=== PATIENT | female | born 1960 | race Caucasian/White ===

== ENCOUNTER → 2020-01-09 13:40 | Outpatient (BNVA) | payer MEDICARE, MEDICAID, SELFPAY | PROVIDERS: PCP Internal Medicine; Referring Provider Internal Medicine; Visit Provider Physician Assistant Medical | DX: Z76.89 Persons encountering health services in other specified circumstances (principal) ==

== ENCOUNTER 2020-01-21 07:57 | Outpatient (REF) | payer MEDICARE, SELFPAY ==
[2020-01-21 09:02] LABS: Cholesterol 289 mg/dL; HDL Cholesterol 48 mg/dL; LDL Cholesterol Calculated 207 mg/dl; Triglycerides 171 mg/dL
[2020-01-21 09:26] LABS: Thyroid Stimulating Hormone 7.47 mIU/mL (0.32-4.0)
[2020-01-21 09:37] LABS: T4 Thyroxine 4.3 ug/dL (4.5-12.0)
== END 2020-01-21 07:58 | disposition home or self-care (01) ==
LOC: HO.LAB 07:57
PROVIDERS: PCP Internal Medicine; Visit Provider Internal Medicine
DX: E03.9 Hypothyroidism, unspecified (principal)
CPT/HCPCS: 80061; 84436; 84443

== ENCOUNTER 2020-02-02 10:44 | Outpatient (REF) | payer OTHER, SELFPAY ==
--- NOTE | 2020-02-02 10:47 | CT_ITS ---
EXAMINATION: CT CHEST SCREENING CLINICAL INFORMATION: Lung cancer screening COMPARISON: Previous chest x-ray April 2017 and chest CTA 2009 TECHNIQUE: Multidetector volumetric CT imaging of the chest is performed without contrast using low dose technique. Additional 2D coronal and sagittal reformatted images and axial 3D maximum intensity projection (MIP) images are generated on the CT workstation. This CT examination was performed using dose optimization techniques as appropriate, variously including the following: *Automated exposure control *Adjustment of mA and/or kV according to patient size (this includes techniques or standardized protocols for targeted exams where dose is matched to indication/reason for exam; i.e. extremities or head) *Use of iterative reconstruction technique DLP: 51 mGy-cm FINDINGS: LUNGS: There is evidence of mild paraseptal emphysema. MEDIASTINUM: The mediastinum is normal. PLEURA: There is no pleural effusion. There is slight pleural thickening along the major fissure axial image 239 series 5. This is similar to previous exam AXILLA: No lymphadenopathy. UPPER ABDOMEN: There may be cortical thinning or scarring in the upper pole of the right kidney. OSSEOUS STRUCTURES: There are degenerative changes of the spine. CT/CT lung screening IMPRESSION: Mild paraseptal emphysema. No pulmonary nodules. Mild pleural thickening of the major fissure similar to previous exam. ASSESSMENT: Lung-RADS category 2: Benign RECOMMENDATION: Annual low-dose chest CT follow-up recommended.
== END 2020-02-02 10:45 | disposition home or self-care (01) ==
LOC: HO.CT 10:44
PROVIDERS: Visit Provider Physician Assistant Medical
DX: Z12.2 Encounter for screening for malignant neoplasm of respiratory organs (principal); F17.210 Nicotine dependence, cigarettes, uncomplicated
CPT/HCPCS: 71250

== ENCOUNTER 2020-02-17 08:46 | Outpatient (REF) | payer MEDICARE, SELFPAY ==
--- NOTE | 2020-02-17 07:35 | FL_ITS ---
EXAMINATION: XR FLUOROSCOPY WITH IMAGES CLINICAL INFORMATION: Pain, osteoarthritis. COMPARISON: Radiograph pelvis 12/22/2019 TECHNIQUE: Fluoroscopy performed by Ally Espinosa NP. Fluoroscopy time: 0.2 minutes Total dose: 6.6 mGy Images: 1 FINDINGS: There is a spinal needle with tip overlying the superolateral aspect left hip. Intracapsular contrast is demonstrated. FL/FL guidance in treatment room IMPRESSION: Fluoroscopy for hip injection.
[2020-02-17 12:00] LABS: Free T4 (Free Thyroxine) 0.75 ng/dL (0.71-1.85); Thyroid Stimulating Hormone 3.94 uIU/mL (0.32-4.0); Vitamin D 25-OH Total 13.4 ng/mL (>30)
[2020-02-17 12:07] LABS: Cholesterol 313 mg/dL; HDL Cholesterol 48 mg/dL; LDL Cholesterol Calculated 234 mg/dl; Triglycerides 156 mg/dL
[2020-02-18 17:52] LABS: LDL Cholesterol Direct 247 mg/dL (<100)
[2020-02-18 19:27] LABS: Triiodothyronine T3 Total 64 ng/dL (76-181)
[2020-02-18 21:48] LABS: Thyroglobulin Antibodies <1 IU/mL (< or = 1); Thyroid Peroxidase Antibodies <1 IU/mL (<9)
[2020-02-23 15:11] LABS: Thyroid Stimulating Immunoglob <89 % baseline (<140)
[2020-02-24 15:37] LABS: Thyrotropin Receptor Antibody <1.00 IU/L (<=2.00)
== END 2020-02-17 08:47 | disposition home or self-care (01) ==
LOC: HO.RADIR 08:46
PROVIDERS: PCP Internal Medicine; Referring Provider Internal Medicine; Visit Provider Anesthesiology
DX: M16.12 Unilateral primary osteoarthritis, left hip (principal); E78.00 Pure hypercholesterolemia, unspecified; E03.9 Hypothyroidism, unspecified; E55.9 Vitamin D deficiency, unspecified
CPT/HCPCS: 20610; 36415; 80061; 82172; 82306; 83520; 83721; 84439; 84443; 84445; 84480; 86376; 86800; J3300; Q9967

== ENCOUNTER 2020-03-17 09:59 | Outpatient (REF) | payer MEDICARE, SELFPAY ==
--- NOTE | 2020-03-17 13:01 | MHC.AU.P13 ---
Adult Audiological Evaluation Date of Visit: 03/17/20 Reason for Appointment: Patient has been experiencing hearing difficulty, especially in background noise or when people are talking softly. She finds that she reads people's lips to help follow along in conversation. She reports a history of cerumen occlusion. Her PCP recently removed cerumen; however, she suspects her right ear may be blocked again. Does patient feel they have a hearing loss?: Yes If Yes, Which Ear?: Both Ears When Was Hearing Difficulty First Noticed?: Over 1 year ago Has hearing been tested previously?: No Ear History: Ear Deformity: None Reported Recent Ear Drainage: None Reported Recent Ear Pain: None Reported Family History of Hearing Loss?: Yes: Grandmother at age 16 Recent Ear Infections: None Reported Ear Infections in Childhood: None Reported History of Ear Wax Buildup: Both Ears Previous Ear Surgery: None Reported Bothersome Tinnitus/Ringing/Noises in Ears: None Reported Ear used on the phone: None Reported Blocked/Full Sensation in Ear(s): Right Ear Medical History: Medical History: Thyroid Disease, Tobacco Use Otoscopy: Right Ear: Partially occluded with cerumen Left Ear: Unremarkable Tympanometry: Right Ear: Reduced Middle Ear Compliance (Type As) Left Ear: Reduced Middle Ear Compliance (Type As) Hearing Evaluation: Transducer(s) Used: Circumaural Headphones Method: Conventional Audiometry Stimuli Used: Pure Tones Right Ear: Description of Hearing: Normal sloping to mild sensorineural hearing loss Left Ear: Description of Hearing: Normal sloping to mild sensorineural hearing loss Speech Recognition Threshold (SRT): Method Used: Recorded Lists Stimuli Used: Spondee Words Right Ear: 20 dBHL Left Ear: 20 dBHL Word Discrimination: Method: Recorded Lists Word Lists Used: NU-6 Right Ear: 100% at 60 dBHL Left Ear: 100% at 60 dBHL Most Comfortable Level (MCL): Right Ear: 60 dBHL Left Ear: 60 dBHL QuickSIN: 3 dB SNR loss, which suggests average difficulty hearing in noise Recommendations: Audiological re-evaluation in 1-2 years, or sooner if changes are noted. Amplification is not warranted at this time. Patient reports using Debrox to help with cerumen. Suggested EarWaxMD, if Debrox does not seem to be meeting her needs. Diagnosis: Primary Diagnosis: H90.3 Bilateral Sensorineural Hearing Loss Services Performed: Services Performed: Comprehensive Audiological Evaluation (CPT 52771) Limited Otoacoustic Emissions (CPT 90017) Tympanometry (CPT 75309) Signature: Provider: Edgardo Mendez, CCC-A
== END 2020-03-17 10:00 | disposition home or self-care (01) ==
LOC: HO.SH 09:59
PROVIDERS: Visit Provider Internal Medicine
DX: H90.3 Sensorineural hearing loss, bilateral (principal)
CPT/HCPCS: 92557; 92567

== ENCOUNTER → 2020-03-29 07:56 | Outpatient (BNVA) | payer MEDICARE, MEDICAID, SELFPAY | PROVIDERS: PCP Internal Medicine; Visit Provider Internal Medicine | DX: Z13.89 Encounter for screening for other disorder (principal) | CPT/HCPCS: Q3014 ==

== ENCOUNTER → 2020-03-31 09:25 | Outpatient (BNVA) | payer OTHER, SELFPAY | PROVIDERS: PCP Internal Medicine; Visit Provider Anesthesiology | DX: M76.30 Iliotibial band syndrome, unspecified leg (principal); M16.11 Unilateral primary osteoarthritis, right hip | CPT/HCPCS: 99202 ==

== ENCOUNTER 2020-04-13 07:52 | Outpatient (REF) | payer OTHER, SELFPAY ==
[2020-04-13 09:33] LABS: Thyroid Stimulating Hormone 3.58 uIU/mL (0.32-4.0)
== END 2020-04-13 07:53 | disposition home or self-care (01) ==
LOC: HO.LAB 07:52
PROVIDERS: PCP Internal Medicine; Visit Provider Internal Medicine
DX: E03.9 Hypothyroidism, unspecified (principal)
CPT/HCPCS: 36415; 84439; 84443

== ENCOUNTER → 2020-05-20 09:12 | Outpatient (REF) | payer OTHER, SELFPAY ==
--- NOTE | 2020-05-20 09:15 | CA_ITS ---
Acquisition Time: 2020-05-20 09:27:04 Total Exercise Time: 00:04:26 Test Indications: CP Medications: SEE CHART Protocol: BIRDIE Max HR: 136 BPM 84% of Pred: 161 BPM Max BP: 184/070 mmHG Max Work Load: 6.3 METS Exercise stress test using Birdie protocol, total of 4 min 26 sec. C/o chest pressure before the exercise 2/10 that has not changed during exercise. EKG with isolated PVC's. Pt c/o dizziness, SOB and test was terminated at 4 min 26 sec. METS 6.30 and TAPHR up to 84%. EKG with isolated PVC's. No ischemic chages seen during exercise or in recovery. However suboptimal test as pt was unable to finish her test d/t dyspnia and dizziness. Hypertensive response to exercise. Test reviewed with Dr Pleitez. Recommendation to do pharmacological stress test, family hx of CAD, hx of smoking, CP Referred By: Marylin Kaba Overread By:
== END ==
LOC: HO.CARD 09:12
PROVIDERS: PCP Internal Medicine; Visit Provider Internal Medicine
DX: R07.9 Chest pain, unspecified (principal)
CPT/HCPCS: 93016; 93017; 93018

== ENCOUNTER 2020-05-25 08:41 | Outpatient (REF) | payer OTHER, SELFPAY ==
[2020-05-26 06:37] LABS: Lyme Abs Screen <0.90 index
== END 2020-05-25 08:42 | disposition home or self-care (01) ==
LOC: HO.LAB 08:41
PROVIDERS: PCP Internal Medicine; Visit Provider Internal Medicine
DX: M79.10 Myalgia, unspecified site (principal)
CPT/HCPCS: 36415; 86618

== ENCOUNTER → 2020-05-31 08:00 | Outpatient (BNVA) | payer OTHER, SELFPAY | PROVIDERS: PCP Internal Medicine; Visit Provider Internal Medicine | DX: E03.9 Hypothyroidism, unspecified (principal); E78.5 Hyperlipidemia, unspecified; E55.9 Vitamin D deficiency, unspecified | CPT/HCPCS: 99212 ==

== ENCOUNTER 2020-06-02 07:04 | Outpatient (REF) | payer OTHER, SELFPAY ==
[2020-06-02 08:26] LABS: Thyroid Stimulating Hormone 4.93 uIU/mL (0.32-4.0); Vitamin D 25-OH Total 54.2 ng/mL (>30)
[2020-06-03 08:02] LABS: Triiodothyronine T3 Total 69 ng/dL (76-181)
== END 2020-06-02 07:05 | disposition home or self-care (01) ==
LOC: HO.LAB 07:04
PROVIDERS: PCP Internal Medicine; Visit Provider Internal Medicine
DX: E03.9 Hypothyroidism, unspecified (principal); E55.9 Vitamin D deficiency, unspecified
CPT/HCPCS: 36415; 82306; 84439; 84443; 84480

== ENCOUNTER → 2020-07-09 08:01 | Outpatient (REF) | payer OTHER, SELFPAY ==
--- NOTE | ~2020-07-09 | NM_ITS ---
Lexiscan Myocardial perfusion study Indication: Chest pain, assess for coronary disease and ischemia Technique: The patient was brought in for a Lexiscan perfusion study on 07/09/2020 and was injected 0.4 mg of Lexiscan intravenously. Within a minute of this injection 25 mCi of sestamibi was given intravenously. Images were obtained using the SPECT gamma camera interlaced with the gating device. Images were obtained in supine position. Resting perfusion study was performed on 07/13/2020. Patient was administered 25 mCi of sestamibi intravenously at rest. Images were then obtained in supine position. Total DLP 63mGy-cm. Images were processed with the software and compared side to side in short axis, horizontal long axis and vertical long axis views. Findings: Raw acquisition was reviewed. The stress perfusion study showed no significant perfusion abnormality. Both uncorrected as well as CT attenuation corrected images were reviewed. The gated study shows normal LV systolic function with calculated LVEF of 72%. LV cavity is normal in size. The gated study shows normal wall thickening and contraction of segments. Resting study shows no significant perfusion abnormality. Gating at rest reveals normal wall motion with ejection fraction at 67%. The findings are consistent with no reversible or fixed perfusion abnormality. NM/NM hillary perf SPECT rest & str Impression: 1. Myocardial perfusion imaging study shows normal myocardial perfusion. No evidence of any ischemia or infarction. 2. Gated LVEF is 72% during stress and 67% during rest. 3. Transient ischemic dilatation not present. EKG component of the test reported separately.
--- NOTE | 2020-07-09 08:03 | CA_ITS ---
Acquisition Time: 2020-07-09 08:17:38 Total Exercise Time: 00:02:00 Test Indications: Chest Pain Medications: ALBUTEROL SOMA REPATHA BREO ELLIPTA LEVOTHYROXINE PERCOCET Protocol: LEXISCAN Max HR: 108 BPM 67% of Pred: 161 BPM Max BP: 120/078 mmHG Max Work Load: 1.0 METS Pharmacological stress test using Lexiscan while sitting and kicking her feet. Pt reports feeling dizzy, sx reversed with Aminophyline 75 mg IV. Denies any anginal sx. EKG without arrhythmias, non-diagnostic for ischemia. Nuclear images to follow. Normotensive response to test. Test reviewed with Dr. Storm. Referred By: Marylin Kaba Overread By: Katie Albright NP
== END ==
LOC: HO.CARD 08:01
PROVIDERS: Visit Provider Internal Medicine
DX: R07.9 Chest pain, unspecified (principal)
CPT/HCPCS: 78452; 93017; A9500; J0280; J2785

== ENCOUNTER 2020-07-30 06:34 | Outpatient (REF) | payer OTHER, SELFPAY ==
[2020-07-30 07:30] LABS: Alanine Aminotransferase 14 U/L (0-31); Albumin Level 4.2 g/dL (3.5-5.0); Alkaline Phosphatase 64 U/L (39-117); Anion Gap 12 (12-20); Aspartate Amino Transferase 28 U/L (5-31); Bilirubin Total 0.5 mg/dL (0.0-1.0); Blood Urea Nitrogen 17 mg/dL (9-16); Carbon Dioxide 20 mmol/L (22-29); Chloride 114 mmol/L (96-108); Cholesterol 148 mg/dL; Estimated Glomerular Filt Rate 55; Glucose Random 107 mg/dL (60-115); HDL Cholesterol 60 mg/dL; LDL Cholesterol Calculated 68 mg/dl; Potassium 4.2 mmol/L (3.3-5.1); Sodium 142 mmol/L (135-145); Total Protein 6.6 g/dL (6.5-8.0); Triglycerides 100 mg/dL
[2020-07-30 07:53] LABS: Free T4 (Free Thyroxine) 0.89 ng/dL (0.71-1.85); Thyroid Stimulating Hormone 2.82 uIU/mL (0.32-4.0)
[2020-07-31 06:48] LABS: LDL Cholesterol Direct 62 mg/dL (<100)
[2020-07-31 07:56] LABS: Triiodothyronine T3 Total 64 ng/dL (76-181)
== END 2020-07-30 06:35 | disposition home or self-care (01) ==
LOC: HO.LAB 06:34
PROVIDERS: PCP Internal Medicine; Visit Provider Internal Medicine
DX: E03.9 Hypothyroidism, unspecified (principal); E78.5 Hyperlipidemia, unspecified
CPT/HCPCS: 36415; 80053; 80061; 83721; 84439; 84443; 84480

== ENCOUNTER → 2020-08-02 07:51 | Outpatient (BNVA) | payer OTHER, SELFPAY | PROVIDERS: PCP Internal Medicine; Visit Provider Internal Medicine | CPT/HCPCS: Q3014 ==

== ENCOUNTER 2020-08-02 09:25 | Emergency (ER) | payer OTHER, SELFPAY ==
[2020-08-02 09:59] VITALS: BP 133/98; PULSE 68; RESP 16; TEMP 36.6; O2SAT 97; BMI 28.3
[2020-08-02 10:20] LABS: MANUAL DIFF FLAG NO
[2020-08-02 10:26] LABS: Prothrombin Time 11.3 SEC (10.8-13.0)
[2020-08-02 10:28] LABS: Basophils Percent Auto 0.5 % (0-2); Eosinophils Absolute Auto 0.1 X10*3/uL (0.0-0.4); Eosinophils Percent Auto 1.3 % (0-4); Hematocrit 41.6 % (37-47); Imm Gran Abs Auto 0.04 X10*3/uL (0.00-0.03); Imm Gran Pct Auto 0.5 % (0.0-0.4); Lymphocytes Absolute Auto 2.2 X10*3/uL (1.2-4.9); Lymphocytes Percent Auto 25.8 % (20-40); Mean Corpuscular HGB Conc 33.7 g/dl (31.0-35.0); Mean Corpuscular Hemoglobin 31.1 pg (27.0-33.0); Mean Corpuscular Volume 92.4 fL (80-98); Mean Platelet Volume 9.3 fL (9.4-12.3); Monocytes Absolute Auto 0.5 X10*3/uL (0.1-1.2); Neutrophils Absolute Auto 5.6 X10*3/uL (2.0-8.3); Neutrophils Percent Auto 65.9 % (45-73); Platelet Count 300 X10*3/uL (160-400); Red Cell Distribution Width 13.7 % (11.0-16.0); White Blood Count 8.5 X10*3/uL (4.8-10.8)
[2020-08-02 10:48] LABS: Anion Gap 15 (12-20); Blood Urea Nitrogen 16 mg/dL (9-16); Calcium 9.6 mg/dL (8.4-10.2); Carbon Dioxide 22 mmol/L (22-29); Chloride 108 mmol/L (96-108); Estimated Glomerular Filt Rate 49; Glucose Random 96 mg/dL (60-115); Potassium 4.5 mmol/L (3.3-5.1); Sodium 140 mmol/L (135-145)
--- NOTE | 2020-08-02 11:00 | ED.ABDPAIN ---
HPI - Abdominal Pain General Chief Complaint: Abdominal Pain Stated Complaint: rectal bleed Time Seen by Provider: 08/02/20 11:00 Source: patient Mode of arrival: ambulatory Limitations: no limitations History of Present Illness HPI narrative: 59 yo female with hx of Crohn's and UC comes in with brb on toilet paper only - some cramping doesn't feel it is her colitis, no AC therapy no NSAIDs blames new medication (evolocumab) MD elicited complaint: abdominal pain and other (brb on toilet paper) Pertinent past history: other (colitis but last colonoscopy normal 1.5 year ago after doing naturopathic medications) Onset (ago): day(s) (1) Pain Consistency: intermittent Location: none Severity: mild Quality: fullness Radiation: none Migration to: no migration Exacerbating factors: bowel movement Relieving factors: nothing Context: history of similar episodes Associated symptoms: hematochezia Related Data Home Medications Medication Instructions Recorded Confirmed albuterol sulfate 2.5 mg INHALATION Q4-6H PRN 02/06/20 08/02/20 fluticasone propionate 50 2 spray INTRANASAL DAILY 02/06/20 08/02/20 mcg/actuation nasal spray,suspension Previous Rx's Medication Instructions Recorded cholecalciferol (vitamin D3) 50 50 mcg PO DAILY 30 Days #30 cap 03/29/20 mcg (2,000 unit) capsule evolocumab 140 mg/mL subcutaneous 140 mg SUBCUT Q2W 30 Days #2 ml 05/24/20 pen injector Tirosint 50 mcg capsule 50 mcg PO DAILY 30 Days #30 cap NS 06/02/20 fluticasone furoate 200 1 ea PO DAILY #60 ea 07/07/20 mcg-vilanterol 25 mcg/dose inhalation powder albuterol sulfate 90 mcg/actuation 2 puff PO Q4H PRN #18 g 07/08/20 aerosol inhaler carisoprodol 350 mg tablet 350 mg PO BID PRN 30 Days #50 tab 07/08/20 Allergies Allergy/AdvReac Type Severity Reaction Status Date / Time atorvastatin Allergy Unknown Cramps Verified 08/02/20 08:41 barium sulfate Allergy Unknown sore throat Verified 08/02/20 08:41 omeprazole Allergy Unknown diarrhea Verified 08/02/20 08:41 rosuvastatin Allergy Unknown Unknown Verified 08/02/20 08:41 simvastatin Allergy Unknown unknown Verified 08/02/20 08:41 varenicline [From Chantix] Allergy Unknown sore throat Verified 08/02/20 08:41 Review of Systems Review of Systems Constitutional : No Weight loss, No Fever, No Chills ENT/Mouth : No sore throat, No Rhinorrhea Eyes: No Swelling, No Redness Cardiovascular : No Chest Pain, No SOB, NoEdema Respiratory : No Cough, No Sputum, No Wheezing Gastrointestinal : no Nausea, no Vomiting, no Diarrhea, positive abdominal Pain, pos Hematochezia, No Melena Genitourinary : No Dysuria, No Urinary Frequency, No Hematuria, No Urgency Musculoskeletal : No joint pain, No Myalgias, No Joint Swelling Skin : No Skin Lesions, No rash Neuro : No Weakness, No Numbness, No Dizziness, No Headache Psych : No Anxiety/Panic, No Depression Heme/Lymph: No Bruising, No Lymphadenopathy Endocrine : No Polyuria, No Polydipsia All other systems reviewed and are negative. Physical Exam Vital Signs: Vital Signs: Last Vital Signs Temp 98 F 08/02/20 09:59 Pulse 68 08/02/20 09:59 Resp 16 08/02/20 09:59 BP 133/98 H 08/02/20 09:59 Pulse Ox 97 08/02/20 09:59 Body Mass Index 28.3 Appearance: Alert. Oriented X3. No acute distress. Eyes: Pupils equal, round and reactive to light. ENT: Pharynx normal. Neck: Normal inspection. Neck supple. CVS: Normal heart rate and rhythm. Pulses normal. Respiratory: No respiratory distress. Breath sounds normal. Abdomen: Soft and nontender. Rectal: nonthrombosed non bleeding ext hemorrhoids, dried brb on rectum Skin: Skin warm and dry. Normal skin color. Normal skin turgor. Extremities: No lower extremity edema. No calf ttp Neuro: Oriented X 3. No motor deficit. No sensory deficit. MDM - Abdominal Pain MDM Narrative Medical decision making narrative: 59 yo female here with brbpr since yesterday some cramping pain but denies that if feels like her prior colitis, she has dried blood on rectum, stable VS, discussed need for CT scan for GIB as well as colitis - at this time patient wants to leave and follow up with her GI doctor and PCP, told her to come back at any time she is aware Lab Data Result diagrams: 08/02/20 10:15 08/02/20 10:15 Labs: Lab Results 08/02/20 08/02/20 08/02/20 Range/Units 10:15 10:15 10:15 WBC 8.5 (4.8-10.8) X10*3/uL RBC 4.50 (4.20-5.50) X10*6/uL Hgb 14.0 (12.0-16.0) g/dl Hct 41.6 (37-47) % MCV 92.4 (80-98) fL MCH 31.1 (27.0-33.0) pg MCHC 33.7 (31.0-35.0) g/dl RDW 13.7 (11.0-16.0) % Plt Count 300 (160-400) X10*3/uL MPV 9.3 L (9.4-12.3) fL Immature Gran % (Auto) 0.5 H (0.0-0.4) % Neut % (Auto) 65.9 (45-73) % Lymph % (Auto) 25.8 (20-40) % Liberty % (Auto) 6.0 (2-11) % Eos % (Auto) 1.3 (0-4) % Baso % (Auto) 0.5 (0-2) % Lymph # (Auto) 2.2 (1.2-4.9) X10*3/uL Liberty # (Auto) 0.5 (0.1-1.2) X10*3/uL Eos # (Auto) 0.1 (0.0-0.4) X10*3/uL Baso # (Auto) 0.0 (0.0-0.2) X10*3/uL Abs Immat Gran (auto) 0.04 H (0.00-0.03) X10*3/uL Absolute Neuts (auto) 5.6 (2.0-8.3) X10*3/uL Absolute Nucleated RBC 0.000 (0.0-0.012) X10*3/uL Nucleated RBC % (auto) 0.0 (0.0-0.2) /100WBC PT 11.3 (10.8-13.0) SEC INR 1.0 (0.9-1.1) Sodium 140 (135-145) mmol/L Potassium 4.5 (3.3-5.1) mmol/L Chloride 108 (96-108) mmol/L Carbon Dioxide 22 (22-29) mmol/L Anion Gap 15 (12-20) BUN 16 (9-16) mg/dL Creatinine 1.13 (0.5-1.4) mg/dL Estim Creat Clear Calc 55.0 Estimated GFR 49 Random Glucose 96 (60-115) mg/dL Calcium 9.6 D (8.4-10.2) mg/dL Discharge Plan Discharge Clinical Impression: Bright red rectal bleeding Patient Disposition: Home, Self-Care Instructions: Rectal Bleeding (ED) Additional Instructions: return to ED for any worsening symptoms or concerns come back at any time for further workup and CT scan please call your doctor today Prescriptions: No Action Repatha SureClick 140 mg/mL pen injector 140 mg subcut Q2W 30 Days Qty: 2 RF: 11 levothyroxine [Tirosint] 50 mcg capsule 50 mcg PO DAILY 30 Days Qty: 30 RF: 3 fluticasone furoate-vilanterol [Breo Ellipta] 200-25 mcg/dose blister with device 1 ea PO DAILY Qty: 60 RF: 11 carisoprodol 350 mg tablet 350 mg PO BID PRN (Reason: muscle pain) 30 Days Qty: 50 RF: 2 albuterol sulfate [Ventolin HFA] 90 mcg/actuation HFA aerosol inhaler 2 puff PO Q4H PRN (Reason: bronchospasm) Qty: 18 RF: 0 albuterol sulfate 2.5 mg /3 mL (0.083 %) solution for nebulization 2.5 mg inhalation Q4-6H PRNRF: 0 fluticasone propionate 50 mcg/actuation spray,suspension 2 spray intranasal DAILY RF: 0 cholecalciferol (vitamin D3) 50 mcg (2,000 unit) capsule 50 mcg PO DAILY 30 Days Qty: 30 RF: 11 Interventions: ED Discharge Assessment Last Done: 08/02/20 11:16 Discharge Date/Time: 08/02/20 11:16 [facility] Past Medical History Attestation statement: The following information was validated with the patient. Medical History Anxiety and depression COPD (chronic obstructive pulmonary disease) Crohn's disease Degenerative disc disease, lumbar GERD (gastroesophageal reflux disease) Hip osteoarthritis HLD (hyperlipidemia) Hypercholesterolemia Hypothyroidism Iliotibial band syndrome Nicotine dependence, cigarettes, uncomplicated Osteoarthritis of left hip Osteoarthritis of right hip Rectal bleeding S/P right hip fracture Vitamin D deficiency Surgical History History of foot surgery History of hand surgery History of hip replacement History of shoulder surgery History of total right hip arthroplasty History of tubal ligation Family History Family History Father Bladder cancer Mother Acute CVA (cerebrovascular accident) Stroke CVD (cardiovascular disease) Thyroid disease Brother Renal cell cancer Acute CVA (cerebrovascular accident) Family/Other Alcoholism Social History Social History Alcohol intake: current Smoking Status: Current every day smoker Packs Per Day: 1 Advance Directives: No Advance Directives Information Provided: No Patient : No
[2020-08-02 12:55] LABS: Alanine Aminotransferase 18 U/L (0-31); Albumin Level 4.5 g/dL (3.5-5.0); Alkaline Phosphatase 71 U/L (39-117); Aspartate Amino Transferase 26 U/L (5-31); Bilirubin Direct 0.2 mg/dL (0.0-0.5); Bilirubin Total 0.5 mg/dL (0.0-1.0); Lipase 69 U/L (8-78)
== END 2020-08-02 11:16 | disposition home or self-care (01) ==
PROVIDERS: Emergency Provider Emergency Medicine; PCP Internal Medicine
DX: K62.5 Hemorrhage of anus and rectum (principal); E78.5 Hyperlipidemia, unspecified; F17.210 Nicotine dependence, cigarettes, uncomplicated
CPT/HCPCS: 36415; 80048; 80076; 83690; 85025; 85610; 96360; 96361; 99282; 99284

== ENCOUNTER → 2020-09-07 09:57 | Outpatient (BNVA) | payer OTHER, SELFPAY | PROVIDERS: PCP Internal Medicine; Visit Provider Advanced Practice Midwife | DX: Z01.419 Encounter for gynecological examination (general) (routine) without abnormal findings (principal); F17.200 Nicotine dependence, unspecified, uncomplicated | CPT/HCPCS: 81003 ==

== ENCOUNTER 2020-10-18 09:11 | Outpatient (REF) | payer OTHER, SELFPAY ==
--- NOTE | ~2020-10-18 | MM_ITS ---
EXAMINATION: MM SCREENING DIGITAL BREAST TOMOSYNTHESIS, BILATERAL CLINICAL INFORMATION: Screening. Asymptomatic. The lifetime risk of breast cancer based on the Tyrer-Cuzick Model is 5%. COMPARISON: Mammography: 10/13/2019, 07/09/2018, 06/08/2017 TECHNIQUE: Digital breast tomosynthesis is performed in both the craniocaudal and mediolateral oblique views along with computer-aided detection (CAD). Synthesized 2D images are generated from the tomosynthesis. FINDINGS: There are scattered areas of fibroglandular density (ACR BI-RADS breast composition Category b). There are no significant masses, abnormal calcifications, or other abnormalities. The axilla and skin contours are unremarkable. Parenchymal pattern is similar to prior studies. MM/MM tomosynthesis screening BI IMPRESSION: No mammographic evidence of malignancy. ASSESSMENT: BI-RADS 1: Negative RECOMMENDATION: Routine annual mammography screening. This patient's information was entered into a reminder system with a target due date for their next mammogram.
== END 2020-10-18 09:12 | disposition home or self-care (01) ==
LOC: HO.MAMMO 09:11
PROVIDERS: PCP Internal Medicine; Visit Provider Internal Medicine
DX: Z12.31 Encounter for screening mammogram for malignant neoplasm of breast (principal)
CPT/HCPCS: 77063; 77067

== ENCOUNTER 2020-12-20 08:50 | Emergency (ER) | payer OTHER, SELFPAY ==
--- NOTE | ~2020-12-20 | CT_ITS ---
EXAMINATION: CT ABDOMEN AND PELVIS WITH CONTRAST CLINICAL INFORMATION: Left upper quadrant pain COMPARISON: CT lung screening 02/02/2020 TECHNIQUE: Multidetector volumetric images were obtained from the superior aspect of the liver through the pubic symphysis following administration 85 mL of Omnipaque 350 intravenous contrast. Sagittal and coronal reformatted images were obtained on the technologist's workstation. Oral contrast: No This CT examination was performed using dose optimization techniques as appropriate, variously including the following: *Automated exposure control *Adjustment of mA and/or kV according to patient size (this includes techniques or standardized protocols for targeted exams where dose is matched to indication/reason for exam; i.e. extremities or head) *Use of iterative reconstruction technique DLP: 631 mGy-cm FINDINGS: Limited visualization of pelvis secondary to beam hardening artifact from right hip prosthesis. LUNG BASES: There is dependent bilateral lung bases. The heart size is normal. LIVER, GALLBLADDER, AND BILIARY TREE: The liver is enlarged in size, normal in shape, and normal attenuation. It measures 20 cm in craniocaudad length. There is a focal hypodensity seen in the left hepatic lobe and adjacent to the ligament teres measuring 1 cm likely focal fatty infiltration. Best visualized on axial image 27/3. No biliary ductal dilatation is present. The gallbladder is unremarkable with no evidence of radiopaque gallstones, gallbladder wall thickening, or obvious pericholecystic inflammatory changes. PANCREAS: Unremarkable. SPLEEN: Unremarkable. ADRENAL GLANDS: Unremarkable. KIDNEYS AND URETERS: The kidneys are normal in size, shape, and attenuation. No hydronephrosis, hydroureter, or calculi seen. No perinephric stranding. There is mild cortical thinning upper poles of bilateral kidneys. BLADDER: Unremarkable. GASTROINTESTINAL TRACT: There is scattered stool and gas seen throughout the colon without distention. There are scattered diverticuli in the colon. There are air-fluid levels seen in the proximal small bowel loops but without distention. The mid and the distal stem small bowel segments are normal. The stomach is nondistended. ABDOMINAL WALL: No significant hernia is appreciated. LYMPH NODES: Normal. VASCULAR: There is mild atherosclerotic changes of abdominal aorta without aneurysmal dilatation. PELVIC VISCERA: There is no free air or free fluid. The uterus is anteverted and appears unremarkable. OSSEOUS STRUCTURES: Moderate degenerative disc changes with vacuum disc phenomena and mild ventral spondylosis L5-S1 disc level. No lytic or sclerotic process seen.. CT/CT abdomen pelvis w con IMPRESSION: No left upper quadrant abnormality seen to explain any patient's symptoms. Hepatomegaly with mild focal fatty infiltration left hepatic lobe adjacent to the ligament teres. Bilateral upper pole small cortical defects inflammatory changes or infarcts. Mild constipation with scattered colonic diverticulosis without diverticulitis.
--- NOTE | ~2020-12-20 | XR_ITS ---
EXAMINATION: XR CHEST CLINICAL INFORMATION: Left upper quadrant pain. Question pneumonia. COMPARISON: Previous CT January 2011 and chest x-ray April 2017 TECHNIQUE: Frontal view of the chest was obtained. FINDINGS: No significant abnormality is noted involving the heart, lungs, mediastinum, bony thorax or soft tissues. XR/XR chest 1V IMPRESSION: Unremarkable examination.
[2020-12-20 09:13] VITALS: BP 128/67; PULSE 74; RESP 18; O2SAT 96; BMI 27.4
[2020-12-20 09:16] VITALS: TEMP 36.9
--- NOTE | 2020-12-20 09:26 | ECG_ITS ---
Test Reason : ABD PAIN Blood Pressure : / mmHG Vent. Rate : 075 BPM Atrial Rate : 075 BPM P-R Int : 198 ms QRS Dur : 080 ms QT Int : 384 ms P-R-T Axes : 065 047 056 degrees QTc Int : 428 ms Normal sinus rhythm Normal ECG When compared with ECG of 29-DEC-2016 10:47, No significant change was found Referred By: Ramon Pritchard Electronically Signed By:CARMELA BROOKE
--- NOTE | 2020-12-20 09:49 | ED_ITS ---
HPI - Abdominal Pain General Chief Complaint: Abdominal Pain Stated Complaint: ABD PAIN Time Seen by Provider: 12/20/20 09:05 Source: patient Mode of arrival: ambulatory Limitations: no limitations History of Present Illness HPI narrative: Patient presents to ED for left upper quadrant pain for the past 3-4 days with nausea and diarrhea. Patient states history of hiatal hernia, GERD, and Crohn's in the past. Patient states she has not any medication for Crohn's. Patient does take medical marijuana that alleviates symptoms. Patient also states she changed her diet. Patient denies any lower abdominal pain, dysuria, hematuria, flank pain, fever, chills. Patient denies any chest pain inspiration. MD elicited complaint: abdominal pain Related Data Home Medications Medication Instructions Recorded Confirmed albuterol sulfate 2.5 mg INHALATION Q4-6H PRN 02/06/20 08/02/20 fluticasone propionate 50 2 spray INTRANASAL DAILY 02/06/20 08/02/20 mcg/actuation nasal spray,suspension Previous Rx's Medication Instructions Recorded cholecalciferol (vitamin D3) 50 50 mcg PO DAILY 30 Days #30 cap 03/29/20 mcg (2,000 unit) capsule evolocumab 140 mg/mL subcutaneous 140 mg SUBCUT Q2W 30 Days #2 ml 05/24/20 pen injector (Repemilie Carboneick) fluticasone furoate 200 1 ea PO DAILY #60 ea 07/07/20 mcg-vilanterol 25 mcg/dose inhalation powder (Breo Ellipta) albuterol sulfate 90 mcg/actuation 2 puff PO Q4H PRN #18 g 07/08/20 aerosol inhaler (Ventolin HFA) carisoprodol 350 mg tablet 350 mg PO BID PRN 30 Days #50 tab 09/29/20 Tirosint 50 mcg capsule 50 mcg PO DAILY #30 cap NS 10/27/20 (levothyroxine) Allergies Allergy/AdvReac Type Severity Reaction Status Date / Time atorvastatin Allergy Unknown Cramps Verified 09/07/20 10:10 barium sulfate Allergy Unknown sore throat Verified 09/07/20 10:10 omeprazole Allergy Unknown diarrhea Verified 09/07/20 10:10 rosuvastatin Allergy Unknown Unknown Verified 09/07/20 10:10 simvastatin Allergy Unknown unknown Verified 09/07/20 10:10 varenicline [From Chantix] Allergy Unknown sore throat Verified 09/07/20 10:10 Review of Systems Review of Systems Yes all other systems are reviewed and are negative Constitutional: Reports as per HPI and Reports no additional constitutional complaints Eyes: Reports as per HPI and Reports no additional eye complaints Reports system reviewed and no additional complaints, except as documented and Reports as per HPI Cardiovascular: Reports as per HPI and Reports no additional cardiovascular complaints Respiratory: Reports as per HPI and Reports no additional respiratory complaints Gastrointestinal: Reports as per HPI, Reports no additional gastrointestinal complaints, Reports abdominal pain (Left upper quadrant pain), Reports diarrhea and Reports nausea Genitourinary: Reports no additional female genitourinary complaints and Reports as per HPI Musculoskeletal: Reports no additional musculoskeletal complaints and Reports as per HPI Reports system reviewed and no additional complaints, except as documented and Reports as per HPI Psychiatric: Reports no additional psychiatric complaints and Reports as per HPI Physical Exam Vital Signs: Vital Signs: Last Vital Signs Temp 98.5 F 12/20/20 09:16 Pulse 65 12/20/20 13:31 Resp 15 12/20/20 13:31 BP 118/70 12/20/20 13:31 Pulse Ox 97 12/20/20 13:31 Body Mass Index 27.4 Const: General: cooperative, healthy appearing, comfortable, no acute distress, well developed, alert, awake and Physically active Telly entation/consciousness: patient oriented x3 HENMT: Head: Yes normal to inspection, Yes No palpable skull fracture present, Yes normocephalic, Yes atraumatic and No abrasion Eyes: General: appearance normal, both eyes and all related structures Neck: Neck: Yes normal visual inspection, Yes full ROM, Yes no lymphadenopathy, Yes no meningeal signs, Yes trachea midline, Yes supple and No tender Chest: Chest palpation & inspection: normal inspection of the chest and normal palpation of entire chest wall Resp: Effort & Inspection: normal respiratory effort and able to speak in complete sentences Auscultation: clear to auscultation bilaterally Cardio: Jugular venous distension: no JVD Heart sounds: S1 normal heart sound present and S2 normal heart sound present GI: Inspection: Yes normal to inspection and No abdominal wall ecchymosis Palpation (GI): Soft to palpation, not firm, Tenderness to palpation present (GI) in the LUQ, no guarding and not rigid : General: No CVA tenderness and Yes no CVA tenderness Back/Spine/Pelvis: Back: no CVA tenderness, No CVA tenderness and No back tenderness Skin: General skin exam: no rashes or lesions noted and elasticity normal Neuro: General: patient oriented x3, gait normal, no meningeal signs and CN's II-XI intact bilaterally Cranial nerves: Yes CN's II-XII intact bilaterally Extrem: General: Yes normal to inspection and Yes full ROM Psych: Appearance: grossly normal, well kempt and not disheveled Course Course Course Narrative: Patient have medical evaluation including labs and upright chest x-ray. GI cocktail ordered. Reevaluation(s) Reevaluation #1: Patient's EKG negative for STEMI. Troponin negative after having symptoms for 4 days. Rest of labs are normal. COVID swab negative. Chest x-ray normal. Waiting for abdominal CT scan results. Time: 10:54 Reevaluation #2: Abdominal CT scan negative for any left upper quadrant abnormality. UA is normal. Patient will be discharged. Patient is not on any new antibiotics or recent hospital admission to suspect C diff. denies any blood in stool. Time: 13:41 MDM - Abdominal Pain MDM Narrative Medical decision making narrative: Abdominal pain. Gastroenteritis Lab Data Result diagrams: 12/20/20 09:59 12/20/20 09:59 Labs: Lab Results 12/20/20 12/20/20 12/20/20 Range/Units 09:59 09:59 09:59 WBC 10.0 (4.8-10.8) X10*3/uL RBC 4.44 (4.20-5.50) X10*6/uL Hgb 13.8 (12.0-16.0) g/dl Hct 40.7 (37-47) % MCV 91.7 (80-98) fL MCH 31.1 (27.0-33.0) pg MCHC 33.9 (31.0-35.0) g/dl RDW 13.1 (11.0-16.0) % Plt Count 244 (160-400) X10*3/uL MPV 9.6 (9.4-12.3) fL Immature Gran % (Auto) 0.3 (0.0-0.4) % Neut % (Auto) 68.5 (45-73) % Lymph % (Auto) 23.7 (20-40) % [place] % (Auto) 6.1 (2-11) % Eos % (Auto) 1.1 (0-4) % Baso % (Auto) 0.3 (0-2) % Lymph # (Auto) 2.4 (1.2-4.9) X10*3/uL [place] # (Auto) 0.6 (0.1-1.2) X10*3/uL Eos # (Auto) 0.1 (0.0-0.4) X10*3/uL Baso # (Auto) 0.0 (0.0-0.2) X10*3/uL Abs Immat Gran (auto) 0.03 (0.00-0.03) X10*3/uL Absolute Neuts (auto) 6.8 (2.0-8.3) X10*3/uL Absolute Nucleated RBC 0.000 (0.0-0.012) X10*3/uL Nucleated RBC % (auto) 0.0 (0.0-0.2) /100WBC Sodium 139 (135-145) mmol/L Potassium 4.3 (3.3-5.1) mmol/L Chloride 109 H (96-108) mmol/L Carbon Dioxide 20 L (22-29) mmol/L Anion Gap 14 (12-20) BUN 19 H (9-16) mg/dL Creatinine 1.08 (0.5-1.4) mg/dL Estim Creat Clear Calc 58.1 Estimated GFR 52 Random Glucose 97 (60-115) mg/dL Calcium 9.3 (8.4-10.2) mg/dL Total Bilirubin 0.3 (0.0-1.0) mg/dL Direct Bilirubin < 0.2 (0.0-0.5) mg/dL AST 17 (5-31) U/L ALT 12 (0-31) U/L Alkaline Phosphatase 59 (39-117) U/L Troponin I High Sens < 3.5 (<3.5-17.0) ng/L Total Protein 6.7 (6.5-8.0) g/dL Albumin 4.2 (3.5-5.0) g/dL Lipase 82 H (8-78) U/L Urine Color Urine Appearance Urine pH (5.0-8.0) Ur Specific [place] (1.005-1.025) Urine Protein (NEG-TRACE) MG/DL Urine Glucose (UA) (NEG) MG/DL Urine Ketones (NEG) MG/DL Urine Blood (NEG) Urine Nitrite (NEG) Ur Leukocyte Esterase (NEG) COVID-19 ([facility]) (Negative) COVID-19 Clin Com 12/20/20 12/20/20 Range/Units 09:59 13:28 WBC (4.8-10.8) X10*3/uL RBC (4.20-5.50) X10*6/uL Hgb (12.0-16.0) g/dl Hct (37-47) % MCV (80-98) fL MCH (27.0-33.0) pg MCHC (31.0-35.0) g/dl RDW (11.0-16.0) % Plt Count (160-400) X10*3/uL MPV (9.4-12.3) fL Immature Gran % (Auto) (0.0-0.4) % Neut % (Auto) (45-73) % Lymph % (Auto) (20-40) % [place] % (Auto) (2-11) % Eos % (Auto) (0-4) % Baso % (Auto) (0-2) % Lymph # (Auto) (1.2-4.9) X10*3/uL [place] # (Auto) (0.1-1.2) X10*3/uL Eos # (Auto) (0.0-0.4) X10*3/uL Baso # (Auto) (0.0-0.2) X10*3/uL Abs Immat Gran (auto) (0.00-0.03) X10*3/uL Absolute Neuts (auto) (2.0-8.3) X10*3/uL Absolute Nucleated RBC (0.0-0.012) X10*3/uL Nucleated RBC % (auto) (0.0-0.2) /100WBC Sodium (135-145) mmol/L Potassium (3.3-5.1) mmol/L Chloride (96-108) mmol/L Carbon Dioxide (22-29) mmol/L Anion Gap (12-20) BUN (9-16) mg/dL Creatinine (0.5-1.4) mg/dL Estim Creat Clear Calc Estimated GFR Random Glucose (60-115) mg/dL Calcium (8.4-10.2) mg/dL Total Bilirubin (0.0-1.0) mg/dL Direct Bilirubin (0.0-0.5) mg/dL AST (5-31) U/L ALT (0-31) U/L Alkaline Phosphatase (39-117) U/L Troponin I High Sens (<3.5-17.0) ng/L Total Protein (6.5-8.0) g/dL Albumin (3.5-5.0) g/dL Lipase (8-78) U/L Urine Color STRAW Urine Appearance CLEAR Urine pH 6.0 (5.0-8.0) Ur Specific [place] <= 1.005 (1.005-1.025) Urine Protein NEG (NEG-TRACE) MG/DL Urine Glucose (UA) NEG (NEG) MG/DL Urine Ketones NEG (NEG) MG/DL Urine Blood NEG (NEG) Urine Nitrite NEG (NEG) Ur Leukocyte Esterase NEG (NEG) COVID-19 ([facility]) Negative (Negative) COVID-19 Clin Com See Note ECG Data Interpretation: Normal sinus rhythm. Normal EKG. Ventricular rate 75. Pr interval 198. QRS 80. QTC 428. Negative family Discharge Plan Discharge Clinical Impression: Gastroenteritis, Abdominal pain Patient Disposition: Home, Self-Care Instructions: Gastroenteritis (ED), Abdominal Pain (ED) Additional Instructions: No blood work and EKG came back normal. Abdominal CT scan does not show any acute medical/surgical emergency. Please follow-up with your primary care provider. Return to the ED immediately worsening abdominal pain, blood in stool, chest pain, shortness of breath, weakness, dizziness, or any other concerning symptoms. Prescriptions: No Action Repatha SureClick 140 mg/mL pen injector 140 mg subcut Q2W 30 Days Qty: 2 RF: 11 fluticasone furoate-vilanterol [Breo Ellipta] 200-25 mcg/dose blister with device 1 ea PO DAILY Qty: 60 RF: 11 albuterol sulfate [Ventolin HFA] 90 mcg/actuation HFA aerosol inhaler 2 puff PO Q4H PRN (Reason: bronchospasm) Qty: 18 RF: 0 carisoprodol 350 mg tablet 350 mg PO BID PRN (Reason: muscle pain) 30 Days Qty: 50 RF: 2 levothyroxine [Tirosint] 50 mcg capsule 50 mcg PO DAILY Qty: 30 RF: 3 albuterol sulfate 2.5 mg /3 mL (0.083 %) solution for nebulization 2.5 mg inhalation Q4-6H PRNRF: 0 fluticasone propionate 50 mcg/actuation spray,suspension 2 spray intranasal DAILY RF: 0 cholecalciferol (vitamin D3) 50 mcg (2,000 unit) capsule 50 mcg PO DAILY 30 Days Qty: 30 RF: 11 Referrals: Po,Marylin Amado MD [Primary Care Provider] - 2 days (Dress enteritis. Abdominal pain) Stand Alone Forms: Work/School Release Interventions: ED Discharge Assessment Last Done: 12/20/20 14:16 Discharge Date/Time: 12/20/20 14:16 Print Language: Icelandic PENDING SALE TO [facility] Past Medical History Medical History Anxiety and depression COPD (chronic obstructive pulmonary disease) Crohn's disease Degenerative disc disease, lumbar GERD (gastroesophageal reflux disease) Hip osteoarthritis HLD (hyperlipidemia) Hypercholesterolemia Hypothyroidism Iliotibial band syndrome Nicotine dependence, cigarettes, uncomplicated Osteoarthritis of left hip Osteoarthritis of right hip Rectal bleeding S/P right hip fracture Vitamin D deficiency Surgical History History of foot surgery History of hand surgery History of hip replacement History of shoulder surgery History of total right hip arthroplasty History of tubal ligation Family History Family History Father Bladder cancer Mother Acute CVA (cerebrovascular accident) Stroke CVD (cardiovascular disease) Thyroid disease Brother Renal cell cancer Acute CVA (cerebrovascular accident) Family/Other Alcoholism Social History Social History Alcohol intake: unknown Patient Tobacco Use Status: Tobacco use Unknown Cigarette Packs Per Day: 1 Use of substances other than those prescribed or required for medical reasons: Unknown Advance Directives: No Advance Directives Information Provided: No
[2020-12-20] MEDS: Lidocaine HCl Viscous 2 % 15 ML SOLUTION MUCOUS MEM (09:54)
[2020-12-20] MEDS: Magnesium Hydrox/Alum Hydrox 30 ML ORAL.SUSP PO (09:54)
[2020-12-20] MEDS: Famotidine/PF 20 MG/2 ML VIAL IVPUSH (09:55)
[2020-12-20] MEDS: PHENobarb/Hyoscy/Atropine/Scop 10 ML ELIXIR PO (09:55)
[2020-12-20 10:09] LABS: MANUAL DIFF FLAG NO
[2020-12-20 10:10] LABS: Basophils Percent Auto 0.3 % (0-2); Eosinophils Absolute Auto 0.1 X10*3/uL (0.0-0.4); Eosinophils Percent Auto 1.1 % (0-4); Hematocrit 40.7 % (37-47); Hemoglobin 13.8 g/dl (12.0-16.0); Imm Gran Abs Auto 0.03 X10*3/uL (0.00-0.03); Imm Gran Pct Auto 0.3 % (0.0-0.4); Lymphocytes Absolute Auto 2.4 X10*3/uL (1.2-4.9); Lymphocytes Percent Auto 23.7 % (20-40); Mean Corpuscular HGB Conc 33.9 g/dl (31.0-35.0); Mean Corpuscular Hemoglobin 31.1 pg (27.0-33.0); Mean Corpuscular Volume 91.7 fL (80-98); Mean Platelet Volume 9.6 fL (9.4-12.3); Monocytes Absolute Auto 0.6 X10*3/uL (0.1-1.2); Monocytes Percent Auto 6.1 % (2-11); Neutrophils Absolute Auto 6.8 X10*3/uL (2.0-8.3); Neutrophils Percent Auto 68.5 % (45-73); Platelet Count 244 X10*3/uL (160-400); Red Blood Count 4.44 X10*6/uL (4.20-5.50); Red Cell Distribution Width 13.1 % (11.0-16.0)
[2020-12-20 10:27] LABS: COVID-19 Test Negative (Negative)
[2020-12-20 10:38] LABS: Alanine Aminotransferase 12 U/L (0-31); Albumin Level 4.2 g/dL (3.5-5.0); Alkaline Phosphatase 59 U/L (39-117); Anion Gap 14 (12-20); Aspartate Amino Transferase 17 U/L (5-31); Bilirubin Direct < 0.2 mg/dL (0.0-0.5); Bilirubin Total 0.3 mg/dL (0.0-1.0); Blood Urea Nitrogen 19 mg/dL (9-16); Calcium 9.3 mg/dL (8.4-10.2); Carbon Dioxide 20 mmol/L (22-29); Chloride 109 mmol/L (96-108); Creatinine Clr Calc Pharmacy 58.1; Estimated Glomerular Filt Rate 52; Glucose Random 97 mg/dL (60-115); Lipase 82 U/L (8-78); Potassium 4.3 mmol/L (3.3-5.1); Sodium 139 mmol/L (135-145); Total Protein 6.7 g/dL (6.5-8.0)
[2020-12-20 10:40] LABS: Troponin-I High Sensitivity < 3.5 ng/L (<3.5-17.0)
[2020-12-20] MEDS: iohexoL 350 MG/ML 100 ML INFUS..BTL 85 ML IV (11:05)
[2020-12-20 13:31] VITALS: BP 118/70; PULSE 65; RESP 15; O2SAT 97
[2020-12-20 13:32] LABS: Appearance Urine CLEAR; Color Urine STRAW; Glucose Urine UA NEG (NEG); Leukocyte Esterase Urine NEG (NEG); Nitrite Urine NEG (NEG); Specific Gravity - Urine <= 1.005 (1.005-1.025); Urine Blood NEG (NEG); Urine Ketones NEG (NEG); Urine Protein NEG (NEG-TRACE)
== END 2020-12-20 14:16 | disposition home or self-care (01) ==
PROVIDERS: Physician Assistant; Emergency Provider Emergency Medicine; PCP Internal Medicine
DX: K52.9 Noninfective gastroenteritis and colitis, unspecified (principal); R10.12 Left upper quadrant pain; R11.0 Nausea; Z20.822 Contact with and (suspected) exposure to COVID-19; Z79.899 Other long term (current) drug therapy
CPT/HCPCS: 36415; 71045; 74177; 80053; 81003; 82248; 83690; 84484; 85025; 87635; 93005; 96374; 99284; Q9967

== ENCOUNTER → 2021-02-07 08:03 | Outpatient (BNVA) | payer OTHER, SELFPAY | PROVIDERS: PCP Internal Medicine; Visit Provider Internal Medicine | DX: E78.00 Pure hypercholesterolemia, unspecified (principal); E03.9 Hypothyroidism, unspecified; R10.9 Unspecified abdominal pain | CPT/HCPCS: 99212 ==

== ENCOUNTER 2021-02-07 08:41 | Outpatient (REF) | payer OTHER, SELFPAY ==
[2021-02-07 11:21] LABS: Alanine Aminotransferase 17 U/L (0-31); Albumin Level 4.6 g/dL (3.5-5.0); Alkaline Phosphatase 67 U/L (39-117); Anion Gap 13 (12-20); Aspartate Amino Transferase 22 U/L (5-31); Bilirubin Total 0.3 mg/dL (0.0-1.0); Blood Urea Nitrogen 19 mg/dL (9-16); Calcium 9.5 mg/dL (8.4-10.2); Carbon Dioxide 26 mmol/L (22-29); Chloride 105 mmol/L (96-108); Cholesterol 206 mg/dL; Estimated Glomerular Filt Rate 50; Glucose Random 92 mg/dL (60-115); HDL Cholesterol 55 mg/dL; LDL Cholesterol Calculated 119 mg/dl; Potassium 4.8 mmol/L (3.3-5.1); Sodium 139 mmol/L (135-145); Total Protein 7.4 g/dL (6.5-8.0); Triglycerides 161 mg/dL
[2021-02-07 11:23] LABS: Free T4 (Free Thyroxine) 0.65 ng/dL (0.71-1.85); Thyroid Stimulating Hormone 3.17 uIU/mL (0.32-4.0)
[2021-02-09 06:16] LABS: LDL Cholesterol Direct 122 mg/dL (<100)
== END 2021-02-07 08:42 | disposition home or self-care (01) ==
LOC: HO.10HDL 08:41
PROVIDERS: Visit Provider Internal Medicine
DX: E78.00 Pure hypercholesterolemia, unspecified (principal); E03.9 Hypothyroidism, unspecified
CPT/HCPCS: 36415; 80053; 80061; 83721; 84439; 84443

== ENCOUNTER 2021-05-03 08:23 | Outpatient (REF) | payer OTHER, SELFPAY ==
--- NOTE | ~2021-05-03 | US_ITS ---
EXAMINATION: US ABDOMEN COMPLETE CLINICAL INFORMATION: Other specified abnormal findings of blood chemistry. COMPARISON: CT abdomen and pelvis 12/20/2020. TECHNIQUE: Real-time imaging of the abdominal viscera. FINDINGS: PANCREAS: Normal. ABDOMINAL AORTA: The proximal, mid, and distal segments are normal in caliber. INFERIOR VENA CAVA: Visualized portions are normal. LIVER: Normal. The liver is normal in size. The liver contour is normal. Parenchymal echogenicity is normal. No focal hepatic lesion. There is no intrahepatic biliary duct dilatation seen. GALLBLADDER: The gallbladder is contracted. COMMON BILE DUCT: Normal in caliber measuring 0.4 cm in diameter. RIGHT KIDNEY: There is mild cortical thinning. No hydronephrosis. No renal calculi or focal parenchymal lesions. The kidney measures 9.3 cm in maximum dimension. LEFT KIDNEY: Normal. No hydronephrosis. No renal calculi or focal parenchymal lesions. The kidney measures 11.0 cm in maximum dimension. SPLEEN: Normal. The spleen measures 9.1 cm in maximum dimension. FREE FLUID: None. US/US abdomen complete IMPRESSION: Unremarkable complete abdominal ultrasound except for mild right renal cortical thinning.
== END 2021-05-03 08:24 | disposition home or self-care (01) ==
LOC: HO.US 08:23
PROVIDERS: PCP Internal Medicine; Visit Provider Internal Medicine
DX: R10.12 Left upper quadrant pain (principal); R79.89 Other specified abnormal findings of blood chemistry
CPT/HCPCS: 76700

== ENCOUNTER 2021-07-19 07:34 | Outpatient (REF) | payer OTHER, SELFPAY ==
--- NOTE | ~2021-07-19 | XR_ITS ---
EXAMINATION: XR DORSAL SPINE CLINICAL INFORMATION: Reason for Exam M54.6 - Pain in thoracic spine COMPARISON: None available at the time of this dictation. TECHNIQUE: Frontal and lateral FINDINGS: There is no evidence of fracture or dislocation. The vertebral bodies maintain normal height and alignment. Narrowing of intervertebral disc spaces suggest underlying degenerative disc disease. The paravertebral soft tissues are unremarkable. Included adjacent lungs are clear. XR/XR thoracic spine 3V IMPRESSION: No radiographic evidence of acute fracture. Narrowing of intervertebral disc spaces suggest underlying degenerative disc disease.
[2021-07-19 09:01] LABS: MANUAL DIFF FLAG NO
[2021-07-19 09:54] LABS: Appearance Urine CLEAR; Color Urine YELLOW; Glucose Urine UA NEG (NEG); Leukocyte Esterase Urine NEG (NEG); Nitrite Urine NEG (NEG); PH 5.5 (5.0-8.0); Specific Gravity - Urine 1.015 (1.005-1.025); Urine Blood NEG (NEG); Urine Ketones NEG (NEG); Urine Protein NEG (NEG-TRACE)
[2021-07-19 10:08] LABS: Basophils Percent Auto 0.4 % (0-2); Eosinophils Absolute Auto 0.2 X10*3/uL (0.0-0.4); Eosinophils Percent Auto 1.7 % (0-4); Hematocrit 42.3 % (37.0-47.0); Hemoglobin 14.1 g/dl (12.0-16.0); Imm Gran Abs Auto 0.06 X10*3/uL (0.00-0.03); Imm Gran Pct Auto 0.6 % (0.0-0.4); Lymphocytes Absolute Auto 2.8 X10*3/uL (1.2-4.9); Lymphocytes Percent Auto 25.7 % (20-40); Mean Corpuscular HGB Conc 33.3 g/dl (31.0-35.0); Mean Corpuscular Hemoglobin 30.3 pg (27.0-33.0); Mean Platelet Volume 10.1 fL (9.4-12.3); Monocytes Percent Auto 9.2 % (2-11); Neutrophils Absolute Auto 6.7 x10*3/uL (2.0-8.3); Neutrophils Percent Auto 62.4 % (45-73); Platelet Count 285 X10*3/uL (160-400); Red Blood Count 4.65 X10*6/uL (4.20-5.50); Red Cell Distribution Width 13.1 % (11.0-16.0); White Blood Count 10.8 X10*3/uL (4.8-10.8)
[2021-07-19 10:40] LABS: Alanine Aminotransferase 12 U/L (0-31); Albumin Level 4.6 g/dL (3.5-5.0); Alkaline Phosphatase 64 U/L (39-117); Anion Gap 13 (12-20); Aspartate Amino Transferase 23 U/L (5-31); Bilirubin Total 0.3 mg/dL (0.0-1.0); Blood Urea Nitrogen 24 mg/dL (9-16); C Reactive Protein 1.02 mg/dL (< or = 0.50); Calcium 10.1 mg/dL (8.4-10.2); Carbon Dioxide 24 mmol/L (22-29); Chloride 108 mmol/L (96-108); Estimated Glomerular Filt Rate 50; Glucose Random 84 mg/dL (60-115); Potassium 4.7 mmol/L (3.3-5.1); Sodium 140 mmol/L (135-145); Total Protein 7.4 g/dL (6.5-8.0)
== END 2021-07-19 07:35 | disposition home or self-care (01) ==
LOC: HO.XRAY 07:34
PROVIDERS: PCP Internal Medicine; Visit Provider Nurse Practitioner
DX: D12.6 Benign neoplasm of colon, unspecified (principal); M54.6 Pain in thoracic spine; R10.32 Left lower quadrant pain; J44.9 Chronic obstructive pulmonary disease, unspecified; R10.12 Left upper quadrant pain; J43.9 Emphysema, unspecified; N18.31 Chronic kidney disease, stage 3a; Z12.11 Encounter for screening for malignant neoplasm of colon
CPT/HCPCS: 36415; 72072; 80053; 81003; 85025; 86140; 99212

== ENCOUNTER 2021-09-04 06:16 | Emergency (ER) | payer OTHER, SELFPAY ==
[2021-09-04 06:34] VITALS: BP 130/78; PULSE 75; RESP 18; TEMP 36.9; O2SAT 97; BMI 27.7
--- NOTE | 2021-09-04 07:30 | PC.NURSE ---
Pt was called by the RN and charge 3 times with no respone. Pt left after being triaged.
== END 2021-09-04 07:31 | disposition left against medical advice (07) ==
PROVIDERS: Emergency Provider Emergency Medicine; PCP Internal Medicine
DX: S61.452D Open bite of left hand, subsequent encounter (principal); W55.01XD Bitten by cat, subsequent encounter
CPT/HCPCS: 99281

== ENCOUNTER 2021-09-09 08:35 | Outpatient (REF) | payer OTHER, SELFPAY ==
[2021-09-13 20:37] LABS: HPV mRNA E6/E7 rflx Not Detected (Not Detected)
== END 2021-09-09 08:36 | disposition home or self-care (01) ==
LOC: HO.LAB 08:35
PROVIDERS: Visit Provider Advanced Practice Midwife
DX: Z01.419 Encounter for gynecological examination (general) (routine) without abnormal findings (principal); Z11.51 Encounter for screening for human papillomavirus (HPV)
CPT/HCPCS: 87624; 88142

== ENCOUNTER 2021-09-20 08:23 | Day surgery (SDC) | payer OTHER, SELFPAY ==
--- NOTE | 2021-09-19 10:55 | HO.ANESPROP2 ---
Documented by User: Yue Urrutia NP 09/19/21 10:58 HPI - Anesthesia Eval Consult details Narrative: 60yo F for Upper Endoscopy and Colonoscopy *Mult med allergies* PMFSH Active Problems Active Problems: All Active Problems (Updated 09/09/21 @ 08:23 by Janny Orantes) Encounter for annual routine gynecological examination (Acute) Thoracic back pain (Acute) Tubular adenoma of colon (Acute) GERD (gastroesophageal reflux disease) (Acute) Generalized anxiety disorder (Acute) Rectal bleeding (Acute) HLD (hyperlipidemia) (Acute) Osteoarthritis of right hip (Acute) Iliotibial band syndrome (Acute) Tobacco abuse (Acute) Osteoarthritis of left hip (Acute) Vitamin D deficiency (Acute) Hypercholesterolemia (Acute) COPD (chronic obstructive pulmonary disease) (Acute) Chronic kidney disease (CKD) stage G3a/A1, moderately decreased glomerular filtration rate (GFR) between 45-59 mL/min/1.73 square meter and albuminuria creatinine ratio less than 30 mg/g (Acute) Nicotine dependence, cigarettes, uncomplicated (Acute) Hypothyroidism (Acute) Hip osteoarthritis (Acute) Past Medical History Medical History Abdominal pain Chest pain Crohn's disease Degenerative disc disease, lumbar Fall Foot pain, left Hearing loss Hematoma and contusion LUQ abdominal pain Myalgia Neck pain S/P right hip fracture Smoking Family History Family History Father Bladder cancer Mother Acute CVA (cerebrovascular accident) Stroke CVD (cardiovascular disease) Thyroid disease Brother Renal cell cancer Acute CVA (cerebrovascular accident) Family/Other Alcoholism Surgical History Surgical History History of foot surgery History of hand surgery History of hip replacement History of shoulder surgery History of total right hip arthroplasty History of tubal ligation Social History Social History Housing: Apartment Alcohol intake: unknown Patient Tobacco Use Status: Current everyday Tobacco user Tobacco use type: Cigarette Cigarette Packs Per Day: 1 Cigarettes Per Day: 10 e-Cigarette/Vaping Use: Never Used Second Hand Smoke Exposure: No Use of substances other than those prescribed or required for medical reasons: Yes Substance Use Frequency: Daily Are you DNR?: No Advance Directives: No Advance Directives Information Provided: Yes Current occupational status: disabled Cognitive needs: No Hearing needs: No Vision needs: No Meds Allergies Allergy/AdvReac Type Severity Reaction Status Date / Time atorvastatin Allergy Unknown Cramps Verified 09/09/21 08:13 barium sulfate Allergy Unknown sore throat Verified 09/09/21 08:13 omeprazole Allergy Unknown diarrhea Verified 09/09/21 08:13 rosuvastatin Allergy Unknown Unknown Verified 09/09/21 08:13 simvastatin Allergy Unknown unknown Verified 09/09/21 08:13 [email or web address] [From Chantix] Allergy Unknown sore throat Verified 09/09/21 08:13 evolocumab AdvReac Intermediate cough Verified 09/09/21 08:13 [From Repatha SureClick] Home Medications Medication Instructions Recorded Confirmed Last Taken Type albuterol sulfate 2.5 mg inhalation Q4-6H PRN 02/06/20 08/09/21 Unknown History fluticasone propionate 50 2 spray intranasal DAILY 02/06/20 08/09/21 Unknown History mcg/actuation nasal spray,suspension Exam Exam Date and Time: September 19, 2021 1055 Pertinent Lab Results Pertinent Lab Results: Laboratory Tests 07/19/21 07/19/21 08:59 08:59 WBC 10.8 Hgb 14.1 Hct 42.3 Plt Count 285 Sodium 140 Potassium 4.7 Chloride 108 Carbon Dioxide 24 BUN 24 H Creatinine 1.12 Assessment and Plan Assessment Anesthesia Assessment: Chart Reviewed Documented by User: Marcus Lopez MD 09/20/21 09:36 PMFSH Past Medical History Medical History Abdominal pain Chest pain Crohn's disease Degenerative disc disease, lumbar Fall Foot pain, left Hearing loss Hematoma and contusion LUQ abdominal pain Myalgia Neck pain S/P right hip fracture Smoking Family History Family History Father Bladder cancer Mother Acute CVA (cerebrovascular accident) Stroke CVD (cardiovascular disease) Thyroid disease Brother Renal cell cancer Acute CVA (cerebrovascular accident) Family/Other Alcoholism Family history of problems with anesthesia: No Surgical History Surgical History History of foot surgery History of hand surgery History of hip replacement History of shoulder surgery History of total right hip arthroplasty History of tubal ligation History of Problems with Anesthesia: No Social History Social History Housing: Apartment Alcohol intake: unknown Patient Tobacco Use Status: Current everyday Tobacco user Tobacco use type: Cigarette Cigarette Packs Per Day: 1 Cigarettes Per Day: 10 e-Cigarette/Vaping Use: Never Used Second Hand Smoke Exposure: No Use of substances other than those prescribed or required for medical reasons: Yes Substance Use Frequency: Daily Are you DNR?: No Advance Directives: No Advance Directives Information Provided: Yes Current occupational status: disabled Cognitive needs: No Hearing needs: No Vision needs: No Meds Allergies Allergy/AdvReac Type Severity Reaction Status Date / Time atorvastatin Allergy Unknown Cramps Verified 09/09/21 08:13 barium sulfate Allergy Unknown sore throat Verified 09/09/21 08:13 omeprazole Allergy Unknown diarrhea Verified 09/09/21 08:13 rosuvastatin Allergy Unknown Unknown Verified 09/09/21 08:13 simvastatin Allergy Unknown unknown Verified 09/09/21 08:13 [email or web address] [From Chantix] Allergy Unknown sore throat Verified 09/09/21 08:13 evolocumab AdvReac Intermediate cough Verified 09/09/21 08:13 [From Repatha SureClick] Home Medications Medication Instructions Recorded Confirmed Last Taken Type albuterol sulfate 2.5 mg inhalation Q4-6H PRN 02/06/20 08/09/21 Unknown History fluticasone propionate 50 2 spray intranasal DAILY 02/06/20 08/09/21 Unknown History mcg/actuation nasal spray,suspension Exam Airway Mallampati Class: II TM Dist: >3cm Neck ROM: Full Denture: Lower Partial: Upper Loose/Missing/Broken Teeth: Yes Assessment and Plan Assessment Anesthesia Assessment: Anesthesia Plan Discussed Final Anesthetic Review Family History of Problems with Anesthesia: No History of Problems with Anesthesia: No NPO: Yes ASA Class: III Final Preanesthetic Review: No Changes in Pt Med Stat, Meds/Allgs Chart Reviewed, Consent Obtained/Reviewed and Anes Risks/Benef Reviewed Patient Risk: Intermediate Procedure Risk: Low Anesthetic Plan Anesthetic Plan: MAC: Disposition: Standard PACU
[2021-09-20 08:49] VITALS: BMI 27.4
[2021-09-20 08:58] VITALS: BP 126/66; PULSE 70; RESP 16; TEMP 36.3; O2SAT 95
[2021-09-20] MEDS: Lactated Ringers 1,000 ML 100 ML IVCONT (09:13)
--- NOTE | 2021-09-20 09:34 | MHC.SHP ---
Pre-Procedural Eval Section A Date of Service: 09/20/21 The patient is an INPATIENT: No The History & Physical has been completed within 30 days and I have reviewed it.: No Section B Chief Complaint: Left upper quadrant pain,benign neoplasm of colon Details of Present Illness: colon cancer screen, history of colon polyps, left upper quadrant pain Relevant Family History (Specify if Yes): No Relevant Social History: Tobacco Use Present Medications: see Short Stay Collaborative assessment Medical History: Significant History (COPD Smoker High cholesterol Hypothyroid Hard of hearing Chronic kidney disease stage 3 Osteoarthritis of the hip Generalized anxiety disorder GERD Crohn's disease Lumbar degenerative disc disease Bipolar manic.) History of Previous Operations: Relevant previous surgery/procedure and date(s) (Foot surgery Tendon repair right hand Total hip replacement right Shoulder arthroscopy Tubal ligation) Allergies: Allergies Allergy/AdvReac Type Severity Reaction Status Date / Time atorvastatin Allergy Unknown Cramps Verified 09/09/21 08:13 barium sulfate Allergy Unknown sore throat Verified 09/09/21 08:13 omeprazole Allergy Unknown diarrhea Verified 09/09/21 08:13 rosuvastatin Allergy Unknown Unknown Verified 09/09/21 08:13 simvastatin Allergy Unknown unknown Verified 09/09/21 08:13 varenicline [From Chantix] Allergy Unknown sore throat Verified 09/09/21 08:13 evolocumab AdvReac Intermediate cough Verified 09/09/21 08:13 [From Repatha SureClick] Review of Systems Sugical H&P ROS: Negative: Constitution, Cardiovascular and Respiratory and Yes, Specify: Gastrointestinal (abdominal pain) Exam Surgical H&P Exam: Normal: Heart, Normal: Lungs, Normal: Extremities and Normal: Abdomen Plan Diagnosis/Plan: Unchanged I have reviewed the history and physical and performed a pertinent physical examination on my patient. No changes have occurred unless specified.
--- NOTE | 2021-09-20 09:43 | PM.OP ---
Brief Operative Note Date of Service: 09/20/21 Pre-op diagnosis: colon cancer screening, history of colon polyps, left upper quadrant Post-op diagnosis: other (GERD, hiatal hernia, gastritis, duodenitis, colon polyps, diverticulosis, hemorrhoids) Procedure: FLEXIBLE TRANSORAL UPPER GASTROINTESTINAL ENDOSCOPY WITH BIOPSIES AND COLONOSCOPY TILL CECUM WITH SNARE POLYPECTOMY UPPER ENDOSCOPY Consent: Indications for the procedure and potential complications of bleeding, perforation, reaction to medications and missed diagnosis were discussed with the patient and informed consent was obtained. Instrument: Olympus GIF H 190 mid size upper endoscope Monitoring: Vital signs and clinical assessment, continuous EKG monitoring, Pulse oximetry, Carbon Dioxide monitoring and blood pressure monitoring were done throughout the procedure. Procedure: The patient was placed in the left lateral decubitis position and pre-procedure medications were administered and a bite block was placed. The endoscope was inserted into the mouth and advanced under direct vision to the third part of duodenum. A careful inspection was made as the upper endoscope was withdrawn including a retroflexed examination of the proximal stomach; Findings and interventions are described below. Findings: Larynx: Normal Esophagus: GE junction at 38 cms, small hiatal hernia 38 to 40 cms. Focal esophagitis at GE junction and two 1 cms tongues of suspected Hood's - biopsied. (No Barretts was detected on previous biopsies) Stomach: Mild gastric erythema with a few scattered erosions. Biopsies were obtained. Grade 2 flap valve on retroflexed examination of the cardia. Duodenum: Mild duodenitis in the bulb and normal descending duodenum. Biopsies were obtained from 3rd part of the duodenum to check for celiac sprue Intervention: Biopsies as noted above COLONOSCOPY PROCEDURE NOTE Consent: Indications for the procedure and potential complications of bleeding, perforation, reaction to medications and missed diagnosis were discussed with the patient and informed consent was obtained. Instrument: Olympus PCF H 190 L variable stiffness pediatric colonoscope Monitoring: Vital signs and clinical assessment, intermittent blood pressure monitoring, continuous EKG monitoring, Pulse oximetry and Carbon Dioxide monitoring were done throughout the procedure. Colon withdrawl time was 15 minutes. Procedure: The patient was placed in the left lateral decubitis position and pre-procedure medications were administered. After a digital rectal examination of the ano-rectum, the video colonoscope was inserted into the rectum and advanced through the colon to the cecum. The colonoscope was slowly withdrawn in a retrograde panoramic fashion and the colon mucosa was carefully examined including a retroflexed view of the rectum. Findings and interventions are described below. Procedure Difficulty: : LLQ pressure applied to intubate the cecum Findings: Terminal Ileum: Not evaluated Cecum: A 7-8 mm sessile polyp removed with the cold snare. Ascending Colon: Normal Transverse Colon: A 7-8 mm sessile polyp removed with a cold snare Descending Colon: Moderate diverticulosis Sigmoid Colon: Moderate diverticulosis Rectum: Normal Ano-rectum: Moderate internal hemorrhoids Colon preparation: Excellent and good in some areas after irrigation Impression and Post Procedure Diagnosis: Endoscopy Findings: ESOPHAGUS: GE junction at 38 cms, small hiatal hernia 38 to 40 cms. Focal esophagitis at GE junction and two 1 cms tongues of suspected Hood's - biopsied. STOMACH: Mild gastric erythema with a few scattered erosions. Biopsies were obtained. DUODENUM: Mild duodenitis in the bulb Colonoscopy Findings: Two small polyps removed Moderate diverticulosis seen in the left colon Moderate hemorrhoids on retroflexed exam. Plan: Await pathology results Patient has an appointment on 11/01/21 in the GI Clinic with Chacha Mays NP . Repeat Colonoscopy interval based on path results - in 5 years if polyps are adenomatous and due to hx of colon polyps. Above findings were reviewed with the patient and GERD, colon polyps and diverticulosis handouts were given in the discharge area Surgeon: Haily Aleman MD Anesthesia: MAC Was an Billet Straightener used for this Procedure?: Yes Billet Straightener: Jessica Yost Estimated blood loss (mL): 0 Pathology: other ( A. small bowel bxs, R/O celiac B. gastric antrum bxs, R/O H. pylori C. E-G junction bxs, R/O Hood's D. cecal polyp E. transverse colon polyp) Condition: stable Disposition: PACU
[2021-09-20 10:34] VITALS: BP 95/50; PULSE 75; RESP 16; TEMP 36.3; O2SAT 98
[2021-09-20 10:48] VITALS: BP 107/71; PULSE 82; RESP 16; O2SAT 96
--- NOTE | 2021-09-20 18:28 | P.OP_ITS ---
Operative Note Operative Note Date of Service: 09/20/21 Narrative: Pre-op diagnosis: Colon cancer screening, history of colon polyps, left upper quadrant Post-op diagnosis:?other (GERD, hiatal hernia, gastritis, duodenitis,? colon polyps, diverticulosis, hemorrhoids) Procedure: FLEXIBLE TRANSORAL UPPER GASTROINTESTINAL ENDOSCOPY WITH BIOPSIES AND COLONOSCOPY TILL CECUM WITH SNARE POLYPECTOMY UPPER ENDOSCOPY Consent:?Indications for the procedure and potential complications of bleeding, perforation, reaction to medications and missed diagnosis were discussed with the patient and informed consent was obtained. Instrument:?Olympus GIF H 190 mid size upper endoscope Monitoring: Vital signs and clinical assessment, continuous EKG monitoring, Pulse oximetry, Carbon Dioxide monitoring and blood pressure monitoring were done throughout the procedure. Procedure:?The patient was placed in the left lateral decubitis position and pre-procedure medications were administered and a bite block was placed. The endoscope was inserted into the mouth and advanced under direct vision to the third part of duodenum. A careful inspection was made as the upper endoscope was withdrawn including a retroflexed examination of the proximal stomach; Findings and interventions are described below. Findings: Larynx:? Normal Esophagus:?GE junction at 38 cms, small hiatal hernia 38 to 40 cms.? Focal esophagitis at GE junction and two 1 cms tongues of suspected Hood's - biopsied. (No Barretts was detected on previous biopsies) Stomach:?Mild gastric erythema with a few scattered erosions. Biopsies were obtained. Grade 2 flap valve on retroflexed examination of the cardia. Duodenum:?Mild duodenitis in the bulb and normal descending duodenum. ?Biopsies were obtained from 3rd part of the duodenum to check for celiac sprue Intervention:?Biopsies as noted above COLONOSCOPY PROCEDURE NOTE Consent:?Indications for the procedure and potential complications of bleeding, perforation, reaction to medications and missed diagnosis were discussed with the patient and informed consent was obtained. Instrument:?Olympus PCF H 190 L variable stiffness pediatric colonoscope Monitoring:?Vital signs and clinical assessment, intermittent blood pressure monitoring, continuous EKG monitoring, Pulse oximetry and Carbon Dioxide monitoring were done throughout the procedure. Colon withdrawl time was 15 minutes. Procedure:?The patient was placed in the left lateral decubitis position and pre-procedure medications were administered. After a digital rectal examination of the ano-rectum, the video colonoscope was inserted into the rectum and advanced through the colon to the cecum. The colonoscope was slowly withdrawn in a retrograde panoramic fashion and the colon mucosa was carefully examined including a retroflexed view of the rectum. Findings and interventions are described below. Procedure Difficulty:?: LLQ pressure applied to intubate the cecum Findings: Terminal Ileum: Not evaluated Cecum:? A 7-8 mm sessile? polyp removed with the cold snare. Ascending Colon:??Normal Transverse Colon:??A 7-8 mm sessile polyp? removed with a cold snare Descending Colon: Moderate diverticulosis Sigmoid Colon:??Moderate diverticulosis Rectum:??Normal Ano-rectum:??Moderate internal hemorrhoids Colon preparation: Excellent and good? in some areas after irrigation Impression and Post Procedure Diagnosis: Endoscopy Findings: ESOPHAGUS:? GE junction at 38 cms, small hiatal hernia 38 to 40 cms.? Focal esophagitis at GE junction and two 1 cms tongues of suspected Hood's - biopsied. STOMACH: Mild gastric erythema with a few scattered erosions. Biopsies were obtained. DUODENUM:? Mild duodenitis in the bulb Colonoscopy Findings: Two small polyps removed Moderate diverticulosis seen in the left colon Moderate hemorrhoids on retroflexed exam. Plan: Await pathology results Patient has an appointment on 11/01/21 in the GI Clinic with? Chacha Mays NP? . Repeat Colonoscopy interval based on path results - in 5 years if polyps are adenomatous and due to hx of colon polyps. Above findings were reviewed with the patient and GERD, colon polyps? and diverticulosis handouts were given in the discharge area Surgeon: Haily Aleman MD Anesthesia:?MAC Was an Kapok Machine Operator used for this Procedure?:?Yes Kapok Machine Operator:?Jessica Yost Estimated blood loss (mL):?0 Pathology:?other ( A. small bowel bxs, R/O celiac? B. gastric antrum bxs, R/O H. pylori? C. E-G junction bxs, R/O Hood's? D. cecal polyp? E. transverse colon polyp) Condition:?stable Disposition:?PACU
== END 2021-09-20 11:31 | disposition home or self-care (01) ==
PROVIDERS: PCP Internal Medicine; Visit Provider Internal Medicine Gastroenterology
PROC: (CPT 45385; principal; 2021-09-20 09:50)
DX: Z12.11 Encounter for screening for malignant neoplasm of colon (principal); Z86.010 Personal history of colon polyps; K63.5 Polyp of colon; K57.30 Diverticulosis of large intestine without perforation or abscess without bleeding; K64.8 Other hemorrhoids; R10.12 Left upper quadrant pain; K29.50 Unspecified chronic gastritis without bleeding; K21.9 Gastro-esophageal reflux disease without esophagitis; K44.9 Diaphragmatic hernia without obstruction or gangrene; K29.80 Duodenitis without bleeding; N18.31 Chronic kidney disease, stage 3a; J44.9 Chronic obstructive pulmonary disease, unspecified; E78.00 Pure hypercholesterolemia, unspecified; M54.6 Pain in thoracic spine; Z79.899 Other long term (current) drug therapy; Z88.8 Allergy status to other drugs, medicaments and biological substances; Z96.641 Presence of right artificial hip joint; F17.210 Nicotine dependence, cigarettes, uncomplicated
CPT/HCPCS: 45385; 43239; 88305; 88342; J3010

== ENCOUNTER → 2021-11-01 12:22 | Outpatient (BNVA) | payer OTHER, SELFPAY | PROVIDERS: PCP Internal Medicine; Visit Provider Nurse Practitioner | DX: D12.6 Benign neoplasm of colon, unspecified (principal); R14.0 Abdominal distension (gaseous); R11.2 Nausea with vomiting, unspecified | CPT/HCPCS: 99212 ==

== ENCOUNTER 2021-11-07 08:36 | Outpatient (REF) | payer OTHER, SELFPAY ==
[2021-11-14 19:35] LABS: Pancreatic Elastase-1 235 mcg/g
== END 2021-11-07 08:37 | disposition home or self-care (01) ==
LOC: HO.LNP 08:36
PROVIDERS: Visit Provider Nurse Practitioner
DX: R14.0 Abdominal distension (gaseous) (principal); R11.2 Nausea with vomiting, unspecified
CPT/HCPCS: 82656

== ENCOUNTER 2022-03-10 06:51 | Outpatient (REF) | payer OTHER, SELFPAY ==
[2022-03-10 07:04] LABS: MANUAL DIFF FLAG NO
[2022-03-10 07:24] LABS: Basophils Percent Auto 0.5 % (0-2); Eosinophils Absolute Auto 0.2 X10*3/uL (0.0-0.4); Hematocrit 41.9 % (37.0-47.0); Imm Gran Abs Auto 0.02 X10*3/uL (0.00-0.03); Imm Gran Pct Auto 0.2 % (0.0-0.4); Lymphocytes Absolute Auto 2.5 X10*3/uL (1.2-4.9); Mean Corpuscular HGB Conc 33.4 g/dl (31.0-35.0); Mean Corpuscular Hemoglobin 30.9 pg (27.0-33.0); Mean Corpuscular Volume 92.5 fL (80.0-98.0); Mean Platelet Volume 9.7 fL (9.4-12.3); Monocytes Absolute Auto 0.7 X10*3/uL (0.1-1.2); Monocytes Percent Auto 7.4 % (2-11); Neutrophils Absolute Auto 5.5 x10*3/uL (2.0-8.3); Neutrophils Percent Auto 61.9 % (45-73); Platelet Count 316 X10*3/uL (160-400); Red Blood Count 4.53 X10*6/uL (4.20-5.50); Red Cell Distribution Width 13.1 % (11.0-16.0); White Blood Count 8.8 X10*3/uL (4.8-10.8)
[2022-03-10 08:16] LABS: Alanine Aminotransferase 13 U/L (0-31); Albumin Level 4.3 g/dL (3.5-5.0); Alkaline Phosphatase 62 U/L (39-117); Anion Gap 13 (12-20); Aspartate Amino Transferase 18 U/L (5-31); Bilirubin Total 0.4 mg/dL (0.0-1.0); Blood Urea Nitrogen 14 mg/dL (9-16); Calcium 9.4 mg/dL (8.4-10.2); Carbon Dioxide 19 mmol/L (22-29); Chloride 113 mmol/L (96-108); Cholesterol 287 mg/dL; Estimated Glomerular Filt Rate 56; Free T4 (Free Thyroxine) 0.76 ng/dL (0.71-1.85); Glucose Random 100 mg/dL (60-115); HDL Cholesterol 53 mg/dL; LDL Cholesterol Calculated 201 mg/dl; Potassium 4.3 mmol/L (3.3-5.1); Sodium 141 mmol/L (135-145); Thyroid Stimulating Hormone 9.04 uIU/mL (0.32-4.0); Total Protein 6.7 g/dL (6.5-8.0); Triglycerides 167 mg/dL
[2022-03-10 08:18] LABS: Vitamin D 25-OH Total 18.4 ng/mL (>30)
[2022-03-10 08:19] LABS: Appearance Urine Clear; Color Urine Yellow; Glucose Urine UA Negative (Negative); Leukocyte Esterase Urine Negative (Negative); Nitrite Urine Negative (Negative); PH 5.5 (5.0-9.0); Specific Gravity - Urine 1.015 (1.005-1.025); Urine Blood Negative (Negative); Urine Ketones Negative (Negative); Urine Protein Negative (Neg-Trace)
[2022-03-10 08:32] LABS: Folate 8.5 ng/mL (> or = 4.0); Vitamin B12 573 pg/mL (200-900)
[2022-03-11 18:43] LABS: LDL Cholesterol Direct 199 mg/dL (<100)
== END 2022-03-10 06:52 | disposition home or self-care (01) ==
LOC: HO.LAB 06:51
PROVIDERS: Internal Medicine; PCP Internal Medicine; Visit Provider Internal Medicine
DX: E03.9 Hypothyroidism, unspecified (principal); E78.00 Pure hypercholesterolemia, unspecified; K21.9 Gastro-esophageal reflux disease without esophagitis; R30.0 Dysuria
CPT/HCPCS: 36415; 80053; 80061; 81003; 82306; 82607; 82746; 83721; 84439; 84443; 85025

== ENCOUNTER → 2022-06-14 07:19 | Outpatient (REF) | payer OTHER, SELFPAY ==
--- NOTE | ~2022-06-14 | NM_ITS ---
EXAMINATION: NM RADIONUCLIDE SOLID FOOD GASTRIC EMPTYING 4-HOUR STUDY CLINICAL INFORMATION: Abdominal discomfort. COMPARISON: Abdominal ultrasound done on 05/03/2021. TECHNIQUE: A standard meal consisting of 4 oz of Egg Beaters brand tagged with 1000 microcuries Tc-99m Sulfur Colloid, 8 oz water and 1 slices of toast with jelly was administered orally to the patient. Images were obtained using a dual head gamma camera in the anterior and posterior projections over of the stomach immediately post ingestion and at hourly intervals up to 4 hours post ingestion. The anterior and posterior counts at each time interval were averaged using the geometric mean and expressed as percentage of the immediate post ingestion counts. FINDINGS: There is good visualization of activity in the stomach immediately post ingestion. As the study progresses, there is good clearance of activity from the stomach and visualization of progressively increasing small bowel activity. By the end of the study, there is almost no retention noted in the stomach. Retention in the stomach at each time interval was: 1 hour 43% (normal 37%-90%) 2 hours 8% (normal 30%-60%) 3 hours 3% 4 hours % (normal 0%-10%) 4 hours retention was not estimated since only 3% was retained at 3 hours interval. NM/NM gastric emptying study IMPRESSION: Normal 4-hour solid food gastric emptying study. (For solid meal, rapid gastric emptying is less than 30% at 60 minutes. Delayed gastric emptying criteria is more than 60% remaining at 120 minutes or more than 10% at 240 minutes. The 4-hour value is the best discriminator of a normal or abnormal result). Gastric emptying study grading per JNMT Consensus Recommendations in 2008 (https://tech.snmjournals.org/content/36/1/44) Grade 1 (mild retention): 11-20% at 4h Grade 2 (moderate retention): 21-35% at 4h Grade 3 (severe retention): 36-50% at 4h Grade 4 (very severe retention): >50% retention at 4h
[2022-06-14 08:16] LABS: Alanine Aminotransferase 11 U/L (0-31); Albumin Level 4.4 g/dL (3.5-5.0); Alkaline Phosphatase 74 U/L (39-117); Anion Gap 16 (12-20); Aspartate Amino Transferase 16 U/L (5-31); Bilirubin Total 0.4 mg/dL (0.0-1.0); Blood Urea Nitrogen 21 mg/dL (9-16); Calcium 9.2 mg/dL (8.4-10.2); Carbon Dioxide 21 mmol/L (22-29); Chloride 110 mmol/L (96-108); Cholesterol 302 mg/dL; Estimated Glomerular Filt Rate 40; Glucose Random 87 mg/dL (60-115); HDL Cholesterol 54 mg/dL; LDL Cholesterol Calculated 217 mg/dl; Potassium 4.7 mmol/L (3.3-5.1); Sodium 142 mmol/L (135-145); Total Protein 7.1 g/dL (6.5-8.0); Triglycerides 156 mg/dL
[2022-06-14 08:38] LABS: Free T4 (Free Thyroxine) 0.65 ng/dL (0.71-1.85); Thyroid Stimulating Hormone 8.01 uIU/mL (0.32-4.0)
== END ==
LOC: HO.NUCMED 07:19
PROVIDERS: PCP Internal Medicine; Visit Provider Nurse Practitioner
DX: R14.0 Abdominal distension (gaseous) (principal); R11.2 Nausea with vomiting, unspecified; E78.00 Pure hypercholesterolemia, unspecified; E03.9 Hypothyroidism, unspecified
CPT/HCPCS: 36415; 78264; 80053; 80061; 84439; 84443; A9541

== ENCOUNTER 2022-06-19 12:08 | Outpatient (REF) | payer OTHER, SELFPAY ==
--- NOTE | ~2022-06-19 | MM_ITS ---
EXAMINATION: MM SCREENING DIGITAL BREAST TOMOSYNTHESIS, BILATERAL CLINICAL INFORMATION: Screening. Asymptomatic. The lifetime risk of breast cancer based on the Tyrer-Cuzick Model is 5%. COMPARISON: Mammography: 10/18/2020, 10/13/2019, 07/09/2018, 06/08/2017, 04/20/2016; outside mammography 07/13/2008 and 03/05/2007 TECHNIQUE: Digital breast tomosynthesis is performed in both the craniocaudal and mediolateral oblique views along with computer-aided detection (CAD). Synthesized 2D images are generated from the tomosynthesis. FINDINGS: There are scattered areas of fibroglandular density (ACR BI-RADS breast composition Category b). There are no significant masses, abnormal calcifications, or other abnormalities. No architectural abnormality or developing density or significant change from prior studies. The axilla and skin contours are unremarkable. MM/MM tomosynthesis screening BI IMPRESSION: No mammographic evidence of malignancy. ASSESSMENT: BI-RADS 1: Negative RECOMMENDATION: Routine annual mammography screening. This patient's information was entered into a reminder system with a target due date for their next mammogram.
== END 2022-06-19 12:09 | disposition home or self-care (01) ==
LOC: HO.MAMMO 12:08
PROVIDERS: Visit Provider Internal Medicine
DX: Z12.31 Encounter for screening mammogram for malignant neoplasm of breast (principal)
CPT/HCPCS: 77063; 77067

== ENCOUNTER 2022-10-13 10:01 | Outpatient (AMB) | payer OTHER, SELFPAY ==
--- NOTE | 2022-10-13 10:04 | MHC.OFFVIS ---
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 Scribed for MIGUELITO Zuleta by Lydia Carrington medical office assistant instructor, on 10/13/2022 at 10:22 am EST. Information Interpreted: non-clinical & clinical Machine Sorter: Machine Sorter Present (Ivett ORDRIGUEZ) Accompanied by: Self / Same As Patient Allergies atorvastatin Allergy (Unknown, Verified 10/13/22 10:12) Cramps barium sulfate Allergy (Unknown, Verified 10/13/22 10:12) sore throat omeprazole Allergy (Unknown, Verified 10/13/22 10:12) diarrhea rosuvastatin Allergy (Unknown, Verified 10/13/22 10:12) Unknown simvastatin Allergy (Unknown, Verified 10/13/22 10:12) unknown varenicline [From Chantix] Allergy (Unknown, Verified 10/13/22 10:12) sore throat evolocumab [From Repatha SureClick] Adverse Reaction (Intermediate, Verified 10/13/22 10:12) cough Post menopausal: Yes HPI HPI Comments History of Present Illness Details She is a postmenopausal woman presenting for annual exam. Doing well with no pearl glue drier concerns. Patient admits she tries to eat a healthy diet including Calcium and Vitamin D. She stays active with exercise. Currently not sexually active (). Admits vaginal burning and irritation. Denies vaginal itching. Reports not washing area with soaps. Denies family hx of breast, colon and ovarian cancer. Last pap smear 09/12/21 Last mammogram 06/19/22 UTD on colonoscopy. [facility] Medical History Abdominal pain Chest pain COPD (chronic obstructive pulmonary disease) Crohn's disease Degenerative disc disease, lumbar Fall Foot pain, left GERD (gastroesophageal reflux disease) Hearing loss Hematoma and contusion Hip osteoarthritis HLD (hyperlipidemia) Hypercholesterolemia Hypothyroidism Iliotibial band syndrome LUQ abdominal pain Myalgia Neck pain Nicotine dependence, cigarettes, uncomplicated Osteoarthritis of left hip Osteoarthritis of right hip Rectal bleeding S/P right hip fracture Smoking Vaginal irritation Vitamin D deficiency Surgical History History of foot surgery History of hand surgery History of hip replacement History of shoulder surgery History of total right hip arthroplasty History of tubal ligation Family History Father Bladder cancer Mother Acute CVA (cerebrovascular accident) Stroke CVD (cardiovascular disease) Thyroid disease Brother Renal cell cancer Acute CVA (cerebrovascular accident) Family/Other Alcoholism Social History Household Members Other:: 12/2021 Housing: Apartment Alcohol intake: unknown Patient Tobacco Use Status: Current everyday Tobacco user Tobacco use type: Cigarette Cigarette Packs Per Day: 1 Cigarettes Per Day: 10 e-Cigarette/Vaping Use: Never Used Second Hand Smoke Exposure: No Current occupational status: disabled Cognitive needs: No Hearing needs: No Vision needs: Yes Female Reproductive History Menstrual Total pregnancies: 3 Full term: 2 Number of Living Children: 2 Date of last pap smear: 09/12/21 Date of Mammogram: 06/19/22 Physical Exam Vital Signs: Last Vital Signs BP 118/74 10/13/22 10:05 BMI result Body Mass Index 25.5 Const General: cooperative, healthy appearing, no acute distress, well developed and alert Orientation/consciousness: patient oriented x3 HEENT Head: Yes normal to inspection Eyes General: appearance normal, both eyes and all related structures Neck Neck: Yes normal visual inspection Thyroid: Thyroid normal Chest Chest palpation & inspection: normal inspection of the chest Breast/axilla inspection: normal inspection of the breasts (no puckering, dimpling, peau de orange, retraction, discharge, masses) Breast/axilla palpation: normal palpation of the breasts Resp Effort & Inspection: normal respiratory effort GI Inspection: Yes normal to inspection Palpation (GI): Soft to palpation (to palpation) Rectal Exam - Female: deferred Other: hypopigmentation of the labia minora, atrophic changes, General: Yes bladder normal to inspection External Female Exam: normal external appearance and normal appearance of the urethra Speculum Exam - Vagina: normal appearance of the vagina, normal palpation and vagina atrophic (internal and external) Speculum Exam - Cervix: normal appearance of the cervix and normal palpation Bimanual exam- vagina & uterus: normal palpation and normal palpation Bimanual Exam- Adnexa, other: normal adnexae and no masses Skin General skin exam: no rashes or lesions noted Neuro General: patient oriented x3 Cognition (Neuro): normal cognition Extrem General: Yes normal to inspection Psych Attitude: cooperative Thought process: Normal thought process present Assessment & Plan Assessment & Plan (1) Encounter for well woman exam: Code(s): Z01.419 - Encounter for gynecological examination (general) (routine) without abnormal findings Plan: Discussed: Current recommendations for pap smears per ASCCP guidelines. Breast awareness and periodic self breast exams. Encouraged yearly mammograms. Maintaining a healthy lifestyle including a well balanced diet including Calcium and Vitamin D and routine exercise. Advised to clean with water only, no soaps to the area, dry well and wear cotton underwear. Contact office with any PMB. Encourage to lower tobacco intake then quit. All of her questions and concerns were addressed to the best of my ability RTO in 1 year for AG. (2) Vaginal burning: Code(s): N94.9 - Unspecified condition associated with female genital organs and menstrual cycle (3) Vaginal irritation: Code(s): N89.8 - Other specified noninflammatory disorders of vagina Coding Level of Care Code Est Pt Prev Care 40-64y(61385) Diagnoses Encounter for well woman exam Z01.419 Vaginal burning N94.9 Vaginal irritation N89.8
[2022-10-13 10:05] VITALS: BP 118/74; BMI 25.5
== END 2022-10-13 10:50 | disposition home or self-care (01) ==
LOC: HO.HWS 10:01
PROVIDERS: PCP Internal Medicine; Visit Provider Advanced Practice Midwife
DX: Z01.419 Encounter for gynecological examination (general) (routine) without abnormal findings (principal); N94.9 Unspecified condition associated with female genital organs and menstrual cycle; N89.8 Other specified noninflammatory disorders of vagina
CPT/HCPCS: 99396

== ENCOUNTER → 2022-10-13 10:01 | Outpatient (BNVA) | payer OTHER, SELFPAY | PROVIDERS: PCP Internal Medicine; Visit Provider Advanced Practice Midwife ==

== ENCOUNTER 2023-04-02 14:54 | Outpatient (AMB) | payer OTHER, SELFPAY ==
[2023-04-02 14:59] VITALS: BP 138/74; PULSE 76; O2SAT 96; BMI 26.6
--- NOTE | 2023-04-02 14:59 | MHC.PC.OV ---
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 Required: No Allergies atorvastatin Allergy (Unknown, Verified 04/02/23 15:00) Cramps barium sulfate Allergy (Unknown, Verified 04/02/23 15:00) sore throat omeprazole Allergy (Unknown, Verified 04/02/23 15:00) diarrhea rosuvastatin Allergy (Unknown, Verified 04/02/23 15:00) Unknown simvastatin Allergy (Unknown, Verified 04/02/23 15:00) unknown varenicline [From Chantix] Allergy (Unknown, Verified 04/02/23 15:00) sore throat evolocumab [From Repatha SureClick] Adverse Reaction (Intermediate, Verified 04/02/23 15:00) cough Tobacco use date assessed: 04/02/23 HPI Med Follow Up HPI Details 62-year-old female with a history of COPD hypercholesterolemia GERD generalized anxiety disorder chronic kidney disease hypothyroidism last seen in May 2022. Mammograms up-to-date colonoscopy is up-to-date noted January 2023 ER visit for concerned about right upper quadrant mass question of a paraesophageal hernia. Advised to follow-up with thoracic surgeon. Patient also had another ER visit September for dog bite treated with antibiotics. Patient also was seen by my colleague to have an ear flush. Blood work last done in May 2022 showing abnormal thyroid numbers elevated triglyceride and cholesterol mild elevation in the renal function which has to be followed up. Had a long discussion with the patient, medical attendant and tax compliance officer regarding her case on wanting to change physicians. Patient does want the prescription written and was upset as the hiatal hernia was not disclosed to her. Patient has been seeing gastroenterology also and has had endoscopy as well as colonoscopy. Patient seeing that she has not aware. Advised patient to follow-up with Gastroenterology. Patient continues to smoke and not ready to so stopped it. Discussed about blood work regarding the hypercholesterolemia to LDL of 200+ patient is statin intolerant and declined medications, Zetia as well as Repatha/Praluent would like to approach this through herbal means. Discussed also about the thyroid being abnormal but she says it is normal for her. Patient was also upset about the impacted cerumen in which my colleague flushed it. [facility] Medical History Abdominal pain Chest pain COPD (chronic obstructive pulmonary disease) Crohn's disease Degenerative disc disease, lumbar Fall Foot pain, left GERD (gastroesophageal reflux disease) Hearing loss Hematoma and contusion Hip osteoarthritis HLD (hyperlipidemia) Hypercholesterolemia Hypothyroidism Iliotibial band syndrome LUQ abdominal pain Myalgia Neck pain Nicotine dependence, cigarettes, uncomplicated Osteoarthritis of left hip Osteoarthritis of right hip Rectal bleeding S/P right hip fracture Smoking Vaginal irritation Vitamin D deficiency Surgical History History of foot surgery History of hand surgery History of hip replacement History of shoulder surgery History of total right hip arthroplasty History of tubal ligation Family History Father Bladder cancer Mother Acute CVA (cerebrovascular accident) Stroke CVD (cardiovascular disease) Thyroid disease Brother Renal cell cancer Acute CVA (cerebrovascular accident) Family/Other Alcoholism Social History Household Members Other:: 12/2021 Housing: Apartment Alcohol intake: unknown Patient Tobacco Use Status: Current everyday Tobacco user Tobacco use type: Cigarette Cigarette Packs Per Day: 1 Cigarettes Per Day: 10 e-Cigarette/Vaping Use: Never Used Second Hand Smoke Exposure: No Current occupational status: disabled Cognitive needs: No Hearing needs: No Vision needs: Yes Questionnaire PHQ-9 Over the last 2 weeks, how often have you been bothered by any of the following problems? 1. Little interest or pleasure in doing things: not at all 2. Feeling down, depressed, or hopeless: not at all 3. Trouble falling or staying asleep, or sleeping too much: not at all 4. Feeling tired or having little energy: not at all 5. Poor appetite or overeating: not at all 6. Feeling bad about yourself - or that you are a failure or have let yourself or your family down: not at all 7. Trouble concentrating on things, such as reading the newspaper or watching television: not at all 8. Moving or speaking so slowly that other people could have noticed. Or the opposite - being so fidgety or restless that you have been moving around a lot more than usual: not at all 9. Thoughts that you would be better off or of hurting yourself in some way: not at all Total score: 0 Depression Screening Interpretation: Negative Depression Screening Done: Yes 52372 - PHQ-9 Billing: Yes Source: Developed by Drs. Moshe Mendoza, Layne Feng, Chad Pool and colleagues, with an educational tari from [employer]. Thrive Questionnaire Date Thrive assessed: 04/02/23 I am a: Patient What is your living situation today?: I have a steady place to live Within the past 12 months, did the food you bought not last and you didn't have the money to get more?: Never true Within the past 12 months, did you worry whether your food would run out before you got money to buy more?: Never true Do you have trouble paying for medicines?: No Do you have trouble getting transportation to medical appointments?: No Do you have trouble paying your heating and electricity bill?: No Do you have trouble taking care of your child, family member or friend?: No Do you have trouble with day-to-day activities such as bathing, preparing meals, shopping, managing finances, etc.?: No Are you currently unemployed and looking for a job?: No Are you interested in more education?: No AUDIT C Alcohol Use Questionnaire (AUDIT-C) 1. How often do you have a drink containing alcohol?: Never 3. How often do you have six or more drinks on one occasion?: Never Total Score: 0 Score Reviewed/Action Taken: Yes SARIKA-7 AMB Questionnaire SARIKA-7 Date SARIKA - 7 assessed: 04/02/23 Feeling nervous, anxious, or on edge: 0 = Not at all Not being able to stop or control worryin = Not at all Worrying too much about different things: 0 = Not at all Trouble relaxin = Not at all Being so restless that it is hard to sit still: 0 = Not at all Becoming easily annoyed or irritable: 0 = Not at all Feeling afraid as if something awful might happen: 0 = Not at all Total SARIKA-7 score (0-4 normal; 5-9 mild; 10-14 moderate; 15-21 severe): 0 Source: Developed by Drs. Moshe Mendoza, Layne Feng, Chad Pool and colleagues, with an educational tari from [employer]. Physical exam (Primary Care) Vital Signs: Last Vital Signs Pulse 76 04/02/23 14:59 BP 138/74 04/02/23 14:59 Pulse Ox 96 04/02/23 14:59 Oxygen Delivery Method Room Air 04/02/23 14:59 BMI result Body Mass Index 26.6 Tobacco/Smoking Status: Tobacco use Status Tobacco use date assessed 04/02/23 04/02/23 15:05 Patient Tobacco Use Status Current everyday Tobacco 04/02/23 15:05 Tobacco use type Cigarette 04/02/23 15:05 e-Cigarette/Vaping Use Never Used 04/02/23 15:05 PHQ-9: PHQ-9 Score PHQ-9: Total score 0 04/02/23 15:05 Depression Screening Interpretation: Negative Thrive Assessment: Date of Thrive Assessment Date Thrive assessed 04/02/23 04/02/23 15:05 Const General: alert; No acute distress Eyes Conjunctivae: conjunctivae normal Resp Auscultation: clear to auscultation bilaterally Cardio Rate: regular rate Rhythm: regular rhythm GI Inspection: Yes normal to inspection Extrem General: Yes normal to inspection and No edema Assessment and Plan Assessment & Plan (1) Mild renal insufficiency: Code(s): N28.9 - Disorder of kidney and ureter, unspecified Plan: Will follow-up on blood work keep well hydrated avoid NSAID advised repeat blood work (2) Hypercholesterolemia: Code(s): E78.00 - Pure hypercholesterolemia, unspecified Plan: Avoid fried foods, chicken skin, eggs, butter margarine, pastries and meat. Be it pork or beef they have a lot of cholesterol LDL goal of less than 130 and triglyceride of less than 150. Statin intolerance Declined any medication and would like to approach this through herbal (3) Tobacco abuse: Comment: 11/2021 6 a day Code(s): Z72.0 - Tobacco use Plan: Patient is strongly advised to stop smoking!. not ready to stop smoking yet (4) TSH elevation: Code(s): R79.89 - Other specified abnormal findings of blood chemistry Plan: Will need to repeat and follow-up advised repeat testing (5) GERD (gastroesophageal reflux disease): Comment: EGD July 2021 Code(s): K21.9 - Gastro-esophageal reflux disease without esophagitis Plan: Avoid the foods that causes that usually spicy foods, tomato products, juices, coffee, soda and foods that your sensitive to. After eating do not lie down, allow 3-4 hours before in lie down. And keep the head of bed above 30 degrees to avoid the acid from going up.. Will refer to Gastroenterology (6) Generalized anxiety disorder: Comment: [facility] Counseling Code(s): F41.1 - Generalized anxiety disorder Plan: Advised to follow-up with counseling and therapy (7) Sciatic nerve injury: Code(s): S74.00XA - Injury of sciatic nerve at hip and thigh level, unspecified leg, initial encounter Plan: decline PT for now (8) Thoracic back pain: Code(s): M54.6 - Pain in thoracic spine Plan: Refill on the [facility] Orders: Referrals Gastroenterology Referral K21.9 - Gastro-esophageal reflux disease without esophagitis Medications: Refilled carisoprodol 350 mg PO BID 30 days PRN 50 tabs 0RF muscle pain M16.9 - Osteoarthritis of hip, unspecified Coding Level of Care Code Est Pt Level 4 (97272) Diagnoses Mild renal insufficiency N28.9 Hypercholesterolemia E78.00 Tobacco abuse Z72.0 TSH elevation R79.89 GERD (gastroesophageal reflux disease) K21.9 Generalized anxiety disorder F41.1 Sciatic nerve injury S74.00XA Thoracic back pain M54.6
== END 2023-04-02 15:53 | disposition home or self-care (01) ==
PROVIDERS: PCP Internal Medicine; Visit Provider Internal Medicine
DX: N28.9 Disorder of kidney and ureter, unspecified (principal); E78.00 Pure hypercholesterolemia, unspecified; Z72.0 Tobacco use; R79.89 Other specified abnormal findings of blood chemistry; K21.9 Gastro-esophageal reflux disease without esophagitis; F41.1 Generalized anxiety disorder; S74.00XA Injury of sciatic nerve at hip and thigh level, unspecified leg, initial encounter; M54.6 Pain in thoracic spine
CPT/HCPCS: 99214

== ENCOUNTER 2023-04-19 14:32 | Outpatient (AMB) | payer OTHER, SELFPAY ==
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
[2023-04-19 14:44] VITALS: BP 150/72; BMI 26.6
== END 2023-04-19 15:57 | disposition home or self-care (01) ==
PROVIDERS: PCP Internal Medicine; Visit Provider Nurse Practitioner
DX: K21.9 Gastro-esophageal reflux disease without esophagitis (principal); R14.0 Abdominal distension (gaseous); D12.6 Benign neoplasm of colon, unspecified; M47.24 Other spondylosis with radiculopathy, thoracic region; F17.200 Nicotine dependence, unspecified, uncomplicated; R07.9 Chest pain, unspecified; M25.50 Pain in unspecified joint
CPT/HCPCS: 99214

== ENCOUNTER → 2023-04-19 14:32 | Outpatient (BNVA) | payer OTHER, SELFPAY | PROVIDERS: PCP Internal Medicine; Visit Provider Nurse Practitioner | DX: K21.9 Gastro-esophageal reflux disease without esophagitis (principal); R14.0 Abdominal distension (gaseous); R07.9 Chest pain, unspecified; D12.6 Benign neoplasm of colon, unspecified; M47.24 Other spondylosis with radiculopathy, thoracic region; M25.50 Pain in unspecified joint; F17.210 Nicotine dependence, cigarettes, uncomplicated | CPT/HCPCS: 99212 ==

== ENCOUNTER 2023-05-11 12:34 | Outpatient (AMB) | payer OTHER, SELFPAY ==
--- NOTE | 2023-05-11 12:38 | A.OFFVIS_ITS ---
Intake Vital Signs 05/11/23 12:39 Height 5 ft 6 in Weight 164 lb BMI 26.5 BP 106/52 L Blood Pressure Location Lt brachial Position Sitting Pulse 70 Intake Visit Reasons: Provider request Intake Note: Patient visit because provider request. Patient cc: between diarrhea and constipation, abdominal discomfort is a wear feeling everything is going up her throat. 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 Accompanied by: Self / Same As Patient Allergies atorvastatin Allergy (Unknown, Verified 05/11/23 12:38) Cramps barium sulfate Allergy (Unknown, Verified 05/11/23 12:38) sore throat omeprazole Allergy (Unknown, Verified 05/11/23 12:38) diarrhea rosuvastatin Allergy (Unknown, Verified 05/11/23 12:38) Unknown simvastatin Allergy (Unknown, Verified 05/11/23 12:38) unknown varenicline [From Chantix] Allergy (Unknown, Verified 05/11/23 12:38) sore throat evolocumab [From Repatha SureClick] Adverse Reaction (Intermediate, Verified 05/11/23 12:38) cough HPI Provider request HPI Details Assessment & Plan (1) GERD (gastroesophageal reflux diseas e): Comment: EGD July 2021 Code(s): K21.9 - Gastro-esophageal reflux disease without esophagitis (2) Abdominal bloating: Code(s): R14.0 - Abdominal distension (gaseous) (3) Tubular adenoma of colon: Comment: 08/2021 scope= hyperplastic polyps only repeat in 5 years; 2 Large on 2019 scope calling for 3 year recall aeb Code(s): D12.6 - Benign neoplasm of colon, unspecified (4) Thoracic radiculopathy due to degene rative joint disease of spine: Code(s): M47.24 - Other spondylosis with radiculopathy, thoracic region (5) Smoking: Code(s): F17.200 - Nicotine dependence, unspecified, uncomplicated (6) Chest pain: Code(s): R07.9 - Chest pain, unspecified Qualifiers: Chest pain type: unspecified Qualified Code(s): R07.9 - Chest pain, unspecified (7) Arthralgia: Code(s): M25.50 - Pain in unspecified joint Plan 05/25/2105/17/2022 TSH quite elevated in labs d rawn BY PCP and free T4 low ? /needs med adjustment Patient was in her primary care office and apparently was upset saying she had a ?hernia? she was not told about that she thinks is causing her GI distress. However, this was an incidental finding after [facility] ER visit and even the provider there did not feel this was the cause of her distress. He favored some sort of costochondritis. I reviewed this with her including sharing the MRI results and the thoughts of the ER clinician (who is a physician that I have worked with personally in the past and has pretty good insight) so that she understands the probability of the findings verses resolution of her symptoms. She had objected to barium swallow in the past r/t dislike of contrast. Now she is willing to do it to narrow down problems. She was educated that a lump that is palpable on the outside of her body, will not be her esophagus. As above, will try to get MRI of thoracic spine (there WAS DJD on her xr) if she can with her hip replacement - if not will get CT of spine, Chest CT as she is a longtime smoker, and no new medication interventions for now. In the past she has failed to have any symptom improvement with dicyclomine, peppermint oil and other antispasmodics, or acid reducing therapy. The symptoms are not related to eating or moving her bowels. The symptoms are somewhat worse when she stands for long periods of times but also worse when she crutches forward. This points more toward a musculoskeletal cause along with the fact that she feels lumps that develop or something on the outside of her body. Given that her symptoms set does not match the very tiny hiatal hernia discovered I do not recommend surgery as this would probably just cause as many problems if not more than she already has. Even in people who truly need a Luis fundoplication it is only about 50% effective. She has not 1 of those candidates. Also getting inflammatory markers to see if there is any reason to suspect severe rib costochondritis. Of note, she is discontinued all of her statin therapies and even had a trial of 1 of the newer more novel agents and they caused her myalgias. I am uncertain how this relates but it certainly is interesting. She is quite grateful for the help, information service at our office has pr ovided to her both today and over all of her past visits. 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 This is especially since her symptoms are not convincingly related to the GI system. ROV 6 weeks. Orders: Orders C Reactive Protein 04/19/23 M25.50 - Pain in u nspecified joint, R07.9 - Chest pain , unspecified Erythrocyte Sedime ntation Rate 04/19/23 M25.50 - Pain in u nspecified joint, R07.9 - Chest pain , unspecified JARRETT Reflex Titer a nd Pattern 04/19/23 M25.50 - Pain in u nspecified joint, R07.9 - Chest pain , unspecified CT chest wo con - High Res 04/19/23 F17.200 - Nicotine dependence, unspe cified, uncomplica allen, M47.24 - Othe r spondylosis with radiculopathy, th oracic region, R07 .9 - Chest pain, u nspecified MR thoracic spine wo con 04/19/23 M47.24 - Other spo ndylosis with radi culopathy, thoraci c region FL barium swallow 04/19/23 M47.24 - Other spo ndylosis with radi culopathy, thoraci c region Rheumatoid Factor 04/19/23 M25.50 - Pain in u nspecified joint, R07.9 - Chest pain , unspecified Cyclic Citrullinat ed Peptide 04/19/23 M25.50 - Pain in u nspecified joint, R07.9 - Chest pain , unspecified CORRESPONDENCE On 05/11/23 @ 12:09 Chacha Mays Wrote To Chacha Mays I called the patient at 08:00 o'clock this morning to see what her concerns wer e. She said she had a severe episode of left upper quadrant pain feeling like an organ ?twisted and got out of place underneath my ribcage. ? She is very frightened about this. It has also been accompanied by severe watery diarrhea for a few days. She had a recent CT scan through [facility] that was unrevealing for somewhat similar symptoms. Because of the diarrhea we will get some stool studies along with an x-ray of the ribs and an abdominal x-ray. 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 Because of this I will get an ova and parasite. I have asked them to get her into my schedule in the near future. TabathaJune completed item. On 05/11/23 @ 11:48 Kristine Milner Wrote To Mays Pt added to today's schedule. On 05/11/23 @ 09:48 Kristine Milner Wrote To Kristine Milner Called Pt and LVM requesting call back to schedule appt. On 05/11/23 @ 07:50 TabathaJune Wrote To Kristine Milner Try to cram her in somewhere, okay to double book On 05/10/23 @ 15:32 Kristine Milner Wrote To Mays We have don't have any openings before 05/28, please advise. On 05/10/23 @ 13:56 Dasia Hall Wrote To Mays (2) Patient called and stated that she needs to see you sooner than may 28, she said that she feels there is something seriously wrong with her and she is scared. she stated she felt something (one of organs) flip and go under her ribs and she said she already went to the ED they told her they don't see anything but she really feels like something is wrong. She either wants you to call her or give her an appointment KALEY. 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 When she bends over she feels like her stomach contents are coming up, she tries to bend with her head up and not flexed at the neck. This was different from per past presentations because it never felt like it twisted before. She found this extremely frightening. She also has been having diarrhea. She started a natural OTC product for worms. She says she has had a label of UC/Crohns. However, this has not borne out in terms of colonoscopy findings over the years of course with the exacerbating remitting nature of this it could just be that she has been stable for a long time. Keep 05/28 appt. [facility] Medical History (Updated 05/11/23 @ 13:21 by ELZBIETA Jolly) Myalgia due to statin Neurocardiogenic syncope Chest pain Vaginal irritation Foot pain, left LUQ abdominal pain Abdominal pain Smoking Rectal bleeding Myalgia Neck pain HLD (hyperlipidemia) Osteoarthritis of right hip Iliotibial band syndrome Hematoma and contusion Fall Osteoarthritis of left hip Vitamin D deficiency Hearing loss Degenerative disc disease, lumbar Hypercholesterolemia GERD (gastroesophageal reflux disease) COPD (chronic obstructive pulmonary disease) Crohn's disease Nicotine dependence, cigarettes, uncomplicated Hypothyroidism S/P right hip fracture Hip osteoarthritis Surgical History History of shoulder surgery History of hand surgery History of foot surgery History of hip replacement History of tubal ligation History of total right hip arthroplasty Family History Father Bladder cancer Mother Acute CVA (cerebrovascular accident) Stroke CVD (cardiovascular disease) Thyroid disease Brother Renal cell cancer Acute CVA (cerebrovascular accident) Family/Other Alcoholism Social History Household Members Other:: 12/2021 Housing: Apartment Alcohol intake: unknown Patient Tobacco Use Status: Current everyday Tobacco user Tobacco use type: Cigarette Cigarette Packs Per Day: 1 Cigarettes Per Day: 10 e-Cigarette/Vaping Use: Never Used Second Hand Smoke Exposure: No Current occupational status: disabled Cognitive needs: No Hearing needs: No Vision needs: Yes Review of Systems Const Denies fatigue, Denies fever(s), Denies night sweats, Denies poor appetite and Denies weight loss ENT Reports Normal hearing present, Denies dental pain, Denies dysphagia, Denies hearing loss, Denies mouth pain, Denies odynophagia, Denies throat swelling, Denies tongue swelling and Reports other (Dentition adequate) Card Reports no additional complaints Resp Reports no additional complaints GI Details: Reports abdominal pain, Denies melena, Denies bloating, Denies hematochezia, Denies constipation, Denies GI cramping, Denies dysphagia, Denies excessive flatus, Denies early satiety, Reports heartburn, Reports diarrhea, Denies nausea, Denies odynophagia, Denies vomiting and Denies hematemesis Musc Details: Left lower rib pain Reports back pain, Reports myalgias and Reports arthralgias Skin/Breast Denies pruritus, Denies lesions, Denies rash and Denies jaundice Neuro Reports Normal hearing present and Denies Abnormal speech present Psych Reports anxiety Endo Denies fatigue Aller/Immun Denies throat swelling and Denies tongue swelling Physical Exam Vital Signs: Last Vital Signs Pulse 70 05/11/23 12:39 BP 106/52 L 05/11/23 12:39 BMI result Body Mass Index 26.5 Const General: cooperative, no acute distress, well developed and well groomed Nutritional Appearance: average body habitus and well nourished Orientation/consciousness: oriented to person, oriented to place and oriented to time Limitations: No language barrier HEENT Head: Yes normocephalic and Yes atraumatic Eyes General: appearance normal, both eyes and all related structures Pupils: Equal, round and reactive pupils present Neck Neck: Yes normal visual inspection and Yes no lymphadenopathy Thyroid: Thyroid normal Chest Chest palpation & inspection: normal inspection of the chest and localized rib tenderness with anteroposterior compression (left lower ribcage) Resp Effort & Inspection: normal respiratory effort and able to speak in complete sentences Auscultation: clear to auscultation bilaterally Cardio Rate: regular rate Rhythm: regular rhythm Heart sounds: Normal, physiologic split S2 sound present Peripheral pulses: radial pulses present and posterior tibial pulses present GI Inspection: No distended and No Abdominal panniculus present Palpation (GI): Soft to palpation, Firmness to palpation present (GI), Tenderness to palpation present (GI) in the LUQ, no guarding, not rigid and No hepatosplenomegaly present Percussion: Yes normal to percussion Auscultation: normal bowel sounds Rectal Exam - Female: deferred Skin General skin exam: no rashes or lesions noted, turgor normal, skin not dry, no jaundice, No spider nevi and no striae Rashes: no rashes Nails: normal Neuro General: oriented to person, oriented to place and oriented to time Cranial nerves: Yes Equal, round and reactive pupils present and Yes Normal hearing present Speech: No Abnormal speech present Extrem General: Yes normal to inspection, No clubbing, No cyanosis and No edema Psych Appearance: grossly normal and well kempt Mental Status: mental status grossly normal Speech and movement: Normal speech and movement present Affect: normal affect Attitude: cooperative Thought process: Normal thought process present and not confabulating Thought content: Normal thought content present Insight: Limited insight present (Psych) Judgement: Limited judgement present (Psych) Assessment & Plan Assessment & Plan (1) Diarrhea: Code(s): R19.7 - Diarrhea, unspecified Plan A few days ago 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 When she bends over she feels like her stomach contents are coming up, she tries to bend with her head up and not flexed at the neck. This was different from per past presentations because it never felt like it twisted before. She found this extremely frightening. She also has been having diarrhea. She started a natural OTC product for worms. She says she has had a label of UC/Crohns. However, this has not borne out in terms of colonoscopy findings over the years of course with the exacerbating remitting nature of this it could just be that she has been stable for a long time. I will get a fecal calprotectin to see if there is any reason to work her up further for these conditions. Keep 3 appt. Orders: Orders Calprotectin, Fecal 05/15/23 R19.7 - Diarrhea, unspecified Coding Level of Care Code Est Pt Level 3 (81855) Diagnoses Diarrhea R19.7
[2023-05-11 12:39] VITALS: BP 106/52; PULSE 70; BMI 26.5
== END 2023-05-11 13:33 | disposition home or self-care (01) ==
PROVIDERS: PCP Internal Medicine; Visit Provider Nurse Practitioner
DX: R19.7 Diarrhea, unspecified (principal)
CPT/HCPCS: 99213

== ENCOUNTER → 2023-05-11 12:34 | Outpatient (BNVA) | payer OTHER, SELFPAY | PROVIDERS: PCP Internal Medicine; Visit Provider Nurse Practitioner | DX: R19.7 Diarrhea, unspecified (principal) | CPT/HCPCS: 99212 ==

== ENCOUNTER 2023-05-15 06:30 | Outpatient (REF) | payer OTHER, SELFPAY ==
--- NOTE | ~2023-05-15 | XR_ITS ---
EXAMINATION: XR ABDOMEN WITH DECUBITUS VIEWS CLINICAL INDICATION: Pleurodynia Left/midline upper abdominal/lower anterior chest pain for years COMPARISON: CT scan abdomen and pelvis 12/20/2020 TECHNIQUE: AP supine and upright views of the abdomen. FINDINGS: There is no free air under the diaphragm. The lung bases are clear. The liver is enlarged with elongation of the right lobe of the liver extending into the pelvis. The bowel gas pattern is normal with no evidence of ileus or obstruction. A few small phleboliths are seen within the pelvis. Vascular calcifications are noted. Degenerative is seen in the lower lumbar spine. There is partial visualization of a right total hip prosthesis. Sclerotic focus seen superior to the superior-lateral aspect of the right acetabulum is similar to that seen on CT scan of the abdomen and pelvis 12/20/2020. XR/XR abdomen w decubitus IMPRESSION: 1. Hepatomegaly. 2. No evidence of ileus or obstruction.
--- NOTE | ~2023-05-15 | XR_ITS ---
EXAMINATION: XR RIBS, LEFT CLINICAL INFORMATION: Pleurodynia Left/midline upper abdomen/lower anterior chest pain for years COMPARISON: AP upright portable chest 12/20/2020 TECHNIQUE: PA chest and 2 views of the left ribs were obtained. FINDINGS: Lungs are clear. No consolidation, pneumothorax, or pleural effusion. The cardiomediastinal silhouette and pulmonary vasculature are normal. Osseous structures are unremarkable. No displaced rib fracture. No fractures are identified. XR/XR ribs RT min 3V w CXR1V IMPRESSION: No displaced left rib fracture.
[2023-05-15 07:40] LABS: C Reactive Protein 0.26 mg/dL (< or = 0.50); Rheumatoid Factor < 13.0 IU/mL (<15.0)
[2023-05-15 08:04] LABS: Erythrocyte Sedimentation Rate 8 MM/HR (0-20)
[2023-05-15 10:23] LABS: CDiff Gene PCR NEGATIVE (Negative)
[2023-05-15 12:22] LABS: Adenovirus F 40/41 Not Detected (Not Detect.); Astrovirus Not Detected (Not Detect.); Campylobacter Not Detected (Not Detect.); Cryptosporidium Not Detected (Not Detect.); Cyclospora cayetanensis Not Detected (Not Detect.); E. coli EAEC Not Detected (Not Detect.); E. coli EPEC Not Detected (Not Detect.); E. coli ETEC Not Detected (Not Detect.); E. coli STEC Not Detected (Not Detect.); Entamoeba histolytica Not Detected (Not Detect.); Giardia lamblia Not Detected (Not Detect.); Norovirus GI/GII Not Detected (Not Detect.); Plesiomonas shigelloides Not Detected (Not Detect.); Rotavirus A Not Detected (Not Detect.); Salmonella Not Detected (Not Detect.); Sapovirus Not Detected (Not Detect.); Shigella sp./EIEC Not Detected (Not Detect.); Vibrio Not Detected (Not Detect.); Vibrio Cholerae Not Detected (Not Detect.); Yersinia enterocolitica Not Detected (Not Detect.)
[2023-05-16 10:48] LABS: Cyclic Citrullinated Peptide <16 UNITS
[2023-05-19 16:28] LABS: Anti Nuclear Antibody Screen POSITIVE (NEGATIVE); Anti Nuclear Antibody Titer 1:40 titer
[2023-05-21 20:39] LABS: Calprotectin, Fecal 12 mcg/g
== END 2023-05-15 06:31 | disposition home or self-care (01) ==
LOC: HO.LAB 06:30
PROVIDERS: PCP Internal Medicine; Visit Provider Nurse Practitioner
DX: R07.9 Chest pain, unspecified (principal); R07.81 Pleurodynia; R19.7 Diarrhea, unspecified; M25.50 Pain in unspecified joint
CPT/HCPCS: 71101; 74021; 83993; 85652; 86038; 86039; 86140; 86200; 86431; 87177; 87209; 87493; 87507

== ENCOUNTER 2023-05-29 11:14 | Outpatient (AMB) | payer OTHER, SELFPAY ==
--- NOTE | 2023-05-29 11:30 | A.OFFVIS_ITS ---
Intake Vital Signs 05/29/23 11:45 Height 5 ft 6 in Weight 167 lb 1.766 oz BMI 27.0 BP 121/57 L Blood Pressure Location Lt brachial Position Sitting Pulse 67 Intake Visit Reasons: 6 week follow up Intake Note: Patient in office today for lab results. CC: Patient c/o abdominal pain and states is getting worst and it feels like it is pushing on my heart . She continues to have diarrhea and constipation but states she feels a little bit better on that. Import Manager Required: No Accompanied by: Self / Same As Patient Allergies atorvastatin Allergy (Unknown, Verified 05/29/23 11:50) Cramps barium sulfate Allergy (Unknown, Verified 05/29/23 11:50) sore throat omeprazole Allergy (Unknown, Verified 05/29/23 11:50) diarrhea rosuvastatin Allergy (Unknown, Verified 05/29/23 11:50) Unknown simvastatin Allergy (Unknown, Verified 05/29/23 11:50) unknown varenicline [From Chantix] Allergy (Unknown, Verified 05/29/23 11:50) sore throat evolocumab [From Repatha SureClick] Adverse Reaction (Intermediate, Verified 05/29/23 11:50) cough HPI 6 week follow up HPI Details Assessment & Plan (1) Diarrhea: Code(s): R19.7 - Diarrhea, unspecified Plan A few days ago she bent over to slate picker her small dog, and she felt like something popped up and twisted under her rib and it was extremely painful (this was 5 days ago). It is control room tender. When she bends over she feels like her stomach contents are coming up, she tries to bend with her head up and not flexed at the neck. This was different from per past presentations because it never felt like it twisted before. She found this extremely frightening. She also has been having diarrhea. She started a natural OTC product for worms. She says she has had a label of UC/Crohns. However, this has not borne out in terms of colonoscopy findings over the years of course with the exacerbating remitting nature of this it could just be that she has been stable for a long time. I will get a fecal calprotectin to see if there is any reason to work her up further for these conditions. Keep 3/5 appt. Orders: Orders Calprotectin, Feca l 05/15/23 R19.7 - Diarrhea, unspecified CORRESPONDENCE On 05/11/23 @ 11:48 Kristine Milner Wrote To Mays Pt added to today's schedule. On 05/11/23 @ 09:48 Kristine Milner Wrote To Kristine Milner Called Pt and LVM requesting call back to schedule appt. On 05/11/23 @ 07:50 Mays Wrote To Kristine Milner Try to cram her in somewhere, okay to double book On 05/10/23 @ 15:32 Kristine Milner Wrote To Mays We have don't have any openings before 05/28, please advise. On 05/10/23 @ 13:56 Dasia Hall Wrote To Mays (2) Patient called and stated that she needs to see you sooner than may 28, she said that she feels there is something seriously wrong with her and she is scared. she stated she felt something (one of organs) flip and go under her ribs and she said she already went to the ED they told her they don't see anything but she really feels like something is wrong. She either wants you to call her or give her an appointment KALEY. PLEASE ADVISE Orders C Reactive Protein 04/19/23 M25.50 - Pain in u nspecified joint, R07.9 - Chest pain , unspecified Erythrocyte Sedime ntation Rate 04/19/23 M25.50 - Pain in u nspecified joint, R07.9 - Chest pain , unspecified JARRETT Reflex Titer a nd Pattern 04/19/23 M25.50 - Pain in u nspecified joint, R07.9 - Chest pain , unspecified CT chest wo con - High Res 04/19/23 F17.200 - Nicotine dependence, unspe cified, uncomplica allen, M47.24 - Othe r spondylosis with radiculopathy, th oracic region, R07 .9 - Chest pain, u nspecified MR thoracic spine wo con 04/19/23 M47.24 - Other spo ndylosis with radi culopathy, thoraci c region FL barium swallow 04/19/23 M47.24 - Other spo ndylosis with radi culopathy, thoraci c region Rheumatoid Factor 04/19/23 M25.50 - Pain in u nspecified joint, R07.9 - Chest pain , unspecified Cyclic Citrullinat ed Peptide 04/19/23 M25.50 - Laboratory Tests 07/19/21 06/14/22 05/14/23 08:59 07:27 06:00 C-Reactive Protein 1.02 H TSH 8.01 H Free T4 0.65 L Stool Calprotectin Rheumatoid Factor Cycl Citrul Peptid e IgG JARRETT Screen JARRETT Titer JARRETT Pattern C. difficile Tox B Gene NEGATIVE O & P Trichrome St ain 05/14/23 05/14/23 05/15/23 06:00 06:00 06:47 C-Reactive Protein 0.26 TSH Free T4 Stool Calprotectin 12 Rheumatoid Factor Cycl Citrul Peptid e IgG JARRETT Screen POSITIVE A JARRETT Titer 1:40 H JARRETT Pattern C. difficile Tox B Gene O & P Trichrome St ain negative 05/15/23 05/15/23 06:47 06:47 C-Reactive Protein TSH Free T4 Stool Calprotectin Rheumatoid Factor < 13.0 Cycl Citrul Peptid e IgG <16 JARRETT Screen JARRETT Titer JARRETT Pattern A C. difficile Tox B Gene O & P Trichrome St ain 05/15/23-[address]: Sesar, Marylin Amado MD ORDERED: GI Panel Test Result Flag Refere nce Campylobacter No t Detected Not Det ect. P. shigell oides Not Detected No t Detect. Salmo sid Not Detect ed Not Detect. Vibrio Not D etected Not Detect . Vibrio Choler ae Not Detected Not D etect. Y. enter ocolit. Not Detected Not Detect. E. coli EAEC Not Dete cted Not Detect. E. coli EPEC Not Detected Not Dete ct. E. coli ETE C Not Detected Not Detect. E. col i STEC Not Detecte d Not Detect. E . coli O157 Not teddy licable Not Detect. E. coli c ontaining the O157 antigen are a sub set of Shig a-like toxin-produ cing E. coli (STEC ). Shigella/EIEC Not Detected Not D etect. Cryptosp oridium Not Detected Not Detect. Cyc lospora Not Dete cted Not Detect. E. histolytica Not Detected Not Dete ct. Giardia barr blia Not Detected Not Detect. Adenov irus Not Detecte d Not Detect. A strovirus Not De tected Not Detect. Norovirus N ot Detected Not De tect. Rotavirus A Not Detected N ot Detect. Bill virus Not Detec allen Not Detect. CXR/rib xray 05/17/23 FINDINGS: Lungs are clear. No consolidation, pneumothorax, or pleural effusion. The cardiomediastinal silhouette and pulmonary vasculature are normal. Osseous structures are unremarkable. No displaced rib fracture. No fractures are identified. XR/XR ribs RT min 3V w CXR1V IMPRESSION: No displaced left rib fracture. TODAY'S VISIT He has continued to do a OTC colon cleans and she feels she was passing liver flukes and she feels that the O&P did not show any parasites because she kept the sample in the refrigerator for too long. We review the labs and there is no evidence that there is stool inflammation given the normal fecal calprotectin (despite an elevated CRP in 2021). She continues to have pain in the LUQ with bulging but now she is feeling ot on the right as well. She does not have any stool infection and in the past her pancreatic elastase was normal. She also has a lot of chest pain. She had a cardiology work up in the past but it has been a few years. She will be asking her PCP for a cardiology referral. I could not get an MRI of the thoracic spine. I also have a pending CT of the chest (she is a smoker and this may help with the ? painful rib syndrome). I will refer her to ortho for consideration. She feels the cleanse has helped with her general energy and brain fog but the pain is worsening. This is leading her to be very anxious about the root cause. I will get another EGD/colonoscopy since she have a hx of gastric erosions. She also sees an herbalist and had tried encapsulated peppermint in the past, can't remember if this helped but she will try it again. This is to address her pain as possible bowel spasm. I also ordered a barium swallow to ban CAMACHO. I review all the labs and there does not seem to be any reason to suspect a systemic source of inflammation. She has not elevated TSH but apparently that has been ongoing and she declines to take her thyroid medication because she feels more poorly when she is on it. She really would like a colonoscopy and an upper endoscopy and I guess since she is having diarrhea and upper abdominal pain we will get this ordered. There are no prior problems with anesthesia or sedation. Her COPD is well controlled and she denies any known cardiac problems. There are no infectious disease problems. ROV 6 weeks. Amyal IB zina and yuliana. FOR[facility] Medical History (Updated 05/29/23 @ 12:19 by ELZBIETA Jolly) Myalgia due to statin Neurocardiogenic syncope Chest pain Vaginal irritation Foot pain, left LUQ abdominal pain Abdominal pain Smoking Rectal bleeding Myalgia Neck pain HLD (hyperlipidemia) Osteoarthritis of right hip Iliotibial band syndrome Hematoma and contusion Fall Osteoarthritis of left hip Vitamin D deficiency Hearing loss Degenerative disc disease, lumbar Hypercholesterolemia GERD (gastroesophageal reflux disease) COPD (chronic obstructive pulmonary disease) Crohn's disease Nicotine dependence, cigarettes, uncomplicated Hypothyroidism S/P right hip fracture Hip osteoarthritis Surgical History History of shoulder surgery History of hand surgery History of foot surgery History of hip replacement History of tubal ligation History of total right hip arthroplasty Family History Father Bladder cancer Mother Acute CVA (cerebrovascular accident) Stroke CVD (cardiovascular disease) Thyroid disease Brother Renal cell cancer Acute CVA (cerebrovascular accident) Family/Other Alcoholism Social History Household Members Other:: 12/2021 Housing: Apartment Alcohol intake: unknown Patient Tobacco Use Status: Current everyday Tobacco user Tobacco use type: Cigarette Cigarette Packs Per Day: 1 Cigarettes Per Day: 10 e-Cigarette/Vaping Use: Never Used Second Hand Smoke Exposure: No Current occupational status: disabled Cognitive needs: No Hearing needs: No Vision needs: Yes Review of Systems Const Denies fatigue, Denies fever(s), Denies night sweats, Denies poor appetite and Denies weight loss ENT Reports Normal hearing present, Denies dental pain, Denies dysphagia, Denies hearing loss, Denies mouth pain, Denies odynophagia, Denies throat swelling, Denies tongue swelling and Reports other (Dentition adequate) Card Reports chest pain and Reports dyspnea on exertion Resp Reports dyspnea on exertion GI Details: Reports abdominal pain, Denies melena, Reports bloating, Denies hematochezia, Denies constipation, Denies GI cramping, Denies dysphagia, Denies excessive flatus, Denies early satiety, Reports heartburn, Reports diarrhea, Denies nausea, Denies odynophagia, Denies vomiting and Denies hematemesis Skin/Breast Denies pruritus, Denies lesions, Denies rash and Denies jaundice Neuro Reports Normal hearing present and Denies Abnormal speech present Endo Denies fatigue Aller/Immun Denies throat swelling and Denies tongue swelling Physical Exam Vital Signs: Last Vital Signs Pulse 67 05/29/23 11:45 BP 121/57 L 05/29/23 11:45 BMI result Body Mass Index 27.0 Const General: cooperative, no acute distress, well developed and well groomed Nutritional Appearance: average body habitus and well nourished Orientation/consciousness: oriented to person, oriented to place and oriented to time Limitations: No language barrier HEENT Head: Yes normocephalic and Yes atraumatic Eyes General: appearance normal, both eyes and all related structures Pupils: Equal, round and reactive pupils present Neck Neck: Yes normal visual inspection and Yes no lymphadenopathy Thyroid: Thyroid normal Resp Effort & Inspection: normal respiratory effort and able to speak in complete sentences Auscultation: clear to auscultation bilaterally Cardio Rate: regular rate Rhythm: regular rhythm Heart sounds: Normal, physiologic split S2 sound present Peripheral pulses: radial pulses present and posterior tibial pulses present GI Inspection: No distended and No Abdominal panniculus present Palpation (GI): Soft to palpation, Tenderness to palpation present (GI) in the LUQ, no guarding, not rigid and No hepatosplenomegaly present Percussion: Yes normal to percussion Auscultation: normal bowel sounds Rectal Exam - Female: deferred Skin General skin exam: no rashes or lesions noted, turgor normal, skin not dry, no jaundice, No spider nevi and no striae Rashes: no rashes Nails: normal Neuro General: oriented to person, oriented to place and oriented to time Cranial nerves: Yes Equal, round and reactive pupils present and Yes Normal hearing present Speech: No Abnormal speech present Extrem General: Yes normal to inspection, No clubbing, No cyanosis and No edema Psych Appearance: grossly normal and well kempt Mental Status: mental status grossly normal Speech and movement: Normal speech and movement present Affect: normal affect Attitude: cooperative Thought process: Normal thought process present and not confabulating Thought content: Normal thought content present Insight: Limited insight present (Psych) Judgement: Limited judgement present (Psych) Results Reviewed Results Reviewed: Laboratory Tests 07/19/21 06/14/22 05/14/23 08:59 07:27 06:00 C-Reactive Protein 1.02 H TSH 8.01 H Free T4 0.65 L Stool Calprotectin Rheumatoid Factor Cycl Citrul Peptide IgG JARRETT Screen JARRETT Titer JARRETT Pattern C. difficile Tox B Gene NEGATIVE O & P Trichrome Stain 05/14/23 05/14/23 05/15/23 06:00 06:00 06:47 C-Reactive Protein 0.26 TSH Free T4 Stool Calprotectin 12 Rheumatoid Factor Cycl Citrul Peptide IgG JARRETT Screen POSITIVE A JARRETT Titer 1:40 H JARRETT Pattern C. difficile Tox B Gene O & P Trichrome Stain negative 05/15/23 05/15/23 06:47 06:47 C-Reactive Protein TSH Free T4 Stool Calprotectin Rheumatoid Factor < 13.0 Cycl Citrul Peptide IgG <16 JARRETT Screen JARRETT Titer JARRETT Pattern A C. difficile Tox B Gene O & P Trichrome Stain 05/15/23-0640 [facility] DR: Marylin Kaba MD ORDERED: GI Panel Test Result Flag Reference Campylobacter Not Detected Not Detect. P. shigelloides Not Detected Not Detect. Salmonella Not Detected Not Detect. Vibrio Not Detected Not Detect. Vibrio Cholerae Not Detected Not Detect. Y. enterocolit. Not Detected Not Detect. E. coli EAEC Not Detected Not Detect. E. coli EPEC Not Detected Not Detect. E. coli ETEC Not Detected Not Detect. E. coli STEC Not Detected Not Detect. E. coli O157 Not applicable Not Detect. E. coli containing the O157 antigen are a subset of Shiga-like toxin-producing E. coli (STEC). Shigella/EIEC Not Detected Not Detect. Cryptosporidium Not Detected Not Detect. Cyclospora Not Detected Not Detect. E. histolytica Not Detected Not Detect. Giardia lamblia Not Detected Not Detect. Adenovirus Not Detected Not Detect. Astrovirus Not Detected Not Detect. Norovirus Not Detected Not Detect. Rotavirus A Not Detected Not Detect. Sapovirus Not Detected Not Detect. CXR/rib xray 05/17/23 FINDINGS: Lungs are clear. No consolidation, pneumothorax, or pleural effusion. The cardiomediastinal silhouette and pulmonary vasculature are normal. Osseous structures are unremarkable. No displaced rib fracture. No fractures are identified. XR/XR ribs RT min 3V w CXR1V IMPRESSION: No displaced left rib fracture. Assessment & Plan Assessment & Plan (1) Diarrhea: Code(s): R19.7 - Diarrhea, unspecified (2) Rib pain: Code(s): R07.81 - Pleurodynia (3) Upper abdominal pain: Code(s): R10.10 - Upper abdominal pain, unspecified (4) Thoracic radiculopathy due to degenerative joint disease of spine: Code(s): M47.24 - Other spondylosis with radiculopathy, thoracic region Plan He has continued to do a OTC colon cleans and she feels she was passing liver flukes and she feels that the O&P did not show any parasites because she kept the sample in the refrigerator for too long. We review the labs and there is no evidence that there is stool inflammation given the normal fecal calprotectin (despite an elevated CRP in 2021). She continues to have pain in the LUQ with bulging but now she is feeling ot on the right as well. She does not have any stool infection and in the past her pancreatic elastase was normal. She also has a lot of chest pain. She had a cardiology work up in the past but it has been a few years. She will be asking her PCP for a cardiology referral. I could not get an MRI of the thoracic spine. I also have a pending CT of the chest (she is a smoker and this may help with the ? painful rib syndrome). I will refer her to ortho for consideration. She feels the cleanse has helped with her general energy and brain fog but the pain is worsening. This is leading her to be very anxious about the root cause. I will get another EGD/colonoscopy since she have a hx of gastric erosions. She also sees an herbalist and had tried encapsulated peppermint in the past, can't remember if this helped but she will try it again. This is to address her pain as possible bowel spasm. I also ordered a barium swallow to ban ? JANICE. I review all the labs and there does not seem to be any reason to suspect a systemic source of inflammation. She has not elevated TSH but apparently that has been ongoing and she declines to take her thyroid medication because she feels more poorly when she is on it. She really would like a colonoscopy and an upper endoscopy and I guess since she is having diarrhea and upper abdominal pain we will get this ordered. There are no prior problems with anesthesia or sedation. Her COPD is well controlled and she denies any known cardiac problems. There are no infectious disease problems. ROV 6 weeks. Eval IB guard and bentyl. Orders: Orders EGD/[place] Combo - GI Use Only Today R10.10 - Upper abdominal pain, unspecified Referrals Pain Management Referral M47.24 - Other spondylosis with radiculopathy, thoracic region, R07.81 - Pleurodynia Medications: New peg 3350-electrolytes 236-22.74-6.74 -5.86 gram (Golytely) until fecal effluent is clear; do not exceed a total volume of 2,000 mL 240 mL PO Q10M 1 day 4,000 mL 0RF Z12.11 - Encounter for screening for malignant neoplasm of colon dicyclomine 10 mg PO QID 120 caps 6RF Coding Level of Care Code Est Pt Level 4 (98242) Diagnoses Diarrhea R19.7 Rib pain R07.81 Upper abdominal pain R10.10 Thoracic radiculopathy due to degenerative joint disease of spine M47.24
[2023-05-29 11:45] VITALS: BP 121/57; PULSE 67; BMI 27.0
== END 2023-05-29 12:40 | disposition home or self-care (01) ==
PROVIDERS: PCP Internal Medicine; Visit Provider Nurse Practitioner
DX: R19.7 Diarrhea, unspecified (principal); R07.81 Pleurodynia; R10.10 Upper abdominal pain, unspecified; M47.24 Other spondylosis with radiculopathy, thoracic region
CPT/HCPCS: 99214

== ENCOUNTER → 2023-05-29 11:14 | Outpatient (BNVA) | payer OTHER, SELFPAY | PROVIDERS: PCP Internal Medicine; Visit Provider Nurse Practitioner | DX: R19.7 Diarrhea, unspecified (principal); R07.81 Pleurodynia; R10.10 Upper abdominal pain, unspecified; M47.24 Other spondylosis with radiculopathy, thoracic region | CPT/HCPCS: 99212 ==

== ENCOUNTER 2023-07-10 07:48 | Outpatient (AMB) | payer OTHER, SELFPAY ==
--- NOTE | 2023-07-10 07:55 | A.OFFVIS_ITS ---
Intake Vital Signs 07/10/23 07:59 Height 5 ft 6 in Weight 165 lb 2 oz BMI 26.6 BP 140/84 H Blood Pressure Location Lt brachial Position Sitting Pulse 76 Intake Visit Reasons: 6 weeks f/u Intake Note: Patient follow up Patient cc: abdominal pain with left side swelling, and constipation. Buyer Grain Required: No Accompanied by: Self / Same As Patient Allergies atorvastatin Allergy (Unknown, Verified 07/10/23 14:57) Cramps barium sulfate Allergy (Unknown, Verified 07/10/23 14:57) sore throat omeprazole Allergy (Unknown, Verified 07/10/23 14:57) diarrhea rosuvastatin Allergy (Unknown, Verified 07/10/23 14:57) Unknown simvastatin Allergy (Unknown, Verified 07/10/23 14:57) unknown varenicline [From Chantix] Allergy (Unknown, Verified 07/10/23 14:57) sore throat evolocumab [From Repatha SureClick] Adverse Reaction (Intermediate, Verified 07/10/23 14:57) cough HPI 6 weeks f/u HPI Details Assessment & Plan (1) Diarrhea: Code(s): R19.7 - Diarrhea, unspecified (2) Rib pain: Code(s): R07.81 - Pleurodynia (3) Upper abdominal pain: Code(s): R10.10 - Upper abdominal pain, unspecified (4) Thoracic radiculopathy due to degene rative joint disease of spine: Code(s): M47.24 - Other spondylosis with radiculopathy, thoracic region Plan He has continued to do a OTC colon cleans and she feels she was passing liver flukes and she feels that the O&P did not show any parasites because she kept the sample in the refrigerator for too long. We review the labs and there is no evidence that there is stool inflammation given the normal fecal calprotectin (despite an elevated CRP in 2021). She continues to have pain in the LUQ with bulging but now she is feeling ot on the right as well. She does not have any stool infection and in the past her pancreatic elastase was normal. She also has a lot of chest pain. She had a cardiology work up in the past but it has been a few years. She will be asking her PCP for a cardiology referral. I could not get an MRI of the thoracic spine. I also have a pending CT of the chest (she is a smoker and this may help with the ? painful rib syndrome). I will refer her to ortho for consideration. She feels the cleanse has helped with her general energy and brain fog but the pain is worsening. This is leading her to be very anxious about the root cause. I will get another EGD/colonoscopy since she have a hx of gastric erosions. She also sees an herbalist and had tried encapsulated peppermint in the past, can't remember if this helped but she will try it again. This is to address her pain as possible bowel spasm. I also ordered a barium swallow to ban CAMACHO. I review all the labs and there does not seem to be any reason to suspect a systemic source of inflammation. She has not elevated TSH but apparently that has been ongoing and she declines to take her thyroid medication because she feels more poorly when she is on it. She really would like a colonoscopy and an upper endoscopy and I guess since she is having diarrhea and upper abdominal pain we will get this ordered. There are no prior problems with anesthesia or sedation. Her COPD is well controlled and she denies any known cardiac problems. There are no infectious disease problems. ROV 6 weeks. Eval IB guard and bentyl. Orders: Orders EGD/[place] Combo - G I Use Only Today R10.10 - Upper abd ominal pain, unspe cified Referrals Pain Management Re qi M47.24 - Other spo ndylosis with radi culopathy, thoraci c region, R07.81 - Pleurodynia Medications: New peg 3350-electroly lisbeth 236-22.74-6.74 -5.86 gram (Golyt brenden) until feca l effluent is ck r; do not exceed a total volume of 2 ,000 mL 240 mL PO Q10M 1 day 4,000 mL 0RF Z12.11 - Encounter for screening for malignant neoplas m of colon dicyclomine 10 mg PO QID 120 caps 6RF EGD/COLONOSCOPY Scheduled for 10/26/2023 BIOPSY TODAY'S VISIT She never tried the bentyl, she took the OTC colon cleanse and the lump in her abdomen went away and many of her multiple complaints. She still feels she has a parasitic infection, as when she stopped the OTC colon cleanse her sx returned. However, it cost her $50 a bottle and I would like something stronger if possible. Past stool samples were negative, she thought is was because I left it in the refrigerator too long. I will try a 3 day course of Albendazole 400 mg orally on empty stomach twice daily for three days; could also consider. ?praziquantel?(single 25 to 40 mg/kg dose; 10 to 20 mg/kg may be sufficient)? ROV 2 weeks. [facility] Medical History (Updated 07/10/23 @ 15:52 by Marylin Kaba MD) Thoracic back pain Fall Forehead laceration Smoking Rectal bleeding Nausea and vomiting Abdominal bloating Oral candidiasis Otitis externa Ear pain, right Impacted cerumen of right ear Impacted cerumen of right ear Myalgia due to statin Neurocardiogenic syncope Chest pain Vaginal irritation Foot pain, left LUQ abdominal pain Abdominal pain Myalgia Neck pain HLD (hyperlipidemia) Osteoarthritis of right hip Iliotibial band syndrome Hematoma and contusion Fall Osteoarthritis of left hip Vitamin D deficiency Hearing loss Degenerative disc disease, lumbar Hypercholesterolemia GERD (gastroesophageal reflux disease) COPD (chronic obstructive pulmonary disease) Crohn's disease Nicotine dependence, cigarettes, uncomplicated Hypothyroidism S/P right hip fracture Hip osteoarthritis Surgical History (Updated 07/10/23 @ 07:57 by Sarah Ferris) Hx of eye surgery History of shoulder surgery History of hand surgery History of foot surgery History of hip replacement History of tubal ligation History of total right hip arthroplasty Family History (Updated 07/10/23 @ 14:58 by Mirta Whitaker CMA) Father Bladder cancer Mother Acute CVA (cerebrovascular accident) Stroke CVD (cardiovascular disease) Thyroid disease Brother Renal cell cancer Acute CVA (cerebrovascular accident) Family/Other Alcoholism Social History Household Members Other:: 12/2021 Housing: Apartment Alcohol intake: unknown Patient Tobacco Use Status: Current everyday Tobacco user Tobacco use type: Cigarette Cigarette Packs Per Day: 1 Cigarettes Per Day: 10 e-Cigarette/Vaping Use: Never Used Second Hand Smoke Exposure: No Current occupational status: disabled Cognitive needs: No Hearing needs: No Vision needs: Yes Review of Systems Const Denies fatigue, Denies fever(s), Denies night sweats, Denies poor appetite and Denies weight loss ENT Reports Normal hearing present, Denies dental pain, Denies dysphagia, Denies hearing loss, Denies mouth pain, Denies odynophagia, Denies throat swelling, Denies tongue swelling and Reports other (Dentition adequate) Card Reports no additional complaints Resp Reports no additional complaints GI Details: Denies abdominal pain, Denies melena, Reports bloating, Denies hematochezia, Reports constipation, Denies GI cramping, Denies dysphagia, Denies excessive flatus, Denies early satiety, Reports dyspepsia, Reports heartburn, Reports diarrhea, Denies nausea, Denies odynophagia, Denies vomiting and Denies hematemesis Skin/Breast Denies pruritus, Denies lesions, Denies rash and Denies jaundice Neuro Reports Normal hearing present and Denies Abnormal speech present Endo Denies fatigue Aller/Immun Denies throat swelling and Denies tongue swelling Physical Exam Vital Signs: Last Vital Signs Pulse 76 07/10/23 07:59 BP 140/84 H 07/10/23 07:59 BMI result Body Mass Index 26.6 Const General: cooperative, no acute distress, well developed and well groomed Nutritional Appearance: average body habitus and well nourished Orientation/consciousness: oriented to person, oriented to place and oriented to time Limitations: No language barrier HEENT Head: Yes normocephalic and Yes atraumatic Eyes General: appearance normal, both eyes and all related structures Pupils: Equal, round and reactive pupils present Neck Neck: Yes normal visual inspection and Yes no lymphadenopathy Thyroid: Thyroid normal Resp Effort & Inspection: normal respiratory effort and able to speak in complete sentences Auscultation: clear to auscultation bilaterally Cardio Rate: regular rate Rhythm: regular rhythm Heart sounds: Normal, physiologic split S2 sound present Peripheral pulses: radial pulses present and posterior tibial pulses present GI Inspection: No distended, No Abdominal panniculus present and Yes obesity Palpation (GI): Soft to palpation, Tenderness to palpation present (GI) in the LUQ, no guarding, not rigid and No hepatosplenomegaly present Percussion: Yes normal to percussion Auscultation: normal bowel sounds Rectal Exam - Female: deferred Skin General skin exam: no rashes or lesions noted, turgor normal, skin not dry, no jaundice, No spider nevi and no striae Rashes: no rashes Nails: normal Neuro General: oriented to person, oriented to place and oriented to time Cranial nerves: Yes Equal, round and reactive pupils present and Yes Normal hearing present Speech: No Abnormal speech present Extrem General: Yes normal to inspection, No clubbing, No cyanosis and No edema Psych Appearance: grossly normal and well kempt Mental Status: mental status grossly normal Speech and movement: Pressured speech present Affect: Anxious affect present Attitude: cooperative Thought process: not confabulating and Perseverating thought process present Thought content: Normal thought content present Insight: Fair insight present (Psych) Judgement: Fair judgement present (Psych) Assessment & Plan Assessment & Plan (1) GERD (gastroesophageal reflux disease): Comment: EGD July 2021 Code(s): K21.9 - Gastro-esophageal reflux disease without esophagitis (2) Thoracic radiculopathy due to degenerative joint disease of spine: Code(s): M47.24 - Other spondylosis with radiculopathy, thoracic region (3) Upper abdominal pain: Comment: DUE TO THORACIC RADICULOPATHY NO GI CAUSES FOUND Code(s): R10.10 - Upper abdominal pain, unspecified (4) Diarrhea: Code(s): R19.7 - Diarrhea, unspecified (5) 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 She still feels she has a parasitic infection, as when she stopped the OTC colon cleanse her sx returned. However, it cost her $50 a bottle and I would like something stronger if possible. Past stool samples were negative, she thought is was because I left it in the refrigerator too long. I will try a 3 day course of Albendazole 400 mg orally on empty stomach twice daily for three days; could also consider. ?praziquantel?(single 25 to 40 mg/kg dose; 10 to 20 mg/kg may be sufficient)? ROV 2 weeks. EGD/COLONOSCOPY Scheduled for 10/26/2023 BIOPSY Medications: New albendazole must administer with food, preferably a high-fat meal 400 mg (2 x 200 mg) PO BID 12 tabs 0RF 3 days 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, unspecified Coding Level of Care Code Est Pt Level 3 (36973) Diagnoses GERD (gastroesophageal reflux disease) K21.9 Thoracic radiculopathy due to degenerative joint disease of spine M47.24 Upper abdominal pain R10.10 Diarrhea R19.7 Parasitic intestinal disease B82.9
[2023-07-10 07:59] VITALS: BP 140/84; PULSE 76; BMI 26.6
== END 2023-07-10 08:41 | disposition home or self-care (01) ==
PROVIDERS: PCP Internal Medicine; Visit Provider Nurse Practitioner
DX: K21.9 Gastro-esophageal reflux disease without esophagitis (principal); M47.24 Other spondylosis with radiculopathy, thoracic region; R10.10 Upper abdominal pain, unspecified; R19.7 Diarrhea, unspecified; B82.9 Intestinal parasitism, unspecified
CPT/HCPCS: 99213

== ENCOUNTER → 2023-07-10 07:48 | Outpatient (BNVA) | payer OTHER, SELFPAY | PROVIDERS: PCP Internal Medicine; Visit Provider Nurse Practitioner | DX: K21.9 Gastro-esophageal reflux disease without esophagitis (principal); R10.10 Upper abdominal pain, unspecified; R19.7 Diarrhea, unspecified; B82.9 Intestinal parasitism, unspecified; M47.24 Other spondylosis with radiculopathy, thoracic region | CPT/HCPCS: 99212 ==

== ENCOUNTER 2023-07-10 14:54 | Outpatient (AMB) | payer OTHER, SELFPAY ==
[2023-07-10 14:56] VITALS: BP 142/88; PULSE 80; O2SAT 98; BMI 26.5
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
== END 2023-07-10 15:55 | disposition home or self-care (01) ==
PROVIDERS: PCP Internal Medicine; Visit Provider Internal Medicine
DX: J43.9 Emphysema, unspecified (principal); F31.9 Bipolar disorder, unspecified; N18.31 Chronic kidney disease, stage 3a; M47.24 Other spondylosis with radiculopathy, thoracic region; Z72.0 Tobacco use; E78.00 Pure hypercholesterolemia, unspecified; E03.9 Hypothyroidism, unspecified; R07.9 Chest pain, unspecified; K44.9 Diaphragmatic hernia without obstruction or gangrene
CPT/HCPCS: 99214

== ENCOUNTER → 2023-07-18 08:52 | Outpatient (REF) | payer OTHER, SELFPAY ==
--- NOTE | 2023-07-18 08:56 | CA_ITS ---
Acquisition Time: 2023-07-18 09:13:20 Total Exercise Time: 00:03:11 Test Indications: CP, UNSPECIFIED Medications: Protocol: BIRDIE Max HR: 108 BPM 68% of Pred: 158 BPM Max BP: 130/078 mmHG Max Work Load: 4.8 METS Exercise stress test exercise 3 min 11 sec of Birdie protocol achieving 67% MPHR, with moderate SOB, no chest discomfort, without arrhythmias, with normotensive response to exercise, without EKG changes at achieved workload. Breathing returned to baseline with rest. Test reviewed with Dr. Pleitez. Referred By: Marylin Kaba Overread By: Jamee Laguna
== END ==
LOC: HO.CARD 08:52
PROVIDERS: PCP Internal Medicine; Visit Provider Internal Medicine
DX: R07.9 Chest pain, unspecified (principal)
CPT/HCPCS: 93017

== ENCOUNTER → 2023-07-18 08:56 | Outpatient (BNV) | payer OTHER, SELFPAY | PROVIDERS: PCP Internal Medicine; Visit Provider Nurse Practitioner | DX: R07.9 Chest pain, unspecified (principal) | CPT/HCPCS: 93016; 93018 ==

== ENCOUNTER 2023-08-08 11:11 | Outpatient (AMB) | payer OTHER, SELFPAY ==
[2023-08-08 11:14] VITALS: BP 118/68; PULSE 73; BMI 26.4
--- NOTE | 2023-08-08 11:14 | MHC.OFFVIS ---
Vital Signs 08/08/23 11:14 Height 5 ft 6 in Weight 163 lb 9.328 oz BMI 26.4 BP 118/68 Blood Pressure Location Lt brachial Position Sitting Pulse 73 Intake Visit Reasons: 2 week follow up Intake Note: Patient returns to in office visit today in 2 weeks follow up. CC: Patient states there is something here pointing to epigastric area. She also states she has noticed she's been losing weight. She also states that she is getting chest pain and has a stress test scheduled with the service advisor. Technical Sales Representatives Required: No Accompanied by: Self / Same As Patient Allergies atorvastatin Allergy (Unknown, Verified 08/08/23 11:17) Cramps barium sulfate Allergy (Unknown, Verified 08/08/23 11:17) sore throat omeprazole Allergy (Unknown, Verified 08/08/23 11:17) diarrhea rosuvastatin Allergy (Unknown, Verified 08/08/23 11:17) Unknown simvastatin Allergy (Unknown, Verified 08/08/23 11:17) unknown varenicline [From Chantix] Allergy (Unknown, Verified 08/08/23 11:17) sore throat evolocumab [From Repatha SureClick] Adverse Reaction (Intermediate, Verified 08/08/23 11:17) cough HPI HPI 2 week follow up: Details: Assessment & Plan (1) GERD (gastroesophageal reflux disease): Comment: EGD July 2021 Code(s): K21.9 - Gastro-esophageal reflux disease without esophagitis (2) Thoracic radiculopathy due to degenerative joint disease of spine: Code(s): M47.24 - Other spondylosis with radiculopathy, thoracic region (3) Upper abdominal pain: Comment: DUE TO THORACIC RADICULOPATHY NO GI CAUSES FOUND Code(s): R10.10 - Upper abdominal pain, unspecified (4) Diarrhea: Code(s): R19.7 - Diarrhea, unspecified (5) 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 She still feels she has a parasitic infection, as when she stopped the OTC colon cleanse her sx returned. However, it cost her $50 a bottle and I would like something stronger if possible. Past stool samples were negative, she thought is was because I left it in the refrigerator too long. I will try a 3 day course of Albendazole 400 mg orally on empty stomach twice daily for three days; could also consider. ?praziquantel?(single 25 to 40 mg/kg dose; 10 to 20 mg/kg may be sufficient)? ROV 2 weeks. 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 But she had tremendous pain in the LUQ radiating to her chest that she feels is pushing up under the rib. She has an upcoming nuclear stress test. She took bentyl and her peppermint relief tablets adn this gave her some relief. But she also had a back ache - which is unusual for her. Likely this is r/t her infection. Her pain is worse when she stands for long periods of time. ? intestinal cramping etc? Has chest CT upcoming and this may be revealing. She would like to add an EGD to her colonoscopy, I will see if this is possible as she is scheduled in October. ROV after 08/22 CT [facility] Medical History (Updated 08/28/23 @ 18:15 by Marylin Kaba MD) Thoracic back pain Fall Forehead laceration Rectal bleeding Nausea and vomiting Abdominal bloating Oral candidiasis Myalgia due to statin Neurocardiogenic syncope Chest pain Foot pain, left LUQ abdominal pain Abdominal pain Myalgia Neck pain HLD (hyperlipidemia) Osteoarthritis of right hip Iliotibial band syndrome Hematoma and contusion Fall Osteoarthritis of left hip Vitamin D deficiency Hearing loss Degenerative disc disease, lumbar GERD (gastroesophageal reflux disease) COPD (chronic obstructive pulmonary disease) Crohn's disease Nicotine dependence, cigarettes, uncomplicated Hypothyroidism S/P right hip fracture Hip osteoarthritis Surgical History History of colonoscopy History of esophagogastroduodenoscopy (EGD) History of hip surgery History of total right hip arthroplasty Hx of eye surgery History of shoulder surgery History of hand surgery History of foot surgery History of tubal ligation Family History Father Bladder cancer Mother Acute CVA (cerebrovascular accident) Stroke CVD (cardiovascular disease) Thyroid disease Brother Renal cell cancer Acute CVA (cerebrovascular accident) Family/Other Alcoholism Social History (Updated 08/24/23 @ 09:46 by Emma Morales PA-C) Household Members Other:: 12/2021 Housing: Apartment Alcohol intake: unknown Patient Tobacco Use Status: Current everyday Tobacco user Tobacco use type: Cigarette Cigarette Packs Per Day: 1 Years Smoked: (onset 10yo, 3/4-1ppd x 52yrs, 40+PYH) e-Cigarette/Vaping Use: Never Used Second Hand Smoke Exposure: No Current occupational status: disabled Cognitive needs: No Hearing needs: No Vision needs: Yes Review of Systems Const Denies fatigue, Denies fever(s), Denies night sweats, Denies poor appetite and Denies weight loss ENT Reports Normal hearing present, Denies dysphagia, Denies odynophagia, Denies throat swelling and Denies tongue swelling Card Reports no additional complaints Resp Reports no additional complaints GI Details: Reports abdominal pain, Denies melena, Reports bloating, Denies hematochezia, Denies constipation, Reports GI cramping, Denies dysphagia, Denies excessive flatus, Denies early satiety, Reports heartburn, Denies diarrhea, Denies nausea, Denies odynophagia, Denies vomiting and Denies hematemesis Skin/Breast Denies pruritus, Denies lesions, Denies rash and Denies jaundice Neuro Reports Normal hearing present and Denies Abnormal speech present Endo Denies fatigue Aller/Immun Denies throat swelling and Denies tongue swelling Physical Exam Vital Signs: Last Vital Signs Pulse 73 08/08/23 11:14 BP 118/68 08/08/23 11:14 BMI result Body Mass Index 26.4 Const General: cooperative, no acute distress, well developed and well groomed Nutritional Appearance: average body habitus and well nourished Orientation/consciousness: oriented to person, oriented to place and oriented to time Limitations: No language barrier HEENT Head: Yes normocephalic and Yes atraumatic Eyes General: appearance normal, both eyes and all related structures Pupils: Equal, round and reactive pupils present Neck Neck: Yes normal visual inspection and Yes no lymphadenopathy Thyroid: Thyroid normal Resp Effort & Inspection: normal respiratory effort and able to speak in complete sentences Auscultation: clear to auscultation bilaterally Cardio Rate: regular rate Rhythm: regular rhythm Heart sounds: Normal, physiologic split S2 sound present Peripheral pulses: radial pulses present and posterior tibial pulses present GI Inspection: No distended and No Abdominal panniculus present Palpation (GI): Soft to palpation, nontender, no guarding, not rigid and No hepatosplenomegaly present Percussion: Yes normal to percussion Auscultation: normal bowel sounds Rectal Exam - Female: deferred Skin General skin exam: no rashes or lesions noted, turgor normal, skin not dry, no jaundice, No spider nevi and no striae Rashes: no rashes Nails: normal Neuro General: oriented to person, oriented to place and oriented to time Cranial nerves: Yes Equal, round and reactive pupils present and Yes Normal hearing present Speech: No Abnormal speech present Extrem General: Yes normal to inspection, No clubbing, No cyanosis and No edema Psych Appearance: grossly normal and well kempt Mental Status: mental status grossly normal Speech and movement: Normal speech and movement present Affect: normal affect Attitude: cooperative Thought process: Normal thought process present and not confabulating Thought content: Normal thought content present Insight: Limited insight present (Psych) Judgement: Limited judgement present (Psych) Assessment & Plan Assessment & Plan (1) Paraesophageal hernia: Code(s): K44.9 - Diaphragmatic hernia without obstruction or gangrene Category: Medical (2) Parasitic intestinal disease: Code(s): 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, unspecified Category: Medical (3) Upper abdominal pain: Comment: DUE TO THORACIC RADICULOPATHY NO GI CAUSES FOUND Code(s): R10.10 - Upper abdominal pain, unspecified Category: Medical (4) Tubular adenoma of colon: Comment: 08/2021 scope= hyperplastic polyps only repeat in 5 years; 2 Large on 2019 scope calling for 3 year recall aeb Code(s): D12.6 - Benign neoplasm of colon, unspecified Category: Medical (5) GERD (gastroesophageal reflux disease): Comment: EGD July 2021 Code(s): K21.9 - Gastro-esophageal reflux disease without esophagitis Category: Medical Plan Medications: New albendazole must administer with food, preferably a high-fat meal 400 mg (2 x 200 mg) PO BID 12 tabs 0RF 3 days 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 But she had tremendous pain in the LUQ radiating to her chest that she feels is pushing up under the rib. She has an upcoming nuclear stress test. She took bentyl and her peppermint relief tablets adn this gave her some relief. But she also had a back ache - which is unusual for her. Likely this is r/t her infection. Her pain is worse when she stands for long periods of time. ? intestinal cramping etc? Has chest CT upcoming and this may be revealing. She would like to add an EGD to her colonoscopy, I will see if this is possible as she is scheduled in October. ROV after 08/22 CT EGD/COLONOSCOPY Scheduled for 10/26/2023 BIOPSY Coding Level of Care Code Est Pt Level 3 (25484) Diagnoses Paraesophageal hernia K44.9 Parasitic intestinal disease B82.9 Upper abdominal pain R10.10 Tubular adenoma of colon D12.6 GERD (gastroesophageal reflux disease) K21.9
== END 2023-08-08 11:43 | disposition home or self-care (01) ==
PROVIDERS: PCP Internal Medicine; Visit Provider Nurse Practitioner
DX: K44.9 Diaphragmatic hernia without obstruction or gangrene (principal); B82.9 Intestinal parasitism, unspecified; R10.10 Upper abdominal pain, unspecified; D12.6 Benign neoplasm of colon, unspecified; K21.9 Gastro-esophageal reflux disease without esophagitis
CPT/HCPCS: 99213

== ENCOUNTER → 2023-08-08 11:11 | Outpatient (BNVA) | payer OTHER, SELFPAY | PROVIDERS: PCP Internal Medicine; Visit Provider Nurse Practitioner | DX: K44.9 Diaphragmatic hernia without obstruction or gangrene (principal); K21.9 Gastro-esophageal reflux disease without esophagitis; B82.9 Intestinal parasitism, unspecified; R10.10 Upper abdominal pain, unspecified; D12.6 Benign neoplasm of colon, unspecified | CPT/HCPCS: 99212 ==

== ENCOUNTER 2023-08-24 09:26 | Outpatient (AMB) | payer OTHER, SELFPAY ==
--- NOTE | 2023-08-24 07:48 | MHC.OFFVIS ---
Intake Visit Reasons: Current Smoker Allergies atorvastatin Allergy (Unknown, Verified 08/08/23 11:17) Cramps barium sulfate Allergy (Unknown, Verified 08/08/23 11:17) sore throat omeprazole Allergy (Unknown, Verified 08/08/23 11:17) diarrhea rosuvastatin Allergy (Unknown, Verified 08/08/23 11:17) Unknown simvastatin Allergy (Unknown, Verified 08/08/23 11:17) unknown varenicline [From Chantix] Allergy (Unknown, Verified 08/08/23 11:17) sore throat evolocumab [From Repatha SureClick] Adverse Reaction (Intermediate, Verified 08/08/23 11:17) cough HPI HPI Current Smoker: Details: Initial visit for this 62yo smoker with a 40+PYH. Patient has been smoking since age 10 for 52 years at 3/4-1ppd. . Reports daily marijuana use. Denies second hand smoke exposure. Reports exposure to asbestos and chrom. Work in [employer]. . Denies known family history of lung cancer. Denies personal history of cancers. Denies chest CT in last year. . Denies recent travel outside the [place]. Denies recent respiratory illness or recent hospitalization for respiratory issues. Reports testing positive for COVID. Admits receiving COVID Vaccine. . Denies fever, chills, new/worsening cough, hemoptysis, hoarseness or dysphagia. Denies significant chest pain, significant dyspnea or unintentional weight loss. Patient Lung Cancer Screening Questionnaire reviewed with patient by provider. . Shared Decision Making Completed. Patient meets criteria. Discussed in detail with patient, the risk vs benefit of LDCT screening. Patient consents to proceed with scan. Discussed smoking cessation. [facility] Medical History (Updated 08/24/23 @ 09:45 by Emma Morales PA-C) Thoracic back pain Fall Forehead laceration Rectal bleeding Nausea and vomiting Abdominal bloating Oral candidiasis Myalgia due to statin Neurocardiogenic syncope Chest pain Foot pain, left LUQ abdominal pain Abdominal pain Myalgia Neck pain HLD (hyperlipidemia) Osteoarthritis of right hip Iliotibial band syndrome Hematoma and contusion Fall Osteoarthritis of left hip Vitamin D deficiency Hearing loss Degenerative disc disease, lumbar GERD (gastroesophageal reflux disease) COPD (chronic obstructive pulmonary disease) Crohn's disease Nicotine dependence, cigarettes, uncomplicated Hypothyroidism S/P right hip fracture Hip osteoarthritis Surgical History History of colonoscopy History of esophagogastroduodenoscopy (EGD) History of hip surgery History of total right hip arthroplasty Hx of eye surgery History of shoulder surgery History of hand surgery History of foot surgery History of tubal ligation Family History Father Bladder cancer Mother Acute CVA (cerebrovascular accident) Stroke CVD (cardiovascular disease) Thyroid disease Brother Renal cell cancer Acute CVA (cerebrovascular accident) Family/Other Alcoholism Social History (Updated 08/24/23 @ 09:46 by Emma Morales PA-C) Household Members Other:: 12/2021 Housing: Apartment Alcohol intake: unknown Patient Tobacco Use Status: Current everyday Tobacco user Tobacco use type: Cigarette Cigarette Packs Per Day: 1 Years Smoked: (onset 10yo, 3/4-1ppd x 52yrs, 40+PYH) e-Cigarette/Vaping Use: Never Used Second Hand Smoke Exposure: No Current occupational status: disabled Cognitive needs: No Hearing needs: No Vision needs: Yes Assessment & Plan Assessment & Plan (1) Nicotine dependence, cigarettes, uncomplicated: Comment: (current smoker - onset 10yo, 3/4-1ppd x 52yrs, 40+PYH) Code(s): F17.210 - Nicotine dependence, cigarettes, uncomplicated Category: Medical Plan: - SDM visit completed today in office. - Patient meets criteria for LDCT for lung cancer screening purposes and is asymptomatic. - Smoking cessation counseling offered. Patients can always call [phone]. - Will arrange for a LDCT scan of the chest for screening purposes at [facility]. - Risks, benefits, and alternatives were discussed in detail and the patient agrees to proceed. - Risks discussed include but are not limited to: radiation exposure, anxiety during testing and while awaiting results, false negatives, false positives and possibility of additional intervention such as further imaging or surgical procedures for benign disease. - Benefits are obviously detection of lung cancer at an early stage which can lead to improved outcomes. - Discussed the importance of screening program compliance with adherence to yearly LDCT scan as scheduled - or sooner interval scans for personalized screening regimen. - Discussed follow up plan. Our office will send a letter discussing results and if needed set up phone call and office visit based on CT findings. - Patient educated on results categorization and the management decisions for suspicious findings potentially found on the screening LDCT scan. Any patient with a Lung RADS score of 3 or 4 will be reviewed by a multidisciplinary team at [facility] to form a plan of action in regards to scan findings. - If further work up is warranted for a suspicious lung finding this will be followed by the Lung Cancer Screening program in conjunction with the Thoracic Surgery Department at [facility]. - A copy of the office note and LDCT will be sent to the patient's PCP - as well as documentation on any associated further plans of care. - Incidental findings on LDCT are the PCP's responsibility. These findings are indicated with an S finding on the LDCT Assessment. A note discussing the findings will be sent to the PCP who is then responsible for further management. - All questions answered.? Coding Level of Care Code Lung Cancer Screening [id number] Diagnoses Nicotine dependence, cigarettes, uncomplicated F17.210
== END 2023-08-24 09:53 | disposition home or self-care (01) ==
PROVIDERS: PCP Internal Medicine; Referring Provider Internal Medicine; Visit Provider Physician Assistant Medical
DX: F17.210 Nicotine dependence, cigarettes, uncomplicated (principal)
CPT/HCPCS: G0296

== ENCOUNTER 2023-08-24 09:50 | Outpatient (REF) | payer OTHER, SELFPAY ==
--- NOTE | ~2023-08-24 | CT_ITS ---
EXAMINATION: CT LOW-DOSE SCREENING CHEST WITHOUT CONTRAST CLINICAL INFORMATION: Nicotine dependence, cigarettes, uncomplicated. The patient is a current smoker with a 54 pack-year history of smoking. COMPARISON: X-ray chest 12/20/2020. CT chest 02/02/2020. TECHNIQUE: Multidetector volumetric CT imaging of the chest is performed on a Siemens SOMATOM Definition scanner without contrast using low dose technique. Additional 2D coronal and sagittal reformatted images and axial 3D maximum intensity projection (MIP) images are generated on the CT workstation. This CT examination was performed using dose optimization techniques as appropriate, variously including the following: *Automated exposure control *Adjustment of mA and/or kV according to patient size (this includes techniques or standardized protocols for targeted exams where dose is matched to indication/reason for exam; i.e. extremities or head) *Use of iterative reconstruction technique TOTAL EXAM DLP: 45 mGy-cm CTDIvol: 1.40 mGy FINDINGS: PULMONARY NODULES: No suspicious pulmonary nodules. LUNGS: Lungs bilaterally symmetrically expanded. No focal lung nodule or mass. There is mild emphysema along with bronchial thickening. No effusion or pneumothorax. Central airways patent. MEDIASTINUM: No mediastinal, hilar or axillary adenopathy or free fluid collection. CORONARY ARTERY CALCIFICATION: Mild. THYROID GLAND: Unremarkable to the extent seen. CARDIOVASCULAR STRUCTURES: Aortic and heart size normal. No pericardial effusion. CHEST WALL/AXILLA: Unremarkable. UPPER ABDOMEN: Included portions of the solid organs in the upper abdomen unremarkable on noncontrast imaging. OSSEOUS STRUCTURES: No suspicious focal findings. CT/CT lung screening IMPRESSION: 1. No evidence of pulmonary malignancy. 2. Mild emphysema and bronchial thickening. 3. Lung-RADS Category lung Rads Category: 1. No nodules or definitely benign nodules. Probability of malignancy less than 1%. 4. Incidental findings (Category S): No incidental findings. RECOMMENDATION: Continued routine annual low-dose CT lung screening in 1 year is recommended. An order for CT CHEST LOW DOSE CANCER SCREENING ([id number]) can be placed.
== END 2023-08-24 09:51 | disposition home or self-care (01) ==
LOC: HO.CT 09:50
PROVIDERS: PCP Internal Medicine; Visit Provider Physician Assistant Medical
DX: Z12.2 Encounter for screening for malignant neoplasm of respiratory organs (principal); F17.210 Nicotine dependence, cigarettes, uncomplicated
CPT/HCPCS: 71271; G0296

== ENCOUNTER → 2023-08-27 08:01 | Outpatient (REF) | payer OTHER, SELFPAY ==
--- NOTE | ~2023-08-27 | NM_ITS ---
Myocardial perfusion study Indication: Chest pain for myocardial ischemia Technique: The patient was brought in for a Lexiscan perfusion study on 08/27/2023. Patient performed low-level exercise and was injected 0.4 mg of Lexiscan intravenously. Within a minute of injection, 25 mCi of sestamibi was given intravenously. Images were obtained using the SPECT gamma camera interlaced with the gating device. Images were obtained in supine position. Resting perfusion study was performed on 08/28/2023. Patient was administered 25 mCi of sestamibi intravenously at rest. Images were then obtained in supine position. Images obtained with and without CT attenuation. Total DLP 87 mGy-cm. Images were processed with the software and compared side to side in short axis, horizontal long axis and vertical long axis views. Findings: The stress perfusion study showed show mild thinning of the distal anterior and apical wall of the LV myocardium. Remainder of the LV myocardium is normally perfused. Attenuation corrected images show mildly to moderately reduced uptake in the distal anterior and apical wall of the LV myocardium.. The gated study shows normal LV systolic function with calculated LVEF of 59%. LV cavity is normal in size. The gated study shows normal systolic wall thickening and contraction of segments. Resting study shows both attenuated as well as non attenuated corrected images improved uptake in the distal anterior and apical wall of the LV myocardium. Gating at rest reveals , systolic wall motion with ejection fraction at greater than 55%. The findings are consistent with equivocal for mild intensity distal anterior and apical ischemia. NM/NM cardiolite stress test Impression: 1. Myocardial perfusion imaging study shows equivocal for mild intensity distal anterior and apical ischemia in mid to distal LAD territory 2. Gated LVEF is 59% 3. Transient ischemic dilatation not present EKG is nondiagnostic for ischemia
--- NOTE | 2023-08-27 08:03 | CA_ITS ---
Acquisition Time: 2023-08-27 08:01:07 Total Exercise Time: 00:02:00 Test Indications: Chest Pain Medications: SEE EMAR Protocol: LEXISCAN Max HR: 097 BPM 61% of Pred: 158 BPM Max BP: 134/072 mmHG Max Work Load: 1.0 METS Pharmacological stress test with Lexiscan injection while sitting and kicking her legs, with 2/10 middle sharp chest pain, without arrhythmias, with normotensive response to injection, with nondiagnoisitic EKGs. Chest discomfort resolved. Aminophylline 75mg IVP given to reverse Lexiscan. Nuclear images pending. Test reviewed with Dr. Pleitez Referred By: Marylin Kaba Overread By: Jamee Laguna
== END ==
LOC: HO.CARD 08:01
PROVIDERS: PCP Internal Medicine; Visit Provider Internal Medicine
DX: R07.9 Chest pain, unspecified (principal)
CPT/HCPCS: 78452; 93017; A9500; J0280; J2785

== ENCOUNTER → 2023-08-27 08:03 | Outpatient (BNV) | payer OTHER, SELFPAY | PROVIDERS: PCP Internal Medicine; Visit Provider Nurse Practitioner | DX: R07.9 Chest pain, unspecified (principal) | CPT/HCPCS: 78452; 93016; 93018 ==

== ENCOUNTER 2023-10-26 07:55 | Day surgery (SDC) | payer OTHER, SELFPAY ==
--- NOTE | 2023-10-24 13:25 | HO.ANESPROP2 ---
Documented by User: Yue Urrutia NP 10/24/23 13:26 HPI - Anesthesia Eval Consult details Narrative: 63yo F for Upper Endoscopy and Colonoscopy PMF Active Problems Active Problems: All Active Problems Bipolar disorder (Acute) Mild renal insufficiency (Acute) Chronic kidney disease (CKD) stage G3a/A1, moderately decreased glomerular filtration rate (GFR) between 45-59 mL/min/1.73 square meter and albuminuria creatinine ratio less than 30 mg/g (Acute) HLD (hyperlipidemia) (Acute) Hypothyroidism (Acute) COPD (chronic obstructive pulmonary disease) (Acute) Nicotine dependence, cigarettes, uncomplicated (Acute) Paraesophageal hernia (Acute) Left-sided chest pain (Acute) Parasitic intestinal disease (Acute) Upper abdominal pain (Acute) Diarrhea (Acute) Rib pain (Acute) Arthralgia (Acute) Chest pain (Acute) Thoracic radiculopathy due to degenerative joint disease of spine (Acute) Sciatic nerve injury (Acute) TSH elevation (Acute) Vaginal irritation (Acute) Multiple pigmented nevi (Acute) Tubular adenoma of colon (Acute) GERD (gastroesophageal reflux disease) (Acute) Generalized anxiety disorder (Acute) Osteoarthritis of right hip (Acute) Iliotibial band syndrome (Acute) Osteoarthritis of left hip (Acute) Vitamin D deficiency (Acute) Hip osteoarthritis (Acute) Past Medical History Medical History Thoracic back pain Fall Forehead laceration Rectal bleeding Nausea and vomiting Abdominal bloating Oral candidiasis Myalgia due to statin Neurocardiogenic syncope Chest pain Foot pain, left LUQ abdominal pain Abdominal pain Myalgia Neck pain HLD (hyperlipidemia) Osteoarthritis of right hip Iliotibial band syndrome Hematoma and contusion Fall Osteoarthritis of left hip Vitamin D deficiency Hearing loss Degenerative disc disease, lumbar GERD (gastroesophageal reflux disease) COPD (chronic obstructive pulmonary disease) Crohn's disease Nicotine dependence, cigarettes, uncomplicated Hypothyroidism S/P right hip fracture Hip osteoarthritis Family History Family History Father Bladder cancer Mother Acute CVA (cerebrovascular accident) Stroke CVD (cardiovascular disease) Thyroid disease Brother Renal cell cancer Acute CVA (cerebrovascular accident) Family/Other Alcoholism Family history of problems with anesthesia: No Surgical History Surgical History History of colonoscopy History of esophagogastroduodenoscopy (EGD) History of hip surgery History of total right hip arthroplasty Hx of eye surgery History of shoulder surgery History of hand surgery History of foot surgery History of tubal ligation History of Problems with Anesthesia: No Social History Social History Household Members Other:: 12/2021 Housing: Apartment Alcohol intake: unknown Patient Tobacco Use Status: Current everyday Tobacco user Tobacco use type: Cigarette Cigarette Packs Per Day: 0.5 Cigarettes Per Day: 10.0 Years Smoked: (onset 10yo, 3/4-1ppd x 52yrs, 40+PYH) e-Cigarette/Vaping Use: Never Used Second Hand Smoke Exposure: No Use of substances other than those prescribed or required for medical reasons: Yes Are you DNR?: No Advance Directives: No Advance Directives Information Provided: Yes Current occupational status: disabled Cognitive needs: No Hearing needs: No Vision needs: Yes Meds Allergies Allergy/AdvReac Type Severity Reaction Status Date / Time atorvastatin Allergy Unknown Cramps Verified 10/26/23 08:47 barium sulfate Allergy Unknown sore throat Verified 10/26/23 08:47 omeprazole Allergy Unknown diarrhea Verified 10/26/23 08:47 rosuvastatin Allergy Unknown Unknown Verified 10/26/23 08:47 simvastatin Allergy Unknown unknown Verified 10/26/23 08:47 [email or web address] [From Chantix] Allergy Unknown sore throat Verified 10/26/23 08:47 evolocumab AdvReac Intermediate cough Verified 10/26/23 08:47 [From Repatha SureClick] Home Medications ?Medication ?Instructions ?Recorded ?Confirmed ?Last Taken ?Type albuterol sulfate 2.5 mg/3 mL 2.5 mg inhalation Q4-6H PRN 02/06/20 10/26/23 Unknown History (0.083 %) solution for nebulization Shortness Of Breath Or Wheezing peppermint oil 0.2 mL 0.2 ml PO DAILY PRN Heartburn 08/08/23 10/26/23 Unknown History capsule,delayed release (Pepogest) Assessment and Plan Assessment Anesthesia Assessment: Chart Reviewed Final Anesthetic Review Family History of Problems with Anesthesia: No History of Problems with Anesthesia: No Documented by User: Bella Pearson MD 10/26/23 09:03 [facility] Past Medical History Medical History Thoracic back pain Fall Forehead laceration Rectal bleeding Nausea and vomiting Abdominal bloating Oral candidiasis Myalgia due to statin Neurocardiogenic syncope Chest pain Foot pain, left LUQ abdominal pain Abdominal pain Myalgia Neck pain HLD (hyperlipidemia) Osteoarthritis of right hip Iliotibial band syndrome Hematoma and contusion Fall Osteoarthritis of left hip Vitamin D deficiency Hearing loss Degenerative disc disease, lumbar GERD (gastroesophageal reflux disease) COPD (chronic obstructive pulmonary disease) Crohn's disease Nicotine dependence, cigarettes, uncomplicated Hypothyroidism S/P right hip fracture Hip osteoarthritis Family History Family History Father Bladder cancer Mother Acute CVA (cerebrovascular accident) Stroke CVD (cardiovascular disease) Thyroid disease Brother Renal cell cancer Acute CVA (cerebrovascular accident) Family/Other Alcoholism Surgical History Surgical History History of colonoscopy History of esophagogastroduodenoscopy (EGD) History of hip surgery History of total right hip arthroplasty Hx of eye surgery History of shoulder surgery History of hand surgery History of foot surgery History of tubal ligation Social History Social History Household Members Other:: 12/2021 Housing: Apartment Alcohol intake: unknown Patient Tobacco Use Status: Current everyday Tobacco user Tobacco use type: Cigarette Cigarette Packs Per Day: 0.5 Cigarettes Per Day: 10.0 Years Smoked: (onset 10yo, 3/4-1ppd x 52yrs, 40+PYH) e-Cigarette/Vaping Use: Never Used Second Hand Smoke Exposure: No Use of substances other than those prescribed or required for medical reasons: Yes Are you DNR?: No Advance Directives: No Advance Directives Information Provided: Yes Current occupational status: disabled Cognitive needs: No Hearing needs: No Vision needs: Yes Meds Allergies Allergy/AdvReac Type Severity Reaction Status Date / Time atorvastatin Allergy Unknown Cramps Verified 10/26/23 08:47 barium sulfate Allergy Unknown sore throat Verified 10/26/23 08:47 omeprazole Allergy Unknown diarrhea Verified 10/26/23 08:47 rosuvastatin Allergy Unknown Unknown Verified 10/26/23 08:47 simvastatin Allergy Unknown unknown Verified 10/26/23 08:47 [email or web address] [From Chantix] Allergy Unknown sore throat Verified 10/26/23 08:47 evolocumab AdvReac Intermediate cough Verified 10/26/23 08:47 [From Repatha SureClick] Home Medications ?Medication ?Instructions ?Recorded ?Confirmed ?Last Taken ?Type albuterol sulfate 2.5 mg/3 mL 2.5 mg inhalation Q4-6H PRN 02/06/20 10/26/23 Unknown History (0.083 %) solution for nebulization Shortness Of Breath Or Wheezing peppermint oil 0.2 mL 0.2 ml PO DAILY PRN Heartburn 08/08/23 10/26/23 Unknown History capsule,delayed release (Pepogest) Exam Airway Mallampati Class: II TM Dist: >3cm Neck ROM: Limited (neck pain and stiffness, will position awake.) Heart: rrr Lungs: cta Assessment and Plan Assessment Anesthesia Assessment: Anesthesia Plan Discussed Final Anesthetic Review NPO: Yes ASA Class: III Final Preanesthetic Review: No Changes in Pt Med Stat, Meds/Allgs Chart Reviewed, Consent Obtained/Reviewed and Anes Risks/Benef Reviewed Patient Risk: Intermediate Procedure Risk: Low Anesthetic Plan Anesthetic Plan: MAC: Disposition: Standard PACU
--- NOTE | 2023-10-26 08:09 | MHC.SHP ---
Pre-Procedural Eval Section A - 24 Hr Update-Section A only Date of Service: 10/26/23 The patient is an INPATIENT: No The patient has been examined within 24 hours of the surgical procedure. The History & Physical has been completed within 30 days and I have reviewed it.: No Section B - Complete if H&P > 30 days Chief Complaint: diarrhea, upper abd pain Relevant Family History (Specify if Yes): No Relevant Social History: Tobacco Use Present Medications: see Short Stay Collaborative assessment Medical History: Significant History (Thoracic back pain Fall Forehead laceration Rectal bleeding Nausea and vomiting Abdominal bloating Oral candidiasis Myalgia due to statin Neurocardiogenic syncope Chest pain Foot pain, left LUQ abdominal pain Abdominal pain Myalgia Neck pain HLD (hyperlipidemia) Osteoarthritis of right hip Iliotibia) History of Previous Operations: Relevant previous surgery/procedure and date(s) (History of colonoscopy History of esophagogastroduodenoscopy (EGD) History of hip surgery History of total right hip arthroplasty Hx of eye surgery History of shoulder surgery History of hand surgery History of foot surgery History of tubal ligation) Allergies: Allergies Allergy/AdvReac Type Severity Reaction Status Date / Time atorvastatin Allergy Unknown Cramps Verified 08/08/23 11:17 barium sulfate Allergy Unknown sore throat Verified 08/08/23 11:17 omeprazole Allergy Unknown diarrhea Verified 08/08/23 11:17 rosuvastatin Allergy Unknown Unknown Verified 08/08/23 11:17 simvastatin Allergy Unknown unknown Verified 08/08/23 11:17 [email or web address] [From Chantix] Allergy Unknown sore throat Verified 08/08/23 11:17 evolocumab AdvReac Intermediate cough Verified 08/08/23 11:17 [From Repatha SureClick] Review of Systems Sugical H&P ROS: Negative: Constitution, Cardiovascular and Respiratory and Yes, Specify: Gastrointestinal (Upper abdominal pain) Exam Surgical H&P Exam: Normal: Heart, Normal: Lungs, Normal: Extremities and Normal: Abdomen Plan Diagnosis/Plan: Unchanged I have reviewed the history and physical and performed a pertinent physical examination on my patient. No changes have occurred unless specified. Time Spent With Patient Time: Total time managing care of this patient today ____ minutes.
[2023-10-26 08:27] VITALS: BP 111/84; PULSE 72; RESP 16; TEMP 36.7; O2SAT 95; BMI 25.8
[2023-10-26] MEDS: Lactated Ringers 1,000 ML 100 ML IVCONT (08:46)
--- NOTE | 2023-10-26 09:53 | HO.OPN-COLON ---
Colonoscopy Operative Note Operative Note Date of Service: 10/26/23 Narrative: FLEXIBLE TRANSORAL UPPER GASTROINTESTINAL ENDOSCOPY WITH BIOPSIES AND COLONOSCOPY TILL CECUM WITH BIOPSIES AND SNARE POLYPECTOMY Pre-op diagnosis: Diarrhea, GERD, upper abdominal pain Post-op diagnosis: Hiatal hernia, Gastritis, Colon Polyps, Diverticulosis, hemorrhoids Endoscopist:Sigifredo Aleman MD Anesthesia:?MAC UPPER ENDOSCOPY Consent: Indications for the procedure and potential complications of bleeding, perforation, reaction to medications and missed diagnosis were discussed with the patient and informed consent was obtained. Instrument: Olympus GIF H 190 mid size upper endoscope Monitoring: Vital signs and clinical assessment, continuous EKG monitoring, Pulse oximetry, Carbon Dioxide monitoring and blood pressure monitoring were done throughout the procedure. Procedure: The patient was placed in the left lateral decubitis position and pre-procedure medications were administered and a bite block was placed. The endoscope was inserted into the mouth and advanced under direct vision to the third part of duodenum. A careful inspection was made as the upper endoscope was withdrawn including a retroflexed examination of the proximal stomach; Findings and interventions are described below. Findings: Larynx: Normal Esophagus: GE junction at 36 cms, medium sized hiatal hernia 36 to 40 cms. No esophagitis or Hood's. Stomach: Nodular appearing mucosa in the gastric body - biopsies obtained. Moderate diffuse gastric erythema - biopsies were obtained from the antrum. Grade 2 flap valve on retroflexed examination of the cardia. Duodenum: Normal bulb and descending duodenum Biopsies were obtained from descending duodenum during past EGD were negative for celiac sprue Intervention: Biopsies as noted above COLONOSCOPY PROCEDURE NOTE Instrument: Olympus PCF H 190 L variable stiffness pediatric colonoscope Monitoring: Vital signs and clinical assessment, intermittent blood pressure monitoring, continuous EKG monitoring, Pulse oximetry and Carbon Dioxide monitoring were done throughout the procedure. Please see anesthesia flowsheet. Colon withdrawl time was 14 minutes. Procedure: The patient was placed in the left lateral decubitis position and pre-procedure medications were administered. After a digital rectal examination of the ano-rectum, the video colonoscope was inserted into the rectum and advanced through the colon to the cecum. The colonoscope was slowly withdrawn in a retrograde panoramic fashion and the colon mucosa was carefully examined including a retroflexed view of the rectum. Findings and interventions are described below. Procedure Difficulty: LLQ pressure was applied to intubate the cecum Findings: Terminal Ileum: Not evaluated Cecum: A 7-8 mm sessile polyp - removed with a cold snare Ascending Colon: Normal Transverse Colon: Normal Descending Colon: Normal Sigmoid Colon: Moderate diverticulosis Rectum: Normal Ano-rectum: Moderate internal hemorrhoids Colon preparation: Excellent after some irrigation. [place] Bowel Preparation Scale Right colon; 3 Transverse colon: 3 Left colon; 3 (0 = Unprepared colon segment with mucosa not seen due to solid stool that cannot be cleared. 1 = Portion of mucosa of the colon segment seen, but other areas of the colon segment not well seen due to staining, residual stool and/or opaque liquid. 2 = Minor amount of residual staining, small fragments of stool and/or opaque liquid, but mucosa of colon segment seen well. 3 = Entire mucosa of colon segment seen well with no residual staining, small fragments of stool or opaque liquid) Impression and Post Procedure Diagnosis: Endoscopy Findings: ESOPHAGUS: Medium sized hiatal hernia STOMACH: Nodular appearing mucosa in the gastric body - biopsies obtained. Moderate diffuse gastric erythema - biopsies were obtained from the antrum. Colonoscopy Findings: One small polyp was removed Random biopsies were obtained from right and left colon Moderate diverticulosis seen in the sigmoid colon Moderate hemorrhoids on retroflexed exam. Plan: Pt has a FU appointment on 11/06/23 with Chacha Mays NP Repeat Colonoscopy in 5 years if polyps are adenomatous and due to history of adenomatous colon polyps (removed during colonoscopy in 2019). Above findings were reviewed with the patient and relevant handouts were given and the discharge area. BIOPSIES SHOWED: A. Gastric antrum, biopsy: Gastric antral mucosa with minimal chronic inactive gastritis; negative for intestinal metaplasia and dysplasia. B. Gastric body, biopsy: Gastric body mucosa with focal minimal chronic inactive inflammation; negative for intestinal metaplasia and dysplasia. C. Colon, cecal polyp: Tubular adenoma; negative for high-grade dysplasia and carcinoma. D. Colon, random right, biopsy: Colonic mucosa with lymphoid aggregate and no specific change; no evidence of microscopic colitis. E. Colon, random left, biopsy: Colonic mucosa with lymphoid aggregates and no specific change; no evidence of microscopic colitis
[2023-10-26 10:23] VITALS: BP 128/60; PULSE 71; RESP 18; TEMP 36.1; O2SAT 100
[2023-10-26 10:38] VITALS: BP 122/68; PULSE 70; RESP 18; TEMP 36.4; O2SAT 99
== END 2023-10-26 11:45 | disposition home or self-care (01) ==
PROVIDERS: PCP Internal Medicine; Visit Provider Internal Medicine Gastroenterology
PROC: (CPT 45385; principal; 2023-10-26 09:10)
DX: R19.7 Diarrhea, unspecified (principal); D12.0 Benign neoplasm of cecum; K57.30 Diverticulosis of large intestine without perforation or abscess without bleeding; K64.8 Other hemorrhoids; R10.10 Upper abdominal pain, unspecified; K29.50 Unspecified chronic gastritis without bleeding; K21.9 Gastro-esophageal reflux disease without esophagitis; K44.9 Diaphragmatic hernia without obstruction or gangrene; E78.5 Hyperlipidemia, unspecified; F12.10 Cannabis abuse, uncomplicated; Z88.8 Allergy status to other drugs, medicaments and biological substances; Z98.890 Other specified postprocedural states
CPT/HCPCS: 45385; 45380; 43239; 88305; 88342; J2250; J2704

== ENCOUNTER → 2023-10-26 07:55 | Outpatient (BNV) | payer OTHER, SELFPAY | PROVIDERS: PCP Internal Medicine; Visit Provider Internal Medicine Gastroenterology | DX: R19.7 Diarrhea, unspecified (principal); D12.0 Benign neoplasm of cecum; K57.30 Diverticulosis of large intestine without perforation or abscess without bleeding; K64.8 Other hemorrhoids; K21.9 Gastro-esophageal reflux disease without esophagitis; K29.70 Gastritis, unspecified, without bleeding | CPT/HCPCS: 43239; 45385 ==

== ENCOUNTER 2023-11-06 12:23 | Outpatient (AMB) | payer OTHER, SELFPAY ==
--- NOTE | 2023-11-06 12:27 | MHC.OFFVIS ---
Vital Signs 11/06/23 12:29 Height 5 ft 5 in Weight 158 lb BMI 26.3 BP 105/56 L Blood Pressure Location Lt brachial Position Sitting Pulse 75 Intake Visit Reasons: s/p EGD/colonoscopy Intake Note: Patient follow up for ED/Colonoscopy results. Patient cc: lossing weight and some abdominal discomfort. 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: No Accompanied by: Self / Same As Patient Allergies atorvastatin Allergy (Unknown, Verified 11/06/23 12:27) Cramps barium sulfate Allergy (Unknown, Verified 11/06/23 12:27) sore throat omeprazole Allergy (Unknown, Verified 11/06/23 12:27) diarrhea rosuvastatin Allergy (Unknown, Verified 11/06/23 12:27) Unknown simvastatin Allergy (Unknown, Verified 11/06/23 12:27) unknown varenicline [From Chantix] Allergy (Unknown, Verified 11/06/23 12:27) sore throat evolocumab [From Repatha SureClick] Adverse Reaction (Intermediate, Verified 11/06/23 12:27) cough HPI HPI s/p EGD/colonoscopy: Details: Assessment & Plan (1) Paraesophageal hernia: Code(s): K44.9 - Diaphragmatic hernia without obstruction or gangrene Category: Medical (2) Parasitic intestinal disease: Code(s): 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, unspecified Category: Medical (3) Upper abdominal pain: Comment: DUE TO THORACIC RADICULOPATHY NO GI CAUSES FOUND Code(s): R10.10 - Upper abdominal pain, unspecified Category: Medical (4) Tubular adenoma of colon: Comment: 08/2021 scope= hyperplastic polyps only repeat in 5 years; 2 Large on 2019 scope calling for 3 year recall aeb Code(s): D12.6 - Benign neoplasm of colon, unspecified Category: Medical (5) GERD (gastroesophageal reflux disease): Comment: EGD July 2021 Code(s): K21.9 - Gastro-esophageal reflux disease without esophagitis Category: Medical Plan Medications: New albendazole must administer with food, preferably a high-fat meal 400 mg (2 x 200 mg) PO BID 12 tabs 0RF 3 days 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 But she had tremendous pain in the LUQ radiating to her chest that she feels is pushing up under the rib. She has an upcoming nuclear stress test. She took bentyl and her peppermint relief tablets adn this gave her some relief. But she also had a back ache - which is unusual for her. Likely this is r/t her infection. Her pain is worse when she stands for long periods of time. ? intestinal cramping etc? Has chest CT upcoming and this may be revealing. She would like to add an EGD to her colonoscopy, I will see if this is possible as she is scheduled in October. ROV after 08/22 CT EGD/COLONOSCOPY Findings: Larynx: Normal Esophagus: GE junction at 36 cms, medium sized hiatal hernia 36 to 40 cms. No esophagitis or Hood's. Stomach: Nodular appearing mucosa in the gastric body - biopsies obtained. Moderate diffuse gastric erythema - biopsies were obtained from the antrum. Grade 2 flap valve on retroflexed examination of the cardia. Duodenum: Normal bulb and descending duodenum Biopsies were obtained from descending duodenum during past EGD were negative for celiac sprue Intervention: Biopsies as noted above Findings: Terminal Ileum: Not evaluated Cecum: A 7-8 mm sessile polyp - removed with a cold snare Ascending Colon: Normal Transverse Colon: Normal Descending Colon: Normal Sigmoid Colon: Moderate diverticulosis Rectum: Normal Ano-rectum: Moderate internal hemorrhoids Impression and Post Procedure Diagnosis: Endoscopy Findings: ESOPHAGUS: Medium sized hiatal hernia STOMACH: Nodular appearing mucosa in the gastric body - biopsies obtained. Moderate diffuse gastric erythema - biopsies were obtained from the antrum. Colonoscopy Findings: One small polyp was removed Random biopsies were obtained from right and left colon Moderate diverticulosis seen in the sigmoid colon Moderate hemorrhoids on retroflexed exam. Plan: Pt has a FU appointment on 11/06/23 with Chacha Mays NP Repeat Colonoscopy in 5 years if polyps are adenomatous and due to history of adenomatous colon polyps (removed during colonoscopy in 2019). Above findings were reviewed with the patient and relevant handouts were given and the discharge area. BIOPSIES SHOWED: A. Gastric antrum, biopsy: Gastric antral mucosa with minimal chronic inactive gastritis; negative for intestinal metaplasia and dysplasia. B. Gastric body, biopsy: Gastric body mucosa with focal minimal chronic inactive inflammation; negative for intestinal metaplasia and dysplasia. C. Colon, cecal polyp: Tubular adenoma; negative for high-grade dysplasia and carcinoma. D. Colon, random right, biopsy: Colonic mucosa with lymphoid aggregate and no specific change; no evidence of microscopic colitis. E. Colon, random left, biopsy: Colonic mucosa with lymphoid aggregates and no specific change; no evidence of microscopic colitis TODAY'S VISIT The procedure should be repeated in 5 years as there was only 1 tubular adenoma. The procedure was well tolerated. The results were explained and the patient is agreeable to the follow-up interval as stated. The bowel pattern has returned to normal. Education was provided to tell any 1st degree relatives about their findings to be sure that they are screened by age 45. Educated that they will be put on a recall list when it is time for their repeat scope but should they move out of state or away from the hospital they will need to remember along with their primary to repeat the procedure in a timely fashion to avoid any adverse complications. she is feeling better since the colon prep, she feels she needs to ?cleanse? every so often. Apparently this has resolved her left upper quadrant pain and this is encouraging to her. Dr. Aleman expressed the possibility that this is constipation and or gas pocketing. She asks if she can have a jug of GoLYTELY on hand and what I recommend instead is that she use a more concentrated mix of MiraLax since this is more easily available and easier to measure if she feels that the pain is returning. For now she is satisfied with her GI situation and she will call me if she needs any additional considerations. She has a 1 year physical coming up and will be going for fasting lab work before she sees Dr. Garcaí-however I look in the computer and I do not see any general labs so I will put in a CBC metabolic panel cholesterol panel thyroid just to help her as I think the orders may have . I have forwarded the labs to Dr. Gomez. She has also lost 10 lb since July without trying which is a tad alarming. This is another good reason to get some general labs. Return office visit p.r.n.. [facility] Medical History Thoracic back pain Fall Forehead laceration Rectal bleeding Nausea and vomiting Abdominal bloating Oral candidiasis Myalgia due to statin Neurocardiogenic syncope Chest pain Foot pain, left LUQ abdominal pain Abdominal pain Myalgia Neck pain HLD (hyperlipidemia) Osteoarthritis of right hip Iliotibial band syndrome Hematoma and contusion Fall Osteoarthritis of left hip Vitamin D deficiency Hearing loss Degenerative disc disease, lumbar GERD (gastroesophageal reflux disease) COPD (chronic obstructive pulmonary disease) Crohn's disease Nicotine dependence, cigarettes, uncomplicated Hypothyroidism S/P right hip fracture Hip osteoarthritis Surgical History History of colonoscopy History of esophagogastroduodenoscopy (EGD) History of hip surgery History of total right hip arthroplasty Hx of eye surgery History of shoulder surgery History of hand surgery History of foot surgery History of tubal ligation Family History Father Bladder cancer Mother Acute CVA (cerebrovascular accident) Stroke CVD (cardiovascular disease) Thyroid disease Brother Renal cell cancer Acute CVA (cerebrovascular accident) Family/Other Alcoholism Social History Household Members Other:: 12/2021 Housing: Apartment Alcohol intake: unknown Patient Tobacco Use Status: Current everyday Tobacco user Tobacco use type: Cigarette Cigarette Packs Per Day: 0.5 Cigarettes Per Day: 10.0 Years Smoked: (onset 10yo, 3/4-1ppd x 52yrs, 40+PYH) e-Cigarette/Vaping Use: Never Used Second Hand Smoke Exposure: No Current occupational status: disabled Cognitive needs: No Hearing needs: No Vision needs: Yes Review of Systems Const Denies fatigue, Denies fever(s), Denies night sweats, Denies poor appetite and Denies weight loss ENT Reports Normal hearing present, Denies dental pain, Denies dysphagia, Denies hearing loss, Denies mouth pain, Denies odynophagia, Denies throat swelling, Denies tongue swelling and Reports other (Dentition adequate) Card Reports no additional complaints Resp Reports no additional complaints GI Details: Denies abdominal pain, Denies melena, Reports bloating, Denies hematochezia, Denies constipation, Denies GI cramping, Denies dysphagia, Denies excessive flatus, Denies early satiety, Reports heartburn, Denies diarrhea, Denies nausea, Denies odynophagia, Denies vomiting and Denies hematemesis Musc Reports back pain, Reports arthralgias and Reports radiating pain into limb Skin/Breast Denies pruritus, Denies lesions, Denies rash and Denies jaundice Neuro Reports Normal hearing present and Denies Abnormal speech present Endo Denies fatigue Aller/Immun Denies throat swelling and Denies tongue swelling Physical Exam Vital Signs: Last Vital Signs Pulse 75 11/06/23 12:29 BP 105/56 L 11/06/23 12:29 BMI result Body Mass Index 26.3 Const General: cooperative, no acute distress, well developed and well groomed Nutritional Appearance: average body habitus and well nourished Orientation/consciousness: oriented to person, oriented to place and oriented to time Limitations: No language barrier HEENT Head: Yes normocephalic and Yes atraumatic Eyes General: appearance normal, both eyes and all related structures Pupils: Equal, round and reactive pupils present Neck Neck: Yes normal visual inspection and Yes no lymphadenopathy Thyroid: Thyroid normal Resp Effort & Inspection: normal respiratory effort and able to speak in complete sentences Auscultation: clear to auscultation bilaterally Cardio Rate: regular rate Rhythm: regular rhythm Heart sounds: Normal, physiologic split S2 sound present Peripheral pulses: radial pulses present and posterior tibial pulses present GI Inspection: No distended and No Abdominal panniculus present Palpation (GI): Soft to palpation, nontender, no guarding, not rigid and No hepatosplenomegaly present Percussion: Yes normal to percussion Auscultation: normal bowel sounds Rectal Exam - Female: deferred Skin General skin exam: no rashes or lesions noted, turgor normal, skin not dry, no jaundice, No spider nevi and no striae Rashes: no rashes Nails: normal Neuro General: oriented to person, oriented to place and oriented to time Cranial nerves: Yes Equal, round and reactive pupils present and Yes Normal hearing present Speech: No Abnormal speech present Extrem General: Yes normal to inspection, No clubbing, No cyanosis and No edema Psych Appearance: grossly normal and well kempt Mental Status: mental status grossly normal Speech and movement: Normal speech and movement present Affect: normal affect Attitude: cooperative Thought process: Normal thought process present and not confabulating Thought content: Normal thought content present Insight: Fair insight present (Psych) Judgement: Fair judgement present (Psych) Assessment & Plan Assessment & Plan (1) Tubular adenoma of colon: Comment: 09/2023 scope= 1 TA repeat in 5 years; 08/2021 scope= hyperplastic polyps only repeat in 5 years; 2 Large on 2019 scope calling for 3 year recall aeb Code(s): D12.6 - Benign neoplasm of colon, unspecified Category: Medical (2) Hypothyroidism: Code(s): E03.9 - Hypothyroidism, unspecified Category: Medical Qualifiers: Hypothyroidism type: acquired Qualified Code(s): E03.9 - Hypothyroidism, unspecified (3) HLD (hyperlipidemia): Code(s): E78.5 - Hyperlipidemia, unspecified Category: Medical Qualifiers: Hyperlipidemia type: pure hypercholesterolemia Qualified Code(s): E78.00 - Pure hypercholesterolemia, unspecified (4) Mild renal insufficiency: Code(s): N28.9 - Disorder of kidney and ureter, unspecified Category: Medical (5) Chronic kidney disease (CKD) stage G3a/A1, moderately decreased glomerular filtration rate (GFR) between 45-59 mL/min/1.73 square meter and albuminuria creatinine ratio less than 30 mg/g: Code(s): N18.31 - Chronic kidney disease, stage 3a Category: Medical Plan The procedure should be repeated in 5 years as there was only 1 tubular adenoma. The procedure was well tolerated. The results were explained and the patient is agreeable to the follow-up interval as stated. The bowel pattern has returned to normal. Education was provided to tell any 1st degree relatives about their findings to be sure that they are screened by age 45. Educated that they will be put on a recall list when it is time for their repeat scope but should they move out of state or away from the hospital they will need to remember along with their primary to repeat the procedure in a timely fashion to avoid any adverse complications. she is feeling better since the colon prep, she feels she needs to ?cleanse? every so often. Apparently this has resolved her left upper quadrant pain and this is encouraging to her. Dr. Aleman expressed the possibility that this is constipation and or gas pocketing. She asks if she can have a jug of GoLYTELY on hand and what I recommend instead is that she use a more concentrated mix of MiraLax since this is more easily available and easier to measure if she feels that the pain is returning. For now she is satisfied with her GI situation and she will call me if she needs any additional considerations. She has a 1 year physical coming up and will be going for fasting lab work before she sees Dr. García-however I look in the computer and I do not see any general labs so I will put in a CBC metabolic panel cholesterol panel thyroid just to help her as I think the orders may have . I have forwarded the labs to Dr. Gomez. She has also lost 10 lb since July without trying which is a tad alarming. This is another good reason to get some general labs. Return office visit p.r.n.. Orders: Orders Comprehensive Met. Panel Today E03.9 - Hypothyroidism, unspecified, E78.00 - Pure hypercholesterolemia, unspecified, N18.31 - Chronic kidney disease, stage 3a, R63.4 - Abnormal weight loss Complete Blood Count Auto Diff Today E03.9 - Hypothyroidism, unspecified, E78.00 - Pure hypercholesterolemia, unspecified, N18.31 - Chronic kidney disease, stage 3a, N28.9 - Disorder of kidney and ureter, unspecified, R63.4 - Abnormal weight loss TSH reflex Free T4 Today E03.9 - Hypothyroidism, unspecified, E78.00 - Pure hypercholesterolemia, unspecified, N18.31 - Chronic kidney disease, stage 3a, R63.4 - Abnormal weight loss Lipid Panel Today E03.9 - Hypothyroidism, unspecified, E78.00 - Pure hypercholesterolemia, unspecified, N18.31 - Chronic kidney disease, stage 3a, R63.4 - Abnormal weight loss Coding Level of Care Code Est Pt Level 3 (46053) Diagnoses Tubular adenoma of colon D12.6 Acquired hypothyroidism E03.9 Hypothyroidism type: acquired Pure hypercholesterolemia E78.00 Hyperlipidemia type: pure hypercholesterolemia Mild renal insufficiency N28.9 Chronic kidney disease (CKD) stage G3a/A1, moderately decreased glomerular filtration rate (GFR) between 45-59 mL/min/1.73 square meter and albuminuria creatinine ratio less than 30 mg/g N18.31
[2023-11-06 12:29] VITALS: BP 105/56; PULSE 75; BMI 26.3
== END 2023-11-06 12:51 | disposition home or self-care (01) ==
PROVIDERS: PCP Internal Medicine; Visit Provider Nurse Practitioner
DX: D12.6 Benign neoplasm of colon, unspecified (principal); E03.9 Hypothyroidism, unspecified; E78.00 Pure hypercholesterolemia, unspecified; N28.9 Disorder of kidney and ureter, unspecified; N18.31 Chronic kidney disease, stage 3a
CPT/HCPCS: 99213

== ENCOUNTER → 2023-11-06 12:23 | Outpatient (BNVA) | payer OTHER, SELFPAY | PROVIDERS: PCP Internal Medicine; Visit Provider Nurse Practitioner | DX: D12.6 Benign neoplasm of colon, unspecified (principal); E03.9 Hypothyroidism, unspecified; E78.00 Pure hypercholesterolemia, unspecified; N28.9 Disorder of kidney and ureter, unspecified; N18.31 Chronic kidney disease, stage 3a | CPT/HCPCS: 99212 ==

== ENCOUNTER 2023-11-12 06:00 | Outpatient (REF) | payer OTHER, SELFPAY ==
[2023-11-12 06:10] LABS: MANUAL DIFF FLAG NO
[2023-11-12 07:14] LABS: Basophils Absolute Auto 0.1 X10*3/uL (0.0-0.2); Basophils Percent Auto 0.5 % (0-2); Eosinophils Absolute Auto 0.2 X10*3/uL (0.0-0.4); Eosinophils Percent Auto 2.3 % (0-4); Hematocrit 44.2 % (37.0-47.0); Hemoglobin 14.6 g/dl (12.0-16.0); Imm Gran Abs Auto 0.04 X10*3/uL (0.00-0.03); Imm Gran Pct Auto 0.4 % (0.0-0.4); Lymphocytes Absolute Auto 3.3 X10*3/uL (1.2-4.9); Lymphocytes Percent Auto 33.9 % (20-40); Mean Corpuscular Hemoglobin 30.3 pg (27.0-33.0); Mean Corpuscular Volume 91.7 fL (80.0-98.0); Mean Platelet Volume 10.2 fL (9.4-12.3); Monocytes Absolute Auto 0.8 X10*3/uL (0.1-1.2); Monocytes Percent Auto 8.2 % (2-11); Neutrophils Absolute Auto 5.4 x10*3/uL (2.0-8.3); Neutrophils Percent Auto 54.7 % (45-73); Platelet Count 308 X10*3/uL (160-400); Red Blood Count 4.82 X10*6/uL (4.20-5.50); Red Cell Distribution Width 13.3 % (11.0-16.0); White Blood Count 9.8 X10*3/uL (4.8-10.8)
[2023-11-12 07:46] LABS: Alanine Aminotransferase 12 U/L (0-31); Albumin Level 4.2 g/dL (3.5-5.0); Alkaline Phosphatase 78 U/L (39-117); Anion Gap 14 (12-20); Aspartate Amino Transferase 22 U/L (5-31); Bilirubin Total 0.2 mg/dL (0.0-1.0); Blood Urea Nitrogen 18 mg/dL (9-16); Calcium 9.6 mg/dL (8.4-10.2); Carbon Dioxide 22 mmol/L (22-29); Chloride 109 mmol/L (96-108); Cholesterol 332 mg/dL (<200); Estimated Glomerular Filt Rate 51; Glucose Random 97 mg/dL (60-115); HDL Cholesterol 50 mg/dL (>40); LDL Cholesterol Calculated 214 mg/dL (<100); Potassium 4.1 mmol/L (3.3-5.1); Sodium 141 mmol/L (135-145); Total Protein 7.2 g/dL (6.5-8.0); Triglycerides 343 mg/dL (<150)
[2023-11-12 08:04] LABS: TSH reflex Free T4 10.48 uIU/mL (0.32-4.0)
[2023-11-12 09:01] LABS: Free T4 (Free Thyroxine) 0.62 ng/dL (0.71-1.85)
== END 2023-11-12 06:01 | disposition home or self-care (01) ==
LOC: HO.LAB 06:00
PROVIDERS: PCP Internal Medicine; Visit Provider Nurse Practitioner
DX: R63.4 Abnormal weight loss (principal); N18.31 Chronic kidney disease, stage 3a; E78.00 Pure hypercholesterolemia, unspecified; E03.9 Hypothyroidism, unspecified; N28.9 Disorder of kidney and ureter, unspecified
CPT/HCPCS: 36415; 80053; 80061; 84439; 84443; 85025

== ENCOUNTER 2023-11-20 15:21 | Outpatient (AMB) | payer OTHER, SELFPAY ==
[2023-11-20 15:26] VITALS: BP 102/62; PULSE 70; O2SAT 96; BMI 27.0
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
== END 2023-11-20 16:12 | disposition home or self-care (01) ==
PROVIDERS: PCP Internal Medicine; Visit Provider Internal Medicine
DX: D12.6 Benign neoplasm of colon, unspecified (principal); F41.1 Generalized anxiety disorder; J43.9 Emphysema, unspecified; F17.210 Nicotine dependence, cigarettes, uncomplicated; E03.9 Hypothyroidism, unspecified; E78.00 Pure hypercholesterolemia, unspecified; F31.9 Bipolar disorder, unspecified; M25.562 Pain in left knee; M25.552 Pain in left hip; R51.9 Headache, unspecified
CPT/HCPCS: 99214

== ENCOUNTER 2023-12-10 09:57 | Outpatient (AMB) | payer OTHER, SELFPAY ==
[2023-12-10 09:59] VITALS: BMI 27.0
--- NOTE | 2023-12-10 09:59 | A.OFFVIS_ITS ---
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 Hx of Right UMM 01/30/17 NE. Patient states she has been experience pain walking up the stairs, she feels the bone stretching on her hip,and would like to get surgery before it gets worse. 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 Hx of Right UMM 01/30/17 NE. Patient states she has been experience pain walking up the stairs, she feels the bone stretching on her hip,and would like to get surgery before it gets worse. She describes groin pain that radiates down her medial thigh and anterior thigh. It is worse with standing from a seated position and getting into and out of a car. [facility] Medical History Thoracic back pain Fall Forehead laceration Rectal bleeding Nausea and vomiting Abdominal bloating Oral candidiasis Myalgia due to statin Neurocardiogenic syncope Chest pain Foot pain, left LUQ abdominal pain Abdominal pain Myalgia Neck pain HLD (hyperlipidemia) Osteoarthritis of right hip Iliotibial band syndrome Hematoma and contusion Fall Osteoarthritis of left hip Vitamin D deficiency Hearing loss Degenerative disc disease, lumbar GERD (gastroesophageal reflux disease) COPD (chronic obstructive pulmonary disease) Crohn's disease Nicotine dependence, cigarettes, uncomplicated Hypothyroidism S/P right hip fracture Hip osteoarthritis Surgical History History of colonoscopy History of esophagogastroduodenoscopy (EGD) History of hip surgery History of total right hip arthroplasty Hx of eye surgery History of shoulder surgery History of hand surgery History of foot surgery History of tubal ligation Family History Father Bladder cancer Mother Acute CVA (cerebrovascular accident) Stroke CVD (cardiovascular disease) Thyroid disease Brother Renal cell cancer Acute CVA (cerebrovascular accident) Family/Other Alcoholism Social History Household Members Other:: 12/2021 Housing: Apartment Alcohol intake: unknown Patient Tobacco Use Status: Current everyday Tobacco user Tobacco use type: Cigarette Cigarette Packs Per Day: 0.5 Cigarettes Per Day: 10.0 Years Smoked: (onset 10yo, 3/4-1ppd x 52yrs, 40+PYH) e-Cigarette/Vaping Use: Never Used Second Hand Smoke Exposure: No Current occupational status: disabled Cognitive needs: No Hearing needs: No Vision needs: Yes Physical Exam Vital Signs: BMI result Body Mass Index 27.0 Extrem Other: Patient walks with antalgia. She has reasonable range of motion of the left hip with positive impingement test and positive Stinchfield on the left. Results Reviewed Results Reviewed: Radiographs show [id number] osteoarthritis of the left hip Assessment & Plan Assessment & Plan (1) Arthritis of left hip: Code(s): M16.12 - Unilateral primary osteoarthritis, left hip Category: Medical Plan: This is a 63-year-old woman who had a history of right hip replacement about 7 years ago did well on the right who has left hip pain. This has been ongoing for years and she is worried that it is going to get worse. She describes groin pain. She describes difficulty getting into and out of an automobile and difficulty standing from a seated position. She has done well with arthroplasty in the past. I do not have more recent x-rays but over the past several years it does appear that she has some [id number] left hip arthritis. I think it is reasonable to get repeat x-rays and discuss the possibility of surgery in the future. She will come back and see me in January and we will proceed forward accordingly. I did discuss the importance of muscle strengthening and the role of physical therapy as well as the role of NSAIDs. She takes NSAIDs and feels that physical therapy has not helped her in the past. Coding Level of Care Code New Pt Level 4 (97946) Diagnoses Arthritis of left hip M16.12
== END 2023-12-10 10:35 | disposition home or self-care (01) ==
PROVIDERS: PCP Internal Medicine; Visit Provider Orthopaedic Surgery
DX: M16.12 Unilateral primary osteoarthritis, left hip (principal); Z96.641 Presence of right artificial hip joint
CPT/HCPCS: 99204

== ENCOUNTER → 2023-12-10 09:57 | Outpatient (BNVA) | payer OTHER, SELFPAY | PROVIDERS: PCP Internal Medicine; Visit Provider Orthopaedic Surgery | DX: M16.12 Unilateral primary osteoarthritis, left hip (principal); Z96.641 Presence of right artificial hip joint | CPT/HCPCS: 99202 ==

== ENCOUNTER 2023-12-31 07:23 | Outpatient (REF) | payer OTHER, SELFPAY ==
--- NOTE | ~2023-12-31 | XR_ITS ---
EXAMINATION: XR HIP LEFT 2 VIEWS CLINICAL INFORMATION: Pain in left hip M25.552. COMPARISON: XR Left hip 09/08/2019 TECHNIQUE: Two views of the left hip. FINDINGS: No acute visible fracture or dislocation. Degenerative arthropathy of the left femoral acetabular joint greatest along the superior lateral margin of the femoral head. Joint space alignment otherwise maintained. Soft tissues are unremarkable. Atherosclerotic calcifications are noted. XR/XR hip LT min 2V IMPRESSION: 1. No acute visible fracture or dislocation. 2. Degenerative arthropathy of the left femoral acetabular joint greatest along the superior lateral margin of the femoral head. Electronically signed by: Harjit Garcia MD 03/11/2024 01:54 PM [facility]
--- NOTE | ~2023-12-31 | XR_ITS ---
EXAMINATION: XR KNEE LEFT 2 VIEWS CLINICAL INFORMATION: Pain in left knee M25.562. COMPARISON: XR Left knee 09/28/2018 TECHNIQUE: Two views of the left knee. FINDINGS: No acute visible fracture or dislocation. Ossific densities along the tibial tuberosity suggesting sequela of Roberto-Schlatter's disease versus trauma. Multicompartment arthritic changes chondrocalcinosis along the medial and lateral femorotibial compartment. Joint space alignment otherwise maintained. Small knee joint effusion. Soft tissues are unremarkable. XR/XR knee LT 2V IMPRESSION: 1. No acute visible fracture or dislocation. 2. Ossific densities along the tibial tuberosity suggesting sequela of Roberto-Schlatter's disease versus trauma. 3. Multicompartment arthritic changes chondrocalcinosis along the medial and lateral femorotibial compartment. 4. Small knee joint effusion. Electronically signed by: Harjit Garcia MD 03/11/2024 01:56 PM EST
== END 2023-12-31 07:24 | disposition home or self-care (01) ==
LOC: HO.XRAY 07:23
PROVIDERS: PCP Internal Medicine; Visit Provider Internal Medicine
DX: M25.552 Pain in left hip (principal); M25.562 Pain in left knee
CPT/HCPCS: 73502; 73560

== ENCOUNTER 2024-01-10 12:28 | Outpatient (REF) | payer OTHER, SELFPAY ==
--- NOTE | ~2024-01-10 | XR_ITS ---
EXAMINATION: XR PELVIS 1 VIEW CLINICAL INFORMATION: Pain in unspecified hip M25.559. COMPARISON: XR Pelvis 12/22/2019 TECHNIQUE: AP view of the pelvis. FINDINGS: There is a total right hip arthroplasty. The femoral component articulates appropriately with the acetabular component. No periprosthetic lucency or fracture. Sclerosis along the superior acetabular rim on the right is unchanged. The left hip is well aligned. Moderate narrowing of the joint space with small osteophytes. The pelvic rim is intact. Normal bowel gas pattern. XR/XR pelvis 1-2V IMPRESSION: Total right hip arthroplasty without evidence of failure. Moderate degenerative changes of the left hip. Electronically signed by: Ronny Landers MD 03/05/2024 08:15 AM [facility]
== END 2024-01-10 12:29 | disposition home or self-care (01) ==
LOC: HO.HOSX 12:28
PROVIDERS: Visit Provider Orthopaedic Surgery
DX: M25.559 Pain in unspecified hip (principal); M16.12 Unilateral primary osteoarthritis, left hip
CPT/HCPCS: 72170; 99212

== ENCOUNTER 2024-01-10 13:55 | Outpatient (AMB) | payer OTHER, SELFPAY ==
--- NOTE | 2024-01-10 14:03 | A.OFFVIS_ITS ---
Intake Visit Reasons: L UMM w/NE 04/08/24: updated x-rays today Intake Note: is a 63 year old female who presents today for a follow up of left hip pain. Hx of Right UMM 01/30/17 NE. Patient reports that over the last week she has had an increase of pain. She reports that she has history of osgoods-schlatters which has been asymptomatic until recently which she believes is due to the pain she is having in the Left Hip. She is booked for a Left UMM on 04/08/2024. Allergies atorvastatin Allergy (Unknown, Verified 01/10/24 14:07) Cramps barium sulfate Allergy (Unknown, Verified 01/10/24 14:07) sore throat omeprazole Allergy (Unknown, Verified 01/10/24 14:07) diarrhea rosuvastatin Allergy (Unknown, Verified 01/10/24 14:07) Unknown simvastatin Allergy (Unknown, Verified 01/10/24 14:07) unknown varenicline [From Chantix] Allergy (Unknown, Verified 01/10/24 14:07) sore throat evolocumab [From Repatha SureClick] Adverse Reaction (Intermediate, Verified 01/10/24 14:07) cough HPI HPI L UMM w/NE 04/08/24: updated x-rays today: Details: is a 63 year old female who presents today as a new patient with complaints of left hip pain. Hx of Right UMM 01/30/17 NE. Patient reports that over the last week she has had an increase of pain. She reports that she has history of osgoods-schlatters which has been asymptomatic until recently which she believes is due to the pain she is having in the Left Hip. She is booked for a Left UMM on 04/08/2024. She has left hip pain that radiates from the groin to the lateral aspect of her left hip. She describes patent it comes and goes and it has been worse over the last year and she is worried that she will not be able to function at her job. She is scheduled to undergo a left hip replacement in March. ON LICENSE OF [facility] Medical History Thoracic back pain Fall Forehead laceration Rectal bleeding Nausea and vomiting Abdominal bloating Oral candidiasis Myalgia due to statin Neurocardiogenic syncope Chest pain Foot pain, left LUQ abdominal pain Abdominal pain Myalgia Neck pain HLD (hyperlipidemia) Osteoarthritis of right hip Iliotibial band syndrome Hematoma and contusion Fall Osteoarthritis of left hip Vitamin D deficiency Hearing loss Degenerative disc disease, lumbar GERD (gastroesophageal reflux disease) COPD (chronic obstructive pulmonary disease) Crohn's disease Nicotine dependence, cigarettes, uncomplicated Hypothyroidism S/P right hip fracture Hip osteoarthritis Surgical History History of colonoscopy History of esophagogastroduodenoscopy (EGD) History of hip surgery History of total right hip arthroplasty Hx of eye surgery History of shoulder surgery History of hand surgery History of foot surgery History of tubal ligation Family History Father Bladder cancer Mother Acute CVA (cerebrovascular accident) Stroke CVD (cardiovascular disease) Thyroid disease Brother Renal cell cancer Acute CVA (cerebrovascular accident) Family/Other Alcoholism Social History Household Members Other:: 12/2021 Housing: Apartment Alcohol intake: unknown Patient Tobacco Use Status: Current everyday Tobacco user Tobacco use type: Cigarette Cigarette Packs Per Day: 0.5 Cigarettes Per Day: 10.0 Years Smoked: (onset 10yo, 3/4-1ppd x 52yrs, 40+PYH) e-Cigarette/Vaping Use: Never Used Second Hand Smoke Exposure: No Current occupational status: disabled Cognitive needs: No Hearing needs: No Vision needs: Yes Physical Exam Extrem Other: Patient walks with antalgia. She has reasonable range of motion of the left hip with positive impingement test and positive Stinchfield on the left. Results Reviewed Results Reviewed: I personally reviewed relevant radiographs. There is moderate left hip osteoarthritis. Assessment & Plan Assessment & Plan (1) Arthritis of left hip: Code(s): M16.12 - Unilateral primary osteoarthritis, left hip Category: Medical Plan: This is a 63-year-old woman with moderate left hip osteoarthritis. She underwent a successful right hip replacement 7 years ago and has been having continuous pain for the past year in her left hip. She uses nonsteroidal anti- inflammatories and acetaminophen without benefit. 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 She is worried that she will not be able to continue her work. She also has some low back pain and I was clear with her that this may not be completely alleviated with hip replacement surgery. I suspect, however, that is secondary to her poor gait mechanics and that it will improve after hip replacement but she understands that the risk existence of incomplete symptom resolution. I also described other risks of surgery including, but not limited to the risk of infection, dislocation, fracture, aseptic loosening as well as medical complications associated with surgery. She expressed understanding and we will proceed forward accordingly. Orders: Orders XR pelvis 1-2V 01/10/24 M25.559 - Pain in unspecified hip Coding Level of Care Code Est Pt Level 4 (64470) Diagnoses Arthritis of left hip M16.12
== END 2024-01-10 14:48 | disposition home or self-care (01) ==
PROVIDERS: PCP Internal Medicine; Visit Provider Orthopaedic Surgery
DX: M16.12 Unilateral primary osteoarthritis, left hip (principal)
CPT/HCPCS: 99214

== ENCOUNTER 2024-02-11 13:28 | Outpatient (AMB) | payer OTHER, SELFPAY ==
[2024-02-11 13:29] VITALS: BP 108/60; PULSE 77; TEMP 37.4; O2SAT 98; BMI 27.6
--- NOTE | 2024-02-11 13:29 | MHC.PC.OV ---
Vital Signs 02/11/24 13:29 Height 5 ft 5 in Weight 166 lb BMI 27.6 BP 108/60 Blood Pressure Location Lt brachial Position Sitting Pulse 77 Pulse Source Pulse Oximeter Temp 99.3 F Temp Source Oral Pulse Oximetry (%) 98 Oxygen Delivery Method Room Air Intake Visit Reasons: L [facility]MM w/Dr. Britton on 04/08/24 Intake Note: Patient is here for a Pre-op for L [facility]MM scheduled with Dr. 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 Allergies atorvastatin Allergy (Unknown, Verified 02/11/24 13:29) Cramps barium sulfate Allergy (Unknown, Verified 02/11/24 13:29) sore throat omeprazole Allergy (Unknown, Verified 02/11/24 13:29) diarrhea rosuvastatin Allergy (Unknown, Verified 02/11/24 13:29) Unknown simvastatin Allergy (Unknown, Verified 02/11/24 13:29) unknown varenicline [From Chantix] Allergy (Unknown, Verified 02/11/24 13:29) sore throat evolocumab [From Repatha SureClick] Adverse Reaction (Intermediate, Verified 02/11/24 13:29) cough Medication List - Last Reconciled 02/11/24 by Tabitha Allen PA-C albendazole 400 mg (2 x 200 mg) PO BID 3 days albuterol sulfate 2.5 mg inhalation Q4-6H PRN albuterol sulfate 90 mcg/actuation (Ventolin HFA) 2 puffs PO Q4H PRN carisoprodol 350 mg PO BID PRN 30 days diclofenac sodium 1% (Voltaren Arthritis Pain) 4 grams topical QID dicyclomine 10 mg PO QID fluticasone furoate-vilanterol 200-25 mcg/dose (Breo Ellipta) 1 ea PO DAILY fluticasone propionate 50 mcg/actuation 2 sprays intranasal DAILY hydrocortisone-acetic acid 1-2 % 4 drps otic (ear) right TID peppermint oil (Pepogest) 0.2 mL PO DAILY PRN walker Folding Front wheeled walker Tobacco use date assessed: 07/10/23 Dental Screening Dental Screen Date: 02/11/24 Did you have a dental visit in the last 12 months?: Yes Did you have a dental problem in the last 6 months where you did not have access to dental care?: No Was dental information given to patient?: Patient has dentist HPI Juan Manuel rojas/Dr. Britton on 04/08/24 HPI Details 63-year-old female with past medical history of bipolar disorder, thoracic radiculopathy with degenerative joint disease, hypercholesterolemia, COPD, chronic kidney disease, hypothyroidism and paraesophageal hernia last seen by Dr. Kaba October 2023 coming in for preoperative visit. Patient is scheduled to have left total hip arthroscopy with Dr. Britton 04/08/2024. Patient would like to be seen as a sick visit and postponed or postop at this time due to upper respiratory infection. Patient has started having a sore throat last night which carried into this morning and is having painful swallowing as well as body aches and chills. She also mentioned his left shoulder discomfort which she usually use Voltaren gel for but has not used yet. Denies any sick contacts. FORMERLY [facility], [facility]–1983 Medical History Thoracic back pain Fall Forehead laceration Rectal bleeding Nausea and vomiting Abdominal bloating Oral candidiasis Myalgia due to statin Neurocardiogenic syncope Chest pain Foot pain, left LUQ abdominal pain Abdominal pain Myalgia Neck pain HLD (hyperlipidemia) Osteoarthritis of right hip Iliotibial band syndrome Hematoma and contusion Fall Osteoarthritis of left hip Vitamin D deficiency Hearing loss Degenerative disc disease, lumbar GERD (gastroesophageal reflux disease) COPD (chronic obstructive pulmonary disease) Crohn's disease Nicotine dependence, cigarettes, uncomplicated Hypothyroidism S/P right hip fracture Hip osteoarthritis Surgical History History of colonoscopy History of esophagogastroduodenoscopy (EGD) History of hip surgery History of total right hip arthroplasty Hx of eye surgery History of shoulder surgery History of hand surgery History of foot surgery History of tubal ligation Family History Father Bladder cancer Mother Acute CVA (cerebrovascular accident) Stroke CVD (cardiovascular disease) Thyroid disease Brother Renal cell cancer Acute CVA (cerebrovascular accident) Family/Other Alcoholism Social History Household Members Other:: 12/2021 Housing: Apartment Alcohol intake: unknown Patient Tobacco Use Status: Current everyday Tobacco user Tobacco use type: Cigarette Cigarette Packs Per Day: 0.5 Cigarettes Per Day: 10.0 Years Smoked: (onset 10yo, 3/4-1ppd x 52yrs, 40+PYH) e-Cigarette/Vaping Use: Never Used Second Hand Smoke Exposure: No Current occupational status: disabled Cognitive needs: No Hearing needs: No Vision needs: Yes Questionnaire Thrive Questionnaire Date Thrive assessed: 07/10/23 I am a: Patient What is your living situation today?: I have a steady place to live Within the past 12 months, did the food you bought not last and you didn't have the money to get more?: Never true Within the past 12 months, did you worry whether your food would run out before you got money to buy more?: Never true Do you have trouble paying for medicines?: No Do you have trouble getting transportation to medical appointments?: No Do you have trouble paying your heating and electricity bill?: No Do you have trouble taking care of your child, family member or friend?: No Do you have trouble with day-to-day activities such as bathing, preparing meals, shopping, managing finances, etc.?: No Are you currently unemployed and looking for a job?: No Are you interested in more education?: No Please select the resources that you would like help with: None Currently or been in a relationship where the following occur: No concerns reported THRIVE Score: 0 AUDIT C Alcohol Use Questionnaire (AUDIT-C) 2. How many drinks containing alcohol do you have on a typical day when you are drinking?: 3 or 4 3. How often do you have six or more drinks on one occasion?: Less than monthly Total Score: 2 SARIKA-7 AMB Questionnaire SARIKA-7 Date SARIKA - 7 assessed: 07/10/23 Source: Developed by Drs. Moshe Mendoza, Layne Feng, Chad Pool and colleagues, with an educational tari from [employer]. Review of Systems Const Reports body aches, Reports fatigue, Reports fever(s), Denies frequent falls, Denies headache(s) and Denies weakness Eyes Reports no additional complaints and Denies change in vision ENT Denies dysphagia, Denies dizziness, Reports facial pain, Denies headache(s), Denies nasal congestion, Reports odynophagia and Reports sore throat Card Denies chest pain, Denies syncope, Denies irregular heart rhythm, Denies leg edema, Denies lightheadedness and Denies dyspnea Resp Reports cough, Denies hemoptysis, Denies excessive phlegm production and Denies dyspnea GI Denies constipation, Denies dysphagia, Denies dyspepsia, Denies diarrhea, Denies nausea, Reports odynophagia and Denies vomiting Musc Details: Right shoulder pain Denies back pain and Denies myalgias Skin/Breast Reports system reviewed and no additional complaints, except as documented Neuro Denies dizziness, Denies syncope, Denies frequent falls, Denies headache(s) and Denies weakness Psych Reports no additional complaints Endo Reports fatigue Physical exam (Primary Care) Vital Signs: Last Vital Signs Temp 99.3 F 02/11/24 13:29 Pulse 77 02/11/24 13:29 BP 108/60 02/11/24 13:29 Pulse Ox 98 02/11/24 13:29 Oxygen Delivery Method Room Air 02/11/24 13:29 BMI result Body Mass Index 27.6 Tobacco/Smoking Status: Tobacco use Status Tobacco use date assessed 07/10/23 02/11/24 13:32 Patient Tobacco Use Status Current everyday Tobacco 02/11/24 13:32 Tobacco use type Cigarette 02/11/24 13:32 e-Cigarette/Vaping Use Never Used 02/11/24 13:32 Thrive Assessment: Date of Thrive Assessment Date Thrive assessed 07/10/23 02/11/24 13:32 Currently or been in a relationship where the following occur: No concerns reported Const General: cooperative, healthy appearing, comfortable and no acute distress Orientation/consciousness: patient oriented x3 HENMT Head: Yes normocephalic Ears: hearing grossly normal bilaterally, TM's normal bilaterally and EAC's normal General nose exam: Normal external nose present Mouth: Normal oral and palatal mucosa present and oropharynx normal Throat: Yes posterior oropharynx normal (No erythema or petechiae), Yes tonsils normal (No swelling or tonsillar exudate) and Yes uvula midline Eyes General: appearance normal, both eyes and all related structures Conjunctivae: conjunctivae normal Neck Other: Anterior cervical chain tenderness to palpation without lymphadenopathy Neck: Yes full ROM and Yes no lymphadenopathy Resp Effort & Inspection: normal respiratory effort Auscultation: clear to auscultation bilaterally, no crackles, no rales, no rhonchi and no wheezes Cardio Rate: regular rate Rhythm: regular rhythm Skin General skin exam: no rashes or lesions noted Neuro General: patient oriented x3 Gait exam (Neuro): Normal gait present Extrem General: Yes normal to inspection, Yes full ROM and No edema Psych Affect: normal affect Attitude: cooperative Insight: Good insight present (Psych) Judgement: Good judgement present (Psych) Results AMB Rapid Strep AMB Rapid Strep Negative Last Edit by MICHAEL Jefferson on 02/11/24 14:02 Coding Level of Care Code Est Pt Level 3 (17408) Diagnoses Sore throat J02.9 Assessment & Plan Assessment & Plan (1) Sore throat: Code(s): J02.9 - Acute pharyngitis, unspecified Category: Medical Plan: Exam not consistent with strep throat and clinic testing was negative. Ordered for viral panel for further evaluation. Advised patient to continue with conservative measures increase fluid intake and follow up if symptoms worsen or do not improve. We will reassess after results of viral panel come back. Plan This note was constructed using voice recognition software. While every effort has been made to ensure accuracy and supervisor cap and hat production, still areas may have been included sometimes these areas may affect the content or meeting of the given symptoms. Total time spent caring for the patient today was 30 minutes. This includes time spent before the visit reviewing the chart, time spent during the visit, and time spent after the visit and documentation. Orders: Orders SARS-CoV2/FLU/RSV Today J02.9 - Acute pharyngitis, unspecified Comprehensive Met. Panel Today Z01.818 - Encounter for other preprocedural examination Venous Lead Today R53.83 - Other fatigue AMB Rapid Strep Screen Today J02.9 - Acute pharyngitis, unspecified, Z13.9 - Encounter for screening, unspecified Complete Blood Count Auto Diff Today Z01.818 - Encounter for other preprocedural examination
== END 2024-02-11 14:07 | disposition home or self-care (01) ==
PROVIDERS: PCP Internal Medicine
DX: Z13.9 Encounter for screening, unspecified (principal); J02.9 Acute pharyngitis, unspecified

== ENCOUNTER 2024-02-11 13:28 | Outpatient (REF) | payer OTHER, SELFPAY ==
[2024-02-11 14:20] LABS: MANUAL DIFF FLAG NO
[2024-02-11 14:51] LABS: Basophils Absolute Auto 0.1 X10*3/uL (0.0-0.2); Basophils Percent Auto 0.4 % (0-2); Eosinophils Absolute Auto 0.1 X10*3/uL (0.0-0.4); Eosinophils Percent Auto 0.9 % (0-4); Hematocrit 39.3 % (37.0-47.0); Hemoglobin 13.2 g/dl (12.0-16.0); Imm Gran Abs Auto 0.05 X10*3/uL (0.00-0.03); Imm Gran Pct Auto 0.4 % (0.0-0.4); Lymphocytes Absolute Auto 2.5 X10*3/uL (1.2-4.9); Lymphocytes Percent Auto 21.4 % (20-40); Mean Corpuscular HGB Conc 33.6 g/dl (31.0-35.0); Mean Corpuscular Hemoglobin 30.8 pg (27.0-33.0); Mean Corpuscular Volume 91.8 fL (80.0-98.0); Mean Platelet Volume 9.9 fL (9.4-12.3); Monocytes Absolute Auto 0.7 X10*3/uL (0.1-1.2); Monocytes Percent Auto 6.3 % (2-11); Neutrophils Absolute Auto 8.3 x10*3/uL (2.0-8.3); Neutrophils Percent Auto 70.6 % (45-73); Platelet Count 271 X10*3/uL (160-400); Red Blood Count 4.28 X10*6/uL (4.20-5.50); Red Cell Distribution Width 13.5 % (11.0-16.0); White Blood Count 11.7 X10*3/uL (4.8-10.8)
[2024-02-11 15:11] LABS: Alanine Aminotransferase 15 U/L (0-31); Albumin Level 4.3 g/dL (3.5-5.0); Alkaline Phosphatase 77 U/L (39-117); Anion Gap 10 (12-20); Aspartate Amino Transferase 25 U/L (5-31); Bilirubin Total 0.2 mg/dL (0.0-1.0); Blood Urea Nitrogen 17 mg/dL (9-16); Calcium 9.1 mg/dL (8.4-10.2); Carbon Dioxide 25 mmol/L (22-29); Chloride 109 mmol/L (96-108); Estimated Glomerular Filt Rate 41; Glucose Random 99 mg/dL (60-115); Potassium 4.2 mmol/L (3.3-5.1); Sodium 140 mmol/L (135-145); Total Protein 6.8 g/dL (6.5-8.0); Uric Acid 6.4 mg/dL (2.4-5.7)
[2024-02-12 12:54] LABS: Lyme Abs Screen <0.90 index
[2024-02-14 17:18] LABS: Venous Lead 2.1 mcg/dL (<3.5)
== END 2024-02-11 13:29 | disposition home or self-care (01) ==
LOC: HO.LAB 13:28
PROVIDERS: Absent Provider Internal Medicine; PCP Internal Medicine
DX: Z01.818 Encounter for other preprocedural examination (principal); J02.9 Acute pharyngitis, unspecified; R53.83 Other fatigue; M47.24 Other spondylosis with radiculopathy, thoracic region
CPT/HCPCS: 36415; 80053; 83655; 84550; 85025; 86617; 86618; 87880; 99212

== ENCOUNTER 2024-02-18 14:03 | Outpatient (AMB) | payer OTHER, SELFPAY ==
--- NOTE | 2024-02-18 14:10 | MHC.OFFVIS ---
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 Accompanied by: Self / Same As Patient Allergies atorvastatin Allergy (Unknown, Verified 02/11/24 13:29) Cramps barium sulfate Allergy (Unknown, Verified 02/11/24 13:29) sore throat omeprazole Allergy (Unknown, Verified 02/11/24 13:29) diarrhea rosuvastatin Allergy (Unknown, Verified 02/11/24 13:29) Unknown simvastatin Allergy (Unknown, Verified 02/11/24 13:29) unknown varenicline [From Chantix] Allergy (Unknown, Verified 02/11/24 13:29) sore throat evolocumab [From Repatha SureClick] Adverse Reaction (Intermediate, Verified 02/11/24 13:29) cough Medication List - Last Reconciled 02/18/24 by Jean Claude Storm MD albuterol sulfate 2.5 mg inhalation Q4-6H PRN albuterol sulfate 90 mcg/actuation (Ventolin HFA) 2 puffs PO Q4H PRN aspirin (Adult Aspirin Regimen) 81 mg PO DAILY carisoprodol 350 mg PO BID PRN 30 days diclofenac sodium 1% (Voltaren Arthritis Pain) 4 grams topical QID fluticasone propionate 50 mcg/actuation 2 sprays intranasal DAILY walker Folding Front wheeled walker HPI Comments Details: is here for consultation regarding chest pains and she also needs preoperative risk stratification for hip surgery. Chronic smoker and still smokes a few cigarettes a day. In August of this year, she had a stress test which was apparently performed for chest pain. That reported possible LAD territory ischemia. Chest pain itself is very atypical and can happen any time. Nothing clearly exertional. Otherwise, she also has untreated hyperlipidemia. Her LDL is over 200 mg/dL. She is apparently statin intolerant and she also has tried Repatha and had some side effects. Hence she does have a significant risk factor profile. [facility] Medical History Thoracic back pain Fall Forehead laceration Rectal bleeding Nausea and vomiting Abdominal bloating Oral candidiasis Myalgia due to statin Neurocardiogenic syncope Chest pain Foot pain, left LUQ abdominal pain Abdominal pain Myalgia Neck pain HLD (hyperlipidemia) Osteoarthritis of right hip Iliotibial band syndrome Hematoma and contusion Fall Osteoarthritis of left hip Vitamin D deficiency Hearing loss Degenerative disc disease, lumbar GERD (gastroesophageal reflux disease) COPD (chronic obstructive pulmonary disease) Crohn's disease Nicotine dependence, cigarettes, uncomplicated Hypothyroidism S/P right hip fracture Hip osteoarthritis Surgical History History of colonoscopy History of esophagogastroduodenoscopy (EGD) History of hip surgery History of total right hip arthroplasty Hx of eye surgery History of shoulder surgery History of hand surgery History of foot surgery History of tubal ligation Family History Father Bladder cancer Mother Acute CVA (cerebrovascular accident) Stroke CVD (cardiovascular disease) Thyroid disease Brother Renal cell cancer Acute CVA (cerebrovascular accident) Family/Other Alcoholism Social History (Updated 02/18/24 @ 14:18 by Marilia Ruiz CMA) Household Members Other:: 12/2021 Housing: Apartment Alcohol intake: current Alcohol intake frequency: holidays/special occasions only Patient Tobacco Use Status: Current everyday Tobacco user Tobacco use type: Cigarette Cigarette Packs Per Day: 0.5 Cigarettes Per Day: 10.0 Years Smoked: (onset 10yo, 3/4-1ppd x 52yrs, 40+PYH) e-Cigarette/Vaping Use: Never Used Second Hand Smoke Exposure: No Current occupational status: disabled Cognitive needs: No Hearing needs: No Vision needs: Yes Review of Systems Const Denies chills, Denies daytime sleepiness, Denies fatigue, Denies fever(s), Denies poor appetite, Denies snoring, Denies stops breathing during sleep, Denies weakness, Denies weight gain and Denies weight loss Eyes Denies loss of vision ENT Denies dizziness and Denies hearing loss Card Denies chest pain, Denies irregular heart rhythm, Denies claudication, Denies leg edema, Denies lightheadedness, Denies palpitations, Denies dyspnea on exertion and Denies orthopnea Resp Denies cough, Denies excessive phlegm production, Denies dyspnea on exertion, Denies snoring and Denies wheezing GI Denies abdominal pain, Denies hematochezia, Denies change in bowel habits, Denies nausea and Denies vomiting Denies urinary frequency and Denies dysuria Musc Denies arthralgias, Denies muscle weakness, Denies numbness and Denies other Skin/Breast Denies nail changes and Denies rash Neuro Denies Abnormal speech present, Denies dizziness, Denies loss of vision, Denies memory loss, Denies numbness and Denies weakness Psych Denies depression and Denies memory loss Endo Denies fatigue and Denies palpitations Deon/Lymph Denies easy bruising Aller/Immun Denies wheezing Physical Exam Vital Signs: Last Vital Signs Pulse 66 02/18/24 14:11 BP 140/72 H 02/18/24 14:11 BMI result Body Mass Index 27.4 Const General: comfortable and no acute distress Orientation/consciousness: patient oriented x3 HEENT Other: Unremarkable Head: Yes normal to inspection Neck Neck: Yes normal visual inspection Chest Chest palpation & inspection: normal inspection of the chest Resp Auscultation: clear to auscultation bilaterally Cardio Palpation: normal PMI Heart sounds: S1 normal heart sound present, S2 normal heart sound present, no gallops, no murmurs and no rubs GI Palpation (GI): Soft to palpation Back/Spine/Pelvis Other: unremarkable Skin General skin exam: no rashes or lesions noted Neuro General: patient oriented x3 Speech: No Abnormal speech present Extrem General: Yes normal to inspection Psych Mental Status: mental status grossly normal Office Procedures EKG Details: EKG with underlying sinus rhythm at 66/Min; no significant ST-T changes and otherwise [place]remarkable[place] [id number], Complete Assessment & Plan Assessment & Plan (1) Precordial chest pain: Code(s): R07.2 - Precordial pain Category: Medical (2) Abnormal myocardial perfusion study: Code(s): R94.39 - Abnormal result of other cardiovascular function study Category: Medical (3) Smoking: Code(s): F17.200 - Nicotine dependence, unspecified, uncomplicated Category: Social Hx (4) Mixed hyperlipidemia: Code(s): E78.2 - Mixed hyperlipidemia Category: Medical (5) Preoperative cardiovascular examination: Code(s): Z01.810 - Encounter for preprocedural cardiovascular examination Category: Medical Plan Baseline EKGs unremarkable. Myocardial perfusion imaging study reported as equivocal for LAD territory ischemia. She has risk factors including smoking, uncontrolled lipids and plans to go for hip surgery in the near future. Atypical sounding chest pains. We will plan for diagnostic catheterization and she is willing to proceed. We will schedule that in the near future. Start low-dose aspirin. With regard to lipids, statin intolerant and also had side effects for Repatha. Possibly Praluent in the future but she is very reluctant. To be decided. Follow-up after the above. Orders: Orders Cardiac Cath LT Diagnostic Today R94.39 - Abnormal result of other cardiovascular function study Basic Metabolic Panel Today E78.00 - Pure hypercholesterolemia, unspecified Prothrombin Time INR Today E78.00 - Pure hypercholesterolemia, unspecified CA echo transthoracic complete Today E78.00 - Pure hypercholesterolemia, unspecified Complete Blood Count no Diff Today E78.00 - Pure hypercholesterolemia, unspecified Medications: New aspirin (Adult Aspirin Regimen) 81 mg PO DAILY 30 tabs 0RF Coding Level of Care Code New Pt Level 4 (47682) Diagnoses Precordial chest pain R07.2 Abnormal myocardial perfusion study R94.39 Smoking F17.200 Mixed hyperlipidemia E78.2 Preoperative cardiovascular examination Z01.810 CPT Codes EKG - CPT: 83137-[id number], Complete ([id number])
[2024-02-18 14:11] VITALS: BP 140/72; PULSE 66; BMI 27.4
== END 2024-02-18 14:51 | disposition home or self-care (01) ==
PROVIDERS: PCP Internal Medicine; Visit Provider Internal Medicine
DX: R07.2 Precordial pain (principal); R94.39 Abnormal result of other cardiovascular function study; F17.200 Nicotine dependence, unspecified, uncomplicated; E78.2 Mixed hyperlipidemia; Z01.810 Encounter for preprocedural cardiovascular examination
CPT/HCPCS: 93010; 99204

== ENCOUNTER → 2024-02-18 14:03 | Outpatient (BNVA) | payer OTHER, SELFPAY | PROVIDERS: PCP Internal Medicine; Visit Provider Internal Medicine | DX: Z01.810 Encounter for preprocedural cardiovascular examination (principal); R07.2 Precordial pain; R94.39 Abnormal result of other cardiovascular function study; E78.2 Mixed hyperlipidemia; F17.210 Nicotine dependence, cigarettes, uncomplicated | CPT/HCPCS: 93005; 99202 ==

== ENCOUNTER 2024-02-24 15:58 | Outpatient (REF) | payer OTHER, SELFPAY ==
--- NOTE | ~2024-02-24 | MR_ITS ---
EXAMINATION: MR BRAIN WITHOUT AND WITH CONTRAST CLINICAL INFORMATION: Tinnitus. Acoustic neuroma. COMPARISON: CT head from 05/08/2019. TECHNIQUE: Multiplanar, multisequence MRI of the brain was obtained using a skull base protocol without and following the administration of 7 mL of Gadavist intravenous contrast. FINDINGS: No focal restricted diffusion is demonstrated to suggest acute or subacute cerebral ischemia. No evidence of acute or chronic hemorrhagic products on heme-sensitive imaging. Scattered periventricular and deep white matter T2 FLAIR hyperintensities consistent with mild underlying microangiopathy. The ventricles are normal in morphology and size. No abnormal mass effect. No midline shift. Moderate expansion of the sella turcica with flattening of the pituitary gland. A prominent CSF space of the right aspect of the sella turcica with leftward shift of the pituitary parenchyma. The pituitary infundibulum is also deviated to the left. The cerebellar tonsils are mildly low lying, positioned 0.2 cm below the foramen magnum. The CSF space of the foramen magnum is maintained. No mass of the cerebellopontine angles. Normal appearance of the cranial nerve V, VII, and VIII nerve roots. No edema or vascular loops near the nerve root entry sites. Normal appearance of the internal auditory canals without enhancing mass lesions. No abnormal enhancement along the course of the facial nerves bilaterally. Normal appearance of the labyrinthine structures without loss of T2 signal or abnormal enhancement. Normal arterial and venous vascular flow voids are present. No abnormal intracranial contrast enhancement. Normal, homogeneous marrow signal. Mild mucosal thickening of the paranasal sinuses. No signal abnormalities within the mastoids. MR/MR head/brain wo/w con IMPRESSION: 1. No acute intracranial abnormalities. No abnormal intracranial enhancement. 2. Mild underlying microangiopathy. 3. Expanded, partially empty sella turcica and mild cerebellar tonsillar ectopia. This constellation of findings is nonspecific but could be seen in correlation with underlying intracranial hypertension. 4. No additional MRI abnormalities to explain the patient's symptoms. Electronically signed by: Alfonso Eddy DO 02/25/2024 09:27 AM ROLY
[2024-02-24] MEDS: gadobutroL 7.5 ML VIAL IVPUSH (16:54)
== END 2024-02-24 15:59 | disposition home or self-care (01) ==
LOC: HO.MRI 15:58
PROVIDERS: Visit Provider Psychiatry & Neurology Neurology
DX: H93.11 Tinnitus, right ear (principal); H91.91 Unspecified hearing loss, right ear
CPT/HCPCS: 70553; A9585

== ENCOUNTER 2024-02-26 08:16 | Outpatient (REF) | payer OTHER, SELFPAY ==
[2024-02-26 09:50] LABS: Hematocrit 41.8 % (37.0-47.0); Hemoglobin 13.8 g/dl (12.0-16.0); Mean Corpuscular Hemoglobin 30.9 pg (27.0-33.0); Mean Corpuscular Volume 93.5 fL (80.0-98.0); Mean Platelet Volume 10.3 fL (9.4-12.3); Platelet Count 299 X10*3/uL (160-400); Red Blood Count 4.47 X10*6/uL (4.20-5.50)
[2024-02-26 09:54] LABS: INTERNATIONAL NORM RATIO 0.9 (0.9-1.1); Prothrombin Time 10.4 SEC (10.9-12.4)
[2024-02-26 10:16] LABS: Anion Gap 11 (12-20); Blood Urea Nitrogen 19 mg/dL (9-16); Calcium 9.7 mg/dL (8.4-10.2); Carbon Dioxide 27 mmol/L (22-29); Chloride 107 mmol/L (96-108); Estimated Glomerular Filt Rate 48; Glucose Random 83 mg/dL (60-115); Potassium 4.7 mmol/L (3.3-5.1); Sodium 140 mmol/L (135-145)
== END 2024-02-26 08:17 | disposition home or self-care (01) ==
LOC: HO.LAB 08:16
PROVIDERS: Absent Provider Internal Medicine; Referring Provider Internal Medicine; Visit Provider Physician Assistant
DX: E78.00 Pure hypercholesterolemia, unspecified (principal); Z79.01 Long term (current) use of anticoagulants
CPT/HCPCS: 36415; 80048; 85027; 85610

== ENCOUNTER 2024-02-27 14:04 | Outpatient (AMB) | payer OTHER, SELFPAY ==
[2024-02-27 14:07] VITALS: BP 110/62; PULSE 76; O2SAT 96; BMI 27.8
--- NOTE | 2024-02-27 14:07 | MHC.PC.OV ---
Vital Signs 02/27/24 14:07 Height 5 ft 5 in Weight 167 lb BMI 27.8 BP 110/62 Blood Pressure Location Lt brachial Position Sitting Pulse 76 Pulse Source Pulse Oximeter Pulse Oximetry (%) 96 Oxygen Delivery Method Room Air Intake Visit Reasons: Juan Manuel SALOMON w/NE 04/08/24 Allergies atorvastatin Allergy (Unknown, Verified 02/27/24 14:20) Cramps barium sulfate Allergy (Unknown, Verified 02/27/24 14:20) sore throat omeprazole Allergy (Unknown, Verified 02/27/24 14:20) diarrhea rosuvastatin Allergy (Unknown, Verified 02/27/24 14:20) Unknown simvastatin Allergy (Unknown, Verified 02/27/24 14:20) unknown varenicline [From Chantix] Allergy (Unknown, Verified 02/27/24 14:20) sore throat evolocumab [From Repatha SureClick] Adverse Reaction (Intermediate, Verified 02/27/24 14:20) cough Medication List - Last Reconciled 02/27/24 by Tabitha Allen PA-C albuterol sulfate 2.5 mg inhalation Q4-6H PRN albuterol sulfate 90 mcg/actuation (Ventolin HFA) 2 puffs PO Q4H PRN aspirin (Adult Aspirin Regimen) 81 mg PO DAILY carisoprodol 350 mg PO BID PRN 30 days diclofenac sodium 1% (Voltaren Arthritis Pain) 4 grams topical QID fluticasone propionate 50 mcg/actuation 2 sprays intranasal DAILY walker Folding Front wheeled walker Tobacco use date assessed: 02/27/24 Dental Screening Dental Screen Date: 02/11/24 HPI Juan Manuel SALOMON w/CLAUDIO 04/08/24 HPI Details 63-year-old female with past medical history of bipolar disorder, thoracic radiculopathy with degenerative joint disease, hypercholesterolemia, COPD, chronic kidney disease, hypothyroidism and paraesophageal hernia last seen January 2024 coming in for pre op exam. Patient has been scheduled to have a left total hip replacement with Dr. Britton 04/08/2024. EKG was completed 02/18/2024 normal sinus rhythm. Patient did undergo preoperative risk stratification with Cardiology 02/18/2024. Planned for diagnostic catheterization and EKGs obtained were unremarkable. She has a follow up with Cardiology 03/24/2024 for additional risk stratification. COPD: Stable on albuterol as needed Chronic kidney disease: Creatinine and GFR stable on last blood work February 2024 Patient has no history of VA, CVA, CHF or diabetes mellitus. Patient has undergone procedures in the past with anesthesia without complication. [facility] Medical History Thoracic back pain Fall Forehead laceration Rectal bleeding Nausea and vomiting Abdominal bloating Oral candidiasis Myalgia due to statin Neurocardiogenic syncope Chest pain Foot pain, left LUQ abdominal pain Abdominal pain Myalgia Neck pain HLD (hyperlipidemia) Osteoarthritis of right hip Iliotibial band syndrome Hematoma and contusion Fall Osteoarthritis of left hip Vitamin D deficiency Hearing loss Degenerative disc disease, lumbar GERD (gastroesophageal reflux disease) COPD (chronic obstructive pulmonary disease) Crohn's disease Nicotine dependence, cigarettes, uncomplicated Hypothyroidism S/P right hip fracture Hip osteoarthritis Surgical History History of colonoscopy History of esophagogastroduodenoscopy (EGD) History of hip surgery History of total right hip arthroplasty Hx of eye surgery History of shoulder surgery History of hand surgery History of foot surgery History of tubal ligation Family History Father Bladder cancer Mother Acute CVA (cerebrovascular accident) Stroke CVD (cardiovascular disease) Thyroid disease Brother Renal cell cancer Acute CVA (cerebrovascular accident) Family/Other Alcoholism Social History Household Members Other:: 12/2021 Housing: Apartment Alcohol intake: current Alcohol intake frequency: holidays/special occasions only Patient Tobacco Use Status: Current everyday Tobacco user Tobacco use type: Cigarette Cigarette Packs Per Day: 0.5 Cigarettes Per Day: 10.0 Years Smoked: (onset 10yo, 3/4-1ppd x 52yrs, 40+PYH) e-Cigarette/Vaping Use: Never Used Second Hand Smoke Exposure: No Current occupational status: disabled Cognitive needs: No Hearing needs: No Vision needs: Yes Questionnaire PHQ-9 Over the last 2 weeks, how often have you been bothered by any of the following problems? 1. Little interest or pleasure in doing things: more than half the days 2. Feeling down, depressed, or hopeless: more than half the days 3. Trouble falling or staying asleep, or sleeping too much: several days 4. Feeling tired or having little energy: several days 5. Poor appetite or overeating: not at all 6. Feeling bad about yourself - or that you are a failure or have let yourself or your family down: not at all 7. Trouble concentrating on things, such as reading the newspaper or watching television: not at all 8. Moving or speaking so slowly that other people could have noticed. Or the opposite - being so fidgety or restless that you have been moving around a lot more than usual: not at all 9. Thoughts that you would be better off or of hurting yourself in some way: not at all Total score: 6 Depression Screening Interpretation: Negative Depression Screening Done: Yes 20031 - PHQ-9 Billing: Yes Source: Developed by Drs. Moshe Mendoza, Layne Feng, Chad Pool and colleagues, with an educational tari from [employer]. Thrive Questionnaire Date Thrive assessed: 07/10/23 AUDIT C Alcohol Use Questionnaire (AUDIT-C) 2. How many drinks containing alcohol do you have on a typical day when you are drinking?: 3 or 4 3. How often do you have six or more drinks on one occasion?: Less than monthly Total Score: 2 SARIKA-7 AMB Questionnaire SARIKA-7 Date SARIKA - 7 assessed: 07/10/23 Source: Developed by Drs. Mohse Mendoza, Layne Feng, Chad Pool and colleagues, with an educational tari from [employer]. Review of Systems Const Denies body aches, Denies fatigue, Denies fever(s), Denies frequent falls, Denies headache(s) and Denies weakness Eyes Reports no additional complaints and Denies change in vision ENT Denies dizziness, Denies facial pain, Denies headache(s) and Denies nasal congestion Card Reports chest pain, Denies syncope, Denies irregular heart rhythm, Denies leg edema, Denies lightheadedness and Denies dyspnea Resp Denies cough and Denies dyspnea GI Denies abdominal pain, Denies dyspepsia, Denies nausea and Denies vomiting Denies urinary frequency, Denies dysuria, Denies urinary hesitancy and Denies urinary urgency Musc Denies back pain and Denies myalgias Skin/Breast Reports system reviewed and no additional complaints, except as documented Neuro Denies dizziness, Denies syncope, Denies frequent falls, Denies headache(s) and Denies weakness Psych Reports no additional complaints Endo Denies fatigue Physical exam (Primary Care) Vital Signs: Last Vital Signs Pulse 76 02/27/24 14:07 BP 110/62 02/27/24 14:07 Pulse Ox 96 02/27/24 14:07 Oxygen Delivery Method Room Air 02/27/24 14:07 BMI result Body Mass Index 27.8 Tobacco/Smoking Status: Tobacco use Status Tobacco use date assessed 02/27/24 02/27/24 14:10 Patient Tobacco Use Status Current everyday Tobacco 02/27/24 14:10 Tobacco use type Cigarette 02/27/24 14:10 e-Cigarette/Vaping Use Never Used 02/27/24 14:10 PHQ-9: PHQ-9 Score PHQ-9: Total score 6 02/27/24 14:10 Depression Screening Interpretation: Negative Thrive Assessment: Date of Thrive Assessment Date Thrive assessed 07/10/23 02/27/24 14:10 Const General: cooperative, healthy appearing, comfortable and no acute distress Orientation/consciousness: patient oriented x3 HENMT Head: Yes normocephalic General nose exam: Normal external nose present Face and sinus: Yes normal facial exam and Yes sinuses nontender Neck Neck: Yes normal visual inspection, Yes full ROM and Yes no lymphadenopathy Chest Chest palpation & inspection: normal inspection of the chest Resp Effort & Inspection: normal respiratory effort Auscultation: clear to auscultation bilaterally, no crackles, no rales, no rhonchi, no wheezes and breath sounds present Cardio Rate: regular rate Rhythm: regular rhythm Peripheral pulses: radial pulses present and dorsalis pedis present GI Inspection: Yes normal to inspection and No Abdominal wall edema Palpation (GI): Soft to palpation, not firm and nontender Auscultation: normal bowel sounds Rectal Exam - Female: deferred General: Yes no CVA tenderness Back/Spine/Pelvis Back: no CVA tenderness Skin General skin exam: no rashes or lesions noted Neuro General: patient oriented x3 Cranial nerves: Yes Midline tongue present and Yes Ability to bilaterally elevate shoulders present Gait exam (Neuro): Normal gait present Extrem General: Yes normal to inspection, Yes full ROM, No no pedal edema and No edema Psych Speech and movement: Normal speech and movement present Affect: normal affect Insight: Good insight present (Psych) Judgement: Good judgement present (Psych) Coding Level of Care Code Est Pt Level 3 (29348) Diagnoses Pre-op evaluation Z01.818 Additional Codes PHQ-9 - 92370 - PHQ-9 Billing: Yes ([id number]) Assessment & Plan Assessment & Plan (1) Pre-op evaluation: Code(s): Z01.818 - Encounter for other preprocedural examination Category: Medical Plan: Regarding preop clearance, the patient is at moderate risk for proposed surgery. Reviewed with the patient that no surgery is completely free of risk and that this examination is to assist the surgeon in reviewing informed consent. Discussed with patient preoperative clearance we will be dependent on cardiology's risk stratification. She is due to undergo a cardiac catheterization and follow up with Cardiology 03/24/2024. Addendum will be added addressing clearance after her next cardiology appointment. Patient understands and agrees with the plan and we will follow up after this visit Plan This note was constructed using voice recognition software. While every effort has been made to ensure accuracy and director of aviation, still areas may have been included sometimes these areas may affect the content or meeting of the given symptoms. Total time spent caring for the patient today was 30 minutes. This includes time spent before the visit reviewing the chart, time spent during the visit, and time spent after the visit and documentation. Orders: Orders Ammonia Today E78.2 - Mixed hyperlipidemia, N18.31 - Chronic kidney disease, stage 3a Medications: Refilled carisoprodol 350 mg PO BID 30 days PRN 50 tabs 0RF muscle pain M16.9 - Osteoarthritis of hip, unspecified
--- OUTSIDE RECORDS SUMMARY | 2024-03-04 20:44 | XMS_ITS | Data Portability ---
Author Organization [employer] [place] [facility] [employer] Address [address] [place] [phone] Care Team Providers Care Finance Consultant Name Role Phone [facility] Referring Provider Assessment No assessment recorded. Plan of Treatment Reminders Order Date Submit Date Provider Last Modified By Organization Details Last Modified Time Details Appointments None record ed. Lab None record ed. Referral None record ed. Procedures None record ed. Surgeries None record ed. Imaging None record ed. Medication Orders None record ed. Patient TargetsNo targets recorded. Patient InstructionsNo instructions recorded. Reason for Referral None Reported. Medical Equipment None Reported. Allergies Allergen ID Allergen Name Allergen Category Reaction Reaction Severity Criticality Documentation Date Start Date Code Code System Note Provider Name and Address Organization Details Recorded Time 8109 ibuprofen medicatio n Not available Not available Not available 01/22/2024 5640 RxNorm Not Available [facility] - production 4 03:42:38 Medications Name Sig Start Date Stop Date Status Note LastModified by Organization Details LastModified Time carisoprodol 350 mg tablet TAKE 1 TABLET BY MOUTH TWICE DAILY NEEDED FOR MUSCLE PAIN active Not Available Not Available Not Available neomycin-holland ymyxin-hydro maggie 3.5 mg/mL-10,000 unit/mL-1 % ear solution INSTILL 4 DROPS TO RIGHT EAR THREE TIMES DAILY FOR 10 DAYS active Not Available Not Available No t Available nystatin 100,000 unit/mL oral suspension SWISH AND SWALLOW 5 ML BY MOUTH THREE TIMES DAILY FOR 7 DAYS active Not Available Not Available No t Available hydrocortiso ne-acetic acid 1 %-2 % ear drops active Not Available Not Available No t Available erythromycin 5 mg/gram (0.5 %) eye ointment active Not Available Not Available Not Available fluticasone propionate 50 mcg/actuatio n nasal spray,suspen paula SHAKE LIQUID AND USE 2 SPRAYS IN EACH NOSTRIL DAILY active Not Available Not Available No t Available amoxicillin 875 mg-potassium clavulanate 125 mg tablet TAKE 1 TABLET BY MOUTH EVERY 12 HOURS FOR 10 DAYS active Not Available Not Available Not Available Ventolin HFA 90 mcg/actuatio n aerosol inhaler INHALE 2 PUFFS BY MOUTH INTO THE LUNGS EVERY 4 HOURS NEEDED FOR BRONCHOSPAS M active Not Available Not Available No t Available oxycodone 5 mg tablet TAKE 1 TABLET BY MOUTH EVERY 6 HOURS FOR 5 DAYS NEEDED FOR SEVERE PAIN active Not Available Not Available Not Available diclofenac 1 % topical gel active Not Available Not Available Not Available Breo Ellipta 200 mcg-25 mcg/dose powder for inhalation INHALE 1 PUFF BY MOUTH DAILY active Not Available Not Available Not Available Vitals Date Recorded Oxygen saturation Oxygen saturation in Arterial blood by Pulse oximetry Body temperature Respiratory rate Heart rate Systolic blood pressure Diastolic blood pressure Provider Name and Address Organization Details Last Updated DateTime 97 % 97 % 98.3 [degF] 18 /min 80 /min 130 mm[Hg] 79 mm[Hg] Not Available [facility] - production 17:30:37 Social History None recorded. Functional Status None recorded. Mental Status None recorded. Family History Nothing Reported. Medical History No medical history recorded. Gynecological HistoryNo gynecological history recorded. Obstetrics History GPAL:G 0 P 0 0 0 0 Past Encounters Encounter ID Performer Location Encounter Start Date Encounter Closed Date Diagnosis/Indication Diagnosis SNOMED-CT Code Diagnosis ICD10 Code [id number] Gary Johnson MD [facility] [address] [place] [phone] 11/03/2022 17:30:35 03/01/2023 10:47:17 Strain of neck muscle 274846871 S16.1XXA Health Concerns Section Related Observation LastModified by Organization Detai ls LastModified Time None Recorded Concern Status LastModified by Organization Details LastModified Time None Recorded Advance Directives Directive None Recorded Payers Encounter Date Sequence Insurance Name Policy Number Policy Mendiola Covered Member ID Mendiola Member ID Guarantor Name 11/03/2022 1 [facility] - DOS ON OR AFTER 2022 - DUAL ELIGIBLE - ALF OPTIONS AND ONE CARE (MEDICARE REPLACEMENT/ADV ANTAGE - HMO) Pamela Hale [id number] Pamela Hale Notes Date Note Type Note Provider Name and Address Organization Details Recorded Time 11/03/2022 text/html [facility] Nursing Assessment: Reason For Request: Pt states being in horrible pain and upper body>unable to do simple tasks like combing her hair. unable to lay down and get comfortable due to potential pulling of a muscle 2 nights ago>woke up yesterday with a stiff neck>had to call out of work today. Chief Complaints: Pain Allergies: Ibuprofen Comments: Verified identity / address Member denies any fall or injury. Member had a stiff neck and turned and has had increased pain. Member was able to work but today she has had increased pain. Took a bath and heating pad with no change Member does not have any chronic pain issues. Member took pain meds but did not help Member blood thinners/ no kidney disease but dr watching kid levels .................. .................. .................. .................. .................. .................. .................. ............... Nonprofit Director Note From Richa Bower: Sent to a call for a pt complaining of neck/back pain. [facility] arrives on scene, pt is alert and oriented, airway is patent. Pt complains of bilateral neck pain and upper back pain starting Sunday night. Pt denies walker, dizziness, cp, sob, n/v/d, abd pain, fever, trauma, or loc. Pt states she cleaned floors which she normally doesn't do and thinks it triggered muscle/nerve pain. Pt has limited range of motion, unable to raise arms lateral to shoulders with intermittent bilateral arm weakness. Pt took Oxycodone 5mg tablet at 2pm that she was prescribed one month ago following a dog bite. Pt reports increased range of motion and decrease in pain. Pt has a reaction with Ibuprofen and only takes Tylenol. BP:130/79, P:80, RR:18, SpO2:97% RA, T:98.3; Head: unremarkable, Neck: bilateral muscle stiffness with limited range of motion; Back: no edema, erythema, or tenderness noted; Upper extremities: positive pulses present, normal sensation, limited range of motion; Lower extremities: unremarkable; Skin: pink, warm, dry; Pt is using biofreeze, and hot/cold intermittently. [facility] consulted and pt is advised to continue taking Tylenol and follow up with PCP. Pt is assisted with application of biofreeze. Red flags discussed. Pt has no further questions. .................. .................. .................. .................. .................. .................. .................. ............... Disposition: Fulfilled Gary Johnson MD [address] [place] [address],[address] [facility], [place], [phone], [facility] 02/28/2023 14:25:58 OBGyn Episode No OBEpisode recorded.
== END 2024-02-27 14:41 | disposition home or self-care (01) ==
PROVIDERS: PCP Internal Medicine
DX: Z01.818 Encounter for other preprocedural examination (principal)

== ENCOUNTER → 2024-02-27 14:04 | Outpatient (BNVA) | payer OTHER, SELFPAY | PROVIDERS: PCP Internal Medicine | DX: Z01.818 Encounter for other preprocedural examination (principal) | CPT/HCPCS: 96127; 99212 ==

== ENCOUNTER → 2024-03-06 23:59 | Outpatient (BNV) | payer OTHER, SELFPAY | PROVIDERS: PCP Internal Medicine; Visit Provider Internal Medicine Cardiovascular Disease | DX: R93.1 Abnormal findings on diagnostic imaging of heart and coronary circulation (principal) | CPT/HCPCS: 93458; 99152 ==

== ENCOUNTER → 2024-03-17 14:58 | Outpatient (REF) | payer OTHER, SELFPAY ==
--- NOTE | 2024-03-17 15:01 | CA_ITS ---
Transthoracic Echocardiogram Patient (Last, First, Middle): Pamela Hale J Gender: Female Date of : 1960 Age: 63 Procedure Date: 03/17/2024 Procedure Type: Transthoracic Echocardiogram Location: OP Height: 165.1 cm Weight: 75.75 kg BSA: 1.83 m2 Heart Rate: bpm BP: 110 / 62 mmHg Steel Erector: SB Referring MD: Jean Claude Storm MD Symptoms: E78.00 - Pure hypercholesterolemia, unspecified Study Quality: Adequate ECG Rhythm: Sinus Conclusions: - The left ventricular systolic function is normal. The calculated ejection fraction is 67% by biplane method. - No obvious valvular pathology seen on this study. Findings Left Ventricle Normal left ventricular cavity size. There is normal left ventricular wall thickness. The left ventricular systolic function is normal. The calculated ejection fraction is 67% by biplane method. There is no evidence of regional wall motion abnormalities. Diastolic function is normal for age. Right Ventricle Normal right ventricular cavity size. There is low normal right ventricular systolic function. Atria Both atria are normal in size. Aortic Valve There is a normal trileaflet aortic valve. There is no aortic valve stenosis. There is no aortic valve regurgitation. Mitral Valve The mitral valve appears normal. There is no mitral valve regurgitation. There is no mitral valve stenosis. Pulmonic Valve The pulmonic valve is likely normal. Tricuspid Valve Normal tricuspid valve structure. There is trace tricuspid valve regurgitation. There is no evidence of pulmonary hypertension. Great Vessels The asc aorta is normal in size. Venous The inferior vena cava is normal in size and collapses less than 50% with inspiration. Pericardium/Pleural There is no evidence of pericardial effusion. Prior Study Comparison No prior study available for comparison. Recommendations, Care & Conclusions No obvious valvular pathology seen on this study. Measurements 2D Linear Measurements IVSd: 0.52 0.6-0.9/0.6-1.0 cm LVIDd: 4.75 3.9-5.3/4.2-5.9 cm LVIDd Index: 2.60 2.4-3.2/2.2-3.1 cm/m2 LVIDs: 3.41 2.0-3.6 cm LVPWd: 0.74 0.7-1.1 cm LA Diam: 2.90 2.7-3.8/3.0-4.0 cm LAIDs Index: 1.58 1.5-2.3 cm/m2 LV Mass: 114.87 67-162/88-224 g LV Mass Index: 62.77 43-95/49-115 g/m2 LVOT Diam: 2.10 3.0+(-)1.3 cm 2D Systolic Function EF 4C: 65.00 >55% EF 2C: 69.00 >55% EF BiP: 66.70 >55% Mitral Valve MV Pk E: 0.74 MV PK A: 0.60 MV Decel Time: 241.00 E/A: 1.20 E'Lateral: 7.07 E'Medial: 7.72 E/E' Med: 9.50 E/E' Lat: 10.40 PHT: 71.00 MVA PHT: 3.10 Decel [place]: 3.04 Aortic Valve AoV Pk Messi: 1.26 AoV Pk Grad: 6.00 BRENTON: 2.99 LVOT LVOT Pk Messi: 1.01 LVOT Mn Messi: 0.78 LVOT VTI: 0.21 LVOT Pk Grad: 4.00 LVOT Mn Grad: 3.00 LVOT Diam: 2.10 LVOT Area: 3.46 Diastolic Function MV Pk E: 0.74 MV Pk A: 0.60 E/A: 1.20 E'Medial: 7.72 E/E' Med: 9.50 E' Laterial: 7.07 E/E' Lat: 10.40 Right Ventricle TAPSE (mm): 18.20 TVS' Messi: 9.03 Tricuspid Valve RA Press: 8.00 Great Vessels Aorta Sinus of Valsalva: 2.70 2.0-3.5 cm Ao Asc: 2.90 2.1-3.4 cm Pulmonary Veins Pulm Vein S/D 1.10 Pulmonary Valve PV Pk Messi: 1.06 Peak PV Grad: 4.00 Updated in Other Vendor System with Status of Final Jean Claude Storm MD electronically signed on 03/17/2024 3:54:10 PM with status of Final
== END ==
LOC: HO.CARD 14:58
PROVIDERS: PCP Internal Medicine; Visit Provider Internal Medicine
DX: E78.00 Pure hypercholesterolemia, unspecified (principal)
CPT/HCPCS: 93306

== ENCOUNTER → 2024-03-17 15:01 | Outpatient (BNV) | payer OTHER, SELFPAY | PROVIDERS: PCP Internal Medicine; Visit Provider Internal Medicine | DX: I36.1 Nonrheumatic tricuspid (valve) insufficiency (principal) | CPT/HCPCS: 93306 ==

== ENCOUNTER 2024-03-24 13:57 | Outpatient (AMB) | payer OTHER, SELFPAY ==
[2024-03-24 14:05] VITALS: BP 110/62; PULSE 79; BMI 27.2
--- NOTE | 2024-03-24 14:05 | A.OFFVIS_ITS ---
Vital Signs 03/24/24 14:05 Height 5 ft 5 in Weight 163 lb 9.328 oz BMI 27.2 BP 110/62 Blood Pressure Location Lt brachial Position Sitting Pulse 79 Pulse Source Pulse Oximeter Intake Visit Reasons: * 2 wk f/up cath HS Intake Note: 2 wk f/up cath. Driver License Examiner Required: No Accompanied by: Self / Same As Patient Allergies atorvastatin Allergy (Unknown, Verified 02/27/24 14:20) Cramps barium sulfate Allergy (Unknown, Verified 02/27/24 14:20) sore throat omeprazole Allergy (Unknown, Verified 02/27/24 14:20) diarrhea rosuvastatin Allergy (Unknown, Verified 02/27/24 14:20) Unknown simvastatin Allergy (Unknown, Verified 02/27/24 14:20) unknown [email or web address] [From Chantix] Allergy (Unknown, Verified 02/27/24 14:20) sore throat evolocumab [From Repatha SureClick] Adverse Reaction (Intermediate, Verified 02/27/24 14:20) cough Medication List - Last Reconciled 03/24/24 by EBER Macedo albuterol sulfate 2.5 mg inhalation Q4-6H PRN albuterol sulfate 90 mcg/actuation (Ventolin HFA) 2 puffs PO Q4H PRN aspirin (Adult Aspirin Regimen) 81 mg PO DAILY carisoprodol 350 mg PO BID diclofenac sodium 1% (Voltaren Arthritis Pain) 4 grams topical QID PRN fluticasone propionate 50 mcg/actuation 2 sprays intranasal DAILY [Raised toilet seat duration - 99 days] walker Folding Front wheeled walker HPI HPI * 2 wk f/up cath HS: Details: is a 63-year-old female with past medical history of hyperlipidemia, chronic kidney disease, smoking, COPD who recently reported chest discomfort underwent a cardiac evaluation. Her nuclear stress test was abnormal leading to cardiac catheterization which showed no significant coronary artery disease. Today she reports she has been doing well since her cardiac catheterization procedure. Her right radial catheterization site is feeling good. She has no chest discomfort at rest or with activity. No concerning shortness of breath. She continues to smoke but has been working on cutting down. No PND, orthopnea or edema. No palpitations, lightheadedness, presyncope, syncope, falls. Is scheduled for a total hip replacement in the near future. Her activity is currently limited by discomfort from her hip arthritis. [facility] Medical History Thyroid disease CKD (chronic kidney disease) Concussion Elevated cholesterol Myalgia due to statin Neurocardiogenic syncope Forehead laceration Fall Oral candidiasis Nausea and vomiting Abdominal bloating Thoracic back pain Foot pain, left LUQ abdominal pain Abdominal pain Rectal bleeding Myalgia Neck pain Chest pain HLD (hyperlipidemia) Osteoarthritis of right hip Iliotibial band syndrome Hematoma and contusion Fall Osteoarthritis of left hip Vitamin D deficiency Hearing loss Degenerative disc disease, lumbar GERD (gastroesophageal reflux disease) COPD (chronic obstructive pulmonary disease) Crohn's disease Nicotine dependence, cigarettes, uncomplicated Hypothyroidism S/P right hip fracture Hip osteoarthritis Surgical History Hx of cardiac catheterization History of hip surgery History of colonoscopy History of esophagogastroduodenoscopy (EGD) Hx of eye surgery History of shoulder surgery History of hand surgery History of foot surgery History of tubal ligation History of total right hip arthroplasty Family History Father Bladder cancer Mother Acute CVA (cerebrovascular accident) Stroke CVD (cardiovascular disease) Thyroid disease Brother Renal cell cancer Acute CVA (cerebrovascular accident) Family/Other Alcoholism Social History Household Members Other:: 12/2021 Housing: Apartment Are you a primary acute care physical therapist to a significant other at home: No Do you presently have visiting nurse or other home services: Yes (homemaking) Alcohol intake: current Alcohol intake frequency: a few times a week Patient Tobacco Use Status: Current everyday Tobacco user Tobacco use type: Cigarette Cigarette Packs Per Day: 0.5 Cigarettes Per Day: 2 Years Smoked: (onset 10yo, 3/4-1ppd x 52yrs, 40+PYH) e-Cigarette/Vaping Use: Never Used Second Hand Smoke Exposure: No Current occupational status: disabled Cognitive needs: No Hearing needs: No Vision needs: Yes Review of Systems Const All systems reviewed & are unremarkable except as noted in HPI and below Denies chills, Denies fatigue, Denies fever(s), Denies frequent falls, Denies weakness, Denies weight gain and Denies weight loss ENT Denies dizziness Card Denies chest pain, Denies leg edema, Denies lightheadedness, Denies palpitations, Denies dyspnea and Denies dyspnea on exertion Resp Denies cough, Denies dyspnea and Denies dyspnea on exertion GI Denies hematochezia Musc Reports abnormal gait, Denies muscle weakness, Denies numbness, Denies radiating pain into limb and Denies tingling Neuro Reports abnormal gait, Denies dizziness, Denies frequent falls, Denies numbness, Denies tingling and Denies weakness Endo Denies fatigue and Denies palpitations Physical Exam Vital Signs: Last Vital Signs Pulse 79 03/24/24 14:05 BP 110/62 03/24/24 14:05 BMI result Body Mass Index 27.2 Const General: cooperative, healthy appearing, comfortable and no acute distress Orientation/consciousness: patient oriented x3 Neck Neck: Yes normal visual inspection Resp Effort & Inspection: normal respiratory effort Auscultation: clear to auscultation bilaterally, no crackles, no rales, no rhonchi and no wheezes Cardio Rate: regular rate Rhythm: regular rhythm Heart sounds: S1 normal heart sound present, S2 normal heart sound present, no murmurs and no rubs Neuro General: patient oriented x3 Extrem General: Yes normal to inspection, No no pedal edema and No calf tenderness Psych Appearance: grossly normal Mental Status: mental status grossly normal Speech and movement: Normal speech and movement present Assessment & Plan Assessment & Plan (1) Precordial chest pain: Code(s): R07.2 - Precordial pain Category: Medical Plan: Prior reports of atypical, random chest discomfort. Cardiac risk factors of age, smoking, hyperlipidemia. She did undergo an exercise stress test 07/18/2023 with poor exercise capacity, moderate shortness of breath, no EKG changes. She then underwent a pharmacological nuclear stress test on 08/27/2023 which was equivocal for mild, distal anterior and apical ischemia, mid to distal LAD territory. She was referred to Cardiology for evaluation. She underwent a cardiac catheterization on 03/06/2024 which showed LAD and RCA each with minimal luminal irregularities. Her echocardiogram from 03/17/2024 showed EF 67%, no valve abnormalities no regional wall motion abnormalities. At this point she has no anginal sounding symptoms. She continues to smoke but is working on cutting down. Her cholesterol is still not optimally controlled. She tells me that she is intolerant to statins and Repatha. She is working on natural substances to help reduce her cholesterol. Cardiac risk factor modification reviewed with her. At this time she has no significant CAD and can come off of daily aspirin. Signs and symptoms of true angina reviewed with her. Cardiology follow-up p.r.n.. (2) Abnormal myocardial perfusion study: Code(s): R94.39 - Abnormal result of other cardiovascular function study Category: Medical Plan: As above. False-positive (3) S/P cardiac cath: Comment: 03/06/2024, lad and RCA each with minimal luminal irregularities Code(s): Z98.890 - Other specified postprocedural states Category: Surgical Plan: Right radial catheterization site well healed (4) Preoperative cardiovascular examination: Code(s): Z01.810 - Encounter for preprocedural cardiovascular examination Category: Medical Plan: Preop for total hip replacement with Dr. Britton on 04/08/2024. She may proceed with low cardiac risk. Aspirin can be held as needed for the procedure. Call/consult Cardiology if needed. (5) HLD (hyperlipidemia): Comment: decline referral to ENDO patient is statin intolerant and has tried the injectables with side effects. Code(s): E78.5 - Hyperlipidemia, unspecified Category: Medical Qualifiers: Hyperlipidemia type: pure hypercholesterolemia Qualified Code(s): E78.00 - Pure hypercholesterolemia, unspecified Plan: As above. She will follow with her PCP. Plan Time spent on chart review, documentation, interview and assessment Coding Level of Care Code Est Pt Level 4 (12959) Complex EM visit Add On G2211 Diagnoses Precordial chest pain R07.2 Abnormal myocardial perfusion study R94.39 S/P cardiac cath Z98.890 Preoperative cardiovascular examination Z01.810 Pure hypercholesterolemia E78.00 Hyperlipidemia type: pure hypercholesterolemia Time Spent (min) 36
== END 2024-03-24 14:28 | disposition home or self-care (01) ==
PROVIDERS: PCP Internal Medicine; Visit Provider Nurse Practitioner Family
DX: R07.2 Precordial pain (principal); R94.39 Abnormal result of other cardiovascular function study; Z98.890 Other specified postprocedural states; Z01.810 Encounter for preprocedural cardiovascular examination; E78.00 Pure hypercholesterolemia, unspecified
CPT/HCPCS: 99214; G2211

== ENCOUNTER → 2024-03-24 13:57 | Outpatient (BNVA) | payer OTHER, SELFPAY | PROVIDERS: PCP Internal Medicine; Visit Provider Nurse Practitioner Family | DX: Z01.810 Encounter for preprocedural cardiovascular examination (principal); R07.2 Precordial pain; E78.00 Pure hypercholesterolemia, unspecified; R94.39 Abnormal result of other cardiovascular function study; Z98.890 Other specified postprocedural states | CPT/HCPCS: 99212 ==

== ENCOUNTER 2024-04-03 09:26 | Outpatient (AMB) | payer OTHER, SELFPAY ==
[2024-04-03 09:27] VITALS: BMI 27.1
--- NOTE | 2024-04-03 09:27 | MHC.OFFVIS ---
Vital Signs 04/03/24 09:27 Height 5 ft 5 in Weight 163 lb BMI 27.1 Intake Visit Reasons: Pre-Op: L UMM w/NE 04/08/24 Intake Note: is a 63 year old female who presents today for a preoperative LT UMM, DOS 04/08/24 NE. Pain management agreement reviewed and signed. Allergies atorvastatin Allergy (Unknown, Verified 04/03/24 09:46) Cramps barium sulfate Allergy (Unknown, Verified 04/03/24 09:46) sore throat omeprazole Allergy (Unknown, Verified 04/03/24 09:46) diarrhea rosuvastatin Allergy (Unknown, Verified 04/03/24 09:46) Unknown simvastatin Allergy (Unknown, Verified 04/03/24 09:46) unknown varenicline [From Chantix] Allergy (Unknown, Verified 04/03/24 09:46) sore throat evolocumab [From Repatha SureClick] Adverse Reaction (Intermediate, Verified 04/03/24 09:46) cough Medication List - Last Reconciled 04/03/24 by Christopher Samuel PA-C albuterol sulfate 2.5 mg inhalation Q4-6H PRN albuterol sulfate 90 mcg/actuation (Ventolin HFA) 2 puffs PO Q4H PRN aspirin (Adult Aspirin Regimen) 81 mg PO DAILY carisoprodol 350 mg PO BID diclofenac sodium 1% (Voltaren Arthritis Pain) 4 grams topical QID PRN fluticasone propionate 50 mcg/actuation 2 sprays intranasal DAILY [Raised toilet seat duration - 99 days] walker Folding Front wheeled walker HPI Comments Details: Ms Hale presents to the office today for preop visit. She is scheduled for left total hip arthroplasty with Dr. Britton. She continues to have ongoing pain and difficulty with ambulation in the left hip, which is affecting her quality of life; therefore, she has elected to move forward with surgery. [facility] Medical History Thyroid disease CKD (chronic kidney disease) Concussion Elevated cholesterol Myalgia due to statin Neurocardiogenic syncope Forehead laceration Fall Oral candidiasis Nausea and vomiting Abdominal bloating Thoracic back pain Foot pain, left LUQ abdominal pain Abdominal pain Rectal bleeding Myalgia Neck pain Chest pain HLD (hyperlipidemia) Osteoarthritis of right hip Iliotibial band syndrome Hematoma and contusion Fall Osteoarthritis of left hip Vitamin D deficiency Hearing loss Degenerative disc disease, lumbar GERD (gastroesophageal reflux disease) COPD (chronic obstructive pulmonary disease) Crohn's disease Nicotine dependence, cigarettes, uncomplicated Hypothyroidism S/P right hip fracture Hip osteoarthritis Surgical History Hx of cardiac catheterization History of hip surgery History of colonoscopy History of esophagogastroduodenoscopy (EGD) Hx of eye surgery History of shoulder surgery History of hand surgery History of foot surgery History of tubal ligation History of total right hip arthroplasty Family History Father Bladder cancer Mother Acute CVA (cerebrovascular accident) Stroke CVD (cardiovascular disease) Thyroid disease Brother Renal cell cancer Acute CVA (cerebrovascular accident) Family/Other Alcoholism Social History Household Members Other:: 12/2021 Housing: Apartment Are you a primary home care scheduler to a significant other at home: No Do you presently have visiting nurse or other home services: Yes (homemaking) Alcohol intake: current Alcohol intake frequency: a few times a week Patient Tobacco Use Status: Current everyday Tobacco user Tobacco use type: Cigarette Cigarette Packs Per Day: 0.5 Cigarettes Per Day: 2 Years Smoked: (onset 10yo, 3/4-1ppd x 52yrs, 40+PYH) e-Cigarette/Vaping Use: Never Used Second Hand Smoke Exposure: No Current occupational status: disabled Cognitive needs: No Hearing needs: No Vision needs: Yes Review of Systems Const All systems reviewed & are unremarkable except as noted in HPI and below Physical Exam Vital Signs: BMI result Body Mass Index 27.1 Const General: cooperative, healthy appearing, comfortable, no acute distress, well developed and alert Orientation/consciousness: patient oriented x3 HEENT Head: Yes normal to inspection, Yes normocephalic and Yes atraumatic Eyes General: appearance normal, both eyes and all related structures Neck Neck: Yes normal visual inspection and Yes no lymphadenopathy Resp Effort & Inspection: normal respiratory effort and able to speak in complete sentences Cardio Rate: regular rate Peripheral pulses: Peripheral pulses 2+ throughout GI Inspection: Yes normal to inspection Palpation (GI): Soft to palpation Skin General skin exam: no rashes or lesions noted Neuro General: patient oriented x3 Extrem Other: Left hip skin intact, no open wounds. Patient walks with antalgia. She has reasonable range of motion of the left hip with positive impingement test and positive Stinchfield on the left. Psych Appearance: grossly normal Mental Status: mental status grossly normal Results Reviewed Results Reviewed: Xrays were obtained in the office today and personally reviewed by me of the left hip for surgical planning Assessment & Plan Assessment & Plan (1) Osteoarthritis of left hip: Code(s): M16.12 - Unilateral primary osteoarthritis, left hip Category: Medical Qualifiers: Osteoarthritis type: primary Qualified Code(s): M16.12 - Unilateral primary osteoarthritis, left hip Plan I discussed in detail the procedure and what to expect pre and post operatively. We discussed the risks, benefits and alternatives to the surgery as well as the rehabilitation course. The risks; which include, but are not limited to infection, bleeding, nerve injury, ongoing pain, swelling, and stiffness, perioperative risk of injury to bones and soft tissues, and blood clots. I?ve answered all questions and with their understanding they have consented to move forward with Left total hip arthroplasty with Dr. Britton CKD-no NSAIDS Lovenox- ho crohns Orders: Orders XR hip LT min 2V w/wo pel Today M25.552 - Pain in left hip Coding Level of Care Code Est Pt Level 3 (09711) Complex EM visit Add On G2211 Diagnoses Primary osteoarthritis of left hip M16.12 Osteoarthritis type: primary
--- OUTSIDE RECORDS SUMMARY | 2024-04-03 09:41 | XMS_ITS | Data Portability ---
Author Organization [facility] [place] [facility] [employer] Address [address] [place] [phone] Care Team Providers Care Underwear Cutter Name Role Phone [facility] Referring Provider Assessment No assessment [...] Name and Address Organization Details Recorded Time 8151 ibuprofen medicatio n Not available Not available [...] and Address Organization Details Last Updated DateTime 3 97 % 97 % 98.3 [degF] 18 /min 80 /min 130 mm[Hg] 79 mm[Hg] Not Available [facility] - production 3 17:30:37 Social History None recorded. Functional Status None recorded. Mental Status None recorded. Family History Nothing Reported. Medical History No medical history recorded. Gynecological HistoryNo gynecological history recorded. Obstetrics History GPAL:G 0 P 0 0 0 0 Past Encounters Encounter ID Performer Location Encounter Start Date Encounter Closed Date Diagnosis/Indication Diagnosis SNOMED-CT Code Diagnosis ICD10 Code Diagnosis Note [id number] Gary Johnson MD [facility] [address] [place] [phone] 11/03/2022 17:30:35 03/01/2023 10:47:17 Strain of neck muscle 389071732 S16.1XXA This 62-year-ol d female called complsarkisin g of neck and bilateral shoulder pain with no history of trauma. She doesn't tolerate NSAIDs. I recommende d taking Tylenol and following up with his PCP if the pain persists. The patient agreed with this plan. Health Concerns Section Related Observation LastModified by Organization Detai ls LastModified Time None Recorded Concern Status LastModified by Organization Details LastModified Time None Recorded Advance Directives Directive None Recorded Payers Encounter Date Sequence Insurance Name Policy Number Policy Mendiola Covered Member ID Mendiola Member ID Guarantor Name 11/03/2022 1 [facility] - DOS ON OR AFTER 2022 - DUAL ELIGIBLE - S[employer]IOR [employer]IV[employer] OPTIONS AND ONE CARE (MEDICARE REPLACEMENT/ADV ANTAGE - HMO) Pamela Hale [id number] Pamela Hale Notes Date Note Type Note [...] .................. .................. .................. .................. .................. .................. ............... Seismograph Recorder Note From Richa Bower: Sent to a [...] .................. ............... Disposition: Fulfilled Gary Johnson MD [address] [place] [address],[address] [facility], [place], [phone], [facility] 02/28/2023 14:25:58 OBGyn Episode No OBEpisode recorded.
== END 2024-04-03 10:01 | disposition home or self-care (01) ==
PROVIDERS: PCP Internal Medicine; Visit Provider Physician Assistant
DX: M16.12 Unilateral primary osteoarthritis, left hip (principal)
CPT/HCPCS: 99213; G2211

== ENCOUNTER 2024-04-03 11:02 | Outpatient (REF) | payer OTHER, SELFPAY ==
--- NOTE | ~2024-04-03 | XR_ITS ---
EXAMINATION: XR HIP 2 OR MORE VIEWS LEFT WITH PELVIS HISTORY: M25.552 - Pain in left hip COMPARISON: Correlation is made with a plain film of the pelvis dated 01/10/2024. FINDINGS: A single AP view of the pelvis and two views of the left hip are submitted. Osseous mineralization is normal. There is no fracture or dislocation. There is mild to moderate left hip joint space narrowing. A right hip prosthesis is noted. The soft tissues are unremarkable. XR/XR hip LT min 2V IMPRESSION: Mild to moderate left hip joint space narrowing. Electronically signed by: Moshe Purvis MD 04/08/2024 02:19 PM [facility]OLY
--- OUTSIDE RECORDS SUMMARY | 2024-04-04 11:09 | XMS_ITS | Data Portability ---
Author Organization [facility] [place] [facility] [employer] Address [address] [place] [phone] Care Team Providers Care Curer Acid Drum Name Role Phone [facility] [...] Name and Address Organization Details Recorded Time 8126 ibuprofen medicatio n Not available Not available [...] SNOMED-CT Code Diagnosis ICD10 Code Diagnosis Note [id number] Gary Johnson MD [facility] [address] [place] [phone] 11/03/2022 17:30:35 03/01/2023 10:47:17 Strain of neck muscle [id number] S16.1XXA This 62-year-ol d female called complsarkisin [...] Mendiola Member ID Guarantor Name 11/03/[address] [facility] - DOS ON OR AFTER 2022 - DUAL ELIGIBLE - HALFWAY OPTIONS AND ONE CARE (MEDICARE REPLACEMENT/ADV ANTAGE - HMO) Pamela Hale [id number] Pamela Hale Notes Date Note Type Note [...] .................. .................. .................. .................. .................. .................. ............... [employer] Note From Richa Bower: Sent to a [...] .................. ............... Disposition: Fulfilled Gary Johnson MD [address] [place] [address],[address] [facility], [place], [phone], [facility] 02/28/2023 14:25:58 OBGyn Episode No OBEpisode recorded.
--- OUTSIDE RECORDS SUMMARY | 2024-04-04 11:09 | XMS_ITS | Continuity of Care Document ---
Author Organization [facility] ter Address [address] [place] [id number]- Care Team Providers Care Heavy Equipment Technician Name Role Phone Po Marylin HIGHTOWER Primary Care Physician [id number] Date(s): 03/06/24 - 03/06/[address] [address] Discharge Disposition: A-D/C Home Attending Physician: Solo Bateman MD Admitting Physician: Solo Bateman MD Referring Physician: Jean Claude Storm MD Encounter Type: Disch Daystay Allergies, Adverse Reactions, Alerts Substance Criticality Severity Reaction Reaction Severity Status ibuprofen 1 Crohn's ileitis Ac tive omeprazole Rosuvastatin Active simvastatin Active atorvastatin Active rosuvastatin Active Chantix Active 1Contraindicated with Crohn's Medications Albuterol (Eqv-Proventil HFA) = 180 mcg, Inhalation, Every 6 hours, 0 Refills, Maintenance, 03/06/24 9:55:00 AM EST, Partial fillupon patient request if the prescription is for a schedule II opioid drug. Start Date: 03/06/24 Status: Ordered Repeat number: 1 aspirin 81 mg oral capsule 1 capsule = 81 mg, By Mouth, Every 24 hours, 0 Refills, Maintenance, 03/06/24 9:54:00 AM EST, Partial fill upon patient request if the prescription is for a schedule II opioid drug. Start Date: 03/06/24 Status: Ordered Repeat number: 1 Breo Ellipta 200 mcg-25 mcg/inh inhalation powder INL 1 PUFF PO QD Start Date: 07/11/18 Status: Ordered Repeat number: 1 carisoprodol 350 mg oral tablet TK 1 T PO BID PRN Start Date: 07/11/18 Status: Ordered Repeat number: 1 Vital Signs Most recent to oldest [Reference Range]: 1 2 3 Height 167 cm (03/06/24 10:00 AM) Weight 75.1 kg (03/06/24 10:00 AM) Oxygen Saturation [94-100 %] 97 % (03/06/24 3:49 PM) 97 % (03/06/24 3:44 PM) 97 % (03/06/24 3:29 PM) Pulse Rate [55-90 bpm] 66 bpm (03/06/24 10:00 AM) Body Mass Index [18.5-24.99 kg/m2] 26.93 kg/m2 *H* (03/06/24 10:00 AM) Blood Pressure [90-138/55-84 mm Hg] 125/62mm Hg (03/06/24 3:49 PM) 106/71mm Hg (03/06/24 3:38 PM) 117/60mm Hg (03/06/24 3:15 PM) Respiratory Rate [16-30 br/min] 16 br/min (03/06/24 3:51 PM) 15 br/min *L* (03/06/24 3:44 PM) 20 br/min (03/06/24 3:23 PM) Temperature [96.8-100.4 DegF] 98.0 DegF (03/06/24 10:00 AM) Mode of Delivery (Oxygen) Room air (03/06/24 3:45 PM) Room air (03/06/24 1:45 PM) Room air (03/06/24 1:30 PM) Blood pressure sites Arm, left (03/06/24 3:45 PM) Arm, left (03/06/24 12:45 PM) Arm, left (03/06/24 10:00 AM) Temperature Route Temporal (03/06/24 10:00 AM) Weight Obtained Via Standing scale (03/06/24 10:00 AM) Social History Social History Type Response Smoking Status 10 or more cigarette s (1/2 pack or more)/day in last 30 days entered on: 07/11/18 Sex Sex Representation Female (finding) Note * Event Display: Hemodynamic Procedure Report Authored Date: [id number] * Michelle Ramirez RN: PERFORM Event Display: Discharge/Transfer Note Hospital Authored Date: [id number] Nursing Discharge Note Entered On: 03/06/2024 21:47 EST Performed On: 03/06/2024 16:01 EST by Michelle Ramirez RN Nursing Discharge Note 2 Discharge Time : 03/06/2024 16:01 EST Discharge Level of Care at Discharge : Home/Shelter/Foster Care Patient Left Unit Via : Wheelchair Patient Accompanied Off Unit with : Responsible adult DC Instructions Provided & Signed by Pt : Yes Patient Understands D/C Instructions : Yes Patient Instructions Discharge Signed : Yes Did Pt have Specialty Bed or Wound Vac : No Michelle Ramirez RN - 03/06/2024 21:46 EST * Michelle Ramirez RN: PERFORM, MODIFY Event Display: Patient Education/Instruction Authored Date: [id number] Inpatient Adult Discharge Instructions. [address] [address] Name: HOWARD DOBSON : 1960?? Visit: 03/06/2024 09:00?? Current Date: 03/06/2024 14:22 ?? Account: [id number]?? Inpatient Adult Discharge Instructions We would like to thank you for allowing us to assist you with your healthcare needs. The following includes patient education materials and information regarding your injury/illness. Our entire staffstrives to provide an excellent experience for our patients and their families. PLEASE ENSURE YOU FOLLOW-UP PER THE INSTRUCTIONS BELOW! ?? YOUR OPINION IS IMPORTANT TO US! Please complete the survey you may receive by mail or email. Your feedback will be used to make improvements to the healthcare experiences of our patients and their families. Surveys are administered by [employer] ?? If further treatment with your primary care physician or another doctor is recommended, it is important for you to keep the appointment. Call your primary care physician or return to the Emergency Department immediately if your condition worsens, fails to improve, or new symptoms develop. If you need to find a doctor, you can call [facility] Link for a referral at [phone] or toll free at [phone]) or log in to [email or web address].. ?? [facility], in keeping with [facility] guidance, no longer requires face masks for staff, patientsor visitors in most situations. Similiar to time spent indoors at other locations, there is the chance that you were exposed to repiratory viruses during your time with us (such as flu or COVID-19). If you develop symptoms concerning for a viral respiratory infection, please seek testing (and treatment if indicated) from your medical provider or home test kit. ?? You can view and manage your care through the patient portal or by using a health care teddy of your choosing. [employer] is a website that allows you to securely view your medical information including your hospital discharge summary, office visit summaries, medications and follow-up visits. You can also request appointments, renew medications, and request access to your medical information using a health care teddy of your choosing, or just ask a question. You can enroll at [email or web address] or register during your next office visit. You have been discharged from [facility], Patient Care Unit: CARE??. If you have any questions regarding these instructions, including results of studies pending, afteryou leave, please call us and we will be happy to assist you 16/10. [facility] Nursing Unit Direct Phone Number, for 16/10 contact and results of studies pending CARE [address] [place] [address] Your Care Team Attending Physician Solo Bateman MD?? Consulting Providers Solo Bateman MD?? Discharging Providers Silvina Childs MD Tests Performed Below is a partial list of the tests performed during your hospitalization. You may have had other tests and procedures not included in this list. Please discuss all test results with your provider. No tests performed during this visit.?? Primary Care Provider Po Marylin HIGHTOWER? Advance Directive Health Care Proxy on File No Discharge Vitals Temperature: 98 DegF Height: 167 cm Pulse Rate: 66 bpm Weight: 75.1 kg Respiratory Rate: 17 br/min Body Mass Index:??26.93 kg/m2??High Systolic Blood Pressure: 124 mm Hg Body surface area: 1.87 Diastolic Blood Pressure: 72 mm Hg ?? Oxygen Saturation: 95 % ?? Studies Pending All studies ordered during this hospital stay have been completed unless listed below. Please discuss all pending results with your provider listed above in these instructions. ?? No incomplete studies found?? What to do next Instructions From Your Doctor ?? Orders?? arterial site hemostasis please, if no complications. Thanks!, ??03/06/24 12:52:00 EST Daystay Protocol, ??03/06/24 12:49:00 EST?? You Need to Schedule the Following Appointments Follow Up with??Fransico HIGHTOWER, Solo When:??Within 3-5 day: call to discuss follow up visit Where: [address] [place] [address] [facility] K[facility]EN Shah [address]- Discharge Medications HOWARD DOBSON :1960 Visit Date:03/06/2024 Medications: Please continue your medications until treatment is completed or stopped by your provider. Medications not listed below should be discontinued. Discuss any questions related to medications with your provider. What How Much When Instructions Next Dose Unchanged Albuterol (Albuterol (Eqv- Proventil HFA)) 180 Microgram Inhalation Every 6 hours continue home schedule as prescribed Unchanged Aspirin (aspirin 81 mg oral capsule) 1 capsule Oral Every 24 hours continue home schedule as prescribed Unchanged Carisoprodol (carisoprodol 350 mg oral tablet) TK 1 T PO BID PRN ?? continue home schedule as prescribed Unchanged fluticasone-vilanterol (Breo Ellipta 200 mcg-25 mcg/ inh inhalation powder) INL 1 PUFF PO QD ?? continue home schedule as prescribed Prescription Given During Visit No new medications prescribed at time of discharge.?? Laboratory Results Below is a partial list of the most recent Laboratory test results done prior to this discharge. You may have had other tests and procedures not included in this list. Please discuss all test resultswith your provider. Allergies (NKA means No Known Allergies) Chantix atorvastatin ibuprofen??(Crohn's ileitis) omeprazole??(Rosuvastatin) rosuvastatin simvastatin Problems No qualifying data available Education Materials Below is the list of Educational Leaflet Providered with your Discharge Instructions. Web[employer] Ignite Patient Education - Surgery Radial Cath Approach Discharge Instructions?? Web[employer] Ignite Patient Education - Recovery After Procedural Sedation (Adult)?? Web[employer]ite Patient Education - Discharge Instructions for Cardiac Catheterization?? Valuables and Belongings I fully understand and agree that [facility] accepts no responsibility for all my personal property including clothing, toilet articles, radios, jewelry, dentures, hearing aids, rings, money, or any other property that is in my possession or is brought to me after admission. I understand certain valuables may be placed in a hospital safe for a short period of time. I understand that the hospital is not liable for loss or damage due to accident, fire, or other natural occurrence while said property is in the safe. I accept full responsibility for any personal property that I keep with me, and will not hold the hospital responsible in case of loss or disappearance. I acknowledge that i have been encouraged to send valuables and belongings home. ?? Review of Valuable and Belonging List: With patient Date for Pt to Sign Valuables/Belongings: 03/06/24 10:55:00 ?? Other Discharge Information ? Pulmonary Rehab Status?? Pulmonary Rehab Discharge Status?? Respiratory Rate: 17 br/min ? Common Emergency Awareness Tips IS IT A STROKE? Act FAST and Check for these signs: FACE Does the face look uneven? ARM Does one arm drift down? SPEECH Does their speech sound strange? TIME Call at any sign of stroke ?? Heart Attack Signs Chest discomfort: Most heart attacks involve discomfort in the center of the chest and lasts more than a few minutes, or goes away and comes back. It can feel like uncomfortable pressure, squeezing, fullness or pain. Discomfort in upper body: Symptoms can include pain or discomfort in one or both arms, back, neck, jaw or stomach. Shortness of breath: With or without discomfort. Other signs: Breaking out in a cold sweat, nausea, or lightheaded. Remember, MINUTES DO MATTER. If you experience any of these heart attack warning signs, call to get immediate medical attention! ?? Smoking can increase your chances of developing chronic health problems and can cause harmful effects to other family members in your house. If you smoke, you are strongly encouraged to quit. Please call [facility] Link at [phone] or [phone] ([phone]) or log in to [email or web address] for referrals to smoking cessation programs. ?? 992 Suicide & Crisis Lifeline is available 16/10 if you or someone you know needs to find a reason to keep living. By calling 172 you'll be connected to a skilled, trained counselor at a crisis center in your area. INPATIENT DISCHARGE INSTRUCTIONS SIGNATURE PAGE HOWARD DOBSON Location:[facility] Registration Date and Time:03/06/2024 09:00 [facility] Primary Care Physician: aMrylin Kaba MD, Attending Physician: Fransico HIGHTOWER, Solo, I HOWARD DOBSON, have received the above patient education materials/instructions and have verbalized understanding. If ambulance or transport services are being used I further acknowledge being given a choice of service. ?? If you need to contact me, please call me at this number: . Patient/Production Technician Name: Patient/Production Technician Signature: Relationship to Patient: Witness Name/Signature: Date: * Michelle Ramirez RN: PERFORM Event Display: Patient Education Leaflets Authored Date: [id number] Surgery Radial Cath Approach Discharge Instructions ?? 278 Radial Cath Approach Discharge Instructions ?? Activity Take it easy the rest of the day. Limit your activity on the affected side.?? Act as if your arm is broken for 24 hours. No lifting with affected arm for 24 hours. No pushing or pulling with the affected arm. Do not reach or lift with the affected arm. Do not place excessive pressure on the wrist. ?? Precautions Due to intravenous sedation: It is recommended that someone stay with you for the first night after your procedure. Do not drive or operate hazardous machinery for 24 hours. Do not make legal decisions for 24 hours. Avoid alcohol for 24 hours. Unless directed otherwise, keep yourself hydrated. ?? Dressing/Incision Care You may remove the dressing 24 hours after your procedure. Replace with band aid for an additional 24 hours. You may shower and cleanse the site with soap & water then pat dry. Avoid submersion of site in water x 5 days. Cover the with a clean band aid daily until site is healed. If the band aid becomes soiled, replacewith a clean new one. Do not apply any ointments, lotions, gels or powders to the puncture site. ?? When to contact your doctor If any of the following signs of infection occur: Fever greater than 100 degrees F Increased pain Drainage, redness or warmth at puncture site Tingling of the fingers and hand that last longer than 3 days Slight bubble of blood or bleeding from site: apply manual pressure and notify your doctor ?? Emergency situations: Bleeding from the site that will not stop: apply manual pressure and notify your doctor Profuse bleeding streaming from the puncture site: Apply manual pressure and notify your doctor immediately If your hand becomes bluish, cold to the touch, or painful, notify your doctor immediately or [facility]. For these emergent situations: If unable to contact your physician, call 911. ?? * Michelle Ramirez RN: PERFORM Event Display: Patient Education Leaflets Authored Date: [id number] Recovery After Procedural Sedation (Adult) ?? [id number] Recovery After Procedural Sedation (Adult) You have been given medicine by vein to make you sleep during your procedure. This may have included both a pain medicine and sleeping medicine. You may have side effects, such as nausea, fatigue, orunsteadiness for up to 24 hours. You may also feel lightheaded. Home care Follow these guidelines when you get home: ??? For the next 8 or more hours, ask a trusted adult to watch over you. This person should make sure your condition is not getting worse, watch for problems, and keep you safe. ??? Don't drink any alcohol??for the next 24 hours. ??? Don't drive, operate dangerous machinery, or make important business or personal decisions??during the next 24 hours. ??? Take extra care when walking and moving, You may be at a higher risk of falling. ??? Follow any instructions you were given for eating and drinking. ??? Be sure to follow all after-care directions. Note: Your healthcare provider may tell you not to take any medicine by mouth for pain or sleep in the next 4 hours. These medicines may react with the medicines you were given in the hospital. This could cause a much stronger response than usual. ?? Follow-up care Follow up with your healthcare provider as advised. ?? When to seek medical advice Have someone call your healthcare provider or seek medical care right away if any of these occur: ??? Drowsiness gets worse ??? Weakness or dizziness gets worse ??? Repeated vomiting ??? Your speech is slurred, and others cannot understand you. ??? Severe or ongoing pain from the procedure that's not eased by the pain medicine (if prescribed) ??? Fever ??? New rash ?? Call 911 Have someone call 911 if you develop any of these symptoms: ??? Trouble breathing ??? Trouble swallowing ??? Chest pain ??? Loss of consciousness or you can't be awakened ?? Last Reviewed Date: 2023 ?? [employer]. All rights reserved. This information is not intended as a substitute for professional medical care. Always follow your healthcare professional's instructions. ?? * Michelle Ramirez RN: PERFORM Event Display: Patient Education Leaflets Authored Date: [id number] Discharge Instructions for Cardiac Catheterization ?? [id number] Discharge Instructions for Cardiac Catheterization Cardiac catheterization??is an invasive??procedure??to look for certain heart problems. These problems may affect the heart's chambers, valves, and blood vessels. A thin, flexible tube (catheter) is put in a blood vessel in your groin or arm. The catheter is moved to the heart. The healthcare provider can look at the blood flow, blood pressure, and oxygen. They can inject contrast fluid??into your blood. This flows to your heart.??The provider can then take X-rays pictures?? of your heart. Coronary angiography is often done as part of a cardiac cath. This looks for blocked areas in the arteries that send blood to the heart. If a blockage is found, your provider may try to open up the artery. They may put a stent in place. Your provider will talk with you about the results of your procedure . Ask any questions you have before you leave. This sheet will help you take care of yourselfat home. Home care ??? Have a responsible adult drive you home after your procedure. ??? Don't drive or makeany important decisions for at least 24 hours after getting any type of sedation or anesthesia.? Drink?? 6 to 8??glasses of water over the next 24 hours. This is to help flush the contrast dye out of your body. Call your healthcare team if your urine has any change in color. ??? Take your tempe rature each day for 3 to 5 days. If you feel cold and clammy or start sweating, take your temperature right away. Call your healthcare team. ??? Do only light and easy activities for??the next?? 2 to3??days. Ask for help with chores and errands while you recover. Have someone drive you to your appointments. ??? Don't lift anything heavy??until your healthcare team says it's safe. ??? Ask your healthcare team when you can expect to return to work. Unless your job involves lifting, you may be able to return to your normal activities within 2 days. ??? Take your medicines as directed. Don't skip doses. ??? Check your incisions every day for signs of infection. These include redness, swelling,and fluid leaking. It's normal to have a small bruise or bump where the catheter was put in. A bruise that's getting larger is not normal. Tell your healthcare team about this. Call your healthcare team if you see blood forming in the incision. Go to the emergency room if you have uncontrolled bleeding from the artery site. This is even more important if you take medicines that make it hard for your blood to clot. These include aspirin, clopidogrel, warfarin, apixaban, and rivaroxaban. ??? Eat a healthy diet. Make sure it's low in fat, salt, and cholesterol. Ask your healthcare team for diet information. ??? Stop smoking. Sign up for a quit-smoking program. Or ask your healthcare team for help. ??? Exercise as your healthcare team tells you to. Your healthcare team??may advise you to start a cardiac rehab program. Cardiac rehab is an exercise program where trained healthcare staff watchyour progress and stress on your heart while you exercise. Ask your team how to enroll. ??? Don't swim or take baths until your healthcare team says it???s OK. You can shower the day after the procedure. Keep the site clean and dry. This keeps the incision from getting wet and infected until the skin and artery can heal. ??? Follow all other after-care instructions from your team.? Follow-up care ??? Make a follow-up appointment as advised. It's common to have a follow-up appointment 2 to 4 weeks after an angioplasty or coronary stent procedure. ??? Make a yearly appointment. This is??to make sure you're still doing well and not having any new symptoms. ??? Don't wait for a follow-up appointment if your medicines aren't working or you're having heart-related symptoms. Call your healthcare provider. ?? When to get medical care Call your healthcare provider right away if you have any of these: ??? Severe or increasing pain, numbness, coldness, or a bluish color in the leg or arm that held the catheter ??? Fever of 100.4?? F??( 38??C) or higher, or as advised by your healthcare provider ??? Signs of infection at the incision site. These include redness, swelling, drainage, or warmth. ??? Bleeding, bruising, or a lot of??swelling where the catheter was inserted ??? Blood in your urine ??? Black or tarry stools ??? Any unusual bleeding ??? Irregular, very slow, or fast heartbeat ??? Dizziness ?? Call 911 Call 911 if you have any of these: ??? Chest pain ??? Shortness of breath ??? Sudden numbness or weakness in arms, legs, or face, or trouble speaking ??? The puncture site swells up very fast ??? Bleeding from the puncture site that doesn't slow down with firm pressure ?? Last Reviewed Date: 2021 ?? [id number] [employer]. All rights reserved. This information is not intended as a substitute for professional medical care. Always follow your healthcare professional's instructions. ?? History and physical note * Event Display: History and Physical Hospital Authored Date: EKG study * Event Display: ECG 12-Lead Authored Date: Please click on pdf link to open report * Event Display: ECG 12-Lead Authored Date: Ventricular Rate: 76 BPM Atrial Rate: 76 BPM P-R Interval: 172 ms QRS Duration: 90 ms Q-T Interval: 402 ms QTC Calculation(Bazett): 452 ms P Delta: 80 degrees R Delta: 52 degrees T Delta: 71 degrees Normal sinus rhythm Normal ECG When compared with ECG of 10-Feb-2011 14:38, Sinus rhythm is no longer with 2nd degree A-V block (Mobitz I) Confirmed by Hussein Bales ([id number]) on 03/06/2024 4:10:16 PM Warren: Hussein Bales Patient Care team information Care Team Personnel Name: Marylin Kaba MD Position: Reference Physician Member Role: PCP Address: [address] [place] [address] [employer] [place], [place] [address] Telecom: Care Team Related Persons Name: MARYSOL DOBSON Name: SHANE SALOMON Insurance Providers Guarantor name: NA Health Plan Information #: 1 Payer: [facility] Member Number: [id number] Policy Number: NA Group Number: [facility] Health Plan Information #: 2 Payer: [facility] Member Number: [id number] Policy Number: NA Group Number: NA
== END 2024-04-03 11:03 | disposition home or self-care (01) ==
LOC: HO.HOSX 11:02
PROVIDERS: Visit Provider Physician Assistant
DX: Z01.818 Encounter for other preprocedural examination (principal); M25.552 Pain in left hip; M16.12 Unilateral primary osteoarthritis, left hip
CPT/HCPCS: 73502; 99212

== ENCOUNTER 2024-04-08 05:55 | Day surgery (SDC) | payer OTHER, SELFPAY ==
[2024-03-10 10:40] VITALS: BP 135/66; PULSE 71; RESP 18; O2SAT 97; BMI 26.6
--- NOTE | 2024-03-10 11:00 | HO.ANESPROP2 ---
Documented by User: Yue Urrutia NP 04/03/24 12:16 HPI - Anesthesia Eval Consult details Narrative: 63yo F for Left Hip Total Replacement, 04/08/23 Cardiac optimized. Atypical CP and + Stress test, cath 03/06/24 negative Medically optimized per PCP URI ~ 1 month ago, lingering productive cough (clear/white phlegm) Occasional atypical chest pain. THOMAS as baseline COPD: Smokes ~ 3 cigs daily, albuterol use mostly in summer with heat/humidity, at baseline, follows PCP only GERD: Denies symptoms, rare, no tx CKD: Creat ok, follows with PCP only PMF Active Problems Active Problems: All Active Problems Preoperative cardiovascular examination (Acute) Mixed hyperlipidemia (Acute) Abnormal myocardial perfusion study (Acute) Precordial chest pain (Acute) Fatigue (Acute) Sore throat (Acute) Pre-op evaluation (Acute) Arthritis of left hip (Acute) Headache (Acute) Hip pain, left (Acute) Left knee pain (Acute) Weight loss, unintentional (Acute) Paraesophageal hernia (Acute) Left-sided chest pain (Acute) Parasitic intestinal disease (Acute) Upper abdominal pain (Acute) Diarrhea (Acute) Rib pain (Acute) Arthralgia (Acute) Thoracic radiculopathy due to degenerative joint disease of spine (Acute) Bipolar disorder (Acute) Sciatic nerve injury (Acute) TSH elevation (Acute) Mild renal insufficiency (Acute) Vaginal irritation (Acute) Multiple pigmented nevi (Acute) Tubular adenoma of colon (Acute) Generalized anxiety disorder (Acute) Smoking (Acute) Chronic kidney disease (CKD) stage G3a/A1, moderately decreased glomerular filtration rate (GFR) between 45-59 mL/min/1.73 square meter and albuminuria creatinine ratio less than 30 mg/g (Acute) HLD (hyperlipidemia) (Acute) Hypothyroidism (Acute) COPD (chronic obstructive pulmonary disease) (Acute) Nicotine dependence, cigarettes, uncomplicated (Acute) Chest pain (Acute) GERD (gastroesophageal reflux disease) (Acute) Osteoarthritis of right hip (Acute) Iliotibial band syndrome (Acute) Osteoarthritis of left hip (Acute) Vitamin D deficiency (Acute) Hip osteoarthritis (Acute) Past Medical History Medical History Thyroid disease CKD (chronic kidney disease) Concussion Elevated cholesterol Myalgia due to statin Neurocardiogenic syncope Forehead laceration Fall Oral candidiasis Nausea and vomiting Abdominal bloating Thoracic back pain Foot pain, left LUQ abdominal pain Abdominal pain Rectal bleeding Myalgia Neck pain Chest pain HLD (hyperlipidemia) Osteoarthritis of right hip Iliotibial band syndrome Hematoma and contusion Fall Osteoarthritis of left hip Vitamin D deficiency Hearing loss Degenerative disc disease, lumbar GERD (gastroesophageal reflux disease) COPD (chronic obstructive pulmonary disease) Crohn's disease Nicotine dependence, cigarettes, uncomplicated Hypothyroidism S/P right hip fracture Hip osteoarthritis Family History Family History Father Bladder cancer Mother Acute CVA (cerebrovascular accident) Stroke CVD (cardiovascular disease) Thyroid disease Brother Renal cell cancer Acute CVA (cerebrovascular accident) Family/Other Alcoholism Family history of problems with anesthesia: No Surgical History Surgical History Hx of cardiac catheterization History of hip surgery History of colonoscopy History of esophagogastroduodenoscopy (EGD) Hx of eye surgery History of shoulder surgery History of hand surgery History of foot surgery History of tubal ligation History of total right hip arthroplasty History of Problems with Anesthesia: No Social History Social History Household Members Other:: 12/2021 Housing: Apartment Are you a primary spiritual care coordinator to a significant other at home: No Do you presently have visiting nurse or other home services: Yes (homemaking) Alcohol intake: current Alcohol intake frequency: a few times a week Patient Tobacco Use Status: Current everyday Tobacco user Tobacco use type: Cigarette Cigarette Packs Per Day: 0.5 Cigarettes Per Day: 2 Years Smoked: (onset 10yo, 3/4-1ppd x 52yrs, 40+PYH) e-Cigarette/Vaping Use: Never Used Second Hand Smoke Exposure: No Use of substances other than those prescribed or required for medical reasons: Yes Substance Use Frequency: Daily Have you been hit, kicked, punched, or otherwise hurt by someone within the past year? If so, by whom?: No Are you DNR?: No Advance Directives: No Advance Directives Information Provided: Yes Advance Directives on File: No Recently lost weight without trying: No Eating poorly because of decreased appetite: No Nutrition Risks: No Nutritional Risk Patient : No : No Poor oral hygiene: Yes (crowns, lower denture) Current occupational status: disabled Cognitive needs: No Hearing needs: No Vision needs: Yes Meds Allergies Allergy/AdvReac Type Severity Reaction Status Date / Time atorvastatin Allergy Unknown Cramps Verified 04/08/24 06:11 barium sulfate Allergy Unknown sore throat Verified 04/08/24 06:11 omeprazole Allergy Unknown diarrhea Verified 04/08/24 06:11 rosuvastatin Allergy Unknown Unknown Verified 04/08/24 06:11 simvastatin Allergy Unknown unknown Verified 04/08/24 06:11 varenicline [From Chantix] Allergy Unknown sore throat Verified 04/08/24 06:11 evolocumab AdvReac Intermediate cough Verified 04/08/24 06:11 [From Repatha SureClick] Home Medications ?Medication ?Instructions ?Recorded ?Confirmed ?Last Taken ?Type albuterol sulfate 2.5 mg/3 mL 2.5 mg inhalation Q4-6H PRN 02/06/20 03/24/24 Unknown History (0.083 %) solution for nebulization Shortness Of Breath Or Wheezing diclofenac sodium 1 % topical gel 4 g topical QID PRN Pain 03/10/24 03/24/24 Unknown History (Voltaren Arthritis Pain) Exam Height,Weight and Vital Signs: Height 5 ft 6 in Weight 74.843 kg Last Vital Signs Pulse 71 03/10/24 10:40 Resp 18 03/10/24 10:40 BP 135/66 03/10/24 10:40 Pulse Ox 97 03/10/24 10:40 O2 Del Method Room Air 03/10/24 10:40 Pertinent Lab Results Pertinent Lab Results: Laboratory Tests 02/26/24 08:42 WBC 10.0 Hgb 13.8 Hct 41.8 Plt Count 299 Sodium 140 Potassium 4.7 Chloride 107 Carbon Dioxide 27 BUN 19 H Creatinine 1.14 Lab Results 03/10/24 Range/Units 10:50 Nasal Screen MRSA (PCR) NEGATIVE (Negative) Nasal S. aureus Screen NEGATIVE (Negative) Nasal MRSA/S.aureus Interp SEE NOTE Narrative Narrative: EKG 01/2024 EKG Details: EKG with underlying sinus rhythm at 66/Min; no significant ST-T changes and otherwise unremarkable. Normal KS and corrected QT. ECHO 12/024 Conclusions: - The left ventricular systolic function is normal. The calculated ejection fraction is 67% by biplane method. - No obvious valvular pathology seen on this study. NM cardiolite stress test 08/2023 Impression: 1. Myocardial perfusion imaging study shows equivocal for mild intensity distal anterior and apical ischemia in mid to distal LAD territory 2. Gated LVEF is 59% 3. Transient ischemic dilatation not present EKG is nondiagnostic for ischemia Airway Mallampati Class: I TM Dist: >3cm Neck ROM: Full Denture: Lower Loose/Missing/Broken Teeth: Yes (capped upper throughout) Heart: RRR Lungs: CTAB Assessment and Plan Assessment Anesthesia Assessment: Anesthesia Plan Discussed, Smoking Cess. Discussed and PAT Visit Final Anesthetic Review Family History of Problems with Anesthesia: No History of Problems with Anesthesia: No Documented by User: Bella Pearson MD 04/08/24 07:30 [facility] Past Medical History Medical History Thyroid disease CKD (chronic kidney disease) Concussion Elevated cholesterol Myalgia due to statin Neurocardiogenic syncope Forehead laceration Fall Oral candidiasis Nausea and vomiting Abdominal bloating Thoracic back pain Foot pain, left LUQ abdominal pain Abdominal pain Rectal bleeding Myalgia Neck pain Chest pain HLD (hyperlipidemia) Osteoarthritis of right hip Iliotibial band syndrome Hematoma and contusion Fall Osteoarthritis of left hip Vitamin D deficiency Hearing loss Degenerative disc disease, lumbar GERD (gastroesophageal reflux disease) COPD (chronic obstructive pulmonary disease) Crohn's disease Nicotine dependence, cigarettes, uncomplicated Hypothyroidism S/P right hip fracture Hip osteoarthritis Family History Family History Father Bladder cancer Mother Acute CVA (cerebrovascular accident) Stroke CVD (cardiovascular disease) Thyroid disease Brother Renal cell cancer Acute CVA (cerebrovascular accident) Family/Other Alcoholism Surgical History Surgical History Hx of cardiac catheterization History of hip surgery History of colonoscopy History of esophagogastroduodenoscopy (EGD) Hx of eye surgery History of shoulder surgery History of hand surgery History of foot surgery History of tubal ligation History of total right hip arthroplasty Social History Social History Household Members Other:: 12/2021 Housing: Apartment Are you a primary spiritual care coordinator to a significant other at home: No Do you presently have visiting nurse or other home services: Yes (homemaking) Alcohol intake: current Alcohol intake frequency: a few times a week Patient Tobacco Use Status: Current everyday Tobacco user Tobacco use type: Cigarette Cigarette Packs Per Day: 0.5 Cigarettes Per Day: 2 Years Smoked: (onset 10yo, 3/4-1ppd x 52yrs, 40+PYH) e-Cigarette/Vaping Use: Never Used Second Hand Smoke Exposure: No Use of substances other than those prescribed or required for medical reasons: Yes Substance Use Frequency: Daily Have you been hit, kicked, punched, or otherwise hurt by someone within the past year? If so, by whom?: No Are you DNR?: No Advance Directives: No Advance Directives Information Provided: Yes Advance Directives on File: No Recently lost weight without trying: No Eating poorly because of decreased appetite: No Nutrition Risks: No Nutritional Risk Patient : No : No Poor oral hygiene: Yes (crowns, lower denture) Current occupational status: disabled Cognitive needs: No Hearing needs: No Vision needs: Yes Meds Allergies Allergy/AdvReac Type Severity Reaction Status Date / Time atorvastatin Allergy Unknown Cramps Verified 04/08/24 06:11 barium sulfate Allergy Unknown sore throat Verified 04/08/24 06:11 omeprazole Allergy Unknown diarrhea Verified 04/08/24 06:11 rosuvastatin Allergy Unknown Unknown Verified 04/08/24 06:11 simvastatin Allergy Unknown unknown Verified 04/08/24 06:11 [email or web address] [From Chantix] Allergy Unknown sore throat Verified 04/08/24 06:11 evolocumab AdvReac Intermediate cough Verified 04/08/24 06:11 [From Repatha SureClick] Home Medications ?Medication ?Instructions ?Recorded ?Confirmed ?Last Taken ?Type albuterol sulfate 2.5 mg/3 mL 2.5 mg inhalation Q4-6H PRN 02/06/20 03/24/24 Unknown History (0.083 %) solution for nebulization Shortness Of Breath Or Wheezing diclofenac sodium 1 % topical gel 4 g topical QID PRN Pain 03/10/24 03/24/24 Unknown History (Voltaren Arthritis Pain) Assessment and Plan Final Anesthetic Review NPO: Yes ASA Class: III Final Preanesthetic Review: No Changes in Pt Med Stat, Meds/Allgs Chart Reviewed, Consent Obtained/Reviewed and Anes Risks/Benef Reviewed Patient Risk: Intermediate Procedure Risk: Intermediate Anesthetic Plan Anesthetic Plan: GA Disposition: Standard PACU
[2024-03-10 13:14] LABS: MRSA Nasal PCR NEGATIVE (Negative); SA Nasal PCR NEGATIVE (Negative)
[2024-04-08] VITALS (14 sets, daily range): BP systolic 103–176; BP diastolic 51–86; PULSE 58–77; RESP 12–18; TEMP 36–36.7; O2SAT 94–98; BMI 25.5
--- NOTE | ~2024-04-08 | XR_ITS ---
EXAMINATION: XR PELVIS CLINICAL INFORMATION: lt nini COMPARISON: 04/03/2024, 01/10/2024. TECHNIQUE: AP view of the pelvis. FINDINGS: Bilateral total hip arthroplasties are present in anatomic alignment. Acetabular and femoral components appear well seated without evidence of periprosthetic fracture, lucency, subsidence, or loosening. A sclerotic focus in the superior right acetabulum is unchanged from 2020 and presumably a benign enostosis. There is no significant heterotopic bone present. The sacrum is intact, and SI joints demonstrate mild degenerative changes. No soft tissue abnormalities detected. XR/XR pelvis 1-2V IMPRESSION: 1. Left total hip arthroplasty without complication. 2. Stable right total hip arthroplasty without complication. Electronically signed by: Arturo Laguna MD 04/08/2024 09:44 AM [facility]
--- NOTE | ~2024-04-08 | XR_ITS ---
EXAMINATION: XR PELVIS CLINICAL INFORMATION: s/p LTHA COMPARISON: Pelvis 04/08/2024 TECHNIQUE: AP view of the pelvis. FINDINGS: There is bilateral hip prosthesis with the prosthetic components in satisfactory alignment. The left hip prosthesis is new when compared to 01/10/2024 exam but unchanged to exam 04/08/2024. The SI joints are symmetrical and normal. No gross bony abnormality seen. The soft tissues are normal. XR/XR pelvis 1-2V IMPRESSION: Status post total left hip arthroplasty with prosthetic components in satisfactory position. The surgical ac are out. The right hip prosthesis is stable. Electronically signed by: Randy Vasquez MD 04/09/2024 08:33 AM EST
[2024-04-08] MEDS: oxyCODONE HCl ER 10 MG TAB.ER.12H PO ×2 (06:43→20:22)
[2024-04-08] MEDS: Lactated Ringers 1,000 ML 100 ML IVCONT ×3 (06:54→20:24)
--- NOTE | 2024-04-08 07:30 | MHC.SHP ---
Pre-Procedural Eval Section A - 24 Hr Update-Section A only Date of Service: 04/08/24 The patient is an INPATIENT: No Changes since office visit: No Cold of Flu in the past 2 weeks, No New Medical Problems, No Changes in Medication and No Patient answered all questions The patient has been examined within 24 hours of the surgical procedure. The History & Physical has been completed within 30 days and I have reviewed it.: Yes Section B - Complete if H&P > 30 days Chief Complaint: Unilateral primary osteoarthritis, left hip Allergies: Allergies Allergy/AdvReac Type Severity Reaction Status Date / Time atorvastatin Allergy Unknown Cramps Verified 04/08/24 06:11 barium sulfate Allergy Unknown sore throat Verified 04/08/24 06:11 omeprazole Allergy Unknown diarrhea Verified 04/08/24 06:11 rosuvastatin Allergy Unknown Unknown Verified 04/08/24 06:11 simvastatin Allergy Unknown unknown Verified 04/08/24 06:11 varenicline [From Chantix] Allergy Unknown sore throat Verified 04/08/24 06:11 evolocumab AdvReac Intermediate cough Verified 04/08/24 06:11 [From Repatha SureClick] Plan I have reviewed the history and physical and performed a pertinent physical examination on my patient. No changes have occurred unless specified. Time Spent With Patient Time: Total time managing care of this patient today ____ minutes.
--- NOTE | 2024-04-08 08:56 | P.OP_ITS ---
Operative Note Operative Note Date of Service: 04/08/24 Narrative: Date of Service: 04/08/24 Pre-op diagnosis: Left hip OA Post-op diagnosis: same Procedure: Left UMM Implants: [place] Trident2 52; Accoalde2 #4 127 with +2.5 36 ceramic Surgeon: Willis Britton MD Anesthesia: GETA and local Was an Charge Master Specialist used for this Procedure?: Yes Charge Master Specialist: Christopher Samuel Estimated blood loss (mL): 200 IV fluids (mL): 1,000 Pathology: other Condition: stable Disposition: PACU Procedure in detail: Patient was brought into the operating room and placed in the right lateral decubitus position. All bony prominences were well padded and the limb was prepped and draped in standard sterile fashion. A time-out was called to identify proper site procedure proper surgeon IV antibiotics and 1 g of tranexamic acid were administered. I began by making a curvilinear incision over the posterolateral aspect of the greater trochanter. Dissection was taken down to the tensor fascia which was incised in line with the incision and a Charnley retractor was placed. Cautery was used to maintain hemostasis. The hip was internally rotated and the external rotators were identified. The vessels were cauterized and a full-thickness capsular/external rotator layer was developed starting just proximal to the piriformis. This layer was tagged and a dull Hohmann retractor was placed underneath the neck in the hip was dislocated. A neck cut was made 1.5 cm proximal to the lesser trochanter and the head and neck were removed and measured 48-49 mm on the back table. The head was eburnated. I then removed the labrum and cauterized the fovea. I started with a 44 reamer and medialized to the inner table. I sequentially reamed up to a size 52 and impacted a 52mm cup at 45 degrees of inclination and 25 degrees of version. I then placed a 20 deg posterior lipped liner and turned my attention to the femur. I identified the piriformis insertion and used this as a starting point for my carlos cutter. The medius tendon was protected with a Hibs retractor. A Charnley awl was inserted in the canal and a curved curette used to remove the lateral bone. I irrigated copiously. I then sequentially broached in the patient's natural version to a size 4 and placed my trial implants. I used a #4/127/+2.5 based on my pre-operative template. I removed all instrumentation and copiously irrigated. I placed my final femoral implant and again took the hip through range of motion and was satisfied with the stability and length. The final +2.5 implant was impacted in place and the hip reduced. I then irrigated copiously and placed 1 g of local tranexamic acid. I performed a capsular closure with 2.0 fiberwire, Alecia's fascia with 0 Vicryl, subcuticular with 2-0 Vicryl and the skin with ac. Patient was placed into a sterile dressing. Patient was extubated brought to the recovery room in stable condition. There were no known complications.
[2024-04-08] MEDS: HYDROmorphone HCl 0.5 MG/0.5 ML SYRINGE 0.25 MG IVPUSH ×8 (09:14→23:38)
[2024-04-08] MEDS: oxyCODONE HCl Immed Release 5 MG TABLET PO (11:41)
--- NOTE | 2024-04-08 13:07 | HO.PM.IMCN ---
History of Present Illness Data of Consult Service Date: 04/08/24 Requesting physician: Christopher Samuel Primary Care Provider: DENEEN Haq-Gualberto HPI 63yo F on Orthopedics service POD#0 L UMM for OA, Medicine consultation requested for management of comorbid conditions. Other medical conditions include CKD3 and COPD. Smokes 1-2 cig/d and trying to quit; declines NRT. States she does not have HTN, just that her BP is high when she's in pain. Currently c/o nausea after oxycodone. No dyspnea, cough, or wheeze. No chest pain. Review of Systems Review of Systems: Yes all other systems are reviewed and are negative [facility] Medical History Thyroid disease CKD (chronic kidney disease) Concussion Elevated cholesterol Myalgia due to statin Neurocardiogenic syncope Forehead laceration Fall Oral candidiasis Nausea and vomiting Abdominal bloating Thoracic back pain Foot pain, left LUQ abdominal pain Abdominal pain Rectal bleeding Myalgia Neck pain Chest pain HLD (hyperlipidemia) Osteoarthritis of right hip Iliotibial band syndrome Hematoma and contusion Fall Osteoarthritis of left hip Vitamin D deficiency Hearing loss Degenerative disc disease, lumbar GERD (gastroesophageal reflux disease) COPD (chronic obstructive pulmonary disease) Crohn's disease Nicotine dependence, cigarettes, uncomplicated Hypothyroidism S/P right hip fracture Hip osteoarthritis Family History Father Bladder cancer Mother Acute CVA (cerebrovascular accident) Stroke CVD (cardiovascular disease) Thyroid disease Brother Renal cell cancer Acute CVA (cerebrovascular accident) Family/Other Alcoholism Surgical History S/P hip replacement Hx of cardiac catheterization History of hip surgery History of colonoscopy History of esophagogastroduodenoscopy (EGD) Hx of eye surgery History of shoulder surgery History of hand surgery History of foot surgery History of tubal ligation History of total right hip arthroplasty Social History Household Members: None Household Members Other:: 12/2021 Housing: House Are you a primary memory care program director to a significant other at home: No Do you presently have visiting nurse or other home services: No Alcohol intake: current Alcohol intake frequency: a few times a week Patient Tobacco Use Status: Current everyday Tobacco user Tobacco use type: Cigarette Cigarette Packs Per Day: 0.5 Cigarettes Per Day: 2 Years Smoked: (onset 10yo, 3/4-1ppd x 52yrs, 40+PYH) Smoked in Last 30 Days: Yes e-Cigarette/Vaping Use: Never Used Patient Interested in Nicotine Replacement: Yes Patient Given Instructions on How to Stop Smoking: No Second Hand Smoke Exposure: Yes Use of substances other than those prescribed or required for medical reasons: Yes Substance Use Type: Marijuana Substance Use Frequency: Daily Last Used Substance: Days (ago) Last Used Substance Other:: 04/07/24 Currently Displaying Signs/Symptoms of Drug Intoxication Withdrawal: No Any prior treatment program specific to substance use: No Have you been hit, kicked, punched, or otherwise hurt by someone within the past year? If so, by whom?: No Do you feel safe in your current relationship?: No Current Relationship Is there a partner from a previous relationship who is making you feel unsafe now?: No Are you made to feel afraid or neglected: No Spiritual Healthcare Practices: NONE PER PATIENT Mormonism Healthcare Practices: NONE PER PATIENT Cultural Healthcare Practices: NONE PER PATIENT Are you DNR?: No Advance Directives: No Advance Directives Information Provided: Yes Advance Directives on File: No Do you have a plan to hurt others: No Plan Recently lost weight without trying: No Eating poorly because of decreased appetite: No Nutrition Risks: No Nutritional Risk Patient : No : No Poor oral hygiene: No Current occupational status: disabled Cognitive needs: No Hearing needs: No Vision needs: Yes Meds Allergies Allergy/AdvReac Type Severity Reaction Status Date / Time atorvastatin Allergy Unknown Cramps Verified 04/08/24 06:11 barium sulfate Allergy Unknown sore throat Verified 04/08/24 06:11 omeprazole Allergy Unknown diarrhea Verified 04/08/24 06:11 rosuvastatin Allergy Unknown Unknown Verified 04/08/24 06:11 simvastatin Allergy Unknown unknown Verified 04/08/24 06:11 [email or web address] [From Chantix] Allergy Unknown sore throat Verified 04/08/24 06:11 evolocumab AdvReac Intermediate cough Verified 04/08/24 06:11 [From Repatha SureClick] Active Medications: Current Medications Acetaminophen (Acetaminophen 325 Mg Tablet) 650 mg PO Q6H PRN PRN Reason: Pain, Mild 1-3,fever,headache Albuterol Sulfate (Albuterol Sulfate (0.083%) 2.5 Mg/3 Ml Vial.Neb) 2.5 mg INHALE Q4H PRN PRN Reason: Shortness Of Breath Or Wheezing Albuterol Sulfate (Albuterol Sulfate 90 Mcg 8 Gm Inhaler) 2 puff INHALE Q4H PRN PRN Reason: bronchospasm Enoxaparin Sodium (Enoxaparin Sodium 40 Mg/0.4 Ml Syringe) 40 mg SUBCUT Q24H [facility] Fluticasone Propionate (Fluticasone Propionate Nasal 16 Gm [place]) 2 spray NOSTRIL-B DAILY [facility] Hydromorphone HCl (Hydromorphone Hcl 0.5 Mg/0.5 Ml Syringe) 0.25 mg IVPUSH Q4H PRN; Protocol PRN Reason: Pain, Severe (Pain Scale 7-10) Lactated Ringer's (Lr) 1,000 mls @ 100 mls/hr IVCONT .Q10H [facility] Stop: 04/09/24 09:03 Last Admin: 04/08/24 11:41 Dose: 100 mls/hr Cefazolin Sodium/Dextrose (Ancef) 2 gm in 50 mls @ 100 mls/hr IV POSTOP ONE Stop: 04/08/24 14:29 Ondansetron HCl (Ondansetron Hcl 4 Mg/2 Ml Vial) 4 mg IVPUSH Q4H PRN PRN Reason: Nausea and Vomiting Oxycodone HCl (Oxycodone Hcl Immed Release 5 Mg Tablet) 5 mg PO Q4H PRN PRN Reason: Pain, Moderate(Pain Scale 4-6) Last Admin: 04/08/24 11:41 Dose: 5 mg Oxycodone HCl (Oxycodone Hcl Er 10 Mg Tab.Er.12h) 10 mg PO BID [facility] Senna (Sennosides 8.6 Mg Tablet) 17.2 mg PO BEDTIME [facility] Sodium Chloride (0.9 % Sodium Chloride Flush 3 Ml Syringe) 3 ml IVFLUSH QSHIFT [facility] Home Medications ?Medication ?Instructions ?Recorded ?Confirmed ?Last Taken ?Type albuterol sulfate 2.5 mg/3 mL 2.5 mg inhalation Q4-6H PRN 02/06/20 04/08/24 Unknown History (0.083 %) solution for nebulization Shortness Of Breath Or Wheezing diclofenac sodium 1 % topical gel 4 g topical QID PRN Pain 03/10/24 04/08/24 Unknown History (Voltaren Arthritis Pain) Physical Exam Vital Signs and Narrative: Vital Signs: Last Vital Signs Temp 96.8 F 04/08/24 11:31 Pulse 66 04/08/24 11:31 Resp 16 04/08/24 11:31 BP 126/76 04/08/24 11:31 Pulse Ox 94 04/08/24 11:31 O2 Del Method Room Air 04/08/24 11:31 O2 Flow Rate 3 04/08/24 10:09 BMI result Body Mass Index 25.5 Gen: in no acute distress HEENT: sclera anicteric, moist mucus membranes Neck: supple Lungs: clear to auscultation bilaterally Heart: regular rate and rhythm, no murmurs Abd: soft, non-tender, non-distended Ext: no edema Skin: warm/well-perfused Neuro: alert and oriented x3, no focal findings Psych: appropriate affect Results Imaging Radiologist's Impressions: Impressions Pelvis X-Ray 04/08/24 09:05 IMPRESSION: 1. Left total hip arthroplasty without complication. 2. Stable right total hip arthroplasty without complication. Electronically signed by: Arturo Laguna MD 04/08/2024 09:44 AM [facility] Assessment and Plan (1) Chronic kidney disease (CKD) stage G3a/A1, moderately decreased glomerular filtration rate (GFR) between 45-59 mL/min/1.73 square meter and albuminuria creatinine ratio less than 30 mg/g: Status: Acute Plan 63yo F on Ortho service s/p L UMM for OA, Medicine consultation for managment of comorbid conditions. COPD not in acute exac: continue prn albuterol; please call us if she develops any respiratory distress, persistent wheezing, dyspnea, or hypoxia CKD3: SCr pending; baseline around 1.1; please call us if she develops superimposed FACUNDO (increase in SCr >0.3); avoid all NSAIDs VTE ppx: enoxaparin Thank you for this consultation. We are signing off the case at this time. Please communicate with us if any new medical questions arise.
[2024-04-08] MEDS: ondansetron HCL 4 MG/2 ML VIAL IVPUSH ×2 (13:09→17:19)
--- NOTE | 2024-04-08 13:33 | PHA.MEDREC ---
Addendum entered by Khushi Vo RPh 04/08/24 13:57: REVIEWED BY PHARMACIST Original Note: Pharmacy Consult ? Medication Reconciliation Pharmacy has reviewed the medication reconciliation done by nursing. Spoke to Patient to confirm med list.
[2024-04-08] MEDS: ceFAZolin Sodium/Dextrose,Iso 2 GM/50 ML PIGGYBACK IV (13:59)
--- NOTE | 2024-04-08 19:13 | P.DS_ITS ---
DS: Providers Provider Date of Service: 04/10/24 Date of discharge: 04/10/24 Primary care physician: Tabitha Allen PA-C Consults: 04/08/24 10:20 Consult to Hospitalist Routine Comment: Consulting [place] [facility] Reason For Exam: COPD, CKD, HTN DS: Diagnosis Discharge Diagnosis (1) Chronic kidney disease (CKD) stage G3a/A1, moderately decreased glomerular filtration rate (GFR) between 45-59 mL/min/1.73 square meter and albuminuria creatinine ratio less than 30 mg/g: Status: Acute DS: Summary Hospital Course Hospital Course: The patient underwent a successful left total hip arthroplasty, they were trans ferred to PACU and then to the floor to recover. During their stay, their vitals were stable, afebrile at 98.9. Labs were unremarkable, H/H 11.1/32.9. POD 1 they were started on Lovenox for DVT ppx, they also received Physical Therapy services twice a day. Prior to discharge, their dressing was clean dry and intact, and the plan was to be discharged home with VNA services. Time Attestation Discharge Coordination Time (in mins): 30 Quality: Safe Use of Opioids Does Pt have an Active Cancer Diagnosis on the Problem List?: No Quality: Stroke Does the patient have a stroke diagnosis?: No Physical Exam Vital Signs: Vital Signs: Last Vital Signs Temp 97.3 F 04/08/24 19:12 Pulse 61 04/08/24 19:12 Resp 16 04/08/24 19:12 BP 116/66 04/08/24 19:12 Pulse Ox 97 04/08/24 19:12 O2 Del Method Room Air 04/08/24 19:12 O2 Flow Rate 3 04/08/24 10:09 BMI result Body Mass Index 25.5 Const: General: cooperative, healthy appearing and no acute distress Resp: Effort & Inspection: normal respiratory effort and able to speak in complete sentences Cardio: Rate: regular rate Peripheral pulses: Peripheral pulses 2+ throughout GI: Palpation (GI): Soft to palpation Skin: Lesions: no lesions Rashes: no rashes Extrem: Other: left hip dressing is c/d/i. Able to dorsi/plantar flex. Calf is supple and nonte nder. Sensation intact. Pedal pulse intact. DS: Data Data Completed and Pending Pending studies at discharge: Pending at discharge 04/08/24 08:07 Surgical [PTH] Routine Discharge Plan Discharge Patient Disposition: Home, Self-Care Referrals: [place] [facility] [place] - 04/28/24 1:00 pm (04/28/24 13:00 Physical Therapy-[facility] Christopher Samuel PA-C) Christopher Samuel PA-C [Physician Project Program Manager] - 2 Weeks (04/24/24 09:30 [facility] Christopher Samuel PA-C) Discharge Medications: Continued fluticasone propionate 50 mcg/actuation spray,suspension 2 spray intranasal DAILY Qty: 16 4RF Rx Instructions: administer into each nostril (DME) walker [facility] [place] See Rx Instructions .MEDSUPPLY Qty: 1 0RF Rx Instructions: Folding Front wheeled walker (DME) Raised toilet seat See Rx Instructions .ROUTE .MEDSUPPLY Qty: 1 0RF Rx Instructions: duration - 99 days diclofenac sodium [Voltaren Arthritis Pain] 1 % gel 4 g topical QID PRN (Reason: Pain) Rx Instructions: apply to single knee, ankle, foot; for foot includes sole/toes/top of foot albuterol sulfate 2.5 mg /3 mL (0.083 %) solution for nebulization 2.5 mg inhalation Q4-6H PRN (Reason: Shortness Of Breath Or Wheezing) albuterol sulfate [Ventolin HFA] 90 mcg/actuation HFA aerosol inhaler 2 puff PO Q4H PRN (Reason: bronchospasm) Qty: 18 0RF Discontinued aspirin [Adult Aspirin Regimen] 81 mg tablet,delayed release (DR/EC) 81 mg PO DAILY Qty: 30 0RF No Action carisoprodol 350 mg tablet 350 mg PO BID PRN (Reason: muscle pain) Discharge Orders: Discharge Order (Routine); Ordered 04/10/24 Ordered By: Beth Osorio Diet: Regular diet Activity on Discharge: Use cane or walker Activity Restrictions/Additional Instructions: * Physical Therapy for Total hip arthroplasty: wbat, posterior precautions, gait training, ROM, strength * Limit stair climbing * No showering, no tub bath-keep dressing clean, dry and intact * No driving x6 weeks * Continue Lovenox once a day x 6 weeks * Follow up with [facility] [place] 2 weeks: * --you will also have your first out patient PT ban on the day of your post op appt-so please plan on being in the office that day for an extended period of time. Print Language: Estonian
--- NOTE | 2024-04-08 19:14 | W.MHC.F2F ---
Service Date Service Date: 04/08/24 Encounter Date of encounter: 04/09/24 Reasons for Services Signs and symptoms assessed: s/p LTHA Pt. is considered homebound due to recent surgery. Unable to drive, poor balance, poor gait mechanics. Reason for physical therapy: home safety and mobility, therapeutic exercises, restore joint function, gait/transfer training and ADL training Reason for occupational therapy: home safety and mobility, therapeutic exercises, restore joint function, gait/transfer training and ADL training Homebound: Leaving the home is medically contraindicated at this time without the asist of a device and/or another person due th the listed conditions above and below. Reason homebound: leg weakness, pain with ambulation, poor balance / fall risk and unable to drive Certification: Based on the above findings, I certify that this patient is confined to the home and needs intermittent [facility] care, physical therapy and/or speech therapy, or continues to need occupational therapy. The patient is under my care, and I have initiated the establishment of the plan of care. The patient will be followed by a physician who will periodically review the plan of care. Time Spent With Patient Time: Total time managing care of this patient today ____ minutes.
[2024-04-08] MEDS: Sennosides 8.6 MG TABLET 17.2 MG PO (20:22)
[2024-04-09] MEDS: ondansetron HCL 4 MG/2 ML VIAL IVPUSH (02:10)
[2024-04-09] MEDS: oxyCODONE HCl Immed Release 5 MG TABLET PO ×2 (02:13→07:20)
[2024-04-09] MEDS: HYDROmorphone HCl 0.5 MG/0.5 ML SYRINGE 0.25 MG IVPUSH (05:46)
[2024-04-09] MEDS: Lactated Ringers 1,000 ML 100 ML IVCONT (05:52)
[2024-04-09] MEDS: Enoxaparin Sodium 40 MG/0.4 ML SYRINGE SUBCUT (07:19)
[2024-04-09 07:20] VITALS: BP 143/76; PULSE 68; RESP 16; TEMP 36.2; O2SAT 97
[2024-04-09] MEDS: Acetaminophen 325 MG TABLET 650 MG PO (07:20)
[2024-04-09] MEDS: oxyCODONE HCl ER 10 MG TAB.ER.12H PO ×2 (07:20→20:26)
--- NOTE | 2024-04-09 07:39 | P.PNOP_ITS ---
Subjective Subjective Date of Service: 04/09/24 Interval history: POD1 s/p LTHA Patient is resting in bed Reports overnight she got up to go to the bathroom and twisted. Have a severe increase in pain. Pain is not managed No additional complaints Physical Exam Vital Signs: Vital Signs: Last Vital Signs Temp 97.2 F 04/09/24 07:20 Pulse 68 04/09/24 07:20 Resp 16 04/09/24 07:20 BP 143/76 H 04/09/24 07:20 Pulse Ox 97 04/09/24 07:20 O2 Del Method Room Air 04/09/24 07:20 O2 Flow Rate 3 04/08/24 10:09 BMI result Body Mass Index 25.5 Const: General: cooperative, healthy appearing and no acute distress Resp: Effort & Inspection: normal respiratory effort and able to speak in complete sentences Cardio: Rate: regular rate Peripheral pulses: Peripheral pulses 2+ throughout GI: Palpation (GI): Soft to palpation Skin: Lesions: no lesions Rashes: no rashes Extrem: Other: left hip dressing is c/d/i. Able to dorsi/plantar flex. Calf is supple and nont yolanda. Sensation intact. Pedal pulse intact. Procedures Date of Service Date of Service: 04/09/24 Progress Note: A&P Assessment and plan (1) S/P total left hip arthroplasty: Status: Acute Plan Continue pain mgmnt Med adjustments made C/o nausea- phenergan added X-ray of pelvis ordered after increase in pain Begin lovenox for dvt ppx begin PT/OT for LTHA AFTER x-ray is obtained Dispo planning-Pending PT eval, pain mgmnt Time Spent With Patient Time: Total time managing care of this patient today ____ minutes. Quality Stroke Does the patient have a stroke diagnosis?: No VTE Prior VTE?: No VTE Risk Level:: Medical - moderate - high VTE Device Contraindication: N/A - Device Ordered VTE Drug Contraindication: N/A - Med Ordered
[2024-04-09 08:18] LABS: MANUAL DIFF FLAG NO
[2024-04-09 08:37] LABS: Creatinine Clr Calc Pharmacy 65.5; Estimated Glomerular Filt Rate > 60
[2024-04-09 08:45] LABS: Basophils Absolute Auto 0.1 X10*3/uL (0.0-0.2); Basophils Percent Auto 0.4 % (0-2); Eosinophils Percent Auto 0.3 % (0-4); Hematocrit 35.1 % (37.0-47.0); Hemoglobin 11.7 g/dl (12.0-16.0); Imm Gran Abs Auto 0.08 X10*3/uL (0.00-0.03); Imm Gran Pct Auto 0.6 % (0.0-0.4); Lymphocytes Absolute Auto 2.3 X10*3/uL (1.2-4.9); Lymphocytes Percent Auto 16.3 % (20-40); Mean Corpuscular HGB Conc 33.3 g/dl (31.0-35.0); Mean Corpuscular Hemoglobin 30.5 pg (27.0-33.0); Mean Corpuscular Volume 91.6 fL (80.0-98.0); Mean Platelet Volume 10.2 fL (9.4-12.3); Monocytes Absolute Auto 1.3 X10*3/uL (0.1-1.2); Monocytes Percent Auto 9.2 % (2-11); Neutrophils Absolute Auto 10.1 x10*3/uL (2.0-8.3); Neutrophils Percent Auto 73.2 % (45-73); Platelet Count 245 X10*3/uL (160-400); Red Blood Count 3.83 X10*6/uL (4.20-5.50); Red Cell Distribution Width 12.8 % (11.0-16.0); White Blood Count 13.8 X10*3/uL (4.8-10.8)
[2024-04-09] MEDS: Promethazine HCL 25 MG TABLET PO ×2 (08:47→20:26)
[2024-04-09] MEDS: oxyCODONE HCl Immed Release 5 MG TABLET 10 MG PO ×2 (09:09→19:01)
[2024-04-09 09:30] LABS: Anion Gap 11 (12-20); Blood Urea Nitrogen 13 mg/dL (9-16); Carbon Dioxide 27 mmol/L (22-29); Chloride 108 mmol/L (96-108); Creatinine Clr Calc Pharmacy 62.1; Estimated Glomerular Filt Rate > 60; Glucose Fasting 104 mg/dL (60-99); Potassium 4.6 mmol/L (3.3-5.1); Sodium 141 mmol/L (135-145)
--- NOTE | 2024-04-09 09:53 | MHC.CM.PN ---
PT LIVES [place] HAS A [employer] [employer]INE [employer] AND WILL BE FOLLOWED BY [facility] ,PT HAS OWNRIDE HOME
--- NOTE | 2024-04-09 10:13 | HO.POSTANES ---
Post Anesthesia Evaluation Post Anesthesia Evaluation Date of Service: 04/09/24 Vital Signs: Vital Signs Temp Pulse Resp BP Pulse Ox O2 Del Method 04/09/24 07:20 97.2 F 68 16 143/76 H 97 Room Air 04/08/24 23:23 96.8 F 69 18 133/62 94 Room Air Anesthesia: General Endotracheal-GETA Mental Status: Awake Pain Control: Satisfactory Nausea/Vomiting: Mild Hydration: Adequate Anesthesia-Related Issues: No Anes. Related Issues
[2024-04-09] MEDS: Acetaminophen 1,000 MG/100 ML PIGGYBACK 400 MG IV ×3 (10:56→20:25)
[2024-04-09 11:56] VITALS: BP 135/62; PULSE 74; RESP 16; TEMP 36; O2SAT 96
[2024-04-09] MEDS: 0.9 % Sodium Chloride Flush 3 ML SYRINGE IVFLUSH (15:22)
[2024-04-09 15:28] VITALS: BP 138/69; PULSE 74; RESP 18; TEMP 36.6; O2SAT 97
[2024-04-09 19:07] VITALS: BP 144/71; PULSE 84; RESP 18; TEMP 36.6; O2SAT 97
[2024-04-09] MEDS: Sennosides 8.6 MG TABLET 17.2 MG PO (20:26)
[2024-04-10 04:00] VITALS: BP 150/67; PULSE 70; RESP 16; TEMP 36; O2SAT 93
[2024-04-10] MEDS: Acetaminophen 1,000 MG/100 ML PIGGYBACK 400 MG IV (04:03)
[2024-04-10] MEDS: oxyCODONE HCl Immed Release 5 MG TABLET 10 MG PO (04:12)
[2024-04-10] MEDS: Promethazine HCL 25 MG TABLET PO (04:13)
[2024-04-10 06:00] LABS: MANUAL DIFF FLAG NO
[2024-04-10 06:06] LABS: Basophils Absolute Auto 0.1 X10*3/uL (0.0-0.2); Basophils Percent Auto 0.4 % (0-2); Eosinophils Absolute Auto 0.1 X10*3/uL (0.0-0.4); Eosinophils Percent Auto 0.6 % (0-4); Hematocrit 32.9 % (37.0-47.0); Hemoglobin 11.1 g/dl (12.0-16.0); Imm Gran Abs Auto 0.08 X10*3/uL (0.00-0.03); Imm Gran Pct Auto 0.6 % (0.0-0.4); Lymphocytes Absolute Auto 1.6 X10*3/uL (1.2-4.9); Lymphocytes Percent Auto 12.8 % (20-40); Mean Corpuscular HGB Conc 33.7 g/dl (31.0-35.0); Mean Corpuscular Hemoglobin 30.9 pg (27.0-33.0); Mean Corpuscular Volume 91.6 fL (80.0-98.0); Mean Platelet Volume 9.8 fL (9.4-12.3); Monocytes Absolute Auto 1.2 X10*3/uL (0.1-1.2); Monocytes Percent Auto 9.2 % (2-11); Neutrophils Absolute Auto 9.6 x10*3/uL (2.0-8.3); Neutrophils Percent Auto 76.4 % (45-73); Platelet Count 207 X10*3/uL (160-400); Red Blood Count 3.59 X10*6/uL (4.20-5.50); Red Cell Distribution Width 12.7 % (11.0-16.0); White Blood Count 12.6 X10*3/uL (4.8-10.8)
[2024-04-10 06:21] LABS: Anion Gap 11 (12-20); Blood Urea Nitrogen 14 mg/dL (9-16); Carbon Dioxide 22 mmol/L (22-29); Chloride 109 mmol/L (96-108); Creatinine Clr Calc Pharmacy 72.9; Estimated Glomerular Filt Rate > 60; Glucose Fasting 97 mg/dL (60-99); Potassium 3.8 mmol/L (3.3-5.1); Sodium 138 mmol/L (135-145)
[2024-04-10 07:52] VITALS: BP 136/66; PULSE 75; RESP 16; TEMP 37.2; O2SAT 97
--- NOTE | 2024-04-10 09:18 | MHC.CM.PN ---
PT TO [place] HOME TODAY WITH [facility] VIA PRIVATE TRANSPORT
[2024-04-10] MEDS: 0.9 % Sodium Chloride Flush 3 ML SYRINGE IVFLUSH (10:34)
[2024-04-10] MEDS: Enoxaparin Sodium 40 MG/0.4 ML SYRINGE SUBCUT (10:35)
[2024-04-10] MEDS: oxyCODONE HCl ER 10 MG TAB.ER.12H PO (10:36)
--- NOTE | 2024-04-10 10:38 | PC.NURSE ---
IV was removed by network liaison
== END 2024-04-10 11:13 | disposition home health service (06) ==
LOC: HO.SSS 09:07 → HO.S3 10:12
PROVIDERS: Physician Assistant; Visit Provider Orthopaedic Surgery
PROC: (CPT 27130; principal; 2024-04-08 07:30)
DX: M16.12 Unilateral primary osteoarthritis, left hip (principal); N18.31 Chronic kidney disease, stage 3a; J44.9 Chronic obstructive pulmonary disease, unspecified; E78.00 Pure hypercholesterolemia, unspecified; E03.9 Hypothyroidism, unspecified; M76.30 Iliotibial band syndrome, unspecified leg; M51.369 Other intervertebral disc degeneration, lumbar region without mention of lumbar back pain or lower extremity pain; E55.9 Vitamin D deficiency, unspecified; Z91.81 History of falling; Z96.641 Presence of right artificial hip joint; R55 Syncope and collapse; M79.10 Myalgia, unspecified site; Z79.1 Long term (current) use of non-steroidal anti-inflammatories (NSAID); Z79.899 Other long term (current) drug therapy; Z88.8 Allergy status to other drugs, medicaments and biological substances; Z98.890 Other specified postprocedural states; F17.210 Nicotine dependence, cigarettes, uncomplicated
CPT/HCPCS: 27130; 36415; 72170; 80048; 82565; 85025; 86850; 86900; 86901; 87640; 87641; 88305; 88311; 97110; 97116; 97162; 97166; C1776; J0131; J0690; J1100; J1171; J1650; J2003; J2405; J2704; J2795; J3010; J7120

== ENCOUNTER → 2024-04-08 05:55 | Outpatient (BNV) | payer OTHER, SELFPAY | PROVIDERS: Visit Provider Orthopaedic Surgery | DX: Z47.1 Aftercare following joint replacement surgery (principal); Z96.642 Presence of left artificial hip joint; N18.31 Chronic kidney disease, stage 3a | CPT/HCPCS: 27130; 99024; G0180 ==

== ENCOUNTER → 2024-04-08 05:55 | Outpatient (BNV) | payer OTHER, SELFPAY | PROVIDERS: Visit Provider Family Medicine | DX: N18.31 Chronic kidney disease, stage 3a (principal); J44.9 Chronic obstructive pulmonary disease, unspecified | CPT/HCPCS: 99204 ==

== ENCOUNTER → 2024-04-08 09:05 | Outpatient (BNV) | payer OTHER, SELFPAY | PROVIDERS: Visit Provider Radiology Diagnostic Radiology | DX: Z96.643 Presence of artificial hip joint, bilateral (principal) | CPT/HCPCS: 72170 ==

== ENCOUNTER → 2024-04-09 08:00 | Outpatient (BNV) | payer OTHER, SELFPAY | PROVIDERS: Visit Provider Radiology Diagnostic Radiology | DX: Z96.642 Presence of left artificial hip joint (principal) | CPT/HCPCS: 72170 ==

== ENCOUNTER 2024-04-24 09:31 | Outpatient (AMB) | payer OTHER, SELFPAY ==
--- NOTE | 2024-04-24 09:39 | MHC.OFFVIS ---
Vital Signs 04/24/24 09:43 Height 5 ft 5 in Weight 165 lb BMI 27.5 Intake Visit Reasons: 2WK PO: L UMM w/NE 04/08/24 Intake Note: is a 63 year old female who presents today for a post operative LT UMM, DOS 04/08/24 NE. Patient reports she was doing well the first week, however this week she has been struggling. Her current pain level is a 5 out of 10. States she did not have a BM for 10 day and felt like she had a UTI. States feeling dizzy, however unsure if this could be from her pain medication. Allergies atorvastatin Allergy (Unknown, Verified 04/24/24 09:47) Cramps barium sulfate Allergy (Unknown, Verified 04/24/24 09:47) sore throat omeprazole Allergy (Unknown, Verified 04/24/24 09:47) diarrhea rosuvastatin Allergy (Unknown, Verified 04/24/24 09:47) Unknown simvastatin Allergy (Unknown, Verified 04/24/24 09:47) unknown varenicline [From Chantix] Allergy (Unknown, Verified 04/24/24 09:47) sore throat evolocumab [From Repatha SureClick] Adverse Reaction (Intermediate, Verified 04/24/24 09:47) cough Medication List - Last Reconciled 04/24/24 by Christopher Samuel PA-C acetaminophen 650 mg (2 x 325 mg) PO Q6H PRN 30 days albuterol sulfate 2.5 mg inhalation Q4-6H PRN albuterol sulfate 90 mcg/actuation (Ventolin HFA) 2 puffs PO Q4H PRN carisoprodol 350 mg PO BID PRN diclofenac sodium 1% (Voltaren Arthritis Pain) 4 grams topical QID PRN enoxaparin 40 mg (0.4 mL) subcut Q24H 42 days fluticasone propionate 50 mcg/actuation 2 sprays intranasal DAILY oxycodone 10 mg PO Q4H PRN 7 days [Raised toilet seat duration - 99 days] sennosides (Senna Lax) 17.2 mg (2 x 8.6 mg) PO BEDTIME 30 days walker Folding Front wheeled walker HPI HPI 2WK PO: L UMM w/NE 04/08/24: Details: 63-year-old female presents to the office today 2 weeks status post left total hip arthroplasty with Dr. Britton on 04/08/2024. She states she is doing well. She is working at home with physical therapy and transition to outpatient physical therapy next week. Continues to walk with a walker. [facility] Medical History Thyroid disease CKD (chronic kidney disease) Concussion Elevated cholesterol Myalgia due to statin Neurocardiogenic syncope Forehead laceration Fall Oral candidiasis Nausea and vomiting Abdominal bloating Thoracic back pain Foot pain, left LUQ abdominal pain Abdominal pain Rectal bleeding Myalgia Neck pain Chest pain HLD (hyperlipidemia) Osteoarthritis of right hip Iliotibial band syndrome Hematoma and contusion Fall Osteoarthritis of left hip Vitamin D deficiency Hearing loss Degenerative disc disease, lumbar GERD (gastroesophageal reflux disease) COPD (chronic obstructive pulmonary disease) Crohn's disease Nicotine dependence, cigarettes, uncomplicated Hypothyroidism S/P right hip fracture Hip osteoarthritis Surgical History (Reviewed 04/24/24 @ 09:47 by Smitha Singletary [facility]) S/P hip replacement Hx of cardiac catheterization History of hip surgery History of colonoscopy History of esophagogastroduodenoscopy (EGD) Hx of eye surgery History of shoulder surgery History of hand surgery History of foot surgery History of tubal ligation History of total right hip arthroplasty Family History Father Bladder cancer Mother Acute CVA (cerebrovascular accident) Stroke CVD (cardiovascular disease) Thyroid disease Brother Renal cell cancer Acute CVA (cerebrovascular accident) Family/Other Alcoholism Social History Household Members: None Household Members Other:: 12/2021 Housing: House Are you a primary palliative care specialist to a significant other at home: No Do you presently have visiting nurse or other home services: No Alcohol intake: current Alcohol intake frequency: a few times a week Patient Tobacco Use Status: Current everyday Tobacco user Tobacco use type: Cigarette Cigarette Packs Per Day: 0.5 Cigarettes Per Day: 2 Years Smoked: (onset 10yo, 3/4-1ppd x 52yrs, 40+PYH) e-Cigarette/Vaping Use: Never Used Second Hand Smoke Exposure: Yes Substance Use Type: Marijuana service: No Current occupational status: disabled Cognitive needs: No Hearing needs: No Vision needs: Yes Review of Systems Const All systems reviewed & are unremarkable except as noted in HPI and below Physical Exam Vital Signs: BMI result Body Mass Index 27.5 Extrem Other: Left hip incision clean dry and intact no erythema no swelling. No pain with range of motion calf supple nontender neurovascularly intact. Assessment & Plan Assessment & Plan (1) S/P total left hip arthroplasty: Code(s): Z96.642 - Presence of left artificial hip joint Category: Surgical Plan: [place] removed today Steri-Strips applied. She will continue to work with physical therapy for gait training and strengthening exercises. She will transition to outpatient physical therapy next week. She will see us back in [address] Britton, sooner if needed. Coding Level of Care Code Global (51498) Diagnoses S/P total left hip arthroplasty Z96.642
[2024-04-24 09:43] VITALS: BMI 27.5
--- OUTSIDE RECORDS SUMMARY | 2024-04-24 12:35 | XMS_ITS | Data Portability ---
Author Organization [employer] [employer] Address [address] [place] [id number] Care Team Providers Care Dining Car Hop Name Role Phone [facility] Referring Provider [phone] Assessment No assessment recorded. Plan of Treatment [...] Name and Address Organization Details Recorded Time 8127 ibuprofen medicatio n Not available Not available [...] SNOMED-CT Code Diagnosis ICD10 Code Diagnosis Note [id number] Gary Johnson MD Main - [facility] [address] [place] [phone] 11/03/2022 17:30:35 03/01/2023 10:47:17 Strain of neck muscle [id number] S16.1XXA This 62-year-ol d female called complsarkisin [...] Mendiola Member ID Guarantor Name 11/03/2022 1 [facility] - DOS ON OR AFTER 2022 - DUAL ELIGIBLE - PENITENTIARY OPTIONS AND ONE CARE (MEDICARE REPLACEMENT/ADV ANTAGE - HMO) Pamela Hale [id number] Pamela Hale Notes Date Note Type Note [...] .................. .................. .................. .................. .................. .................. ............... News Producer Note From Richa Bower: Sent to a [...] .................. ............... Disposition: Fulfilled Gary Johnson MD [address] [place] [address],[address] [facility], [place], [address], [employer] 02/28/2023 14:25:58 OBGyn Episode No OBEpisode recorded.
== END 2024-04-24 10:10 | disposition home or self-care (01) ==
PROVIDERS: PCP Internal Medicine; Visit Provider Physician Assistant
DX: Z96.642 Presence of left artificial hip joint (principal)
CPT/HCPCS: 99024

== ENCOUNTER → 2024-04-24 09:31 | Outpatient (BNVA) | payer OTHER, SELFPAY | PROVIDERS: PCP Internal Medicine; Visit Provider Physician Assistant | DX: Z47.1 Aftercare following joint replacement surgery (principal); Z96.642 Presence of left artificial hip joint | CPT/HCPCS: 99212 ==

== ENCOUNTER 2024-05-19 11:52 | Outpatient (REF) | payer OTHER, SELFPAY ==
--- NOTE | ~2024-05-19 | XR_ITS ---
EXAMINATION: XR PELVIS CLINICAL INFORMATION: M25.559 - Pain in unspecified hip COMPARISON: 04/09/2024, 04/08/2024, 04/03/2024, 01/10/2024. TECHNIQUE: AP view of the pelvis. FINDINGS: Bilateral total hip arthroplasties are present in anatomic alignment. Acetabular and femoral components appear well seated without evidence of periprosthetic fracture, lucency, subsidence, or loosening. A sclerotic focus in the superior right acetabulum is unchanged from 2020 and presumably a benign enostosis. There is no significant heterotopic bone present. The sacrum is intact, and SI joints demonstrate mild degenerative changes. No soft tissue abnormalities detected. XR/XR pelvis 1-2V IMPRESSION: 1. Stable left total hip arthroplasty without complication. 2. Stable right total hip arthroplasty without complication. Electronically signed by: Arturo Laguna MD 05/20/2024 02:11 PM [facility]
--- OUTSIDE RECORDS SUMMARY | 2024-05-19 13:42 | XMS_ITS | Data Portability ---
Author Organization [employer] [employer] Address [address] [place] [id number] Care Team Providers Care Clothing Presser Name Role Phone [facility] Referring Provider Assessment No assessment [...] Name and Address Organization Details Recorded Time 8157 ibuprofen medicatio n Not available Not available [...] SNOMED-CT Code Diagnosis ICD10 Code Diagnosis Note [id number] Gary Johnson MD Main - [facility] [address] [place] [phone] 11/03/2022 17:30:35 03/01/2023 10:47:17 Strain of neck muscle [id number] S16.1XXA This 62-year-ol d female called complsarkisin [...] [facility] - DOS ON OR AFTER 2022 - DUAL ELIGIBLE - [facility] OPTIONS AND ONE CARE (MEDICARE REPLACEMENT/ADV ANTAGE - HMO) Pamela aHle [id number] Pamela Hale Notes Date Note Type Note [...] .................. .................. .................. .................. .................. .................. ............... Motor Vehicle Clerk Note From Richa Bower: Sent to a [...] .................. ............... Disposition: Fulfilled Gary Johnson MD [address] [place] [address],[facility] [facility], [place], [address], [employer] 02/28/2023 14:25:58 OBGyn Episode No OBEpisode recorded.
== END 2024-05-19 11:53 | disposition home or self-care (01) ==
LOC: HO.HOSX 11:52
PROVIDERS: Visit Provider Orthopaedic Surgery
DX: M25.559 Pain in unspecified hip (principal); Z96.642 Presence of left artificial hip joint
CPT/HCPCS: 72170; 99212

== ENCOUNTER 2024-05-19 12:57 | Outpatient (AMB) | payer OTHER, SELFPAY ==
--- NOTE | 2024-05-19 13:06 | A.OFFVIS_ITS ---
Intake Visit Reasons: 6WK PO: L UMM w/NE 04/08/24 Intake Note: is a 63 year old female who presents today for a post operative appointment 6 weeks s/p Left UMM 04/08/24. Patient reports that she was doing fantastic two weeks after surgery but has had some recent increasing pain. She is not sure if this is because she has been over doing it. She has taken her last dose of Oxycodone and has no more left, so she is taking Tylenol PRN pain which only provides mild relief. Allergies atorvastatin Allergy (Unknown, Verified 05/19/24 13:11) Cramps barium sulfate Allergy (Unknown, Verified 05/19/24 13:11) sore throat omeprazole Allergy (Unknown, Verified 05/19/24 13:11) diarrhea rosuvastatin Allergy (Unknown, Verified 05/19/24 13:11) Unknown simvastatin Allergy (Unknown, Verified 05/19/24 13:11) unknown varenicline [From Chantix] Allergy (Unknown, Verified 05/19/24 13:11) sore throat evolocumab [From Repatha SureClick] Adverse Reaction (Intermediate, Verified 05/19/24 13:11) cough HPI HPI 6WK PO: L UMM w/NE 04/08/24: Details: is a 63 year old female who presents today for a post operative appointment 6 weeks s/p Left UMM 04/08/24. Patient reports that she was doing fantastic two weeks after surgery but has had some recent increasing pain. She is not sure if this is because she has been over doing it. She has taken her last dose of Oxycodone and has no more left, so she is taking Tylenol PRN pain which only provides mild relief. [facility] Medical History Thyroid disease CKD (chronic kidney disease) Concussion Elevated cholesterol Myalgia due to statin Neurocardiogenic syncope Forehead laceration Fall Oral candidiasis Nausea and vomiting Abdominal bloating Thoracic back pain Foot pain, left LUQ abdominal pain Abdominal pain Rectal bleeding Myalgia Neck pain Chest pain HLD (hyperlipidemia) Osteoarthritis of right hip Iliotibial band syndrome Hematoma and contusion Fall Osteoarthritis of left hip Vitamin D deficiency Hearing loss Degenerative disc disease, lumbar GERD (gastroesophageal reflux disease) COPD (chronic obstructive pulmonary disease) Crohn's disease Nicotine dependence, cigarettes, uncomplicated Hypothyroidism S/P right hip fracture Hip osteoarthritis Surgical History S/P hip replacement Hx of cardiac catheterization History of hip surgery History of colonoscopy History of esophagogastroduodenoscopy (EGD) Hx of eye surgery History of shoulder surgery History of hand surgery History of foot surgery History of tubal ligation History of total right hip arthroplasty Family History Father Bladder cancer Mother Acute CVA (cerebrovascular accident) Stroke CVD (cardiovascular disease) Thyroid disease Brother Renal cell cancer Acute CVA (cerebrovascular accident) Family/Other Alcoholism Social History Household Members: None Household Members Other:: 12/2021 Housing: House Are you a primary healthcare consulting manager to a significant other at home: No Do you presently have visiting nurse or other home services: No Alcohol intake: current Alcohol intake frequency: a few times a week Patient Tobacco Use Status: Current everyday Tobacco user Tobacco use type: Cigarette Cigarette Packs Per Day: 0.5 Cigarettes Per Day: 2 Years Smoked: (onset 10yo, 3/4-1ppd x 52yrs, 40+PYH) e-Cigarette/Vaping Use: Never Used Second Hand Smoke Exposure: Yes Substance Use Type: Marijuana service: No Current occupational status: disabled Cognitive needs: No Hearing needs: No Vision needs: Yes Physical Exam Extrem Other: mild + trendelenberg gait Inc c/d/i No pain with hip ROM Results Reviewed Results Reviewed: Left UMM in expected post operative position with no hardware complications or evidence of loosening Assessment & Plan Assessment & Plan (1) S/P total left hip arthroplasty: Code(s): Z96.642 - Presence of left artificial hip joint Category: Surgical Plan: Doing well. Refilled pain meds and she will wean off. Last rx. RTW in 2 weeks. F/u 6 weeks with PA Orders: Orders XR pelvis 1-2V Today M25.559 - Pain in unspecified hip Coding Level of Care Code Global (90289) Diagnoses S/P total left hip arthroplasty Z96.642
== END 2024-05-19 13:47 | disposition home or self-care (01) ==
PROVIDERS: PCP Internal Medicine; Visit Provider Orthopaedic Surgery
DX: Z96.642 Presence of left artificial hip joint (principal)
CPT/HCPCS: 99024

== ENCOUNTER 2024-05-21 08:00 | Outpatient (RCR) | payer OTHER, SELFPAY ==
--- NOTE | 2024-04-28 13:37 | MHC.PT.EP ---
[facility] [place] Office [place] [facility] [place] Office [address] Dani Mccollum [address] [phone] F: [phone] F: [phone] F: [phone] F: [phone] Physical Therapy Plan of Care Date of Evaluation: 04/28/24 Date of Surgery: 04/08/24 Diagnosis: This is a 63 yo female presenting to skilled PT with a script for s/p L total hip. Assessment: This is a 63 yo female presenting to skilled PT with a script for s/p revision of L total hip. Patient reporting that after her surgery she was inpatient for 2 nights and then went home with home PT until . She had her surgery with Dr. Britton and she had her ac out at the last visit. Pain is located at the groin and buttock, occasionally sharp but more often the last two weeks as she thinks she did something wrong with her HEP/over did it with home PT. She is currently walking with a FWW, currently doing her HEP 2-3 times a day. She is taking tylenol and pain meds and ice as needed. Assessment reveals pain that ranges from up to a 5/10 at the worst. Patient demos decreased LE ROM, strength of B LE's, TTP at incision site, decreased balance and gait pattern and impaired posture with forward head, forward flexed trunk and rounded shoulders. Based on functional limitations, impaired QOL and pain tolerance patient is a good candidate for skilled PT 2x/wk for 5wks. Frequency and Duration: The patient will be seen 2x/wk for 5wks Short Term Goals: (in 2 weeks) Patient will demo good understanding and performance of quad set in multiple different planes without cues from PT Patient will be I in HEP Patient will be able to perform 10 sit<>stands without UE assist Senior Living Goals: (in 5 weeks) Patient will report 75% improvement in balance and strength of LLE as evidenced by reports no of falls or buckling in LE Patient will improve LEFs by 10 points Patient will be able to perform stairs with reciprocal gait Patient will demo proper squat and lift techniques without increase in pain Patient will walk without AD or as needed Treatment Plan: Modalities to reduce pain, spasms and effusion. Manual therapy to restore motion and function. Therapeutic exercise to improve strength and flexibility. Neuromuscular re-education for posture and balance. Therapeutic activities to return to functional activities of daily living. Electronically signed by: Lexis Douglas PT Please sign and return to therapist. Thank you for your referral.
--- NOTE | 2024-06-17 08:06 | MHC.PT.DC ---
[facility] [place] Office [place] Office [place] Office [address] Dani Mccollum [address] [phone] F: [phone] F: [phone] F: [phone] F: [phone] Physical Therapy Discharge Report Diagnosis: This is a 63 yo female presenting to skilled PT with a script for s/p L total hip. Date of Surgery: 04/08/24 Date of Evaluation: 04/28/24 Date of Discharge: 06/17/24 Treatments to Date: 5 Cancellations to Date: 0 No Shows to Date: 0 Discharge Status: Independent with HEP Patient Elected to Stop Discharge Summary: 05/21: Patient saw ortho and note states: Doing well. Refilled pain meds and she will wean off. Last rx. RTW in 2 weeks. F/u 6 weeks with PA. She needs to leave 20 mins early today. Patient feels ready for DC and feels comfortable enough to do on her own at this time. Cancelled her last appointment. I did educate her that she needs to continue to strengthen as she is still weak. Electronically signed by: Lexis Douglas, PT Please sign and return to therapist. Thank you for your referral.
== END 2024-06-17 08:06 | disposition home or self-care (01) ==
LOC: HO.PTCHIC 08:00
PROVIDERS: PCP Internal Medicine; Visit Provider Physician Assistant
DX: Z96.642 Presence of left artificial hip joint (principal)
CPT/HCPCS: 97110; 97162

== ENCOUNTER 2024-06-16 08:49 | Outpatient (AMB) | payer OTHER, SELFPAY ==
--- NOTE | 2024-06-16 08:53 | A.OFFPC_ITS ---
Vital Signs 06/16/24 09:02 Height 5 ft 5 in Weight 160 lb 8 oz BMI 26.7 BP 110/60 Blood Pressure Location Lt brachial Position Sitting Pulse 76 Pulse Source Pulse Oximeter Temp 97.3 F Temp Source Temporal Artery Scan Pulse Oximetry (%) 97 Oxygen Delivery Method Room Air Intake Visit Reasons: 3M follow up Intake Note: Patient is here to follow up on HLD, COPD, Hypothyroidism. Inspection Clerk Required: No Radiologic Technology Program Director: Not Required per policy Accompanied by: Self / Same As Patient Allergies atorvastatin Allergy (Unknown, Verified 06/16/24 09:13) Cramps barium sulfate Allergy (Unknown, Verified 06/16/24 09:13) sore throat omeprazole Allergy (Unknown, Verified 06/16/24 09:13) diarrhea rosuvastatin Allergy (Unknown, Verified 06/16/24 09:13) Unknown simvastatin Allergy (Unknown, Verified 06/16/24 09:13) unknown varenicline [From Chantix] Allergy (Unknown, Verified 06/16/24 09:13) sore throat evolocumab [From Repatha SureClick] Adverse Reaction (Intermediate, Verified 06/16/24 09:13) cough Medication List - Last Reconciled 06/16/24 by Tabitha Allen PA-C acetaminophen 650 mg (2 x 325 mg) PO Q6H PRN 30 days albuterol sulfate 2.5 mg inhalation Q4-6H PRN albuterol sulfate 90 mcg/actuation (Ventolin HFA) 2 puffs PO Q4H PRN carisoprodol 350 mg PO BID PRN diclofenac sodium 1% (Voltaren Arthritis Pain) 4 grams topical QID PRN fluticasone propionate 50 mcg/actuation 2 sprays intranasal DAILY [Raised toilet seat duration - 99 days] walker Folding Front wheeled walker Tobacco use date assessed: 06/16/24 Dental Screening Dental Screen Date: 06/16/24 Did you have a dental visit in the last 12 months?: Yes Did you have a dental problem in the last 6 months where you did not have access to dental care?: No Was dental information given to patient?: Patient has dentist HPI 3M follow up HPI Details 63-year-old female with past medical his tory of bipolar disorder, thoracic radiculopathy with degenerative joint disease, hypercholesterolemia, COPD, chronic kidney disease, hypothyroidism and paraesophageal hernia seen 02/2024 coming in for follow up.?In review of the notes, patient had left total hip replacement on 04/08/2024 and follow up with Orthopedics 05/19/2024 doing well advised to follow up in 6 weeks.?Patient was seen by Cardiology 03/24/2024 for follow up on chest pain after cardiac catheterization 03/06/2024 no significant coronary artery disease daily aspirin was discontinued and follow up with Cardiology as needed. The patient is a 63-year-old female presenting with ongoing post-surgical healing, earwax impaction, and hyperlipidemia management needs. She reports arthritis-related issues and disruptions in her sleep patterns due to taking opioids post-surgery. Earwax impaction causes her significant discomfort, with previous experiences of severe buildup in the ear. Her hyperlipidemia presents challenges with heightened cholesterol levels, and she is apprehensive about medication use, preferring herbal alternatives. [facility] Medical History Chronic kidney disease (CKD) stage G3a/A1, moderately decreased glomerular filtration rate (GFR) between 45-59 mL/min/1.73 square meter and albuminuria creatinine ratio less than 30 mg/g Thyroid disease CKD (chronic kidney disease) Concussion Elevated cholesterol Myalgia due to statin Neurocardiogenic syncope Forehead laceration Fall Oral candidiasis Nausea and vomiting Abdominal bloating Thoracic back pain Foot pain, left LUQ abdominal pain Abdominal pain Rectal bleeding Myalgia Neck pain Chest pain HLD (hyperlipidemia) Osteoarthritis of right hip Iliotibial band syndrome Hematoma and contusion Fall Osteoarthritis of left hip Vitamin D deficiency Hearing loss Degenerative disc disease, lumbar GERD (gastroesophageal reflux disease) COPD (chronic obstructive pulmonary disease) Crohn's disease Nicotine dependence, cigarettes, uncomplicated Hypothyroidism S/P right hip fracture Hip osteoarthritis Surgical History S/P hip replacement Hx of cardiac catheterization History of hip surgery History of colonoscopy History of esophagogastroduodenoscopy (EGD) Hx of eye surgery History of shoulder surgery History of hand surgery History of foot surgery History of tubal ligation History of total right hip arthroplasty Family History Father Bladder cancer Mother Acute CVA (cerebrovascular accident) Stroke CVD (cardiovascular disease) Thyroid disease Brother Renal cell cancer Acute CVA (cerebrovascular accident) Family/Other Alcoholism Social History Household Members: None Household Members Other:: 12/2021 Housing: House Are you a primary resident care aid to a significant other at home: No Do you presently have visiting nurse or other home services: No Alcohol intake: current Alcohol intake frequency: a few times a week Patient Tobacco Use Status: Current everyday Tobacco user Tobacco use type: Cigarette Cigarette Packs Per Day: 0.5 Cigarettes Per Day: 7 Years Smoked: (onset 10yo, 3/4-1ppd x 52yrs, 40+PYH) e-Cigarette/Vaping Use: Never Used Second Hand Smoke Exposure: Yes Substance Use Type: Marijuana service: No Current occupational status: disabled Cognitive needs: No Hearing needs: No Vision needs: Yes (Glasses) Questionnaire PHQ-9 Over the last 2 weeks, how often have you been bothered by any of the following problems? 1. Little interest or pleasure in doing things: not at all 2. Feeling down, depressed, or hopeless: not at all 3. Trouble falling or staying asleep, or sleeping too much: not at all 4. Feeling tired or having little energy: not at all 5. Poor appetite or overeating: not at all 6. Feeling bad about yourself - or that you are a failure or have let yourself or your family down: not at all 7. Trouble concentrating on things, such as reading the newspaper or watching television: not at all 8. Moving or speaking so slowly that other people could have noticed. Or the opposite - being so fidgety or restless that you have been moving around a lot more than usual: not at all 9. Thoughts that you would be better off or of hurting yourself in some way: not at all Total score: 0 Depression Screening Interpretation: Negative Depression Screening Done: Yes Source: Developed by Drs. Moshe Mendoza, Layne Feng, Chad Pool and colleagues, with an educational tari from [employer]. Thrive Questionnaire Date Thrive assessed: 04/09/24 AUDIT C Alcohol Use Questionnaire (AUDIT-C) 2. How many drinks containing alcohol do you have on a typical day when you are drinking?: 3 or 4 3. How often do you have six or more drinks on one occasion?: Less than monthly Total Score: 2 SARIKA-7 AMB Questionnaire SARIKA-7 Date SARIKA - 7 assessed: 06/16/24 Feeling nervous, anxious, or on edge: 0 = Not at all Not being able to stop or control worryin = Not at all Worrying too much about different things: 0 = Not at all Trouble relaxin = Not at all Being so restless that it is hard to sit still: 0 = Not at all Becoming easily annoyed or irritable: 0 = Not at all Feeling afraid as if something awful might happen: 0 = Not at all Total SARIKA-7 score (0-4 normal; 5-9 mild; 10-14 moderate; 15-21 severe): 0 Source: Developed by Drs. Moshe Mendoza, Layne Feng, Chad Pool and colleagues, with an educational tari from [employer]. Review of Systems Const Denies body aches, Denies chills, Denies fever(s), Denies headache(s) and Denies poor appetite Eyes Reports no additional complaints ENT Details: Ear clogged feeling in the right side Denies dizziness and Denies headache(s) Card Denies chest pain, Denies lightheadedness and Denies dyspnea Resp Denies cough and Denies dyspnea GI Denies abdominal pain, Denies nausea and Denies vomiting Reports no additional complaints Musc Reports no additional complaints and Denies abnormal gait Skin/Breast Reports system reviewed and no additional complaints, except as documented Neuro Denies abnormal gait, Denies dizziness and Denies headache(s) Psych Reports no additional complaints Physical exam (Primary Care) Vital Signs: Last Vital Signs Temp 97.3 F 06/16/24 09:02 Pulse 76 06/16/24 09:02 BP 110/60 06/16/24 09:02 Pulse Ox 97 06/16/24 09:02 Oxygen Delivery Method Room Air 06/16/24 09:02 BMI result Body Mass Index 26.7 Tobacco/Smoking Status: Tobacco use Status Tobacco use date assessed 06/16/24 06/16/24 09:09 Patient Tobacco Use Status Current everyday Tobacco 06/16/24 08:54 Tobacco use type Cigarette 06/16/24 08:54 e-Cigarette/Vaping Use Never Used 06/16/24 08:54 Are you ready to quit: Yes Tobacco cessation counseling provided: Yes Items discussed: Nicotine replacement Relapse Prevention: discussed the importance of a supportive environment and discussed dietary, exercise and/or lifestyle changes Number of minutes spent counselin CPT code: 91291 - 4-10 Minutes PHQ-9: PHQ-9 Score PHQ-9: Total score 0 06/16/24 09:13 Depression Screening Interpretation: Negative Thrive Assessment: Date of Thrive Assessment Date Thrive assessed 04/09/24 06/16/24 08:54 Const General: cooperative, healthy appearing, comfortable and no acute distress Orientation/consciousness: patient oriented x3 HENMT Head: Yes normocephalic Ears: hearing grossly normal bilaterally and Abnormal EAC present cerumen impaction on the right General nose exam: Normal external nose present Eyes General: appearance normal, both eyes and all related structures Conjunctivae: conjunctivae normal Neck Neck: Yes full ROM and Yes no lymphadenopathy Resp Effort & Inspection: normal respiratory effort Auscultation: clear to auscultation bilaterally, no crackles, no rales, no rhonchi and no wheezes Cardio Rate: regular rate Rhythm: regular rhythm Skin General skin exam: no rashes or lesions noted Neuro General: patient oriented x3 Gait exam (Neuro): Normal gait present Extrem General: Yes normal to inspection, Yes full ROM and No edema Psych Affect: normal affect Attitude: cooperative Insight: Good insight present (Psych) Judgement: Good judgement present (Psych) Coding Level of Care Code Est Pt Level 3 (58859) Diagnoses Pure hypercholesterolemia E78.00 Hyperlipidemia type: pure hypercholesterolemia Pulmonary emphysema, unspecified emphysema type J43.9 COPD type: emphysema Emphysema type: unspecified Nicotine dependence, cigarettes, uncomplicated F17.210 GERD (gastroesophageal reflux disease) K21.9 S/P total left hip arthroplasty Z96.642 S/P cardiac cath Z98.890 Cerumen impaction H61.20 Additional Codes Vital Signs *Quality* - CPT code: 80520 - 4-10 Minutes ([id number]) Assessment & Plan Assessment & Plan (1) HLD (hyperlipidemia): Comment: decline referral to ENDO patient is statin intolerant and has tried the injectables with side effects. Code(s): E78.5 - Hyperlipidemia, unspecified Category: Medical Qualifiers: Hyperlipidemia type: pure hypercholesterolemia Qualified Code(s): E78.00 - Pure hypercholesterolemia, unspecified Plan: Avoid foods that are high in cholesterol such as red meat, fried foods, eggs and baked goods. Triglyceride goal of less than 150 and LDL goal of less than 100. Patient declining any form of statin, injectables or Zetia at this time. I did discuss the risk of heart attack and stroke patient understands and would like to work on dietary lifestyle instead. Plan to repeat labs in 3 months (2) COPD (chronic obstructive pulmonary disease): Code(s): J44.9 - Chronic obstructive pulmonary disease, unspecified Category: Medical Qualifiers: COPD type: emphysema Emphysema type: unspecified Qualified Code(s): J43.9 - Emphysema, unspecified Plan: Continue on inhalers. Strongly advised to stop smoking and nicotine replacement therapy was offered today. She declined prescription and states she will reach out to 1 800 number for nicotine replacement therapy. (3) Nicotine dependence, cigarettes, uncomplicated: Comment: (current smoker - onset 10yo, 3/4-1ppd x 52yrs, 40+PYH) Code(s): F17.210 - Nicotine dependence, cigarettes, uncomplicated Category: Medical Plan: Smoking cigarettes and the use of tobacco can be harmful. We discussed the importance of stopping and options to aid in smoking cessation. Declining nicotine replacement therapy prescription today (4) GERD (gastroesophageal reflux disease): Comment: EGD July 2021 Code(s): K21.9 - Gastro-esophageal reflux disease without esophagitis Category: Medical Plan: Avoid trigger foods such as citrus, tomato products, soda, caffeine, spicy foods and other foods that may be irritating to your stomach. Avoid laying flat 3-4 hours after eating and elevate the head of the bed 30 degrees to prevent acid from moving into the esophagus. (5) S/P total left hip arthroplasty: Code(s): Z96.642 - Presence of left artificial hip joint Category: Surgical Plan: Patient states she is doing well postoperatively, continue to follow with orthopedics and physical therapy at this time (6) S/P cardiac cath: Comment: 03/06/2024, lad and RCA each with minimal luminal irregularities Code(s): Z98.890 - Other specified postprocedural states Category: Surgical Plan: Advised to follow up with Cardiology as needed. Declining chest pain or anginal symptoms at this time. Continue with management of cholesterol and blood pressure. (7) Cerumen impaction: Code(s): H61.20 - Impacted cerumen, unspecified ear Category: Medical Plan: Right ear cerumen impaction unable to be removed today using curette. Recommended use of Debrox drops and follow up in the office for ear flushing. Plan This note was constructed using voice recognition software. While every effort has been made to ensure accuracy and supervisor hand workers, still areas may have been included sometimes these areas may affect the content or meeting of the given symptoms. Total time spent caring for the patient today was 20 minutes. This includes time spent before the visit reviewing the chart, time spent during the visit, and time spent after the visit and documentation. Patient was informed and verbally consented to the use of an ambient scribe for clinic note documentation during this visit. Orders: Orders Lipid Panel Today E78.00 - Pure hypercholesterolemia, unspecified Medications: New carbamide peroxide 6.5% (Debrox) 5 drps otic (ear) right DAILY 4 days 15 mL 0RF Refilled carisoprodol 350 mg PO BID PRN 50 tabs 1RF muscle pain
[2024-06-16 09:02] VITALS: BP 110/60; PULSE 76; TEMP 36.3; O2SAT 97; BMI 26.7
== END 2024-06-16 09:32 | disposition home or self-care (01) ==
LOC: HO.HMCH 08:49
PROVIDERS: PCP Internal Medicine
DX: E78.00 Pure hypercholesterolemia, unspecified (principal); J43.9 Emphysema, unspecified; F17.210 Nicotine dependence, cigarettes, uncomplicated; K21.9 Gastro-esophageal reflux disease without esophagitis; Z96.642 Presence of left artificial hip joint; Z98.890 Other specified postprocedural states; H61.20 Impacted cerumen, unspecified ear

== ENCOUNTER → 2024-06-16 08:49 | Outpatient (BNVA) | payer OTHER, SELFPAY | PROVIDERS: PCP Internal Medicine | DX: E78.00 Pure hypercholesterolemia, unspecified (principal); J43.9 Emphysema, unspecified; K21.9 Gastro-esophageal reflux disease without esophagitis; H61.21 Impacted cerumen, right ear; Z96.642 Presence of left artificial hip joint; Z98.890 Other specified postprocedural states; F17.210 Nicotine dependence, cigarettes, uncomplicated; Z71.6 Tobacco abuse counseling | CPT/HCPCS: 99212 ==

== ENCOUNTER 2024-06-26 09:50 | Outpatient (AMB) | payer OTHER, SELFPAY ==
--- NOTE | 2024-06-26 10:15 | A.OFFPC_ITS ---
Vital Signs 06/26/24 10:17 Height 5 ft 5 in Weight 160 lb 4 oz BMI 26.7 BP 120/70 Blood Pressure Location Lt brachial Position Sitting Pulse 78 Pulse Source Pulse Oximeter Temp 97.1 F Temp Source Temporal Artery Scan Pulse Oximetry (%) 98 Oxygen Delivery Method Room Air Intake Visit Reasons: double ear flush Intake Note: Patient is here to follow up on Double ear flush. [employer] Social Worker Required: No [employer] Buffer: Not Required per policy Accompanied by: Self / Same As Patient Allergies atorvastatin Allergy (Unknown, Verified 06/26/24 10:35) Cramps barium sulfate Allergy (Unknown, Verified 06/26/24 10:35) sore throat omeprazole Allergy (Unknown, Verified 06/26/24 10:35) diarrhea rosuvastatin Allergy (Unknown, Verified 06/26/24 10:35) Unknown simvastatin Allergy (Unknown, Verified 06/26/24 10:35) unknown varenicline [From Chantix] Allergy (Unknown, Verified 06/26/24 10:35) sore throat evolocumab [From Repatha SureClick] Adverse Reaction (Intermediate, Verified 06/26/24 10:35) cough Medication List - Last Reconciled 06/26/24 by Tabitha Allen PA-C acetaminophen 650 mg (2 x 325 mg) PO Q6H PRN 30 days albuterol sulfate 2.5 mg inhalation Q4-6H PRN albuterol sulfate 90 mcg/actuation (Ventolin HFA) 2 puffs PO Q4H PRN carbamide peroxide 6.5% (Debrox) 5 drps otic (ear) right DAILY 4 days carisoprodol 350 mg PO BID PRN diclofenac sodium 1% (Voltaren Arthritis Pain) 4 grams topical QID PRN fluticasone propionate 50 mcg/actuation 2 sprays intranasal DAILY [Raised toilet seat duration - 99 days] walker Folding Front wheeled walker Tobacco use date assessed: 06/26/24 Dental Screening Dental Screen Date: 06/16/24 HPI double ear flush HPI Details 63-year-old female with past medical his tory of bipolar disorder, thoracic radiculopathy with degenerative joint disease, hypercholesterolemia, COPD, chronic kidney disease, hypothyroid and paraesophageal hernia last seen 05/2024 coming in for bilateral ear cleaning. patient c/o ear clogged feeling and decreased hearing in right ear [facility] Medical History Chronic kidney disease (CKD) stage G3a/A1, moderately decreased glomerular filtration rate (GFR) between 45-59 mL/min/1.73 square meter and albuminuria creatinine ratio less than 30 mg/g Thyroid disease CKD (chronic kidney disease) Concussion Elevated cholesterol Myalgia due to statin Neurocardiogenic syncope Forehead laceration Fall Oral candidiasis Nausea and vomiting Abdominal bloating Thoracic back pain Foot pain, left LUQ abdominal pain Abdominal pain Rectal bleeding Myalgia Neck pain Chest pain HLD (hyperlipidemia) Osteoarthritis of right hip Iliotibial band syndrome Hematoma and contusion Fall Osteoarthritis of left hip Vitamin D deficiency Hearing loss Degenerative disc disease, lumbar GERD (gastroesophageal reflux disease) COPD (chronic obstructive pulmonary disease) Crohn's disease Nicotine dependence, cigarettes, uncomplicated Hypothyroidism S/P right hip fracture Hip osteoarthritis Surgical History S/P hip replacement Hx of cardiac catheterization History of hip surgery History of colonoscopy History of esophagogastroduodenoscopy (EGD) Hx of eye surgery History of shoulder surgery History of hand surgery History of foot surgery History of tubal ligation History of total right hip arthroplasty Family History Father Bladder cancer Mother Acute CVA (cerebrovascular accident) Stroke CVD (cardiovascular disease) Thyroid disease Brother Renal cell cancer Acute CVA (cerebrovascular accident) Family/Other Alcoholism Social History Household Members: None Household Members Other:: 12/2021 Housing: House Are you a primary adult day care worker to a significant other at home: No Do you presently have visiting nurse or other home services: No Alcohol intake: current Alcohol intake frequency: a few times a week Patient Tobacco Use Status: Current everyday Tobacco user Tobacco use type: Cigarette Cigarette Packs Per Day: 0.5 Cigarettes Per Day: 7 Years Smoked: (onset 10yo, 3/4-1ppd x 52yrs, 40+PYH) e-Cigarette/Vaping Use: Never Used Second Hand Smoke Exposure: Yes Substance Use Type: Marijuana service: No Current occupational status: disabled Cognitive needs: No Hearing needs: No Vision needs: Yes (Glasses) Questionnaire Thrive Questionnaire Date Thrive assessed: 04/09/24 SARIKA-7 AMB Questionnaire SARIKA-7 Date SARIKA - 7 assessed: 06/16/24 Source: Developed by Drs. Moshe Mendoza, Layne Feng, Chad Pool and colleagues, with an educational tari from [employer] Review of Systems ENT Details: Ear clogged feeling and decreased hearing on right side Physical exam (Primary Care) Vital Signs: Last Vital Signs Temp 97.1 F 06/26/24 10:17 Pulse 78 06/26/24 10:17 BP 120/70 06/26/24 10:17 Pulse Ox 98 06/26/24 10:17 Oxygen Delivery Method Room Air 06/26/24 10:17 BMI result Body Mass Index 26.7 Tobacco/Smoking Status: Tobacco use Status Tobacco use date assessed 06/26/24 06/26/24 10:23 Patient Tobacco Use Status Current everyday Tobacco 06/26/24 10:23 Tobacco use type Cigarette 06/26/24 10:23 e-Cigarette/Vaping Use Never Used 06/26/24 10:23 Thrive Assessment: Date of Thrive Assessment Date Thrive assessed 04/09/24 06/26/24 10:23 Const General: cooperative, healthy appearing, comfortable and no acute distress Orientation/consciousness: patient oriented x3 HENMT Head: Yes normocephalic Ears: hearing grossly normal bilaterally, TM's normal bilaterally and Abnormal EAC present excessive cerumen on the right General nose exam: Normal external nose present Resp Effort & Inspection: normal respiratory effort Cardio Rate: regular rate Neuro General: patient oriented x3 Gait exam (Neuro): Normal gait present Psych Affect: normal affect Attitude: cooperative Insight: Good insight present (Psych) Judgement: Good judgement present (Psych) Office Procedures Cerumen Removal From which ear canal was the cerumen removed: right Removal: irrigation and otoscope w/curette Notes: patient tolerated procedure well, no complications and ear canal clear [id number] Irrigation/Lavage Coding Level of Care Code Est Pt Level 3 (39232) Diagnoses Cerumen impaction H61.20 CPT Codes Office Procedure - CPT: 75779-Jcv Irrigation/Lavage ([id number]) Assessment & Plan Assessment & Plan (1) Cerumen impaction: Code(s): H61.20 - Impacted cerumen, unspecified ear Category: Medical Plan: Cerumen was successfully removed from the right ear using lighted curette and irrigation. Patient tolerated the procedure well. Ear canal is clear however edematous canal with erythema and areas of open skin after cerumen was removed. plan to use combination antibiotic/steroid ear drops to prevent infection and reduce inflammation in the ear canal. Plan This note was constructed using voice recognition software. While every effort has been made to ensure accuracy and email marketing executive, still areas may have been included sometimes these areas may affect the content or meeting of the given symptoms. Total time spent caring for the patient today was 20 minutes. This includes time spent before the visit reviewing the chart, time spent during the visit, and time spent after the visit and documentation. Medications: New [id number]-GP 3.5-10,000-1 mg/mL-unit/mL-% 4 drps otic (ear) right Q8H 7 days 10 mL 0RF
[2024-06-26 10:17] VITALS: BP 120/70; PULSE 78; TEMP 36.2; O2SAT 98; BMI 26.7
--- OUTSIDE RECORDS SUMMARY | 2024-06-26 10:29 | XMS_ITS | Data Portability ---
Author Organization [employer] [place] [facility] [email or web address] Address [address] [place] [id number] Care Team Providers Care Stacker Attendant Name Role Phone [facility] Referring Provider [phone] Assessment No assessment recorded. Plan of Treatment [...] Name and Address Organization Details Recorded Time 8141 ibuprofen medicatio n Not available Not available [...] SNOMED-CT Code Diagnosis ICD10 Code Diagnosis Note [id number] Gary Johnson MD Main - [facility] [address] [place] [phone] 11/03/2022 17:30:35 03/01/2023 10:47:17 Strain of neck muscle [id number] S16.1XXA This 62-year-ol d female called complsarkisin [...] Mendiola Member ID Guarantor Name 11/03/[address] [facility] - DOS ON OR AFTER 2022 - DUAL ELIGIBLE - GROUP HOME OPTIONS AND ONE CARE (MEDICARE REPLACEMENT/ADV ANTAGE - HMO) Pamela Hale [id number] Pamela Hale Notes Date Note Type Note [...] .................. .................. .................. .................. .................. .................. ............... Painter [place] Note From Richa Bower: Sent to a [...] .................. ............... Disposition: Fulfilled Gary Johnson MD [address] [place] [address],[facility], [place], [phone], [employer] 02/28/2023 14:25:58 OBGyn Episode No OBEpisode recorded.
== END 2024-06-26 10:48 | disposition home or self-care (01) ==
LOC: HO.HMCH 09:51
PROVIDERS: PCP Internal Medicine
DX: H61.21 Impacted cerumen, right ear (principal)

== ENCOUNTER → 2024-06-26 09:50 | Outpatient (BNVA) | payer OTHER, SELFPAY | PROVIDERS: PCP Internal Medicine | DX: H61.21 Impacted cerumen, right ear (principal) | CPT/HCPCS: 69210; 99212 ==

== ENCOUNTER 2024-06-30 08:39 | Outpatient (REF) | payer OTHER, SELFPAY ==
--- NOTE | ~2024-06-30 | XR_ITS ---
EXAMINATION: XR HIP 2 OR MORE VIEWS LEFT HISTORY: M25.552 - Pain in left hip COMPARISON: Comparison is made with the prior examination dated 05/19/2024. FINDINGS: A single AP view of the pelvis and two views of the left hip are submitted. The patient is again noted to be status post left total hip arthroplasty. The orthopedic elements are in anatomic alignment. There is no radiographic evidence of loosening. There is no fracture or dislocation. The patient is also status post right total hip arthroplasty. There are vascular calcifications. XR/XR hip LT min 2V IMPRESSION: Status post left total hip arthroplasty. Electronically signed by: Moshe Purvis MD 06/30/2024 03:54 PM EDT
--- OUTSIDE RECORDS SUMMARY | 2024-06-30 09:15 | XMS_ITS | Data Portability ---
Author Organization [email or web address] Address [address] [place] [phone] Care Team Providers Care Air Conditioning Equipment Mechanic Name Role Phone [facility] Referring Provider Assessment [...] Name and Address Organization Details Recorded Time 8130 ibuprofen medicatio n Not available Not available [...] SNOMED-CT Code Diagnosis ICD10 Code Diagnosis Note [id number] Gary Johnson MD Main - instED [address] [place] [phone] 11/03/2022 17:30:35 03/01/2023 10:47:17 Strain of neck muscle [id number] S16.1XXA This 62-year-ol d female called complsarkisin [...] Mendiola Member ID Guarantor Name 11/03/2022 1 [facility] - DOS ON OR AFTER 2022 - DUAL ELIGIBLE - INTERMEDIATE OPTIONS AND ONE CARE (MEDICARE REPLACEMENT/ADV ANTAGE - HMO) Pamela Hale [id number] Pamela Hale Notes Date Note Type Note [...] .................. .................. .................. .................. .................. .................. ............... Studio Operation Engineer Note From Richa Bower: Sent to a [...] .................. ............... Disposition: Fulfilled Gary Johnson MD [address] [place] [address],[address] [facility], [place], [phone], [employer] 02/28/2023 14:25:58 OBGyn Episode No OBEpisode recorded.
== END 2024-06-30 08:40 | disposition home or self-care (01) ==
LOC: HO.HOSX 08:39
PROVIDERS: Visit Provider Physician Assistant
DX: Z47.1 Aftercare following joint replacement surgery (principal); Z96.642 Presence of left artificial hip joint
CPT/HCPCS: 73502; 99212

== ENCOUNTER 2024-06-30 11:23 | Outpatient (AMB) | payer OTHER, SELFPAY ==
[2024-06-30 11:34] VITALS: BMI 26.6
--- NOTE | 2024-06-30 11:34 | MHC.OFFVIS ---
Vital Signs 06/30/24 11:34 Height 5 ft 5 in Weight 160 lb BMI 26.6 Intake Visit Reasons: PO: L UMM w/NE 04/08/24 Intake Note: is a 63 year old female who presents today for a post operative appointment s/p Left UMM 04/08/24. Patient was last seen with NE, follow up in 6 weeks. Patient reports that she was at a banquet yesterday, while she was walking to her car she was knocked over by some on that has caused her to fall. She has soreness that is located in her left buttock that travels down the back of her thigh. Allergies atorvastatin Allergy (Unknown, Verified 06/30/24 11:44) Cramps barium sulfate Allergy (Unknown, Verified 06/30/24 11:44) sore throat omeprazole Allergy (Unknown, Verified 06/30/24 11:44) diarrhea rosuvastatin Allergy (Unknown, Verified 06/30/24 11:44) Unknown simvastatin Allergy (Unknown, Verified 06/30/24 11:44) unknown varenicline [From Chantix] Allergy (Unknown, Verified 06/30/24 11:44) sore throat evolocumab [From Repatha SureClick] Adverse Reaction (Intermediate, Verified 06/30/24 11:44) cough HPI HPI PO: L UMM w/NE 04/08/24: Details: 63-year-old female returns to the office today 6 weeks status post left total hip arthroplasty on 04/08/[address] Britton. She is doing well overall. She states she did fall yesterday but landed on her backside. She has some bruising but otherwise the hip is feeling well today. [facility] Medical History Chronic kidney disease (CKD) stage G3a/A1, moderately decreased glomerular filtration rate (GFR) between 45-59 mL/min/1.73 square meter and albuminuria creatinine ratio less than 30 mg/g Thyroid disease CKD (chronic kidney disease) Concussion Elevated cholesterol Myalgia due to statin Neurocardiogenic syncope Forehead laceration Fall Oral candidiasis Nausea and vomiting Abdominal bloating Thoracic back pain Foot pain, left LUQ abdominal pain Abdominal pain Rectal bleeding Myalgia Neck pain Chest pain HLD (hyperlipidemia) Osteoarthritis of right hip Iliotibial band syndrome Hematoma and contusion Fall Osteoarthritis of left hip Vitamin D deficiency Hearing loss Degenerative disc disease, lumbar GERD (gastroesophageal reflux disease) COPD (chronic obstructive pulmonary disease) Crohn's disease Nicotine dependence, cigarettes, uncomplicated Hypothyroidism S/P right hip fracture Hip osteoarthritis Surgical History S/P hip replacement Hx of cardiac catheterization History of hip surgery History of colonoscopy History of esophagogastroduodenoscopy (EGD) Hx of eye surgery History of shoulder surgery History of hand surgery History of foot surgery History of tubal ligation History of total right hip arthroplasty Family History Father Bladder cancer Mother Acute CVA (cerebrovascular accident) Stroke CVD (cardiovascular disease) Thyroid disease Brother Renal cell cancer Acute CVA (cerebrovascular accident) Family/Other Alcoholism Social History Household Members: None Household Members Other:: 12/2021 Housing: House Are you a primary wound care specialist to a significant other at home: No Do you presently have visiting nurse or other home services: No Alcohol intake: current Alcohol intake frequency: a few times a week Patient Tobacco Use Status: Current everyday Tobacco user Tobacco use type: Cigarette Cigarette Packs Per Day: 0.5 Cigarettes Per Day: 7 Years Smoked: (onset 10yo, 3/4-1ppd x 52yrs, 40+PYH) e-Cigarette/Vaping Use: Never Used Second Hand Smoke Exposure: Yes Substance Use Type: Marijuana service: No Current occupational status: disabled Cognitive needs: No Hearing needs: No Vision needs: Yes (Glasses) Review of Systems Const All systems reviewed & are unremarkable except as noted in HPI and below Physical Exam Vital Signs: BMI result Body Mass Index 26.6 Extrem Other: Left hip incision well healed. She has no pain with range of motion or hip flexion. Neurovascularly intact. Results Reviewed Results Reviewed: X-rays of the left hip obtained in the office today and reviewed by me show intact left hip arthroplasty Assessment & Plan Assessment & Plan (1) S/P total left hip arthroplasty: Code(s): Z96.642 - Presence of left artificial hip joint Category: Surgical Plan: Patient will continue with daily activities maintaining her strength and gait pattern. Reminder to request antibiotics for dental procedures. She did have some concern of left knee pain which she would like to address that our next appointment. She will return in 3 months with x-rays. Orders: Orders XR hip LT min 2V Today M25.552 - Pain in left hip Coding Level of Care Code Global (28948) Diagnoses S/P total left hip arthroplasty Z96.642
== END 2024-06-30 11:52 | disposition home or self-care (01) ==
LOC: HO.HOS 11:23
PROVIDERS: PCP Internal Medicine; Visit Provider Physician Assistant
DX: Z96.642 Presence of left artificial hip joint (principal)
CPT/HCPCS: 99024

== ENCOUNTER → 2024-06-30 11:27 | Outpatient (BNV) | payer OTHER, SELFPAY | PROVIDERS: Visit Provider Radiology Diagnostic Radiology | DX: M25.552 Pain in left hip (principal); Z96.642 Presence of left artificial hip joint | CPT/HCPCS: 73502 ==

== ENCOUNTER 2024-08-25 07:27 | Outpatient (REF) | payer OTHER, SELFPAY ==
--- NOTE | ~2024-08-25 | CT_ITS ---
EXAMINATION: CT LOW-DOSE SCREENING CHEST WITHOUT CONTRAST CLINICAL INFORMATION: 63-year-old female, current smoker, 55 pack years, lung cancer screening. COMPARISON: 08/24/2023. TECHNIQUE: Multidetector volumetric CT imaging of the chest is performed on a Siemens SOMATOM Definition scanner without contrast using low dose technique. Additional 2D coronal and sagittal reformatted images and axial 3D maximum intensity projection (MIP) images are generated on the CT workstation. This CT examination was performed using dose optimization techniques as appropriate, variously including the following: *Automated exposure control *Adjustment of mA and/or kV according to patient size (this includes techniques or standardized protocols for targeted exams where dose is matched to indication/reason for exam; i.e. extremities or head) *Use of iterative reconstruction technique FINDINGS: PULMONARY NODULES: 3 mm nodule right upper lobe medially, with subpleural tag leading to the pleura (series 5, image 61), likely intrapulmonary lymph node. This is unchanged. There are no new or enlarging nodules evident. LUNGS: There is mild centrilobular emphysema. Lungs are well aerated and clear bilaterally. There are no consolidations or abnormal groundglass opacities. There is mild thickening of the small airways, suggestive of mild chronic bronchitis. The central airways are patent. There are no interstitial changes in either lung. There is no pleural effusion or pneumothorax. MEDIASTINUM: Normal-appearing thyroid. There is no mediastinal or hilar lymphadenopathy evident. The aorta is minimally calcified but normal in caliber and course. The main pulmonary artery is not enlarged. The heart is normal in size. No pericardial effusion. CORONARY ARTERY CALCIFICATION: Mild three-vessel coronary calcifications. CHEST WALL/AXILLA: Unremarkable. UPPER ABDOMEN: Mild scarring of both kidneys noted. Remainder of the upper abdominal contents included in the imaging appear normal. OSSEOUS STRUCTURES: No suspicious lytic or blastic bone lesion. Mild degenerative spinal changes present with numerous Schmorl's nodes in the endplates. CT/CT lung screening IMPRESSION: 1. Mild emphysema. No suspicious lung nodules present in either lung. 2. Lungs are otherwise clear. 3. Mild thickening of the small airways, suggesting chronic bronchitis. ASSESSMENT: 1. Lung-RADS Category 2: Benign appearance or behavior of nodules. 2. Lung-RADS Category S: None. RECOMMENDATION: Continued routine annual low-dose CT lung screening in 1 year is recommended. An order for CT CHEST LOW DOSE CANCER SCREENING ([id number]) can be placed. Electronically signed by: Arturo Laguna MD 08/25/2024 12:30 PM EDT
== END 2024-08-25 07:28 | disposition home or self-care (01) ==
LOC: HO.CT 07:27
PROVIDERS: PCP Internal Medicine; Visit Provider Physician Assistant Medical
DX: Z12.2 Encounter for screening for malignant neoplasm of respiratory organs (principal); F17.210 Nicotine dependence, cigarettes, uncomplicated
CPT/HCPCS: 71271

== ENCOUNTER → 2024-08-25 07:29 | Outpatient (BNV) | payer OTHER, SELFPAY | PROVIDERS: PCP Internal Medicine; Visit Provider Radiology Diagnostic Radiology | DX: F17.210 Nicotine dependence, cigarettes, uncomplicated (principal) | CPT/HCPCS: 71271 ==

== ENCOUNTER 2024-09-15 13:56 | Outpatient (AMB) | payer OTHER, SELFPAY ==
[2024-09-15 14:05] VITALS: BMI 26.6
--- NOTE | 2024-09-15 14:05 | MHC.OFFVIS ---
Vital Signs 09/15/24 14:05 Height 5 ft 5 in Weight 160 lb BMI 26.6 Intake Visit Reasons: PO -LT nini 04/08/24 wound check Intake Note: is a 63 year old female who presents today as a wound check of her left foot. HX of Left NINI 04/08/24. Patient called the office this morning to report that she may have a wound at the sole of her foot, she is unable to see and is concerned for infection. She reports that it's painful to walk and has an appointment with her PCP this week. Upon examination it appears that she has no broken skin and may have a plantars wart. Allergies atorvastatin Allergy (Unknown, Verified 06/30/24 11:44) Cramps barium sulfate Allergy (Unknown, Verified 06/30/24 11:44) sore throat omeprazole Allergy (Unknown, Verified 06/30/24 11:44) diarrhea rosuvastatin Allergy (Unknown, Verified 06/30/24 11:44) Unknown simvastatin Allergy (Unknown, Verified 06/30/24 11:44) unknown varenicline (From Chantix) Allergy (Unknown, Verified 06/30/24 11:44) sore throat evolocumab (From Repatha SureClick) Adverse Reaction (Intermediate, Verified 06/30/24 11:44) cough HPI HPI PO -LT nini 04/08/24 wound check: Details: is a 63 year old female who presents today as a wound check of her left foot. HX of Left NINI 04/08/24. Patient called the office this morning to report that she may have a wound at the sole of her foot, she is unable to see and is concerned for infection. She reports that it's painful to walk and has an appointment with her PCP this week. Upon examination it appears that she has no broken skin and may have a plantars wart. [facility] Medical History (Updated 07/17/24 @ 10:21 by Emma Morales PA-C) Chronic kidney disease (CKD) stage G3a/A1, moderately decreased glomerular filtration rate (GFR) between 45-59 mL/min/1.73 square meter and albuminuria creatinine ratio less than 30 mg/g Thyroid disease CKD (chronic kidney disease) Concussion Elevated cholesterol Myalgia due to statin Neurocardiogenic syncope Forehead laceration Fall Oral candidiasis Nausea and vomiting Abdominal bloating Thoracic back pain Foot pain, left LUQ abdominal pain Abdominal pain Rectal bleeding Myalgia Neck pain Chest pain HLD (hyperlipidemia) Osteoarthritis of right hip Iliotibial band syndrome Hematoma and contusion Osteoarthritis of left hip Vitamin D deficiency Hearing loss Degenerative disc disease, lumbar GERD (gastroesophageal reflux disease) COPD (chronic obstructive pulmonary disease) Crohn's disease Nicotine dependence, cigarettes, uncomplicated Hypothyroidism S/P right hip fracture Hip osteoarthritis Surgical History S/P hip replacement Hx of cardiac catheterization History of hip surgery History of colonoscopy History of esophagogastroduodenoscopy (EGD) Hx of eye surgery History of shoulder surgery History of hand surgery History of foot surgery History of tubal ligation History of total right hip arthroplasty Family History Father Bladder cancer Mother Acute CVA (cerebrovascular accident) Stroke CVD (cardiovascular disease) Thyroid disease Brother Renal cell cancer Acute CVA (cerebrovascular accident) Family/Other Alcoholism Social History Household Members: None Household Members Other:: 12/2021 Housing: House Are you a primary long term care administrator to a significant other at home: No Do you presently have visiting nurse or other home services: No Alcohol intake: current Alcohol intake frequency: a few times a week Patient Tobacco Use Status: Current everyday Tobacco user Tobacco use type: Cigarette Cigarette Packs Per Day: 0.5 Cigarettes Per Day: 7 Years Smoked: (onset 10yo, 3/4-1ppd x 52yrs, 40+PYH) e-Cigarette/Vaping Use: Never Used Second Hand Smoke Exposure: Yes Substance Use Type: Marijuana service: No Current occupational status: disabled Cognitive needs: No Hearing needs: No Vision needs: Yes (Glasses) Physical Exam Vital Signs: BMI result Body Mass Index 26.6 Extrem Other: Small planters were left foot Assessment & Plan Assessment & Plan (1) S/P total left hip arthroplasty: Code(s): Z96.642 - Presence of left artificial hip joint Category: Surgical Plan: Status post left NINI doing well. Has a small plantar is were. Not an issue. Follow up as previously scheduled Coding Level of Care Code Global (78585) Diagnoses S/P total left hip arthroplasty Z96.642
--- OUTSIDE RECORDS SUMMARY | 2024-09-15 15:30 | XMS_ITS | Data Portability ---
Author Organization [employer] [facility] [employer] [facility] Address [address] [place] [phone] Care Team Providers Care Facility Assistant Name Role Phone [facility] Referring Provider [phone] Assessment No assessment recorded. Plan of Treatment [...] Name and Address Organization Details Recorded Time 8113 ibuprofen medicatio n Not available Not available [...] SNOMED-CT Code Diagnosis ICD10 Code Diagnosis Note [id number] Gary Johnson MD Main - instED [address] [place] [phone] 11/03/2022 17:30:35 03/01/2023 10:47:17 Strain of neck muscle [id number] S16.1XXA This 62-year-ol d female called complainin g of neck and bilateral shoulder pain [...] Recorded Advance Directives Directive None Recorded Payers Insurance Date Sequence Insurance Name Policy Number Policy Mendiola Covered Member ID Mendiola Member ID Guarantor Name 11/03/[address] [facility] - DOS ON OR AFTER 2022 - DUAL ELIGIBLE - SENIOR LIVING OPTIONS AND ONE CARE (MEDICARE REPLACEMENT/ADV ANTAGE - HMO) Pamela Hale [id number] jorden Hale Notes Date Note Type Note Provider [...] .................. .................. .................. .................. .................. .................. ............... Tilt Tray Driver Note From Richa Bower: Sent to a [...] .................. ............... Disposition: Fulfilled Gary Johnson MD [address] [place] [address],[address], [place], [phone], [employer] 02/28/2023 14:25:58 OBGyn Episode No OBEpisode recorded.
== END 2024-09-15 15:21 | disposition home or self-care (01) ==
LOC: HO.HOS 13:57
PROVIDERS: PCP Internal Medicine; Visit Provider Orthopaedic Surgery
DX: Z47.1 Aftercare following joint replacement surgery (principal); Z96.642 Presence of left artificial hip joint
CPT/HCPCS: 99213

== ENCOUNTER → 2024-09-15 13:56 | Outpatient (BNVA) | payer OTHER, SELFPAY | PROVIDERS: PCP Internal Medicine; Visit Provider Orthopaedic Surgery | DX: Z96.642 Presence of left artificial hip joint (principal) | CPT/HCPCS: 99212 ==

== ENCOUNTER 2024-09-17 08:55 | Outpatient (AMB) | payer OTHER, SELFPAY ==
[2024-09-17 09:02] VITALS: BP 118/72; PULSE 78; O2SAT 97; BMI 26.2
--- NOTE | 2024-09-17 09:02 | A.OFFPC_ITS ---
Vital Signs 09/17/24 09:02 Height 5 ft 5 in Weight 157 lb 8 oz BMI 26.2 BP 118/72 Blood Pressure Location Lt brachial Position Sitting Pulse 78 Pulse Source Pulse Oximeter Pulse Oximetry (%) 97 Oxygen Delivery Method Room Air Intake Visit Reasons: 3 month f/u Technician Anatomic Pathology Required: No Accompanied by: Self / Same As Patient Allergies atorvastatin Allergy (Unknown, Verified 09/17/24 09:03) Cramps barium sulfate Allergy (Unknown, Verified 09/17/24 09:03) sore throat omeprazole Allergy (Unknown, Verified 09/17/24 09:03) diarrhea rosuvastatin Allergy (Unknown, Verified 09/17/24 09:03) Unknown simvastatin Allergy (Unknown, Verified 09/17/24 09:03) unknown varenicline (From Chantix) Allergy (Unknown, Verified 09/17/24 09:03) sore throat evolocumab (From Repatha SureClick) Adverse Reaction (Intermediate, Verified 09/17/24 09:03) cough Tobacco use date assessed: 09/17/24 Dental Screening Dental Screen Date: 09/17/24 Did you have a dental visit in the last 12 months?: Yes Did you have a dental problem in the last 6 months where you did not have access to dental care?: No Was dental information given to patient?: Patient has dentist HPI 3 month f/u HPI Details Patient has asks for increasing amount of Soma but discussed my thoughts against that and would rather take on other muscle relaxants to help but patient rejects this. Discussed referral to pain management for this patient has been reminded about blood work multiple times since last year and has not had it done. Discussed importance of getting the thyroid tested discussed about the getting the cholesterol under control but patient has declined medications for this discussed the concern about having a mild coronary artery disease and discussed about the dangers of continued smoking. Patient does have chronic bronchitis on the CAT scan. States under control right now as her use of albuterol is just once in a while [facility] Medical History (Updated 09/17/24 @ 09:41 by Marylin Kaba MD) Chronic kidney disease (CKD) stage G3a/A1, moderately decreased glomerular filtration rate (GFR) between 45-59 mL/min/1.73 square meter and albuminuria creatinine ratio less than 30 mg/g Thyroid disease CKD (chronic kidney disease) Concussion Elevated cholesterol Myalgia due to statin Neurocardiogenic syncope Forehead laceration Fall Oral candidiasis Nausea and vomiting Abdominal bloating Thoracic back pain Foot pain, left LUQ abdominal pain Abdominal pain Rectal bleeding Myalgia Neck pain Chest pain HLD (hyperlipidemia) Osteoarthritis of right hip Iliotibial band syndrome Hematoma and contusion Osteoarthritis of left hip Vitamin D deficiency Hearing loss Degenerative disc disease, lumbar GERD (gastroesophageal reflux disease) COPD (chronic obstructive pulmonary disease) Crohn's disease Nicotine dependence, cigarettes, uncomplicated Hypothyroidism S/P right hip fracture Hip osteoarthritis Surgical History S/P hip replacement Hx of cardiac catheterization History of hip surgery History of colonoscopy History of esophagogastroduodenoscopy (EGD) Hx of eye surgery History of shoulder surgery History of hand surgery History of foot surgery History of tubal ligation History of total right hip arthroplasty Family History Father Bladder cancer Mother Acute CVA (cerebrovascular accident) Stroke CVD (cardiovascular disease) Thyroid disease Brother Renal cell cancer Acute CVA (cerebrovascular accident) Family/Other Alcoholism Social History Household Members: None Household Members Other:: 12/2021 Housing: House Are you a primary residential child care counselor to a significant other at home: No Do you presently have visiting nurse or other home services: No Alcohol intake: current Alcohol intake frequency: a few times a week Patient Tobacco Use Status: Current everyday Tobacco user Tobacco use type: Cigarette Cigarette Packs Per Day: 0.5 Cigarettes Per Day: 7 Years Smoked: (onset 10yo, 3/4-1ppd x 52yrs, 40+PYH) e-Cigarette/Vaping Use: Never Used Second Hand Smoke Exposure: Yes Substance Use Type: Marijuana service: No Current occupational status: disabled Cognitive needs: No Hearing needs: No Vision needs: Yes (Glasses) Questionnaire PHQ-9 Over the last 2 weeks, how often have you been bothered by any of the following problems? 1. Little interest or pleasure in doing things: not at all 2. Feeling down, depressed, or hopeless: not at all 3. Trouble falling or staying asleep, or sleeping too much: not at all 4. Feeling tired or having little energy: several days 5. Poor appetite or overeating: not at all 6. Feeling bad about yourself - or that you are a failure or have let yourself or your family down: not at all 7. Trouble concentrating on things, such as reading the newspaper or watching television: not at all 8. Moving or speaking so slowly that other people could have noticed. Or the opposite - being so fidgety or restless that you have been moving around a lot more than usual: not at all 9. Thoughts that you would be better off or of hurting yourself in some way: not at all Total score: 1 Source: Developed by Drs. Moshe Mendoza, Layne Feng, Chad Pool and colleagues, with an educational tari from [email or web address]. Thrive Questionnaire Date Thrive assessed: 09/17/24 I am a: Patient What is your living situation today?: I have a steady place to live Within the past 12 months, did the food you bought not last and you didn't have the money to get more?: Sometimes True Within the past 12 months, did you worry whether your food would run out before you got money to buy more?: Sometimes True Do you have trouble paying for medicines?: No Do you have trouble getting transportation to medical appointments?: No Do you have trouble paying your heating and electricity bill?: Yes Do you have trouble taking care of your child, family member or friend?: No Do you have trouble with day-to-day activities such as bathing, preparing meals, shopping, managing finances, etc.?: I choose not to answer this question Are you currently unemployed and looking for a job?: No Are you interested in more education?: No Please select the resources that you would like help with: None Currently or been in a relationship where the following occur: I choose not to answer THRIVE Score: 3 AUDIT C Alcohol Use Questionnaire (AUDIT-C) 1. How often do you have a drink containing alcohol?: 2-4 times a month 2. How many drinks containing alcohol do you have on a typical day when you are drinking?: 1 or 2 3. How often do you have six or more drinks on one occasion?: Never Total Score: 2 SARIKA-7 AMB Questionnaire SARIKA-7 Date SARIKA - 7 assessed: 09/17/24 Feeling nervous, anxious, or on edge: 1 = Several days Not being able to stop or control worryin = Several days Worrying too much about different things: 1 = Several days Trouble relaxin = Several days Being so restless that it is hard to sit still: 2 = More than half the days Becoming easily annoyed or irritable: 0 = Not at all Feeling afraid as if something awful might happen: 0 = Not at all Total SARIKA-7 score (0-4 normal; 5-9 mild; 10-14 moderate; 15-21 severe): 6 Source: Developed by Drs. Moshe Mendoza, Layne Feng, Chad Pool and colleagues, with an educational tari from [email or web address]. Physical exam (Primary Care) Vital Signs: Last Vital Signs Pulse 78 09/17/24 09:02 BP 118/72 09/17/24 09:02 Pulse Ox 97 09/17/24 09:02 Oxygen Delivery Method Room Air 09/17/24 09:02 BMI result Body Mass Index 26.2 Tobacco/Smoking Status: Tobacco use Status Tobacco use date assessed 09/17/24 09/17/24 09:08 Patient Tobacco Use Status Current everyday Tobacco 09/17/24 09:08 Tobacco use type Cigarette 09/17/24 09:08 e-Cigarette/Vaping Use Never Used 09/17/24 09:08 PHQ-9: PHQ-9 Score PHQ-9: Total score 1 09/17/24 09:08 Thrive Assessment: Date of Thrive Assessment Date Thrive assessed 09/17/24 09/17/24 09:08 Currently or been in a relationship where the following occur: I choose not to answer Const General: alert; No acute distress Eyes Conjunctivae: conjunctivae normal Resp Auscultation: clear to auscultation bilaterally Cardio Rate: regular rate Rhythm: regular rhythm GI Inspection: Yes normal to inspection Extrem General: Yes normal to inspection and No edema Coding Level of Care Code Est Pt Level 4 (06477) Complex EM visit Add On G2211 Diagnoses S/P cardiac cath Z98.890 Pure hypercholesterolemia E78.00 Hyperlipidemia type: pure hypercholesterolemia Acquired hypothyroidism E03.9 Hypothyroidism type: acquired GERD (gastroesophageal reflux disease) K21.9 S/P total left hip arthroplasty Z96.642 Pulmonary emphysema, unspecified emphysema type J43.9 COPD type: emphysema Emphysema type: unspecified Nicotine dependence, cigarettes, uncomplicated F17.210 Generalized anxiety disorder F41.1 Left shoulder pain M25.512 Hearing difficulty H91.90 Plantar wart, left foot B07.0 Leg muscle spasm M62.838 Assessment & Plan Assessment & Plan (1) S/P cardiac cath: Comment: 03/06/2024, lad and RCA each with minimal luminal irregularities Code(s): Z98.890 - Other specified postprocedural states Category: Surgical Plan: Patient has seen Cardiology and has had a catheterization done (2) HLD (hyperlipidemia): Comment: decline referral to ENDO patient is statin intolerant and has tried the injectables with side effects. Code(s): E78.5 - Hyperlipidemia, unspecified Category: Medical Qualifiers: Hyperlipidemia type: pure hypercholesterolemia Qualified Code(s): E78.00 - Pure hypercholesterolemia, unspecified Plan: Avoid fried foods, chicken skin, eggs, butter margarine, pastries and meat. Be it pork or beef they have a lot of cholesterol LDL goal of less than 70 and triglyceride of less than 150. Patient has declined cholesterol medication (3) Hypothyroidism: Comment: decline referral to ENDO despite knowing problem with hypothyroidism Code(s): E03.9 - Hypothyroidism, unspecified Category: Medical Qualifiers: Hypothyroidism type: acquired Qualified Code(s): E03.9 - Hypothyroidism, unspecified Plan: Continue with thyroid medication (4) GERD (gastroesophageal reflux disease): Comment: EGD July 2021 Code(s): K21.9 - Gastro-esophageal reflux disease without esophagitis Category: Medical Plan: Avoid the foods that causes that usually spicy foods, tomato products, juices, coffee, soda and foods that your sensitive to. After eating do not lie down, allow 3-4 hours before in lie down. And keep the head of bed above 30 degrees to avoid the acid from going up. Stop smoking! (5) S/P total left hip arthroplasty: Code(s): Z96.642 - Presence of left artificial hip joint Category: Surgical Plan: Continue to follow-up with orthopedics (6) COPD (chronic obstructive pulmonary disease): Code(s): J44.9 - Chronic obstructive pulmonary disease, unspecified Category: Medical Qualifiers: COPD type: emphysema Emphysema type: unspecified Qualified Code(s): J43.9 - Emphysema, unspecified Plan: Patient is advised to stop smoking. On albuterol inhaler (7) Nicotine dependence, cigarettes, uncomplicated: Comment: (current smoker - onset 10yo, 3/4-1ppd x 52yrs, 40+PYH) Code(s): F17.210 - Nicotine dependence, cigarettes, uncomplicated Category: Medical Plan: Patient is advised to stop smoking. August [address] scan (8) Generalized anxiety disorder: Comment: [facility] Code(s): F41.1 - Generalized anxiety disorder Category: Medical Plan: Continue with present medication and counseling (9) Left shoulder pain: Code(s): M25.512 - Pain in left shoulder Category: Medical Plan: states will be seeing JERMAINE (10) Hearing difficulty: Code(s): H91.90 - Unspecified hearing loss, unspecified ear Category: Medical Plan: referral to ENT (11) Plantar wart, left foot: Code(s): B07.0 - Plantar wart Category: Medical Plan: declined podiatry and states will try to treat herself (12) Leg muscle spasm: Code(s): M62.838 - Other muscle spasm Category: Medical Plan: Discussed about doing vascular workup as the patient's leg spasms getting worse. Plan History of Present Illness The patient is a 63-year-old female presenting for follow-up on multiple chronic conditions and preventative care. She has a history of hip osteoarthritis and underwent left hip arthroplasty on April 08, 2024. She reports a 3-pound weight loss and continues to manage her weight. The patient has a history of Chronic Obstructive Pulmonary Disease (COPD) and is a smoker. She uses an albuterol inhaler as needed, particularly during hot weather, and her oxygen saturation is consistently at 97%. She has hypothyroidism and continues with her thyroid medication. Her last cholesterol test in October 2023 showed an LDL of 214 mg/dL, and she has declined cholesterol medication. The patient has a paraesophageal hernia and experiences reflux, for which she avoids certain triggers. She reports a plantar wart on her left foot, which she is attempting to manage at home. The patient has a history of anemia noted in her last blood work in March 2024, with normal electrolytes and renal function. She plans to follow up with blood work to reassess her anemia status. Preventative care includes a mammogram that is due, and her colonoscopy is up to date until October 2023. Health Maintenance - Mammogram due - Colonoscopy up to date until October 2023 - Smoking cessation advised Social History - Smoking: Current smoker with COPD - Exercise: Reports weight management efforts and a recent 3-pound weight loss Review of Systems - Respiratory: Reports dyspnea on exertion, uses albuterol inhaler as needed - Musculoskeletal: Reports shoulder pain and leg spasms - Dermatological: Reports plantar wart on left foot - Neurological: Denies dizziness or balance issues Physical Exam - Respiratory: Lungs clear to auscultation bilaterally - Cardiovascular: Regular rate and rhythm, no murmurs, rubs, or gallops - Ear examination: No ear wax obstruction, hearing loss noted Results - Labs: Anemia noted in blood work from March 2024 - Imaging: Chest CT in August 2024 showed mild emphysema, no suspicious lung nodules - Imaging: Mild thickening suggesting chronic bronchitis - Labs: LDL cholesterol of 214 mg/dL in October 2023 Plan The patient will continue with her current thyroid medication and is advised to follow up on her cholesterol levels, given her LDL of 214 mg/dL. Smoking cessation is strongly recommended due to her COPD and chronic bronchitis, and she is advised to continue using her albuterol inhaler as needed. For her plantar wart, the patient is attempting home management but may consider a referral to a enterprise application administrator if the condition persists. She is also advised to follow up with blood work to reassess her anemia status and to monitor her kidney function due to recent concerns. Preventative care includes scheduling a mammogram and ensuring her colonoscopy remains up to date. Patient was informed and verbally consented to the use of an ambient scribe for clinic note documentation during this visit. Discussion Notes I discussed with the patient the importance of smoking cessation due to her COPD and chronic bronchitis, emphasizing the benefits of reducing respiratory symptoms and improving overall health. We reviewed her cholesterol levels and the need for lifestyle modifications to manage her hypercholesterolemia, as she has declined medication. I advised her to continue with her thyroid medication and to follow up on her anemia with blood work. We also discussed the management of her plantar wart and the option of seeing a enterprise application administrator if needed. Patient Instructions - Continue thyroid medication as prescribed. - Follow up on cholesterol levels and consider lifestyle changes to manage cholesterol. - Quit smoking to improve respiratory health. - Use albuterol inhaler as needed for respiratory symptoms. - Manage plantar wart at home; consider enterprise application administrator referral if no improvement. - Schedule and complete blood work to reassess anemia and kidney function. - Schedule a mammogram and ensure colonoscopy is up to date. Orders: Orders Comprehensive Met. Panel Today E78.2 - Mixed hyperlipidemia Free T4 (Free Thyroxine) Today E78.2 - Mixed hyperlipidemia Thyroid Stimulating Hormone Today E78.2 - Mixed hyperlipidemia Ferritin Today E78.2 - Mixed hyperlipidemia Reticulocyte Count Today E78.2 - Mixed hyperlipidemia Complete Blood Count Auto Diff Today E78.2 - Mixed hyperlipidemia Lipid Panel Today E78.00 - Pure hypercholesterolemia, unspecified, E78.2 - Mixed hyperlipidemia Vitamin B12 and Folate Today E78.2 - Mixed hyperlipidemia IRON PROFILE Today E78.2 - Mixed hyperlipidemia US arterial duplex LE BI Today M62.838 - Other muscle spasm UA CC w/rflx Micro + Cult Today M62.838 - Other muscle spasm, R30.0 - Dysuria Referrals Pain Management Referral M62.838 - Other muscle spasm Ear/Nose/Throat Referral H91.90 - Unspecified hearing loss, unspecified ear
--- OUTSIDE RECORDS SUMMARY | 2024-09-17 09:34 | XMS_ITS | Data Portability ---
Author Organization [employer] [facility], [facility] Address [address] [place] [address] Care Team Providers Care Bowling Ball Patcher Name Role Phone [facility] Referring Provider Assessment [...] Name and Address Organization Details Recorded Time 8119 ibuprofen medicatio n Not available Not available [...] SNOMED-CT Code Diagnosis ICD10 Code Diagnosis Note [id number] Gary Johnson MD Main - [facility] [address] [place] [phone] 11/03/2022 17:30:35 03/01/2023 10:47:17 Strain of neck muscle [id number] S16.1XXA This 62-year-ol d female called complainin [...] Mendiola Member ID Guarantor Name 11/03/2022 1 [facility] - DOS ON OR AFTER 2022 - DUAL ELIGIBLE - INTERMEDIATE OPTIONS AND ONE CARE (MEDICARE REPLACEMENT/ADV ANTAGE - HMO) Pamela Hale [id number] jorden Hale Notes Date Note Type Note [...] .................. .................. .................. .................. .................. .................. ............... [employer] Note From Richa Bower: Sent to a [...] .................. ............... Disposition: Fulfilled Gary Johnson MD [address] [place] [address],[address], [place], [phone], [facility] 02/28/2023 14:25:58 OBGyn Episode No OBEpisode recorded.
== END 2024-09-17 09:49 | disposition home or self-care (01) ==
LOC: HO.HMCH 08:56
PROVIDERS: PCP Internal Medicine; Visit Provider Internal Medicine
DX: E78.00 Pure hypercholesterolemia, unspecified (principal); J43.9 Emphysema, unspecified; Z98.890 Other specified postprocedural states; E03.9 Hypothyroidism, unspecified; K21.9 Gastro-esophageal reflux disease without esophagitis; Z96.642 Presence of left artificial hip joint; F17.210 Nicotine dependence, cigarettes, uncomplicated; F41.1 Generalized anxiety disorder; M25.512 Pain in left shoulder; H91.93 Unspecified hearing loss, bilateral; B07.0 Plantar wart; M62.838 Other muscle spasm

== ENCOUNTER → 2024-09-17 08:55 | Outpatient (BNVA) | payer OTHER, SELFPAY | PROVIDERS: PCP Internal Medicine; Visit Provider Internal Medicine | DX: K21.9 Gastro-esophageal reflux disease without esophagitis (principal); E03.9 Hypothyroidism, unspecified; J43.9 Emphysema, unspecified; F41.1 Generalized anxiety disorder; M25.512 Pain in left shoulder; H91.90 Unspecified hearing loss, unspecified ear; B07.0 Plantar wart; F17.210 Nicotine dependence, cigarettes, uncomplicated; M62.838 Other muscle spasm; E78.2 Mixed hyperlipidemia; Z96.642 Presence of left artificial hip joint; Z98.890 Other specified postprocedural states | CPT/HCPCS: 96127; 99212 ==

== ENCOUNTER 2024-10-06 06:51 | Outpatient (REF) | payer OTHER, SELFPAY ==
--- OUTSIDE RECORDS SUMMARY | 2024-10-06 06:54 | XMS_ITS | Patient Health Record ---
Author Organization [facility] Address [address] [place] [phone] Care Team Providers Care Parts Representative Name Role Phone Moshe Morelos Unavailable [phone] Reason For Referral No Information Plan Of Treatment No Information
--- OUTSIDE RECORDS SUMMARY | 2024-10-06 06:54 | XMS_ITS | Data Portability ---
Author Organization [employer] [facility], [facility] Address [address] [place] [phone] Care Team Providers Care Check Scaler Name Role Phone [facility] Referring Provider [phone] Assessment No assessment recorded. Plan of Treatment [...] Name and Address Organization Details Recorded Time 8107 ibuprofen medicatio n Not available Not available [...] Body temperature Respiratory rate Heart rate Systolic And Diastolic Provider Name and Address Organization Details Last Updated DateTime 3 97 % 97 % 98.3 [degF] 18 /min 80 /min 130/79 mm[Hg] Not Available [facility] - production 3 [...] SNOMED-CT Code Diagnosis ICD10 Code Diagnosis Note [id number] Gary Johnson MD Main - [facility] [address] [place] [phone] 11/03/2022 17:30:35 03/01/2023 10:47:17 Strain of neck muscle [id number] S16.1XXA This 62-year-ol d female called complainin [...] Mendiola Member ID Guarantor Name 11/03/2022 1 [facility] - DOS ON OR AFTER 2022 - DUAL ELIGIBLE - SKILLED NURSING OPTIONS AND ONE CARE (MEDICARE REPLACEMENT/ADV ANTAGE - HMO) Pamela Hale [id number] Pamela Hale Notes Date Note Type Note [...] .................. .................. .................. .................. .................. .................. ............... Construction Executive Note From Richa Bower: Sent to a [...] .................. ............... Disposition: Fulfilled Gary Johnson MD [address] [place] [address],[address], [place], [phone], [employer] 02/28/2023 14:25:58 OBGyn Episode No OBEpisode recorded.
[2024-10-06 07:07] LABS: MANUAL DIFF FLAG NO
[2024-10-06 07:26] LABS: Hematocrit 45.2 % (37.0-47.0); Hemoglobin 15.0 g/dl (12.0-16.0); Imm Gran Abs Auto 0.04 X10*3/uL (0.00-0.03); Imm Gran Pct Auto 0.4 % (0.0-0.4); Lymphocytes Absolute Auto 2.8 X10*3/uL (1.2-4.9); Mean Corpuscular HGB Conc 33.2 g/dl (31.0-35.0); Mean Corpuscular Hemoglobin 31.0 pg (27.0-33.0); Mean Corpuscular Volume 93.4 fL (80.0-98.0); NRBC Abs Auto 0.000 X10*3/uL (0.0-0.012); NRBC Pct Auto 0.0 /100WBC (0.0-0.2); Platelet Count 320 X10*3/uL (160-400); Red Blood Count 4.84 X10*6/uL (4.20-5.50); Reticulocytes Absolute 0.139 X10*6/uL (0.026-0.095); White Blood Count 9.9 X10*3/uL (4.8-10.8)
[2024-10-06 08:16] LABS: Alanine Aminotransferase 12 U/L (0-31); Albumin Level 4.5 g/dL (3.5-5.0); Alkaline Phosphatase 85 U/L (39-117); Anion Gap 11 (12-20); Aspartate Amino Transferase 20 U/L (5-31); Blood Urea Nitrogen 11 mg/dL (9-16); Calcium 9.4 mg/dL (8.4-10.2); Carbon Dioxide 23 mmol/L (22-29); Chloride 112 mmol/L (96-108); Cholesterol 278 mg/dL (<200); Estimated Glomerular Filt Rate 48; HDL Cholesterol 45 mg/dL (>40); Iron 53 mcg/dL (30-160); Percent Iron Saturation 20 % (15-50); Potassium 4.1 mmol/L (3.3-5.1); Sodium 142 mmol/L (135-145); Total Iron Binding Capacity 269 mcg/dL (228-428); Total Protein 7.4 g/dL (6.5-8.0); Triglycerides 307 mg/dL (<150); Unsaturated Iron Binding 216 ug/dL
[2024-10-06 08:36] LABS: Folate 6.9 ng/mL (> or = 4.0); Vitamin B12 586 pg/mL (200-900)
[2024-10-06 08:39] LABS: Ferritin 78 ng/mL (10-250); Free T4 (Free Thyroxine) 0.77 ng/dL (0.71-1.85); Thyroid Stimulating Hormone 11.18 uIU/mL (0.32-4.0)
[2024-10-06 10:43] LABS: Appearance Urine Clear; Glucose Urine UA Negative (Negative); PH 6.0 (5.0-9.0); Specific Gravity - Urine 1.015 (1.005-1.025); UMIC TRIGGER UACC YES
[2024-10-06 11:51] LABS: UACC Culture Trigger YES
== END 2024-10-06 06:52 | disposition home or self-care (01) ==
LOC: HO.LAB 06:51
PROVIDERS: PCP Internal Medicine; Visit Provider Internal Medicine
DX: E78.2 Mixed hyperlipidemia (principal)
CPT/HCPCS: 36415; 80053; 80061; 81001; 81003; 82607; 82728; 82746; 83540; 84439; 84443; 85025; 85045; 87086

== ENCOUNTER 2024-10-09 12:54 | Outpatient (REF) | payer OTHER, SELFPAY ==
--- NOTE | ~2024-10-09 | XR_ITS ---
EXAMINATION: XR PELVIS 1-2 VIEWS HISTORY: M25.559 - Pain in unspecified hip COMPARISON: Comparison is made with the prior examination dated 05/19/2024. FINDINGS: Two AP views of the pelvis is submitted. The patient is status post bilateral total hip arthroplasty. The orthopedic elements are in anatomic alignment. There is no radiographic evidence of loosening. There is no fracture or dislocation. There are vascular calcifications. XR/XR pelvis 1-2V IMPRESSION: Status post bilateral total hip arthroplasty. Electronically signed by: Moshe Purvis MD 10/09/2024 01:55 PM EDT
--- OUTSIDE RECORDS SUMMARY | 2024-10-09 13:19 | XMS_ITS | Data Portability ---
Author Organization [employer] [facility], [facility] Address [address] [place] [phone] Care Team Providers Care Crude Oil Treater Name Role Phone [facility] Referring Provider Assessment No [...] Name and Address Organization Details Recorded Time 8136 ibuprofen medicatio n Not available Not available [...] SNOMED-CT Code Diagnosis ICD10 Code Diagnosis Note [id number] Gary Johnson MD Main - [facility] [address] [place] [phone] 11/03/2022 17:30:35 03/01/2023 10:47:17 Strain of neck muscle [id number] S16.1XXA This 62-year-ol d female called complainin [...] Mendiola Member ID Guarantor Name 11/03/2022 1 [facility] - DOS ON OR AFTER 2022 - DUAL ELIGIBLE - USP OPTIONS AND ONE CARE (MEDICARE REPLACEMENT/ADV ANTAGE - HMO) Pamela Hale [id number] Pamela Hale Notes Date Note Type Note [...] .................. .................. .................. .................. .................. .................. ............... [employer]ines Assembler Note From Richa Bower: Sent to a [...] .................. ............... Disposition: Fulfilled Gary Johnson MD [address] [place] [address],[address], [place], [phone], [employer] 02/28/2023 14:25:58 OBGyn Episode No OBEpisode recorded.
--- OUTSIDE RECORDS SUMMARY | 2024-10-09 13:20 | XMS_ITS | Patient Health Record ---
Author Organization [facility] Address [address] [place] [phone] Care Team Providers Care Electronic Parts Salesperson Name Role Phone Moshe Morelos Unavailable [phone] Reason For Referral No Information Plan Of Treatment No Information
== END 2024-10-09 12:55 | disposition home or self-care (01) ==
LOC: HO.HOSX 12:54
PROVIDERS: Visit Provider Orthopaedic Surgery
DX: M25.552 Pain in left hip (principal); Z96.642 Presence of left artificial hip joint
CPT/HCPCS: 72170; 99212

== ENCOUNTER 2024-10-09 13:10 | Outpatient (AMB) | payer OTHER, SELFPAY ==
--- NOTE | 2024-10-09 13:21 | A.OFFVIS_ITS ---
Intake Visit Reasons: OV- LT nini 04/08/24 with xrays Intake Note: is a 63 year old female who presents today for a follow up visit s/p Left NINI 04/08/24. Patient reports that she took a fall 10/02/24 onto her knees and hands. She reports that she took the fall and instantly felt nauseated. She reports that she has having abdominal pain , today she had black stool and coffee ground stool . She is unsure if her pain if from the hip when she fell or her abdomen. She is unable to lay on her side. We discussed that she will contact her Gastro provider in regards to these concerns [facility] Allergies atorvastatin Allergy (Unknown, Verified 10/09/24 13:30) Cramps barium sulfate Allergy (Unknown, Verified 10/09/24 13:30) sore throat omeprazole Allergy (Unknown, Verified 10/09/24 13:30) diarrhea rosuvastatin Allergy (Unknown, Verified 10/09/24 13:30) Unknown simvastatin Allergy (Unknown, Verified 10/09/24 13:30) unknown varenicline (From Chantix) Allergy (Unknown, Verified 10/09/24 13:30) sore throat evolocumab (From Repatha SureClick) Adverse Reaction (Intermediate, Verified 10/09/24 13:30) cough HPI HPI OV- LT nini 04/08/24 with xrays: Details: is 6 months status post left NINI. She was doing well until she fell on her left side last week and has been having some pain over the iliac crest of her left side. She denies groin pain. FORMERLY [facility], [facility]–1983 Medical History (Updated 10/03/24 @ 17:24 by Marylin Kaba MD) Chronic kidney disease (CKD) stage G3a/A1, moderately decreased glomerular zoila tration rate (GFR) between 45-59 mL/min/1.73 square meter and albuminuria creatinine ratio less than 30 mg/g Thyroid disease CKD (chronic kidney disease) Concussion Elevated cholesterol Myalgia due to statin Neurocardiogenic syncope Forehead laceration Fall Oral candidiasis Nausea and vomiting Abdominal bloating Thoracic back pain Foot pain, left LUQ abdominal pain Abdominal pain Rectal bleeding Myalgia Neck pain Chest pain HLD (hyperlipidemia) Osteoarthritis of right hip Iliotibial band syndrome Hematoma and contusion Osteoarthritis of left hip Vitamin D deficiency Hearing loss Degenerative disc disease, lumbar GERD (gastroesophageal reflux disease) COPD (chronic obstructive pulmonary disease) Crohn's disease Nicotine dependence, cigarettes, uncomplicated Hypothyroidism S/P right hip fracture Hip osteoarthritis Surgical History S/P hip replacement Hx of cardiac catheterization History of hip surgery History of colonoscopy History of esophagogastroduodenoscopy (EGD) Hx of eye surgery History of shoulder surgery History of hand surgery History of foot surgery History of tubal ligation History of total right hip arthroplasty Family History Father Bladder cancer Mother Acute CVA (cerebrovascular accident) Stroke CVD (cardiovascular disease) Thyroid disease Brother Renal cell cancer Acute CVA (cerebrovascular accident) Family/Other Alcoholism Social History Household Members: None Household Members Other:: 12/2021 Housing: House Are you a primary care management associate to a significant other at home: No Do you presently have visiting nurse or other home services: No Alcohol intake: current Alcohol intake frequency: a few times a week Patient Tobacco Use Status: Current everyday Tobacco user Tobacco use type: Cigarette Cigarette Packs Per Day: 0.5 Cigarettes Per Day: 7 Years Smoked: (onset 10yo, 3/4-1ppd x 52yrs, 40+PYH) e-Cigarette/Vaping Use: Never Used Second Hand Smoke Exposure: Yes Substance Use Type: Marijuana service: No Current occupational status: disabled Cognitive needs: No Hearing needs: No Vision needs: Yes (Glasses) Physical Exam Extrem Other: On exam there is mild tenderness along the distal aspect of the left hip incision. Incision is clean dry intact. She is walking comfortably. She has no pain with hip range of motion. There is some dull discomfort over her iliac crest at the site of her presumed contusion. Results Reviewed Results Reviewed: I personally reviewed relevant radiographs. Left NINI in expected post operative position with no hardware complications or evidence of loosening. There is consolidation of some mild heterotopic ossification at the tip of the greater trochanter. Assessment & Plan Assessment & Plan (1) S/P total left hip arthroplasty: Code(s): Z96.642 - Presence of left artificial hip joint Category: Surgical Plan: Status post left hip arthroplasty doing well. No evidence of injury after fall. She does have a small area of possible heterotopic ossification of the tip of the left greater trochanter. She is 6 months postop and I do not think there is any anything to do regarding this. She should continue activity as tolerated and will follow up me in 6 months' time. Orders: Orders XR pelvis 1-2V 10/09/24 M25.559 - Pain in unspecified hip Coding Level of Care Code Est Pt Level 3 (26318) Diagnoses S/P total left hip arthroplasty Z96.642
== END 2024-10-09 13:39 | disposition home or self-care (01) ==
LOC: HO.HOS 13:11
PROVIDERS: PCP Internal Medicine; Visit Provider Orthopaedic Surgery
DX: Z47.1 Aftercare following joint replacement surgery (principal); Z96.642 Presence of left artificial hip joint
CPT/HCPCS: 99213

== ENCOUNTER → 2024-10-09 13:14 | Outpatient (BNV) | payer OTHER, SELFPAY | PROVIDERS: Visit Provider Radiology Diagnostic Radiology | DX: Z96.643 Presence of artificial hip joint, bilateral (principal) | CPT/HCPCS: 72170 ==

== ENCOUNTER 2024-10-17 10:42 | Emergency (ER) | payer OTHER, SELFPAY ==
--- NOTE | ~2024-10-17 | CT_ITS ---
EXAMINATION: CT ABDOMEN AND PELVIS WITH CONTRAST CLINICAL INFORMATION: History of Crohn's disease. Left lower quadrant pain COMPARISON: December 20, 2020. TECHNIQUE: Multidetector volumetric images were obtained from the superior aspect of the liver through the pubic symphysis following administration 85 mL of Omnipaque 350 intravenous contrast. Sagittal and coronal reformatted images were obtained on the technologist's workstation. Oral contrast: No This CT examination was performed using dose optimization techniques as appropriate, variously including the following: *Automated exposure control *Adjustment of mA and/or kV according to patient size (this includes techniques or standardized protocols for targeted exams where dose is matched to indication/reason for exam; i.e. extremities or head) *Use of iterative reconstruction technique. DLP: 650 mGy centimeter. FINDINGS: LUNG BASES: Centrilobular emphysematous changes. Atelectasis in the periphery of the lung bases. LIVER, GALLBLADDER, AND BILIARY TREE: Liver measures 18 cm. No focal mass. Portal veins, hepatic veins are patent. No pericholecystic fluid collection or gallbladder wall thickening. No intrahepatic or extrahepatic biliary ductal dilatation. PANCREAS: No focal mass. No peripancreatic fluid collection. No main pancreatic duct measures 3 mm. SPLEEN: 9 cm. No focal mass. ADRENAL GLANDS: Soft tissue fullness without nodular lesion. KIDNEYS AND URETERS: Renal cortical defects throughout the right and left kidney. No focal mass. No gross hydronephrosis. There is a 1.2 cm focal slightly hyperintense abnormality along the cortical defect in the midportion of the right kidney. No gross nephrolithiasis. BLADDER: Fluid-filled. Limited by beam hardening artifact secondary to bilateral hip arthroplasty prosthesis. GASTROINTESTINAL TRACT: Abundant stool throughout the large intestine. Numerous diverticula in the sigmoid colon. There is asymmetric wall thickening in the proximal to mid sigmoid colon with multiple diverticula. No peripheral enhancing fluid collection in the peritoneal cavity. No ascites. No pneumoperitoneum. No intestinal obstruction pattern. Appendix is normal. ABDOMINAL WALL: Small fat-containing supraumbilical hernia. LYMPH NODES: Nonspecific prominent likely reactive mesenteric and retroperitoneal lymph nodes. VASCULAR: Mixed plaques throughout the abdominal aorta wall and iliac arteries coronary arteries. No aneurysm or dissection, abdominal aorta. PELVIC VISCERA: Limited evaluation due to metallic beam hardening artifact secondary to hip prosthesis. OSSEOUS STRUCTURES: Multilevel spondylosis pronounced at L5-S1 and T11-12. Status post bilateral hip arthroplasty prosthesis. Focal hyperdensity right acetabulum. Osteopenia versus osteoporosis. No gross acute fracture. CT/CT abdomen pelvis w IV con IMPRESSION: Concerning acute sigmoid colon diverticulitis without abscess or perforation. Fleischner guidelines were followed. Electronically signed by: Tim Tuttle MD 10/17/2024 02:06 PM EDT
[2024-10-17 10:44] VITALS: BP 140/63; PULSE 73; RESP 18; TEMP 36.4; O2SAT 98; BMI 25.5
[2024-10-17 11:47] LABS: MANUAL DIFF FLAG NO
[2024-10-17 11:49] LABS: Hematocrit 40.4 % (37.0-47.0); Hemoglobin 13.6 g/dl (12.0-16.0); Imm Gran Abs Auto 0.07 X10*3/uL (0.00-0.03); Imm Gran Pct Auto 0.6 % (0.0-0.4); Lymphocytes Absolute Auto 2.8 X10*3/uL (1.2-4.9); Mean Corpuscular HGB Conc 33.7 g/dl (31.0-35.0); Mean Corpuscular Hemoglobin 31.1 pg (27.0-33.0); Mean Corpuscular Volume 92.4 fL (80.0-98.0); NRBC Abs Auto 0.000 X10*3/uL (0.0-0.012); NRBC Pct Auto 0.0 /100WBC (0.0-0.2); Platelet Count 304 X10*3/uL (160-400); Red Blood Count 4.37 X10*6/uL (4.20-5.50); White Blood Count 11.3 X10*3/uL (4.8-10.8)
--- NOTE | 2024-10-17 11:56 | ED_ITS ---
HPI - Abdominal Pain General Chief Complaint: Abdominal Pain Stated Complaint: Black Stool Abd Pain Time Seen by Provider: 10/17/24 11:52 Source: patient and RN notes reviewed Mode of arrival: ambulatory Limitations: no limitations History of Present Illness ED Provider: Roshan Alarcon PA-C HPI narrative: 64-year-old female with medical history of Crohn's disease, bipolar disorder, HLD, COPD, GERD, CKD, hypothyroidism, presents to the ED today due to 2 weeks of abdominal pain. Patient states 2 weeks ago she was going to bed attempting to lay on her left side when she noticed left lower quadrant abdominal pain. She states over the past 2 weeks pain has intensified and describes the pain as a ?cold and tearing sensation? of her left lower abdomen. Patient states she has also been experiencing soft, black, tarry stools over the last 2 weeks. Patient states she feels as if she has to have a bowel movement frequently throughout the day, with small volume of stool. Patient states she has been passing flatus last bowel movement was today 10/17. Patient states these symptoms are accompanied by intermittent nausea without vomiting. Patient states she is managing Crohn's disease of diet changes in medical marijuana. Additionally, patient states she has had increased stress due to a close friend being on hospice and passing yesterday 10/16. Which is why she has not come in for evaluation. Patient states she decided to come today after experiencing the ?tearing and cold sensation? in her left lower abdomen which occurred last night when she was trying to go to bed. Patient states this sensation was exacerbated by trying to lay on her left side but quickly resolved, and has not had any additional episodes since last night Related Data Home Medications ?Medication ?Instructions ?Recorded ?Confirmed albuterol sulfate 2.5 mg/3 mL 2.5 mg inhalation Q4-6H PRN 02/06/20 06/26/24 (0.083 %) solution for nebulization Shortness Of Breat h Or Wheezing diclofenac sodium 1 % topical gel 4 g topical QID PRN Pain 03/10/24 06/26/24 (Voltaren Arthritis Pain) Previous Rx's ?Medication ?Instructions ?Recorded albuterol sulfate 90 mcg/actuation 2 puff PO Q4H PRN b ronchospasm #18 11/29/21 aerosol inhaler (Ventolin HFA) grams fluticasone propionate 50 2 spray intranasal DAILY #16 grams 10/01/22 mcg/actuation nasal spray,suspension walker #1 ea 02/11/24 Raised toilet seat #1 ea 03/05/24 acetaminophen 325 mg tablet 650 mg (2 x 325 mg) PO Q6H PRN 04/10/24 Pain, Mild 1-3,Fever,Headache 30 days #420 tabs carbamide peroxide 6.5 % ear drops 5 drp otic (ear) ri ght DAILY 4 06/16/24 (Debrox) days #15 mL komgrird-vsjotzvvu-ywhhfephv 3.5 4 drp otic (ear) righ t Q8H 7 days 06/26/24 mg/mL-10,000 unit/mL-1 % ear #10 mL solution carisoprodol 350 mg tablet 350 mg PO BID PRN muscle pa in #50 09/23/24 tabs phenazopyridine 200 mg tablet 200 mg PO TID PRN pain # 14 tabs 10/06/24 (Pyridium) amoxicillin 875 mg-potassium 1 tab PO BID 7 days #13 t abs 10/17/24 clavulanate 125 mg tablet ondansetron HCl 4 mg tablet 4 mg PO Q8H 4 days #12 tab s 10/17/24 oxycodone 5 mg tablet 5 mg PO Q8H PRN pain 3 days #9 tabs 10/17/24 Allergies Allergy/AdvReac Type Severity Reaction Status Date / Time atorvastatin Allergy Unknown Cramps Verified 10/17/24 10:46 barium sulfate Allergy Unknown sore throat Verified 10/17/24 10:46 omeprazole Allergy Unknown diarrhea Verified 10/17/24 10:46 rosuvastatin Allergy Unknown Unknown Verified 10/17/24 10:46 simvastatin Allergy Unknown unknown Verified 10/17/24 10:46 varenicline (From Chantix) Allergy Unknown sore throat Verified 10/17/24 10:46 evolocumab (From Repatha AdvReac Intermediate cough Verified 10/17/24 10:46 SureClick) Review of Systems Review of Systems CONST: Negative for fever, body aches and chills. HENT: Negative for neck pain/stiffness, headache, congestion, sore throat, swelling. EYES: Negative for discharge/pain or vision changes. RESP: Negative for cough/hemoptysis and shortness of breath. CV: Negative chest pain, difficulty breathing, palpitations. ABD: POS L/periumbilical pain, nausea. Negative vomiting : Negative increase frequency, dysuria. POS dark/tarry soft stool, increased frequency with small volume BM MUSC: Negative for muscle aches, edema. SKIN: Negative rash, lesions/sores. NEURO: Negative headache, dizziness, weakness. Yes all other systems are reviewed and are negative PMFSH Past Medical History Attestation statement: The following information was validated with the patient. Source: old records reviewed and nursing notes reviewed Medical History Chronic kidney disease (CKD) stage G3a/A1, moderately decreased glomerular filtration rate (GFR) between 45-59 mL/min/1.73 square meter and albuminuria creatinine ratio less than 30 mg/g Thyroid disease CKD (chronic kidney disease) Concussion Elevated cholesterol Myalgia due to statin Neurocardiogenic syncope Forehead laceration Fall Oral candidiasis Nausea and vomiting Abdominal bloating Thoracic back pain Foot pain, left LUQ abdominal pain Abdominal pain Rectal bleeding Myalgia Neck pain Chest pain HLD (hyperlipidemia) Osteoarthritis of right hip Iliotibial band syndrome Hematoma and contusion Osteoarthritis of left hip Vitamin D deficiency Hearing loss Degenerative disc disease, lumbar GERD (gastroesophageal reflux disease) COPD (chronic obstructive pulmonary disease) Crohn's disease Nicotine dependence, cigarettes, uncomplicated Hypothyroidism S/P right hip fracture Hip osteoarthritis Surgical History S/P hip replacement Hx of cardiac catheterization History of hip surgery History of colonoscopy History of esophagogastroduodenoscopy (EGD) Hx of eye surgery History of shoulder surgery History of hand surgery History of foot surgery History of tubal ligation History of total right hip arthroplasty Family History Family History Father Bladder cancer Mother Acute CVA (cerebrovascular accident) Stroke CVD (cardiovascular disease) Thyroid disease Brother Renal cell cancer Acute CVA (cerebrovascular accident) Family/Other Alcoholism Social History Social History Household Members: None Household Members Other:: 12/2021 Housing: House Are you a primary healthcare project manager to a significant other at home: No Do you presently have visiting nurse or other home services: No Alcohol intake: current Alcohol intake frequency: a few times a week Patient Tobacco Use Status: Current everyday Tobacco user Tobacco use type: Cigarette Cigarette Packs Per Day: 0.5 Cigarettes Per Day: 7 Years Smoked: (onset 10yo, 3/4-1ppd x 52yrs, 40+PYH) e-Cigarette/Vaping Use: Never Used Second Hand Smoke Exposure: Yes Substance Use Type: Marijuana service: No Current occupational status: disabled Cognitive needs: No Hearing needs: No Vision needs: Yes (Glasses) Physical Exam ED Vital Signs: Vital Signs - 24 hr 10/17/24 12:32 10/17/24 14:57 10/17/24 16:11 Temperature 98.3 F 97.5 F 97.0 F Pulse Rate 75 63 61 Respiratory Rate 16 16 16 Blood Pressure 114/55 L 143/60 H 110/40 L Pulse Oximetry 95 98 97 Oxygen Delivery Method Room Air Room Air Room Air 10/17/24 17:50 Temperature 97.0 F Pulse Rate 63 Respiratory Rate 16 Blood Pressure 115/63 Pulse Oximetry 95 Oxygen Delivery Method Room Air BMI result Body Mass Index 25.5 GENERAL APPEARANCE: ?AxOx4, tired appearing, no acute distress. HEENT: ?NC, AT. MMM. EOMI, clear conjunctiva, oropharynx clear. NECK: ?Supple without lymphadenopathy.? No stiffness or restricted ROM. HEART:? Normal rate and regular rhythm, normal S1/S2, no m/r/g LUNGS:? CTAB, moving air well. No crackles or wheezes are heard. ABDOMEN: ?Soft, nondistended, no rigidity, negative Leyva's sign, TTP over left lower quadrant and periumbilical area, with hypoactive bowel sounds in all 4 quadrants. No overlying skin changes, no ecchymosis, no pulsatile masses. BACK: No CVAT, no obvious deformity. EXTREMITIES: ?Without cyanosis, clubbing or edema. NEUROLOGICAL: ?Grossly nonfocal. Alert and oriented, moving all 4 extremities. Observed to ambulate with normal gait. Skin: ?Warm and dry without any rash. Medical Decision Making Medical Decision Making MDM Narrative: 64-year-old female with medical history of Crohn's disease, bipolar disorder, HLD, COPD, GERD, CKD, hypothyroidism, presents to the ED today due to 2 weeks of abdominal pain. Patient states 2 weeks ago she was going to bed attempting to lay on her left side when she noticed left lower quadrant abdominal pain. She states over the past 2 weeks pain has intensified and describes the pain as a ?cold and tearing sensation? of her left lower abdomen. Patient states she has also been experiencing soft, black, tarry stools over the last 2 weeks. Patient states she feels as if she has to have a bowel movement frequently throughout the day, with small volume of stool. Patient states she has been passing flatus last bowel movement was today 10/17. Patient states these symptoms are accompanied by intermittent nausea without vomiting. Patient states she is managing Crohn's disease of diet changes in medical marijuana. Additionally, patient states she has had increased stress due to a close friend being on hospice and passing yesterday 10/16. Which is why she has not come in for evaluation. Patient states she decided to come today after experiencing the ?tearing and cold sensation? in her left lower abdomen which occurred last night when she was trying to go to bed. Patient states this sensation was exacerbated by trying to lay on her left side but quickly resolved, and has not had any additional episodes since last night VSS, patient afebrile, without tachypnea, no tachycardia, O2 sat 95% on room air. On physical exam abdomen is Soft, nondistended, without rigidity, negative Leyva's sign, no rebound tenderness, no guarding, TTP over left lower quadrant and periumbilical area, with hypoactive bowel sounds in all 4 quadrants. No overlying skin changes, no ecchymosis, no pulsatile masses. No CVA tenderness- less likely renal colic/obstruction Patient uncomfortable, requesting medication for pain and nausea. Will start IV fluids, 4 mg IV morphine, 4 mg IV ondansetron for pain and nausea management. EKG normal sinus rhythm, without ST elevation/depression initial troponin undetectable less than 2.7 Will obtain labs, UA, CT abdomen and pelvis with contrast for further evaluation for acute abdomen. Course 16:38-labs reveal mild leukocytosis 11.3, H&H stable 13.6/40.4, patient not hypotensive, not tachycardic- less likely GI bleed. CT abdomen and pelvis reveals abundant stool throughout the large intestine, with acute sigmoid colon diverticulitis without abscess or perforation- patient will be treated with 7 day course 875 mg Augmentin for coverage. We will give 1st dose in the department, occult stool blood positive however this is likely due to diverticulitis. Patient does not meet sepsis criteria at this time. 16:53- vital signs stable, patient was given additional 4 mg morphine at 2:31 p.m. with good effect. Patient able to discharge home for self-care as abdomen is mildly tender, patient is stable. Patient requesting pain medication before discharging home, patient has a ride from son, we will give an additional 4 mg morphine. UA negative for infection, no RBCs. For management of uncomplicated diverticulitis we will treat with 7 day course of Augmentin, 4 days Zofran, 3 days oxycodone for pain management. Patient counseled on strict return precautions and is in understanding with the plan. 10/17/24 16:53 hours Adin Pat MD attending note: 64-year-old female with medical history of Crohn's disease, bipolar disorder, HLD, COPD, GERD, CKD, hypothyroidism, presents to the ED today for evaluation of 2 weeks of left lower quadrant ?tearing ? abdominal pain with frequent small stools, occasional nausea without vomiting worse with movement. Exam: General: Awake, alert in no distress Head: Normocephalic, atraumatic Abdomen: soft, mild to moderate left lower quadrant tenderness, no rebound, no voluntary or involuntary guarding Back: no vertebral tenderness, no CVAT Psych: Pleasant, cooperative Medical decision making: My independent interpretation patient's laboratory evaluation is as follows: WBC elevated 11,300. CT scan of the abdomen pelvis is consistent with acute sigmoid diverticulitis without complications. Patient's presentation, physical exam, lab and CT findings are consistent with uncomplicated diverticulitis. I, Dr. Adin Pat, personally evaluated the patient. I reviewed the physician family readiness support assistant Dorian Trejo's documentation and I agree with the treatment and plan. I was available to supervise the management of the patient throughout the patient's ED course. Further, I agree with the controlled substance prescriptions, oxycodone, Augmentin prescription and all orders as written by the her. My note reflects my personal findings on my history and exam. Differential Diagnosis Differential Diagnoses: The differential diagnosis associated with the presentation includes GI bleed Diverticulosis Acute abdomen Renal colic Admission/Observation Consideration of admission/observation: Escalation of care including admission/observation considered I considered admission, however patient without complicated diverticulitis on CT scan, mildly tender to palpation. I believe patient will be able to manage self-care at home, patient would like to go home for self-care, strict return precautions counseled with the patient, patient will return to department if pain worsens. Lab Data MDM Lab Attestation statement: I reviewed the patient's lab results. 10/17/24 11:39 10/17/24 11:39 Labs: Lab Results 10/17/24 10/17/24 10/17/24 Range/Units 11:39 12:48 12:50 WBC 11.3 H (4.8-10.8) X10*3/uL RBC 4.37 (4.20-5.50) X10*6/uL Hgb 13.6 (12.0-16.0) g/dl Hct 40.4 (37.0-47.0) % MCV 92.4 (80.0-98.0) fL MCH 31.1 (27.0-33.0) pg MCHC 33.7 (31.0-35.0) g/dl RDW 13.3 (11.0-16.0) % Plt Count 304 (160-400) X10*3/uL MPV 9.0 L (9.4-12.3) fL Immature Gran % (Auto) 0.6 H (0.0-0.4) % Neut % (Auto) 66.3 (45-73) % Lymph % (Auto) 25.0 (20-40) % Bland % (Auto) 6.7 (2-11) % Eos % (Auto) 0.9 (0-4) % Baso % (Auto) 0.5 (0-2) % Lymph # (Auto) 2.8 (1.2-4.9) X10*3/uL Bland # (Auto) 0.8 (0.1-1.2) X10*3/uL Eos # (Auto) 0.1 (0.0-0.4) X10*3/uL Baso # (Auto) 0.1 (0.0-0.2) X10*3/uL Abs Immat Gran (auto) 0.07 H (0.00-0.03) X10*3/uL Absolute Neuts (auto) 7.5 (2.0-8.3) x10*3/uL Absolute Nucleated RBC 0.000 (0.0-0.012) X10*3/uL Nucleated RBC % (auto) 0.0 (0.0-0.2) /100WBC PT (10.9-12.4) SEC INR (0.9-1.1) Sodium 142 (135-145) mmol/L Potassium 4.4 (3.3-5.1) mmol/L Chloride 110 H (96-108) mmol/L Carbon Dioxide 24 (22-29) mmol/L Anion Gap 12 (12-20) BUN 14 (9-16) mg/dL Creatinine 1.06 (0.5-1.4) mg/dL Estim Creat Clear Calc 54.3 Estimated GFR 52 Random Glucose 72 (60-115) mg/dL Calcium 9.4 (8.4-10.2) mg/dL Troponin I High Sens < 2.7 (<3.5-17.0) ng/L Lipase 70 (8-78) U/L Urine Color Yellow Urine Appearance Clear Urine pH 5.5 (5.0-9.0) Ur Specific [place] 1.010 (1.005-1.025) Urine Protein Negative (Neg-Trace) mg/dL Urine Glucose (UA) Negative (Negative) mg/dL Urine Ketones Negative (Negative) mg/dL Urine Blood Negative (Negative) Urine Nitrite Negative (Negative) Ur Leukocyte Esterase Negative (Negative) Urine RBC 0-2 (0-2) /HPF Urine WBC 0-5 (0-5) /HPF Ur Squamous Epith Cells 0-2 (0-2) /HPF Urine Bacteria None Seen (None Seen) Hyaline Casts 0-2 (0-2) /LPF Stool Occult Blood (NEGATIVE) Blood Type AB Positive Antibody Screen NEGATIVE 10/17/24 10/17/24 Range/Units 13:14 15:05 WBC (4.8-10.8) X10*3/uL RBC (4.20-5.50) X10*6/uL Hgb (12.0-16.0) g/dl Hct (37.0-47.0) % MCV (80.0-98.0) fL MCH (27.0-33.0) pg MCHC (31.0-35.0) g/dl RDW (11.0-16.0) % Plt Count (160-400) X10*3/uL MPV (9.4-12.3) fL Immature Gran % (Auto) (0.0-0.4) % Neut % (Auto) (45-73) % Lymph % (Auto) (20-40) % Bland % (Auto) (2-11) % Eos % (Auto) (0-4) % Baso % (Auto) (0-2) % Lymph # (Auto) (1.2-4.9) X10*3/uL Bland # (Auto) (0.1-1.2) X10*3/uL Eos # (Auto) (0.0-0.4) X10*3/uL Baso # (Auto) (0.0-0.2) X10*3/uL Abs Immat Gran (auto) (0.00-0.03) X10*3/uL Absolute Neuts (auto) (2.0-8.3) x10*3/uL Absolute Nucleated RBC (0.0-0.012) X10*3/uL Nucleated RBC % (auto) (0.0-0.2) /100WBC PT 10.1 L (10.9-12.4) SEC INR 0.9 (0.9-1.1) Sodium (135-145) mmol/L Potassium (3.3-5.1) mmol/L Chloride (96-108) mmol/L Carbon Dioxide (22-29) mmol/L Anion Gap (12-20) BUN (9-16) mg/dL Creatinine (0.5-1.4) mg/dL Estim Creat Clear Calc Estimated GFR Random Glucose (60-115) mg/dL Calcium (8.4-10.2) mg/dL Troponin I High Sens (<3.5-17.0) ng/L Lipase (8-78) U/L Urine Color Urine Appearance Urine pH (5.0-9.0) Ur Specific [place] (1.005-1.025) Urine Protein (Neg-Trace) mg/dL Urine Glucose (UA) (Negative) mg/dL Urine Ketones (Negative) mg/dL Urine Blood (Negative) Urine Nitrite (Negative) Ur Leukocyte Esterase (Negative) Urine RBC (0-2) /HPF Urine WBC (0-5) /HPF Ur Squamous Epith Cells (0-2) /HPF Urine Bacteria (None Seen) Hyaline Casts (0-2) /LPF Stool Occult Blood POSITIVE (NEGATIVE) Blood Type Antibody Screen Independent Interpretation I performed an independent interpretation of an: EKG Interpretation: I independently interpreted the EKG Vent. Rate : 60 BPM Atrial Rate : 60 BPM P-R Int : 192 ms QRS Dur : 80 ms QT Int : 418 ms P-R-T Axes : 67 56 58 degrees QTcB Int : 418 ms Normal sinus rhythm Normal ECG When compared with ECG of 20-Dec-2020 09:55, No significant change was found Radiology Impression Discussion of test interpretation with radiology: I have reviewed the radiologist's reading. Radiologist Impression: CT abdomen/pelvis FINDINGS: LUNG BASES: Centrilobular emphysematous changes. Atelectasis in the periphery of the lung bases. LIVER, GALLBLADDER, AND BILIARY TREE: Liver measures 18 cm. No focal mass. Portal veins, hepatic veins are patent. No pericholecystic fluid collection or gallbladder wall thickening. No intrahepatic or extrahepatic biliary ductal dilatation. PANCREAS: No focal mass. No peripancreatic fluid collection. No main pancreatic duct measures 3 mm. SPLEEN: 9 cm. No focal mass. ADRENAL GLANDS: Soft tissue fullness without nodular lesion. KIDNEYS AND URETERS: Renal cortical defects throughout the right and left kidney. No focal mass. No gross hydronephrosis. There is a 1.2 cm focal slightly hyperintense abnormality along the cortical defect in the midportion of the right kidney. No gross nephrolithiasis. BLADDER: Fluid-filled. Limited by beam hardening artifact secondary to bilateral hip arthroplasty prosthesis. GASTROINTESTINAL TRACT: Abundant stool throughout the large intestine. Numerous diverticula in the sigmoid colon. There is asymmetric wall thickening in the proximal to mid sigmoid colon with multiple diverticula. No peripheral enhancing fluid collection in the peritoneal cavity. No ascites. No pneumoperitoneum. No intestinal obstruction pattern. Appendix is normal. ABDOMINAL WALL: Small fat-containing supraumbilical hernia. LYMPH NODES: Nonspecific prominent likely reactive mesenteric and retroperitoneal lymph nodes. VASCULAR: Mixed plaques throughout the abdominal aorta wall and iliac arteries coronary arteries. No aneurysm or dissection, abdominal aorta. PELVIC VISCERA: Limited evaluation due to metallic beam hardening artifact secondary to hip prosthesis. OSSEOUS STRUCTURES: Multilevel spondylosis pronounced at L5-S1 and T11-12. Status post bilateral hip arthroplasty prosthesis. Focal hyperdensity right acetabulum. Osteopenia versus osteoporosis. No gross acute fracture. CT/CT abdomen pelvis w IV con IMPRESSION: Concerning acute sigmoid colon diverticulitis without abscess or perforation. Fleischner guidelines were followed. Electronically signed by: Tim Tuttle MD 10/17/2024 02:06 PM EDT RP Dictated By: Tim Urias MD Signed By: <Electronically signed by Tim Ngo MD in [place]> 10/17/24 1406 External Record Review External record reviewed: Inpatient record, Office record and Outpatient record Prescription Management I considered prescription management with: Pain Medication (Oxycodone) and Antibiotic (Amoxicillin) Chronic Conditions Patient?s care impacted by: Other (COPD, hyperlipidemia, Crohn's disease) Medications Administered Discontinued Medications Generic Name Dose Route Start Last Admin Trade Name Freq PRN Reason Stop Dose Admin Amoxicillin/Clavulanate Potassium 875 mg 10/17/24 14:48 10/17/24 15:12 Amoxicillin/Potassium Clav 875 Mg Tablet PO 10/17/24 14:49 875 mg ONCE ONE Administration Lactated Ringer's 1,000 mls @ 999 mls/hr 10/17/24 12:16 10/17/24 14:09 Lr IV 10/17/24 13:16 Infused .Q1H1M ONE Infusion Iohexol 100 ml 10/17/24 13:56 10/17/24 13:56 Iohexol 350 Mg/Ml 100 Ml Infus..Btl IV 10/17/24 13:57 85 ml ONCE ONE Administration Morphine Sulfate 4 mg 10/17/24 12:16 10/17/24 12:54 Morphine Sulfate 4 Mg/Ml Cartridge IVPUSH 10/17/24 12:17 4 mg ONCE ONE Administration Protocol Morphine Sulfate 4 mg 10/17/24 14:13 10/17/24 14:31 Morphine Sulfate 4 Mg/Ml Cartridge IVPUSH 10/17/24 14:14 4 mg ONCE ONE Administration Protocol Morphine Sulfate 4 mg 10/17/24 16:52 10/17/24 17:28 Morphine Sulfate 4 Mg/Ml Cartridge IVPUSH 10/17/24 16:53 4 mg ONCE ONE Administration Protocol Ondansetron HCl 4 mg 10/17/24 12:16 10/17/24 12:54 Ondansetron Hcl 4 Mg/2 Ml Vial IVPUSH 10/17/24 12:17 4 mg ONCE ONE Administration Ondansetron HCl 4 mg 10/17/24 14:13 10/17/24 14:30 Ondansetron Hcl 4 Mg/2 Ml Vial IVPUSH 10/17/24 14:14 4 mg ONCE ONE Administration Discharge Plan Discharge Clinical Impression: Diverticulitis Patient Disposition: Home, Self-Care Instructions: Diverticulitis (ED), Diverticulitis Diet (ED) Additional Instructions: You were evaluated in the ED today due to abdominal pain. Your lab work revealed a mild elevation in white blood cells of 11.3, your hematocrit and hemoglobin which are markers for anemia were stable at 13.6/40.4 Your EKG did not reveal any acute cardiac processes. Your urinalysis is negative for infection. The CT imaging of your abdomen and pelvis revealed diverticulitis which is inflammation of the little outpouchings of your intestines without perforation or abscess. Were treated in the department with IV fluids, 1 dose of antibiotic Augmentin, 8 mg Zofran, a total of 12 mg of morphine during your stay. You will be prescribed a 7 day course of an antibiotic called Augmentin which you will take twice a day, 4 days of Zofran for nausea management, and 3 days 5 mg of oxycodone for pain management. Please take Augmentin tonight before bed. Oxycodone isn't opioid medication, is addictive, please only take for severe pain, do not drive or operate machinery while on this medication. This medication can cause constipation, however the antibiotic Augmentin can cause diarrhea. Pay attention to your bowels, and assess if you need MiraLax to help with constipation. Please follow up with your GI doctor, and PCP to ensure improvement. Please return to the emergency department if you begin to develop fevers over 100.4?, worsening abdominal pain, change in stool habits or blood in stool, nausea, vomiting, chest pain, shortness of breath or any new/worsening/concerning symptoms Prescriptions: New amoxicillin-pot clavulanate 875-125 mg tablet 1 tab PO BID 7 Days Qty: 13 0RF ondansetron HCl 4 mg tablet 4 mg PO Q8H 4 Days Qty: 12 0RF oxycodone 5 mg tablet 5 mg PO Q8H PRN (Reason: pain) 3 Days Qty: 9 0RF Rx Instructions: Partial Fill upon patient request. No Action fluticasone propionate 50 mcg/actuation spray,suspension 2 spray intranasal DAILY Qty: 16 4RF Rx Instructions: administer into each nostril (DME) walker Misc See Rx Instructions .MEDSUPPLY Qty: 1 0RF Rx Instructions: Folding Front wheeled walker (DME) Raised toilet seat See Rx Instructions .ROUTE .MEDSUPPLY Qty: 1 0RF Rx Instructions: duration - 99 days Debrox 6.5 % drops 5 drp otic (ear) right DAILY 4 Days Qty: 15 0RF carisoprodol 350 mg tablet 350 mg PO BID PRN (Reason: muscle pain) Qty: 50 1RF Rx Instructions: Covering for Dr.Po phenazopyridine [Pyridium] 200 mg tablet 200 mg PO TID PRN (Reason: pain) Qty: 14 0RF diclofenac sodium [Voltaren Arthritis Pain] 1 % gel 4 g topical QID PRN (Reason: Pain) Rx Instructions: apply to single knee, ankle, foot; for foot includes sole/toes/top of foot acetaminophen 325 mg Tablet 650 mg PO Q6H PRN (Reason: Pain, Mild 1-3,Fever,Headache) 30 Days Qty: 420 0RF albuterol sulfate 2.5 mg /3 mL (0.083 %) solution for nebulization 2.5 mg inhalation Q4-6H PRN (Reason: Shortness Of Breath Or Wheezing) albuterol sulfate [Ventolin HFA] 90 mcg/actuation HFA aerosol inhaler 2 puff PO Q4H PRN (Reason: bronchospasm) Qty: 18 0RF nyylcjlq-pztkvbdpq-GH 3.5-10,000-1 mg/mL-unit/mL-% solution 4 drp otic (ear) right Q8H 7 Days Qty: 10 0RF Interventions: ED Discharge Assessment Last Done: 10/17/24 17:50 Discharge Date/Time: 10/17/24 17:51 Print Language: Cambodian
[2024-10-17 12:00] LABS: Anion Gap 12 (12-20); Blood Urea Nitrogen 14 mg/dL (9-16); Calcium 9.4 mg/dL (8.4-10.2); Carbon Dioxide 24 mmol/L (22-29); Chloride 110 mmol/L (96-108); Creatinine Clr Calc Pharmacy 54.3; Estimated Glomerular Filt Rate 52; Potassium 4.4 mmol/L (3.3-5.1); Sodium 142 mmol/L (135-145)
--- NOTE | 2024-10-17 12:16 | ECG_ITS ---
Test Reason : ABDOMINAL PAIN Blood Pressure : */* mmHG Vent. Rate : 60 BPM Atrial Rate : 60 BPM P-R Int : 192 ms QRS Dur : 80 ms QT Int : 418 ms P-R-T Axes : 67 56 58 degrees QTcB Int : 418 ms Normal sinus rhythm Normal ECG When compared with ECG of 20-Dec-2020 09:55, No significant change was found Referred By: Dorian Islas Electronically Signed By: Solo Bateman
--- OUTSIDE RECORDS SUMMARY | 2024-10-17 12:18 | XMS_ITS | Patient Health Record ---
Author Organization [facility] Address [address] [place] [id number] Care Team Providers Care Inpatient Care Manager Rn Name Role Phone Moshe Morelos Unavailable [phone] Reason For Referral No Information Plan Of Treatment No Information
[2024-10-17 12:32] VITALS: BP 114/55; PULSE 75; RESP 16; TEMP 36.8; O2SAT 95
[2024-10-17] MEDS: Lactated Ringers 1,000 ML 999 ML IV (12:53)
[2024-10-17 12:59] LABS: Appearance Urine Clear; Glucose Urine UA Negative (Negative); PH 5.5 (5.0-9.0); Specific Gravity - Urine 1.010 (1.005-1.025)
[2024-10-17 13:07] LABS: Lipase 70 U/L (8-78)
[2024-10-17 13:21] LABS: Troponin-I High Sensitivity < 2.7 ng/L (<3.5-17.0)
[2024-10-17 13:24] LABS: INTERNATIONAL NORM RATIO 0.9 (0.9-1.1); Prothrombin Time 10.1 SEC (10.9-12.4)
[2024-10-17] MEDS: iohexoL 350 MG/ML 100 ML INFUS..BTL IV (13:56)
[2024-10-17 14:57] VITALS: BP 143/60; PULSE 63; RESP 16; TEMP 36.4; O2SAT 98
[2024-10-17 15:24] LABS: OBS Int Ctl Valid YES; OBS1 POSITIVE (NEGATIVE)
[2024-10-17 16:11] VITALS: BP 110/40; PULSE 61; RESP 16; TEMP 36.1; O2SAT 97
[2024-10-17 17:50] VITALS: BP 115/63; PULSE 63; RESP 16; TEMP 36.1; O2SAT 95
== END 2024-10-17 17:51 | disposition home or self-care (01) ==
PROVIDERS: Emergency Provider Emergency Medicine Emergency Medical Services; PCP Internal Medicine
DX: K57.32 Diverticulitis of large intestine without perforation or abscess without bleeding (principal); R10.32 Left lower quadrant pain; R11.0 Nausea; Z79.899 Other long term (current) drug therapy
CPT/HCPCS: 36415; 74177; 80048; 81001; 82272; 83690; 84484; 85025; 85610; 86850; 86900; 86901; 93005; 96361; 96374; 96375; 96376; 99284; 99285; J2270; J2405; J7120; Q9967

== ENCOUNTER → 2024-10-17 12:16 | Outpatient (BNV) | payer OTHER, SELFPAY | PROVIDERS: Emergency Provider Emergency Medicine Emergency Medical Services; PCP Internal Medicine; Visit Provider Radiology Diagnostic Radiology | DX: R10.32 Left lower quadrant pain (principal) | CPT/HCPCS: 74177 ==

== ENCOUNTER → 2024-10-17 12:16 | Outpatient (BNV) | payer OTHER, SELFPAY | PROVIDERS: Emergency Provider Emergency Medicine Emergency Medical Services; PCP Internal Medicine; Visit Provider Internal Medicine Cardiovascular Disease | DX: R10.9 Unspecified abdominal pain (principal) | CPT/HCPCS: 93010 ==

== ENCOUNTER 2024-10-22 10:02 | Outpatient (AMB) | payer OTHER, SELFPAY ==
--- NOTE | 2024-10-22 10:12 | MHC.OFFVIS ---
Vital Signs 10/22/24 10:13 Height 5 ft 6 in Weight 154 lb 5.177 oz BMI 24.9 BP 128/71 Blood Pressure Location Lt brachial Position Sitting Pulse 78 Intake Visit Reasons: Black stools, abd pain[place] Intake Note: presents in the office as a follow up. CC: Sent home on a clear liquid diet and she states she was diagnosed with diverticulosis. She still does not feel good. She is constipated and having cramping in the lower abdomen. [employer] Required: No Allergies atorvastatin Allergy (Unknown, Verified 10/22/24 10:15) Cramps barium sulfate Allergy (Unknown, Verified 10/22/24 10:15) sore throat omeprazole Allergy (Unknown, Verified 10/22/24 10:15) diarrhea rosuvastatin Allergy (Unknown, Verified 10/22/24 10:15) Unknown simvastatin Allergy (Unknown, Verified 10/22/24 10:15) unknown varenicline (From Chantix) Allergy (Unknown, Verified 10/22/24 10:15) sore throat evolocumab (From Repatha SureClick) Adverse Reaction (Intermediate, Verified 10/22/24 10:15) cough HPI HPI Black stools, abd pain[place] [place]: Details: Assessment & Plan (1) Paraesophageal hernia: Code(s): K44.9 - Diaphragmatic hernia without obstruction or gangrene Category: Medical (2) Parasitic intestinal disease: Code(s): 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, unspecified Category: Medical (3) Upper abdominal pain: Comment: DUE TO THORACIC RADICULOPATHY NO GI CAUSES FOUND Code(s): R10.10 - Upper abdominal pain, unspecified Category: Medical (4) Tubular adenoma of colon: Comment: 08/2021 scope= hyperplastic polyps only repeat in 5 years; 2 Large on 2019 scope calling for 3 year recall aeb Code(s): D12.6 - Benign neoplasm of colon, unspecified Category: Medical (5) GERD (gastroesophageal reflux disease): Comment: EGD July 2021 Code(s): K21.9 - Gastro-esophageal reflux disease without esophagitis Category: Medical Plan Medications: New albendazole must administer with food, preferably a high-fat meal 400 mg (2 x 200 mg) PO BID 12 tabs 0RF 3 days 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 But she had tremendous pain in the LUQ radiating to her chest that she feels is pushing up under the rib. She has an upcoming nuclear stress test. She took bentyl and her peppermint relief tablets adn this gave her some relief. But she also had a back ache - which is unusual for her. Likely this is r/t her infection. Her pain is worse when she stands for long periods of time. ? intestinal cramping etc? Has chest CT upcoming and this may be revealing. She would like to add an EGD to her colonoscopy, I will see if this is possible as she is scheduled in October. ROV after 08/22 CT EGD/COLONOSCOPY Findings: Larynx: Normal Esophagus: GE junction at 36 cms, medium sized hiatal hernia 36 to 40 cms. No esophagitis or Hood's. Stomach: Nodular appearing mucosa in the gastric body - biopsies obtained. Moderate diffuse gastric erythema - biopsies were obtained from the antrum. Grade 2 flap valve on retroflexed examination of the cardia. Duodenum: Normal bulb and descending duodenum Biopsies were obtained from descending duodenum during past EGD were negative for celiac sprue Intervention: Biopsies as noted above Findings: Terminal Ileum: Not evaluated Cecum: A 7-8 mm sessile polyp - removed with a cold snare Ascending Colon: Normal Transverse Colon: Normal Descending Colon: Normal Sigmoid Colon: Moderate diverticulosis Rectum: Normal Ano-rectum: Moderate internal hemorrhoids Impression and Post Procedure Diagnosis: Endoscopy Findings: ESOPHAGUS: Medium sized hiatal hernia STOMACH: Nodular appearing mucosa in the gastric body - biopsies obtained. Moderate diffuse gastric erythema - biopsies were obtained from the antrum. Colonoscopy Findings: One small polyp was removed Random biopsies were obtained from right and left colon Moderate diverticulosis seen in the sigmoid colon Moderate hemorrhoids on retroflexed exam. Plan: Pt has a FU appointment on 11/06/23 with Chacha Mays NP Repeat Colonoscopy in 5 years if polyps are adenomatous and due to history of adenomatous colon polyps (removed during colonoscopy in 2019). Above findings were reviewed with the patient and relevant handouts were given and the discharge area. BIOPSIES SHOWED: A. Gastric antrum, biopsy: Gastric antral mucosa with minimal chronic inactive gastritis; negative for intestinal metaplasia and dysplasia. B. Gastric body, biopsy: Gastric body mucosa with focal minimal chronic inactive inflammation; negative for intestinal metaplasia and dysplasia. C. Colon, cecal polyp: Tubular adenoma; negative for high-grade dysplasia and carcinoma. D. Colon, random right, biopsy: Colonic mucosa with lymphoid aggregate and no specific change; no evidence of microscopic colitis. E. Colon, random left, biopsy: Colonic mucosa with lymphoid aggregates and no specific change; no evidence of microscopic colitis REVIEW OF ER NOTES 10/17/2024 64-year-old female with medical history of Crohn's disease, bipolar disorder, HLD, COPD, GERD, CKD, hypothyroidism, presents to the ED today due to 2 weeks of abdominal pain. Patient states 2 weeks ago she was going to bed attempting to lay on her left side when she noticed left lower quadrant abdominal pain. She states over the past 2 weeks pain has intensified and describes the pain as a ?cold and tearing sensation? of her left lower abdomen. Patient states she has also been experiencing soft, black, tarry stools over the last 2 weeks. Patient states she feels as if she has to have a bowel movement frequently throughout the day, with small volume of stool. Patient states she has been passing flatus last bowel movement was today 10/17. Patient states these symptoms are accompanied by intermittent nausea without vomiting. Patient states she is managing Crohn's disease of diet changes in medical marijuana. Additionally, patient states she has had increased stress due to a close friend being on hospice and passing yesterday 10/16. Which is why she has not come in for evaluation. Patient states she decided to come today after experiencing the ?tearing and cold sensation? in her left lower abdomen which occurred last night when she was trying to go to bed. Patient states this sensation was exacerbated by trying to lay on her left side but quickly resolved, and has not had any additional episodes since last night My independent interpretation patient's laboratory evaluation is as follows: WBC elevated 11,300. CT scan of the abdomen pelvis is consistent with acute sigmoid diverticulitis without complications. Patient's presentation, physical exam, lab and CT findings are consistent with uncomplicated diverticulitis. I, Dr. Adin Pat, personally evaluated the patient. I reviewed the physician customer care assistant Dorian Trejo's documentation and I agree with the treatment and plan. I was available to supervise the management of the patient throughout the patient's ED course. Further, I agree with the controlled substance prescriptions, oxycodone, Augmentin prescription and all orders as written by the her. My note reflects my personal findings on my history and exam. New amoxicillin-pot clavulanate 875-125 mg tablet 1 tab PO BID 7 Days Qty: 13 0RF ondansetron HCl 4 mg tablet 4 mg PO Q8H 4 Days Qty: 12 0RF oxycodone 5 mg tablet 5 mg PO Q8H PRN (Reason: pain) 3 Days Qty: 9 0RF Rx Instructions: Partial Fill upon patient request. CT ABDOMEN AND PELVIS 10/17/2024 FINDINGS: LUNG BASES: Centrilobular emphysematous changes. Atelectasis in the periphery of the lung bases. LIVER, GALLBLADDER, AND BILIARY TREE: Liver measures 18 cm. No focal mass. Portal veins, hepatic veins are patent. No pericholecystic fluid collection or gallbladder wall thickening. No intrahepatic or extrahepatic biliary ductal dilatation. PANCREAS: No focal mass. No peripancreatic fluid collection. No main pancreatic duct measures 3 mm. SPLEEN: 9 cm. No focal mass. ADRENAL GLANDS: Soft tissue fullness without nodular lesion. KIDNEYS AND URETERS: Renal cortical defects throughout the right and left kidney. No focal mass. No gross hydronephrosis. There is a 1.2 cm focal slightly hyperintense abnormality along the cortical defect in the midportion of the right kidney. No gross nephrolithiasis. BLADDER: Fluid-filled. Limited by beam hardening artifact secondary to bilateral hip arthroplasty prosthesis. GASTROINTESTINAL TRACT: Abundant stool throughout the large intestine. Numerous diverticula in the sigmoid colon. There is asymmetric wall thickening in the proximal to mid sigmoid colon with multiple diverticula. No peripheral enhancing fluid collection in the peritoneal cavity. No ascites. No pneumoperitoneum. No intestinal obstruction pattern. Appendix is normal. ABDOMINAL WALL: Small fat-containing supraumbilical hernia. LYMPH NODES: Nonspecific prominent likely reactive mesenteric and retroperitoneal lymph nodes. VASCULAR: Mixed plaques throughout the abdominal aorta wall and iliac arteries coronary arteries. No aneurysm or dissection, abdominal aorta. PELVIC VISCERA: Limited evaluation due to metallic beam hardening artifact secondary to hip prosthesis. OSSEOUS STRUCTURES: Multilevel spondylosis pronounced at L5-S1 and T11-12. Status post bilateral hip arthroplasty prosthesis. Focal hyperdensity right acetabulum. Osteopenia versus osteoporosis. No gross acute fracture. CT/CT abdomen pelvis w IV con IMPRESSION: Concerning acute sigmoid colon diverticulitis without abscess or perforation. Laboratory Tests 04/09/24 04/10/24 10/17/24 07:40 05:34 11:39 WBC 13.8 H 12.6 H 11.3 H Hgb 13.6 Hct 40.4 Plt Count 304 Immature Gran % (Auto) 0.6 H Abs Immat Gran (auto) 0.07 H Estimated GFR 52 Sodium 142 (135-145) mmol/L Potassium 4.4 (3.3-5.1) mmol/L Chloride 110 H (96-108) mmol/L Carbon Dioxide 24 (22-29) mmol/L Anion Gap 12 (12-20) BUN 14 (9-16) mg/dL Creatinine 1.06 (0.5-1.4) mg/dL Estim Creat Clear Calc 54.3 Estimated GFR 52 Random Glucose 72 (60-115) mg/dL Calcium 9.4 (8.4-10.2) mg/dL Troponin I High Sens < 2.7 (<3.5-17.0) ng/L Lipase 70 (8-78) U/L Urine Color Yellow Urine Appearance Clear Urine pH 5.5 (5.0-9.0) Ur Specific [place] 1.010 (1.005-1.025) Urine Protein Negative (Neg-Trace) mg/dL Urine Glucose (UA) Negative (Negative) mg/dL Urine Ketones Negative (Negative) mg/dL Urine Blood Negative (Negative) Urine Nitrite Negative (Negative) Ur Leukocyte Esterase Negative (Negative) Urine RBC 0-2 (0-2) /HPF Urine WBC 0-5 (0-5) /HPF Ur Squamous Epith Cells 0-2 (0-2) /HPF Urine Bacteria None Seen (None Seen) Hyaline Casts 0-2 (0-2) /LPF Stool Occult Blood (NEGATIVE) Her last colonoscopy was 10/2023 and showed no signs of IBD activity on biopsy. CORRESPONDENCE On 10/17/24 @ 12:45 Kristine Milner Wrote To TabathaChacha Spoke to patient and she stated that she is at the ED right now because she is having a lot of abd pain as well. Denied taking Pepto Bismol. She was scheduled to come in next Sunday 10/22. On 10/17/24 @ 10:57 Chacha Mays Wrote To Kristine Milner ASk if she tool pepto bismol and bring her in to see me. On 10/17/24 @ 10:39 Kristine Milner Wrote To TabathaChacha Patient called and LVM complaining of black stools and anemia. She was last seen on 11/17/23, to follow up PRN. Please advise. TODAYS VISIT Onset a few weeks ago with pain, she was caring for a friend who was in hospice who just on the day she presented to the ER. She has had about 5 days of augmentin, but her pain has not relieved at all. It is in the LLQ, She also has a burning sensation that goes around to her low back. The LLQ pain is cramping with sharp bursts. she has a confounding element of a total hip replacement prior to the onset of the sx. She says she had severe CIC after the hip surgery that was not helped with senna, prunes and fiber and was huge when she finally did move her bowels. The pain is worse with standing, sitting in a chair, twisting, and laying on the left side. The first day of her pain she had a BM that was like black coffee grounds. It was sticky and looked like mud. She would have some rectal leakage even if she urinated. It continued to be black until she stopped having BM's r/t not eating. Abundant stool in colon on CT, use Miralax and advance to low residual diet. She is dizzy, but is drinking ? hypoglycemia vs oxycodone (she does not like these and uses sparingly), use bentyl and extend augmentin. The CAT scan was not completely conclusive for diverticulitis so I am concerned that there may be something else were missing and the differential diagnosis. We may need to consider a musculoskeletal origin, ovarian origin, or severe colon spasm. Hopefully she will begin responding with the extended antibiotics and the treatment of the cramping/pain. Because there is abundant stool on the CAT scan with think we also need to move her bowels and so I encouraged her to continue MiraLax as the least irritating way of trying to move what maybe a large stool burden. We also want to see if the bowels are returning door more if they continue to be black. We may need to consider an upper endoscopy or even a wireless capsule if the stools continue to be melena. They tried to do a rectal exam in the ER and they said that it was guaiac negative but the patient expresses doubt as to whether they actually returned any stool on the glove. She says they gave her nausea meds only offset any possible side effects of the Augmentin, she did not initially present with this as a symptom per her report to me today. ROV 2 weeks. [facility] Medical History Chronic kidney disease (CKD) stage G3a/A1, moderately decreased glomerular filtration rate (GFR) between 45-59 mL/min/1.73 square meter and albuminuria creatinine ratio less than 30 mg/g Thyroid disease CKD (chronic kidney disease) Concussion Elevated cholesterol Myalgia due to statin Neurocardiogenic syncope Forehead laceration Fall Oral candidiasis Nausea and vomiting Abdominal bloating Thoracic back pain Foot pain, left LUQ abdominal pain Abdominal pain Rectal bleeding Myalgia Neck pain Chest pain HLD (hyperlipidemia) Osteoarthritis of right hip Iliotibial band syndrome Hematoma and contusion Osteoarthritis of left hip Vitamin D deficiency Hearing loss Degenerative disc disease, lumbar GERD (gastroesophageal reflux disease) COPD (chronic obstructive pulmonary disease) Crohn's disease Nicotine dependence, cigarettes, uncomplicated Hypothyroidism S/P right hip fracture Hip osteoarthritis Surgical History S/P hip replacement Hx of cardiac catheterization History of hip surgery History of colonoscopy History of esophagogastroduodenoscopy (EGD) Hx of eye surgery History of shoulder surgery History of hand surgery History of foot surgery History of tubal ligation History of total right hip arthroplasty Family History Father Bladder cancer Mother Acute CVA (cerebrovascular accident) Stroke CVD (cardiovascular disease) Thyroid disease Brother Renal cell cancer Acute CVA (cerebrovascular accident) Family/Other Alcoholism Social History Household Members: None Household Members Other:: 12/2021 Housing: House Are you a primary cardiac care nurse to a significant other at home: No Do you presently have visiting nurse or other home services: No Alcohol intake: current Alcohol intake frequency: a few times a week Patient Tobacco Use Status: Current everyday Tobacco user Tobacco use type: Cigarette Cigarette Packs Per Day: 0.5 Cigarettes Per Day: 7 Years Smoked: (onset 10yo, 3/4-1ppd x 52yrs, 40+PYH) e-Cigarette/Vaping Use: Never Used Second Hand Smoke Exposure: Yes Substance Use Type: Marijuana service: No Current occupational status: disabled Cognitive needs: No Hearing needs: No Vision needs: Yes (Glasses) Review of Systems Const Denies fatigue, Denies fever(s), Denies night sweats, Denies poor appetite and Denies weight loss ENT Reports Normal hearing present, Denies dental pain, Denies dysphagia, Denies hearing loss, Denies mouth pain, Denies odynophagia, Denies throat swelling, Denies tongue swelling and Reports other (Dentition adequate) Card Reports no additional complaints Resp Reports no additional complaints GI Details: Reports abdominal pain, Reports melena, Denies bloating, Denies hematochezia, Reports constipation, Denies GI cramping, Denies dysphagia, Denies excessive flatus, Denies early satiety, Denies heartburn, Denies diarrhea, Denies nausea, Denies odynophagia, Denies vomiting and Denies hematemesis Musc Reports back pain and Reports myalgias Skin/Breast Denies pruritus, Denies lesions, Denies rash and Denies jaundice Neuro Reports Normal hearing present and Denies Abnormal speech present Endo Denies fatigue Aller/Immun Denies throat swelling and Denies tongue swelling Physical Exam Vital Signs: Last Vital Signs Pulse 78 10/22/24 10:13 BP 128/71 10/22/24 10:13 BMI result Body Mass Index 24.9 Const General: cooperative, no acute distress, well developed and well groomed Nutritional Appearance: well nourished Orientation/consciousness: oriented to person, oriented to place and oriented to time Limitations: No language barrier HEENT Head: Yes normocephalic and Yes atraumatic Eyes General: appearance normal, both eyes and all related structures Pupils: Equal, round and reactive pupils present Neck Neck: Yes normal visual inspection and Yes no lymphadenopathy Thyroid: Thyroid normal Resp Effort & Inspection: normal respiratory effort and able to speak in complete sentences Auscultation: clear to auscultation bilaterally Cardio Rate: regular rate Rhythm: regular rhythm Heart sounds: Normal, physiologic split S2 sound present Peripheral pulses: radial pulses present and posterior tibial pulses present GI Inspection: No distended and No Abdominal panniculus present Palpation (GI): Soft to palpation, Tenderness to palpation present (GI) in the LLQ, no guarding, not rigid and No hepatosplenomegaly present Percussion: Yes normal to percussion Auscultation: normal bowel sounds Rectal Exam - Female: deferred Skin General skin exam: no rashes or lesions noted, turgor normal, skin not dry, no jaundice, No spider nevi and no striae Rashes: no rashes Nails: normal Neuro General: oriented to person, oriented to place and oriented to time Cranial nerves: Yes Equal, round and reactive pupils present and Yes Normal hearing present Speech: No Abnormal speech present Extrem General: Yes normal to inspection, No clubbing, No cyanosis and No edema Psych Appearance: grossly normal and well kempt Mental Status: mental status grossly normal Speech and movement: Normal speech and movement present Affect: normal affect Attitude: cooperative Thought process: not confabulating and Tangential thought process present Thought content: Normal thought content present Insight: Limited insight present (Psych) Judgement: Limited judgement present (Psych) Results Reviewed Results Reviewed: CT ABDOMEN AND PELVIS 10/17/2024 FINDINGS: LUNG BASES: Centrilobular emphysematous changes. Atelectasis in the periphery of the lung bases. LIVER, GALLBLADDER, AND BILIARY TREE: Liver measures 18 cm. No focal mass. Portal veins, hepatic veins are patent. No pericholecystic fluid collection or gallbladder wall thickening. No intrahepatic or extrahepatic biliary ductal dilatation. PANCREAS: No focal mass. No peripancreatic fluid collection. No main pancreatic duct measures 3 mm. SPLEEN: 9 cm. No focal mass. ADRENAL GLANDS: Soft tissue fullness without nodular lesion. KIDNEYS AND URETERS: Renal cortical defects throughout the right and left kidney. No focal mass. No gross hydronephrosis. There is a 1.2 cm focal slightly hyperintense abnormality along the cortical defect in the midportion of the right kidney. No gross nephrolithiasis. BLADDER: Fluid-filled. Limited by beam hardening artifact secondary to bilateral hip arthroplasty prosthesis. GASTROINTESTINAL TRACT: Abundant stool throughout the large intestine. Numerous diverticula in the sigmoid colon. There is asymmetric wall thickening in the proximal to mid sigmoid colon with multiple diverticula. No peripheral enhancing fluid collection in the peritoneal cavity. No ascites. No pneumoperitoneum. No intestinal obstruction pattern. Appendix is normal. ABDOMINAL WALL: Small fat-containing supraumbilical hernia. LYMPH NODES: Nonspecific prominent likely reactive mesenteric and retroperitoneal lymph nodes. VASCULAR: Mixed plaques throughout the abdominal aorta wall and iliac arteries coronary arteries. No aneurysm or dissection, abdominal aorta. PELVIC VISCERA: Limited evaluation due to metallic beam hardening artifact secondary to hip prosthesis. OSSEOUS STRUCTURES: Multilevel spondylosis pronounced at L5-S1 and T11-12. Status post bilateral hip arthroplasty prosthesis. Focal hyperdensity right acetabulum. Osteopenia versus osteoporosis. No gross acute fracture. CT/CT abdomen pelvis w IV con IMPRESSION: Concerning acute sigmoid colon diverticulitis without abscess or perforation. Laboratory Tests 04/09/24 04/10/24 10/17/24 07:40 05:34 11:39 WBC 13.8 H 12.6 H 11.3 H Hgb 13.6 Hct 40.4 Plt Count 304 Immature Gran % (Auto) 0.6 H Abs Immat Gran (auto) 0.07 H Estimated GFR 52 Sodium 142 (135-145) mmol/L Potassium 4.4 (3.3-5.1) mmol/L Chloride 110 H (96-108) mmol/L Carbon Dioxide 24 (22-29) mmol/L Anion Gap 12 (12-20) BUN 14 (9-16) mg/dL Creatinine 1.06 (0.5-1.4) mg/dL Estim Creat Clear Calc 54.3 Estimated GFR 52 Random Glucose 72 (60-115) mg/dL Calcium 9.4 (8.4-10.2) mg/dL Troponin I High Sens < 2.7 (<3.5-17.0) ng/L Lipase 70 (8-78) U/L Urine Color Yellow Urine Appearance Clear Urine pH 5.5 (5.0-9.0) Ur Specific [place] 1.010 (1.005-1.025) Urine Protein Negative (Neg-Trace) mg/dL Urine Glucose (UA) Negative (Negative) mg/dL Urine Ketones Negative (Negative) mg/dL Urine Blood Negative (Negative) Urine Nitrite Negative (Negative) Ur Leukocyte Esterase Negative (Negative) Urine RBC 0-2 (0-2) /HPF Urine WBC 0-5 (0-5) /HPF Ur Squamous Epith Cells 0-2 (0-2) /HPF Urine Bacteria None Seen (None Seen) Hyaline Casts 0-2 (0-2) /LPF Stool Occult Blood (NEGATIVE) Her last colonoscopy was 10/2023 and showed no signs of IBD activity on biopsy. Assessment & Plan Assessment & Plan (1) LLQ abdominal pain: Code(s): R10.32 - Left lower quadrant pain Category: Medical (2) Diverticulitis: Comment: Some question of this as it was not entirely clear on the 10/17/2024 cat scan. Code(s): K57.92 - Diverticulitis of intestine, part unspecified, without perforation or abscess without bleeding Category: Medical Plan Onset a few weeks ago with pain, she was caring for a friend who was in hospice who just on the day she presented to the ER. She has had about 5 days of augmentin, but her pain has not relieved at all. It is in the LLQ, She also has a burning sensation that goes around to her low back. The LLQ pain is cramping with sharp bursts. she has a confounding element of a total hip replacement prior to the onset of the sx. She says she had severe CIC after the hip surgery that was not helped with senna, prunes and fiber and was huge when she finally did move her bowels. The pain is worse with standing, sitting in a chair, twisting, and laying on the left side. The first day of her pain she had a BM that was like black coffee grounds. It was sticky and looked like mud. She would have some rectal leakage even if she urinated. It continued to be black until she stopped having BM's r/t not eating. Abundant stool in colon on CT, use Miralax and advance to low residual diet. She is dizzy, but is drinking ? hypoglycemia vs oxycodone (she does not like these and uses sparingly), use bentyl and extend augmentin. The CAT scan was not completely conclusive for diverticulitis so I am concerned that there may be something else were missing and the differential diagnosis. We may need to consider a musculoskeletal origin, ovarian origin, or severe colon spasm. Hopefully she will begin responding with the extended antibiotics and the treatment of the cramping/pain. Because there is abundant stool on the CAT scan with think we also need to move her bowels and so I encouraged her to continue MiraLax as the least irritating way of trying to move what maybe a large stool burden. We also want to see if the bowels are returning door more if they continue to be black. We may need to consider an upper endoscopy or even a wireless capsule if the stools continue to be melena. They tried to do a rectal exam in the ER and they said that it was guaiac negative but the patient expresses doubt as to whether they actually returned any stool on the glove. She says they gave her nausea meds only offset any possible side effects of the Augmentin, she did not initially present with this as a symptom per her report to me today. ROV 2 weeks. Medications: New dicyclomine 20 mg PO QID 120 tabs 1RF 30 days Refilled amoxicillin-pot clavulanate 875-125 mg 1 tab PO BID 13 tabs 0RF 7 days Discontinued oxycodone Partial Fill upon patient request. Discontinued Reason: Patient Completed Course 5 mg PO Q8H 3 days PRN 9 tabs 0RF pain Coding Level of Care Code Est Pt Level 4 (78228) Diagnoses LLQ abdominal pain R10.32 Diverticulitis K57.92 Time Spent (min) 38
[2024-10-22 10:13] VITALS: BP 128/71; PULSE 78; BMI 24.9
--- OUTSIDE RECORDS SUMMARY | 2024-10-22 10:49 | XMS_ITS | Patient Health Record ---
Author Organization [facility] Address [address] [place] [id number] Care Team Providers Care Multimedia Technician Name Role Phone Moshe Morelos Unavailable [phone] Reason For Referral No Information Plan Of Treatment No Information
== END 2024-10-22 11:01 | disposition home or self-care (01) ==
LOC: HO.HGI 10:03
PROVIDERS: PCP Internal Medicine; Visit Provider Nurse Practitioner
DX: R10.32 Left lower quadrant pain (principal); K57.92 Diverticulitis of intestine, part unspecified, without perforation or abscess without bleeding
CPT/HCPCS: 99214

== ENCOUNTER → 2024-10-22 10:02 | Outpatient (BNVA) | payer OTHER, SELFPAY | PROVIDERS: PCP Internal Medicine; Visit Provider Nurse Practitioner | DX: R10.32 Left lower quadrant pain (principal); K57.92 Diverticulitis of intestine, part unspecified, without perforation or abscess without bleeding | CPT/HCPCS: 99212 ==

== ENCOUNTER 2024-11-05 10:04 | Outpatient (AMB) | payer OTHER, SELFPAY ==
--- NOTE | 2024-11-05 10:15 | A.OFFVIS_ITS ---
Vital Signs 11/05/24 10:24 Height 5 ft 6 in Weight 158 lb 11.725 oz BMI 25.6 BP 130/68 Blood Pressure Location Lt brachial Position Sitting Pulse 66 Pulse Oximetry (%) 97 Intake Visit Reasons: Follow up 2 weeks/ok to add per June Intake Note: returns in follow up abdominal pain. CC: Patient reports that she feels bloated and began to have LUQ abd pain again on Sunday. She states that she is having more regular BMs and no blood. Stull Installer Required: No Accompanied by: Self / Same As Patient Allergies atorvastatin Allergy (Unknown, Verified 11/05/24 10:29) Cramps barium sulfate Allergy (Unknown, Verified 11/05/24 10:29) sore throat omeprazole Allergy (Unknown, Verified 11/05/24 10:29) diarrhea rosuvastatin Allergy (Unknown, Verified 11/05/24 10:29) Unknown simvastatin Allergy (Unknown, Verified 11/05/24 10:29) unknown varenicline (From Chantix) Allergy (Unknown, Verified 11/05/24 10:29) sore throat evolocumab (From Repatha SureClick) Adverse Reaction (Intermediate, Verified 11/05/24 10:29) cough HPI HPI Follow up 2 weeks/ok to add per June: Details: Assessment & Plan (1) LLQ abdominal pain: Code(s): R10.32 - Left lower quadrant pain Category: Medical (2) Diverticulitis: Comment: Some question of this as it was not entirely clear on the 10/17/2024 cat scan. Code(s): K57.92 - Diverticulitis of intestine, part unspecified, without perforation or abscess without bleeding Category: Medical Plan Onset a few weeks ago with pain, she was caring for a friend who was in hospice who just on the day she presented to the ER. She has had about 5 days of augmentin, but her pain has not relieved at all. It is in the LLQ, She also has a burning sensation that goes around to her low back. The LLQ pain is cramping with sharp bursts. she has a confounding element of a total hip replacement prior to the onset of the sx. She says she had severe CIC after the hip surgery that was not helped with senna, prunes and fiber and was huge when she finally did move her bowels. The pain is worse with standing, sitting in a chair, twisting, and laying on the left side. The first day of her pain she had a BM that was like black coffee grounds. It was sticky and looked like mud. She would have some rectal leakage even if she urinated. It continued to be black until she stopped having BM's r/t not eating. Abundant stool in colon on CT, use Miralax and advance to low residual diet. She is dizzy, but is drinking ? hypoglycemia vs oxycodone (she does not like these and uses sparingly), use bentyl and extend augmentin. The CAT scan was not completely conclusive for diverticulitis so I am concerned that there may be something else were missing and the differential diagnosis. We may need to consider a musculoskeletal origin, ovarian origin, or severe colon spasm. Hopefully she will begin responding with the extended antibiotics and the treatment of the cramping/pain. Because there is abundant stool on the CAT scan with think we also need to move her bowels and so I encouraged her to continue MiraLax as the least irritating way of trying to move what maybe a large stool burden. We also want to see if the bowels are returning door more if they continue to be black. We may need to consider an upper endoscopy or even a wireless capsule if the stools continue to be melena. They tried to do a rectal exam in the ER and they said that it was guaiac negative but the patient expresses doubt as to whether they actually returned any stool on the glove. She says they gave her nausea meds only offset any possible side effects of the Augmentin, she did not initially present with this as a symptom per her report to me today. ROV 2 weeks. Medications: New dicyclomine 20 mg PO QID 120 tabs 1RF 30 days Refilled amoxicillin-pot clavulanate 875-125 mg 1 tab PO BID 13 tabs 0RF 7 days Discontinued oxycodone Partial Fill upon patient request. Discontinued Reason: Patient Completed Course 5 mg PO Q8H 3 days PRN 9 tabs 0RF pain TODAYS VISIT She is doing better with the pain, but she can only tolerate the bentyl bid. She did not take the mirlalax, she dislikes chemicals. She still has some difficulty moving her bowels, so we discuss a magnesium supplement. She has a wide range of weird problems, per her report. She has fatigue and malaise and her shoulders are in a lot of pain. She steroid injections and it did not work. Also, she saw Dr. Britton and he was unhappy, because it was too close to my hip replacement surgery. She sees [facility] for her shoulders. Also, the pain under her ribs, which was gone for a while and she attributes to eating a natural casing hotdog every Sunday also was intermittently bothering her again. She says that she never feels as well as she does after she is prepped for colonoscopy, and wonders if she should use the MiraLax to do a ?many cleanse. ? I ask about trauma, and she admits she fell on bilateral outstretched hands prior to the shoulder pain. Its hard to address her generalized malaise, she had recent loss of a friend she was caring for, and she has a lot of fear about not being able to work and losing the income. She also had to pack and move her friend's belongings. We had a long discussion about the long-term effects of acute stress and psychological trauma. We discussed certain coping strategies and while she is not open to counseling, she does like to swim in her pool and I suggest she try to meditate/floating the pull more often and consider ways that she can lost stress from this situation. She understands the chronic long-term effects and she agrees with me that this could be part of all of her constellation of symptoms. Ordered DEXA scan as she is worried about my bones and there is a lot of neck and back pathology on other imaging. ROV 4 weeks. [facility] Medical History (Updated 11/05/24 @ 12:32 by ELZBIETA Jolly) Diarrhea Sore throat Hearing difficulty Cerumen impaction Mixed hyperlipidemia Preoperative cardiovascular examination Left shoulder pain Hip pain, left Arthralgia Hip osteoarthritis Arthritis of left hip Parasitic intestinal disease Chronic kidney disease (CKD) stage G3a/A1, moderately decreased glomerular filtration rate (GFR) between 45-59 mL/min/1.73 square meter and albuminuria creatinine ratio less than 30 mg/g Thyroid disease CKD (chronic kidney disease) Concussion Elevated cholesterol Myalgia due to statin Neurocardiogenic syncope Forehead laceration Fall Oral candidiasis Nausea and vomiting Abdominal bloating Thoracic back pain Foot pain, left LUQ abdominal pain Abdominal pain Rectal bleeding Myalgia Neck pain Chest pain HLD (hyperlipidemia) Osteoarthritis of right hip Iliotibial band syndrome Hematoma and contusion Osteoarthritis of left hip Vitamin D deficiency Hearing loss Degenerative disc disease, lumbar GERD (gastroesophageal reflux disease) COPD (chronic obstructive pulmonary disease) Crohn's disease Nicotine dependence, cigarettes, uncomplicated Hypothyroidism S/P right hip fracture Surgical History (Updated 11/05/24 @ 12:32 by ELZBIETA Jolly) S/P cardiac cath S/P total left hip arthroplasty S/P hip replacement Hx of cardiac catheterization History of hip surgery History of colonoscopy History of esophagogastroduodenoscopy (EGD) Hx of eye surgery History of shoulder surgery History of hand surgery History of foot surgery History of tubal ligation History of total right hip arthroplasty Family History Father Bladder cancer Mother Acute CVA (cerebrovascular accident) Stroke CVD (cardiovascular disease) Thyroid disease Brother Renal cell cancer Acute CVA (cerebrovascular accident) Family/Other Alcoholism Social History Household Members: None Household Members Other:: 12/2021 Housing: House Are you a primary long term care administrator to a significant other at home: No Do you presently have visiting nurse or other home services: No Alcohol intake: current Alcohol intake frequency: a few times a week Patient Tobacco Use Status: Current everyday Tobacco user Tobacco use type: Cigarette Cigarette Packs Per Day: 0.5 Cigarettes Per Day: 7 Years Smoked: (onset 10yo, 3/4-1ppd x 52yrs, 40+PYH) e-Cigarette/Vaping Use: Never Used Second Hand Smoke Exposure: Yes Substance Use Type: Marijuana service: No Current occupational status: disabled Cognitive needs: No Hearing needs: No Vision needs: Yes (Glasses) Review of Systems Const Reports fatigue, Denies fever(s), Reports malaise, Denies night sweats, Denies poor appetite and Denies weight loss ENT Reports Normal hearing present, Denies dental pain, Denies dysphagia, Denies hearing loss, Denies mouth pain, Reports neck pain, Denies odynophagia, Denies throat swelling, Denies tongue swelling and Reports other (Dentition adequate) Card Reports no additional complaints Resp Reports no additional complaints GI Details: Reports abdominal pain, Denies melena, Denies bloating, Denies hematochezia, Reports constipation, Denies GI cramping, Denies dysphagia, Denies excessive flatus, Denies early satiety, Reports heartburn, Denies diarrhea, Denies nausea, Denies odynophagia, Denies vomiting and Denies hematemesis Musc Reports back pain, Reports myalgias, Reports arthralgias, Reports limited range of motion, Reports neck pain and Reports stiffness Skin/Breast Denies pruritus, Denies lesions, Denies rash and Denies jaundice Neuro Reports Normal hearing present and Denies Abnormal speech present Psych Reports anxiety, Reports irritability, Denies homicidal ideation and Denies suicidal ideation Endo Reports fatigue Aller/Immun Denies throat swelling and Denies tongue swelling Physical Exam Vital Signs: Last Vital Signs Pulse 66 11/05/24 10:24 BP 130/68 11/05/24 10:24 Pulse Ox 97 11/05/24 10:24 BMI result Body Mass Index 25.6 Const General: cooperative, no acute distress, well developed and well groomed Nutritional Appearance: average body habitus and well nourished Orientation/consciousness: oriented to person, oriented to place and oriented to time Limitations: No language barrier HEENT Head: Yes normocephalic and Yes atraumatic Eyes General: appearance normal, both eyes and all related structures Pupils: Equal, round and reactive pupils present Neck Neck: Yes normal visual inspection and Yes no lymphadenopathy Thyroid: Thyroid normal Resp Effort & Inspection: normal respiratory effort and able to speak in complete sentences Auscultation: clear to auscultation bilaterally Cardio Rate: regular rate Rhythm: regular rhythm Heart sounds: Normal, physiologic split S2 sound present Peripheral pulses: radial pulses present and posterior tibial pulses present GI Inspection: No distended and No Abdominal panniculus present Palpation (GI): Soft to palpation, Tenderness to palpation present (GI) in the LLQ, no guarding, not rigid and No hepatosplenomegaly present Percussion: Yes normal to percussion Auscultation: normal bowel sounds Rectal Exam - Female: deferred Skin General skin exam: no rashes or lesions noted, turgor normal, skin not dry, no jaundice, No spider nevi and no striae Rashes: no rashes Nails: normal Neuro General: oriented to person, oriented to place and oriented to time Cranial nerves: Yes Equal, round and reactive pupils present and Yes Normal hearing present Speech: No Abnormal speech present Extrem General: Yes normal to inspection, No clubbing, No cyanosis and No edema Right upper extremity: shoulder/upper arm Details: abnormal ROM Details: pain with active ROM (Overhead reaching bilaterally) and pain with passive ROM (Overhead reaching bilaterally) Psych Appearance: grossly normal and well kempt Mental Status: mental status grossly normal Speech and movement: Pressured speech present Affect: Labile affect present Attitude: cooperative Thought process: not confabulating and Tangential thought process present Thought content: Normal thought content present Insight: Fair insight present (Psych) and Limited insight present (Psych) Judgement: Fair judgement present (Psych) and Limited judgement present (Psych) Assessment & Plan Assessment & Plan (1) LLQ abdominal pain: Code(s): R10.32 - Left lower quadrant pain Category: Medical (2) Upper abdominal pain: Comment: DUE TO THORACIC RADICULOPATHY NO GI CAUSES FOUND Code(s): R10.10 - Upper abdominal pain, unspecified Category: Medical (3) GERD (gastroesophageal reflux disease): Comment: EGD July 2021 Code(s): K21.9 - Gastro-esophageal reflux disease without esophagitis Category: Medical (4) Bilateral shoulder pain: Code(s): M25.511 - Pain in right shoulder; M25.512 - Pain in left shoulder Category: Medical (5) Acute stress reaction: Code(s): F43.0 - Acute stress reaction Category: Medical (6) Generalized anxiety disorder: Comment: [facility] Code(s): F41.1 - Generalized anxiety disorder Category: Medical (7) Screening for osteoporosis: Code(s): Z13.820 - Encounter for screening for osteoporosis Category: Medical (8) Weight loss, unintentional: Code(s): R63.4 - Abnormal weight loss Category: Medical Plan She is doing better with the pain, but she can only tolerate the bentyl bid. She did not take the mirlalax, she dislikes chemicals. She still has some difficulty moving her bowels, so we discuss a magnesium supplement. She has a wide range of weird problems, per her report. She has fatigue and malaise and her shoulders are in a lot of pain. She steroid injections and it did not work. Also, she saw Dr. Britton and he was unhappy, because it was too close to my hip replacement surgery. She sees [facility] for her shoulders. Also, the pain under her ribs, which was gone for a while and she attributes to eating a natural casing hotdog every Sunday also was intermittently bothering her again. She says that she never feels as well as she does after she is prepped for colonoscopy, and wonders if she should use the MiraLax to do a ?many cleanse. ? I ask about trauma, and she admits she fell on bilateral outstretched hands prior to the shoulder pain. Its hard to address her generalized malaise, she had recent loss of a friend she was caring for, and she has a lot of fear about not being able to work and losing the income. She also had to pack and move her friend's belongings. We had a long discussion about the long-term effects of acute stress and psychological trauma. We discussed certain coping strategies and while she is not open to counseling, she does like to swim in her pool and I suggest she try to meditate/floating the pull more often and consider ways that she can lost stress from this situation. She understands the chronic long-term effects and she agrees with me that this could be part of all of her constellation of symptoms. Ordered DEXA scan as she is worried about my bones and there is a lot of neck and back pathology on other imaging. ROV 4 weeks. Orders: Orders XR DEXA axial skeleton Today Z13.820 - Encounter for screening for osteoporosis Coding Level of Care Code Est Pt Level 4 (26131) Diagnoses LLQ abdominal pain R10.32 Upper abdominal pain R10.10 GERD (gastroesophageal reflux disease) K21.9 Bilateral shoulder pain M25.511; M25.512 Acute stress reaction F43.0 Generalized anxiety disorder F41.1 Screening for osteoporosis Z13.820 Weight loss, unintentional R63.4 Time Spent (min) 36
[2024-11-05 10:24] VITALS: BP 130/68; PULSE 66; O2SAT 97; BMI 25.6
--- OUTSIDE RECORDS SUMMARY | 2024-11-05 10:44 | XMS_ITS | Patient Health Record ---
Author Organization [facility] Address [address] [place] [id number] Care Team Providers Care Hair Or Beauty Salon Manager Name Role Phone Moshe Morelos Unavailable [phone] Reason For Referral No Information Plan Of Treatment No Information
== END 2024-11-05 11:22 | disposition home or self-care (01) ==
LOC: HO.HGI 10:05
PROVIDERS: PCP Internal Medicine; Visit Provider Nurse Practitioner
DX: R10.32 Left lower quadrant pain (principal); R10.10 Upper abdominal pain, unspecified; K21.9 Gastro-esophageal reflux disease without esophagitis; M25.511 Pain in right shoulder; M25.512 Pain in left shoulder; F43.0 Acute stress reaction; F41.1 Generalized anxiety disorder; Z13.820 Encounter for screening for osteoporosis; R63.4 Abnormal weight loss
CPT/HCPCS: 99214

== ENCOUNTER → 2024-11-05 10:04 | Outpatient (BNVA) | payer OTHER, SELFPAY | PROVIDERS: PCP Internal Medicine; Visit Provider Nurse Practitioner | DX: R10.32 Left lower quadrant pain (principal); K57.92 Diverticulitis of intestine, part unspecified, without perforation or abscess without bleeding; R10.10 Upper abdominal pain, unspecified; K21.9 Gastro-esophageal reflux disease without esophagitis; M25.512 Pain in left shoulder; M25.511 Pain in right shoulder; F43.0 Acute stress reaction; F41.1 Generalized anxiety disorder; R63.4 Abnormal weight loss | CPT/HCPCS: 99212 ==

== ENCOUNTER 2024-11-24 09:12 | Emergency (ER) | payer OTHER, SELFPAY ==
[2024-11-24 09:15] VITALS: BP 201/94; PULSE 86; RESP 18; TEMP 37; O2SAT 96; BMI 25.7
--- OUTSIDE RECORDS SUMMARY | 2024-11-24 09:23 | XMS_ITS | Patient Health Record ---
Author Organization [facility] Address [address] [place] [id number] Care Team Providers Care It Application Development Manager Name Role Phone Moshe Morelos Unavailable [phone] Reason For Referral No Information Plan Of Treatment No Information
--- NOTE | 2024-11-24 09:26 | ECG_ITS ---
Test Reason : HTN, ARM PAIN Blood Pressure : */* mmHG Vent. Rate : 73 BPM Atrial Rate : 73 BPM P-R Int : 168 ms QRS Dur : 86 ms QT Int : 376 ms P-R-T Axes : 72 39 62 degrees QTcB Int : 414 ms Normal sinus rhythm Normal ECG When compared with ECG of 17-Oct-2024 12:38, No significant change was found Referred By: Ya Harrison Electronically Signed By: Solo Bateman
--- NOTE | 2024-11-24 09:26 | ED.EXTPRO ---
HPI - Extremity Problem General Chief complaint: Extremity Injury, Upper Stated complaint: body pain Time Seen by Provider: 11/24/24 09:20 Source: patient, RN notes reviewed and old records reviewed Mode of arrival: ambulatory Limitations: no limitations History of Present Illness ED Provider: Christy HPI Narrative: Patient is a 64-year-old female with history of polyarthralgia (on carisoprodol, diclofenac gel), Bipolar disorder, hypothyroidism, COPD, HLD, smoking, GERD, CKD presenting to the emergency department with complaint of bilateral shoulder pain since July. Has seen PCP for this and had cortisone injections with little relief. States that she saw Dr. Britton in September for a follow up of her hip replacement and mentioned her shoulder pain at that time. Has been unable to schedule follow-up appointment with ortho for her shoulder pain. Taking Tylenol with little relief. 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 Denies numbness or tingling to upper extremities. States PCP already obtained x-rays prior to cortisone injections. Patient also reports history of Lyme in the past, [facility] PCP ordered outpatient bloodwork to test for acute Lyme infection but lab was closed today. MD Complaint: joint pain Related Data Home Medications ?Medication ?Instructions ?Recorded ?Confirmed albuterol sulfate 2.5 mg/3 mL 2.5 mg inhalation Q4-6H PRN 02/06/20 06/26/24 (0.083 %) solution for nebulization Shortness Of Breath Or Wheezing diclofenac sodium 1 % topical gel 4 g topical QID PRN Pain 03/10/24 06/26/24 (Voltaren Arthritis Pain) Previous Rx's ?Medication ?Instructions ?Recorded albuterol sulfate 90 mcg/actuation 2 puff PO Q4H PRN bronchospasm #18 11/29/21 aerosol inhaler (Ventolin HFA) grams fluticasone propionate 50 2 spray intranasal DAILY #16 grams 10/01/22 mcg/actuation nasal spray,suspension walker #1 ea 02/11/24 Raised toilet seat #1 ea 03/05/24 acetaminophen 325 mg tablet 650 mg (2 x 325 mg) PO Q6H PRN 04/10/24 Pain, Mild 1-3,Fever,Headache 30 days #420 tabs carbamide peroxide 6.5 % ear drops 5 drp otic (ear) right DAILY 4 06/16/24 (Debrox) days #15 mL phenazopyridine 200 mg tablet 200 mg PO TID PRN pain #14 tabs 10/06/24 (Pyridium) ondansetron HCl 4 mg tablet 4 mg PO Q8H 4 days #12 tabs 10/17/24 dicyclomine 20 mg tablet 20 mg PO QID 30 days #120 tabs 10/22/24 carisoprodol 350 mg tablet 350 mg PO BID PRN muscle pain #50 11/11/24 tabs lidocaine 5 % topical patch 1 patch topical DAILY #15 ea 11/24/24 Allergies Allergy/AdvReac Type Severity Reaction Status Date / Time atorvastatin Allergy Unknown Cramps Verified 11/24/24 09:15 barium sulfate Allergy Unknown sore throat Verified 11/24/24 09:15 omeprazole Allergy Unknown diarrhea Verified 11/24/24 09:15 rosuvastatin Allergy Unknown Unknown Verified 11/24/24 09:15 simvastatin Allergy Unknown unknown Verified 11/24/24 09:15 varenicline (From Chantix) Allergy Unknown sore throat Verified 11/24/24 09:15 evolocumab (From Repatha AdvReac Intermediate cough Verified 11/24/24 09:15 SureClick) Review of Systems Review of Systems: As per HPI Yes all other systems are reviewed and are negative Constitutional: Constitutional: Reports as per HPI [facility] [place] Past Medical History Medical History (Updated 11/24/24 @ 11:07 by Ya Harrison NP) Diarrhea Sore throat Hearing difficulty Cerumen impaction Mixed hyperlipidemia Preoperative cardiovascular examination Left shoulder pain Hip pain, left Arthralgia Hip osteoarthritis Arthritis of left hip Parasitic intestinal disease Chronic kidney disease (CKD) stage G3a/A1, moderately decreased glomerular filtration rate (GFR) between 45-59 mL/min/1.73 square meter and albuminuria creatinine ratio less than 30 mg/g Thyroid disease CKD (chronic kidney disease) Concussion Elevated cholesterol Myalgia due to statin Neurocardiogenic syncope Forehead laceration Fall Oral candidiasis Nausea and vomiting Abdominal bloating Thoracic back pain Foot pain, left LUQ abdominal pain Abdominal pain Rectal bleeding Myalgia Neck pain Chest pain HLD (hyperlipidemia) Osteoarthritis of right hip Iliotibial band syndrome Hematoma and contusion Osteoarthritis of left hip Vitamin D deficiency Hearing loss Degenerative disc disease, lumbar GERD (gastroesophageal reflux disease) COPD (chronic obstructive pulmonary disease) Crohn's disease Nicotine dependence, cigarettes, uncomplicated Hypothyroidism S/P right hip fracture Surgical History (Updated 11/05/24 @ 12:32 by ELZBIETA Jolly) S/P cardiac cath S/P total left hip arthroplasty S/P hip replacement Hx of cardiac catheterization History of hip surgery History of colonoscopy History of esophagogastroduodenoscopy (EGD) Hx of eye surgery History of shoulder surgery History of hand surgery History of foot surgery History of tubal ligation History of total right hip arthroplasty Family History Family History Father Bladder cancer Mother Acute CVA (cerebrovascular accident) Stroke CVD (cardiovascular disease) Thyroid disease Brother Renal cell cancer Acute CVA (cerebrovascular accident) Family/Other Alcoholism Social History Social History Household Members: None Household Members Other:: 12/2021 Housing: House Are you a primary care partner to a significant other at home: No Do you presently have visiting nurse or other home services: No Alcohol intake: current Alcohol intake frequency: a few times a week Patient Tobacco Use Status: Current everyday Tobacco user Tobacco use type: Cigarette Cigarette Packs Per Day: 0.5 Cigarettes Per Day: 7 Years Smoked: (onset 10yo, 3/4-1ppd x 52yrs, 40+PYH) e-Cigarette/Vaping Use: Never Used Second Hand Smoke Exposure: Yes Substance Use Type: Marijuana Advance Directives: No Advance Directives Information Provided: No service: No Current occupational status: disabled Cognitive needs: No Hearing needs: No Vision needs: Yes (Glasses) Physical Exam Vital Signs: Vital Signs: Last Vital Signs Temp 98.2 F 11/24/24 10:19 Pulse 60 11/24/24 10:19 Resp 16 11/24/24 10:19 BP 127/73 11/24/24 10:19 Pulse Ox 95 11/24/24 10:19 O2 Del Method Room Air 11/24/24 10:19 BMI result Body Mass Index 25.7 Vital signs have been reviewed and appear to be correct. Blood pressure normal. Heart rate normal. Respiratory rate normal. Temperature normal. Oxygen saturation normal. Const: General: cooperative, healthy appearing and no acute distress Orientation/consciousness: oriented to person, oriented to place, oriented to time and patient oriented x3 Limitations: no limitations HEENT: Head: Yes normocephalic and Yes atraumatic Ears: external ears normal General nose exam: Normal external nose present Face and sinus: Yes face symmetric Mouth: oropharynx normal and moist mucous membranes Throat: Yes uvula midline Eyes: Pupils: Equal, round and reactive pupils present Neck: Neck: Yes normal visual inspection and Yes supple Resp: Effort & Inspection: normal respiratory effort and able to speak in complete sentences Auscultation: clear to auscultation bilaterally Cardio: Rate: regular rate Rhythm: regular rhythm Heart sounds: S1 normal heart sound present and S2 normal heart sound present GI: Palpation (GI): Soft to palpation and nontender Auscultation: normoactive bowel sounds : General: Yes no CVA tenderness Back/Spine/Pelvis: Back: no CVA tenderness Skin: General skin exam: elasticity normal and turgor normal Neuro: General: oriented to person, oriented to place, oriented to time, patient oriented x3, moves all extremities, no focal motor deficits and CN's II-XI intact bilaterally Cranial nerves: Yes Equal, round and reactive pupils present Cognition (Neuro): normal cognition Extrem: Other: bilat shoulders with full passive ROM, active ROM limited by pain General: Yes full ROM, Yes no pedal edema and Yes no calf tenderness Right upper extremity: normal to inspection Left upper extremity: normal to inspection Psych: Mental Status: mental status grossly normal Affect: normal affect Thought process: Normal thought process present Medications Administered Discontinued Medications Generic Name Dose Route Start Last Admin Trade Name Freq PRN Reason Stop Dose Admin Ketorolac Tromethamine 30 mg 11/24/24 10:13 11/24/24 10:20 Ketorolac Tromethamine 30 Mg/Ml Vial IM 11/24/24 10:14 30 mg ONCE ONE Administration Medical Decision Making Medical Decision Making MDM Narrative: Patient is a 64-year-old female with history of polyarthralgia (on carisoprodol, diclofenac gel), Bipolar disorder, hypothyroidism, COPD, HLD, smoking, GERD, CKD presenting to the emergency department with complaint of bilateral shoulder pain since July. On exam patient is awake, A+Ox3, hypertensive, VS otherwise WNL, afebrile, normal neurological exam without focal deficits, physical exam findings as above. Given reported symptoms and physical exam findings, initial differential includes but is not limited to osteoarthritis, polyarthralgia, rotator cuff strains, Lyme disease. Unlikely ACS, but will obtain EKG and troponin due to HTN. Labs notable for no leukocytosis, negative troponin. Tick panel pending and patient will be contacted with any positive results. Do not feel additional imaging is indicated as patient denies fall or other trauma prior to onset of symptoms, had x-rays done by PCP outpatient. Upon review of EMR, patient has been referred to pain management but has not been compliant with regular labwork, evaluations, etc. She also recently requested and increase in dosage of her Soma which her PCP did not agree with. EKG shows NSR. Results discussed with patient and all questions answered. Will send prescription for topical lidocaine patches. Will refer to orthopedics for further evaluation as well as pain management. Also advised patient to discuss option of physical therapy with her PCP. Return precautions discussed. Patient verbalized understanding of and agreement with plan. Differential Diagnosis Differential Diagnoses: The differential diagnosis associated with the presentation includes as per [facility] Admission/Observation Consideration of admission/observation: Escalation of care including admission/observation considered Patient would have been admitted to the hospital had their clinical presentation warranted hospital admission. Lab Data [facility] Lab Attestation statement: I reviewed the patient's lab results. as per [facility] 11/24/24 09:54 11/24/24 09:55 Labs: Lab Results 11/24/24 11/24/24 Range/Units 09:54 09:55 WBC 8.8 (4.8-10.8) X10*3/uL RBC 4.09 L (4.20-5.50) X10*6/uL Hgb 12.8 (12.0-16.0) g/dl Hct 36.7 L (37.0-47.0) % MCV 89.7 (80.0-98.0) fL MCH 31.3 (27.0-33.0) pg MCHC 34.9 (31.0-35.0) g/dl RDW 13.3 (11.0-16.0) % Plt Count 251 (160-400) X10*3/uL MPV 9.3 L (9.4-12.3) fL Immature Gran % (Auto) 0.6 H (0.0-0.4) % Neut % (Auto) 64.7 (45-73) % Lymph % (Auto) 26.1 (20-40) % [place] % (Auto) 6.6 (2-11) % Eos % (Auto) 1.7 (0-4) % Baso % (Auto) 0.3 (0-2) % Lymph # (Auto) 2.3 (1.2-4.9) X10*3/uL [place] # (Auto) 0.6 (0.1-1.2) X10*3/uL Eos # (Auto) 0.2 (0.0-0.4) X10*3/uL Baso # (Auto) 0.0 (0.0-0.2) X10*3/uL Abs Immat Gran (auto) 0.05 H (0.00-0.03) X10*3/uL Absolute Neuts (auto) 5.7 (2.0-8.3) x10*3/uL Absolute Nucleated RBC 0.000 (0.0-0.012) X10*3/uL Nucleated RBC % (auto) 0.0 (0.0-0.2) /100WBC Sodium 141 (135-145) mmol/L Potassium 4.3 (3.3-5.1) mmol/L Chloride 112 H (96-108) mmol/L Carbon Dioxide 21 L (22-29) mmol/L Anion Gap 12 (12-20) BUN 16 (9-16) mg/dL Creatinine 1.08 (0.5-1.4) mg/dL Estim Creat Clear Calc 53.6 Estimated GFR 51 Random Glucose 90 (60-115) mg/dL Calcium 9.0 (8.4-10.2) mg/dL Total Bilirubin 0.2 (0.0-1.0) mg/dL AST 19 (5-31) U/L ALT 14 (0-31) U/L Alkaline Phosphatase 78 (39-117) U/L Troponin I High Sens < 2.7 (<3.5-17.0) ng/L Total Protein 6.3 L (6.5-8.0) g/dL Albumin 4.1 (3.5-5.0) g/dL External Record Review External record reviewed: Inpatient record, Office record and Outpatient record Prescription Management I considered prescription management with: Pain Medication Chronic Conditions Patient?s care impacted by: Other (polyarthralgia, CKD) Discharge Plan Discharge Clinical Impression: Bilateral shoulder pain Patient Disposition: Home, Self-Care Instructions: Arthralgia (ED), Shoulder Pain (ED) Additional Instructions: You were evaluated in the emergency department today for pain to both shoulders. Your evaluation did not show evidence of acute conditions requiring emergent medical treatment at this time. We recommend that you continue using your previously prescribed pain medication as directed. You are being referred to orthopedics for further evaluation of your symptoms. You are also being referred to pain management. Your tick borne illness panel is pending and you will be contacted with any positive results. Follow up with your primary care provider to discuss the option of physical therapy. You are being prescribed topical lidocaine patches which you can wear for up to 12 hours in a 24 hour period (12 hours on, 12 hours off). Do not apply heat directly over the patches. Return to the emergency department with new or concerning symptoms. Prescriptions: New lidocaine 5 % adhesive patch,medicated 1 patch topical DAILY Qty: 15 0RF Rx Instructions: leave on most painful area for up to 12 hrs No Action fluticasone propionate 50 mcg/actuation spray,suspension 2 spray intranasal DAILY Qty: 16 4RF Rx Instructions: administer into each nostril (DME) walker Misc See Rx Instructions .MEDSUPPLY Qty: 1 0RF Rx Instructions: Folding Front wheeled walker (DME) Raised toilet seat See Rx Instructions .ROUTE .MEDSUPPLY Qty: 1 0RF Rx Instructions: duration - 99 days Debrox 6.5 % drops 5 drp otic (ear) right DAILY 4 Days Qty: 15 0RF phenazopyridine [Pyridium] 200 mg tablet 200 mg PO TID PRN (Reason: pain) Qty: 14 0RF carisoprodol 350 mg tablet 350 mg PO BID PRN (Reason: muscle pain) Qty: 50 1RF Rx Instructions: Covering for Dr.Po diclofenac sodium [Voltaren Arthritis Pain] 1 % gel 4 g topical QID PRN (Reason: Pain) Rx Instructions: apply to single knee, ankle, foot; for foot includes sole/toes/top of foot acetaminophen 325 mg Tablet 650 mg PO Q6H PRN (Reason: Pain, Mild 1-3,Fever,Headache) 30 Days Qty: 420 0RF ondansetron HCl 4 mg tablet 4 mg PO Q8H 4 Days Qty: 12 0RF albuterol sulfate 2.5 mg /3 mL (0.083 %) solution for nebulization 2.5 mg inhalation Q4-6H PRN (Reason: Shortness Of Breath Or Wheezing) albuterol sulfate [Ventolin HFA] 90 mcg/actuation HFA aerosol inhaler 2 puff PO Q4H PRN (Reason: bronchospasm) Qty: 18 0RF dicyclomine 20 mg tablet 20 mg PO QID 30 Days Qty: 120 1RF Referrals: [facility] [Provider Group] Clinical Impression: Bilateral shoulder pain Aaron Fernandez MD [Physician, Pain Management] Referral Note: Pain since July Clinical Impression: Bilateral shoulder pain Print Language: Latvian
[2024-11-24 09:58] LABS: MANUAL DIFF FLAG NO
[2024-11-24 10:01] LABS: Hematocrit 36.7 % (37.0-47.0); Hemoglobin 12.8 g/dl (12.0-16.0); Imm Gran Abs Auto 0.05 X10*3/uL (0.00-0.03); Imm Gran Pct Auto 0.6 % (0.0-0.4); Lymphocytes Absolute Auto 2.3 X10*3/uL (1.2-4.9); Mean Corpuscular HGB Conc 34.9 g/dl (31.0-35.0); Mean Corpuscular Hemoglobin 31.3 pg (27.0-33.0); Mean Corpuscular Volume 89.7 fL (80.0-98.0); NRBC Abs Auto 0.000 X10*3/uL (0.0-0.012); NRBC Pct Auto 0.0 /100WBC (0.0-0.2); Platelet Count 251 X10*3/uL (160-400); Red Blood Count 4.09 X10*6/uL (4.20-5.50); White Blood Count 8.8 X10*3/uL (4.8-10.8)
[2024-11-24 10:15] LABS: Alanine Aminotransferase 14 U/L (0-31); Albumin Level 4.1 g/dL (3.5-5.0); Alkaline Phosphatase 78 U/L (39-117); Anion Gap 12 (12-20); Aspartate Amino Transferase 19 U/L (5-31); Blood Urea Nitrogen 16 mg/dL (9-16); Calcium 9.0 mg/dL (8.4-10.2); Carbon Dioxide 21 mmol/L (22-29); Chloride 112 mmol/L (96-108); Creatinine Clr Calc Pharmacy 53.6; Estimated Glomerular Filt Rate 51; Potassium 4.3 mmol/L (3.3-5.1); Sodium 141 mmol/L (135-145); Total Protein 6.3 g/dL (6.5-8.0)
[2024-11-24 10:19] VITALS: BP 127/73; PULSE 60; RESP 16; TEMP 36.8; O2SAT 95
[2024-11-24 10:30] LABS: Troponin-I High Sensitivity < 2.7 ng/L (<3.5-17.0)
[2024-11-24 11:34] VITALS: BP 127/73; PULSE 60; RESP 16; TEMP 36.8; O2SAT 95
[2024-11-25 09:28] LABS: A. Phagocytphilium DNA,RT-PCR NOT DETECTED (NOT DETECTED); Babesia Microti DNA, RT-PCR NOT DETECTED (NOT DETECTED); Borrelia Miyamotoi,DNA RT-PCR NOT DETECTED (NOT DETECTED); E.Chaffeensis DNA RT-PCR NOT DETECTED (NOT DETECTED); Lyme(Borrelia ssp)DNA RT-PCR NOT DETECTED (NOT DETECTED)
[2024-11-25 13:13] LABS: Lyme Abs Screen <0.90 index
== END 2024-11-24 11:35 | disposition home or self-care (01) ==
PROVIDERS: Registered Nurse Emergency; Emergency Provider Emergency Medicine; PCP Internal Medicine
DX: M25.512 Pain in left shoulder (principal); M25.511 Pain in right shoulder; M79.601 Pain in right arm; I10 Essential (primary) hypertension
CPT/HCPCS: 36415; 80053; 84484; 85025; 86617; 86618; 87468; 87469; 87478; 87484; 87798; 93005; 96372; 99284; J1885

== ENCOUNTER → 2024-11-24 09:26 | Outpatient (BNV) | payer OTHER, SELFPAY | PROVIDERS: Emergency Provider Emergency Medicine; PCP Internal Medicine; Visit Provider Internal Medicine Cardiovascular Disease | DX: I10 Essential (primary) hypertension (principal); M25.511 Pain in right shoulder; M25.512 Pain in left shoulder | CPT/HCPCS: 93010 ==

== ENCOUNTER 2024-11-25 15:01 | Outpatient (REF) | payer OTHER, SELFPAY ==
--- NOTE | ~2024-11-25 | US_ITS ---
EXAMINATION: Noninvasive assessment of the bilateral lower extremities without ARTERIAL DUPLEX, ANKLE BRACHIAL INDICES (ABIs), and PULSE VOLUME RECORDINGS (PVRs). CLINICAL INFORMATION: Peripheral vascular disease, unspecified. I73.9. TECHNIQUE: Duplex Doppler techniques with waveform analysis and measurement of velocities in the bilateral common femoral, profunda femoris, superficial femoral, popliteal and tibial arteries were performed. The study was performed only at rest. COMPARISON: None FINDINGS: Calcified plaques. DIRECT DUPLEX DOPPLER FINDINGS: RIGHT LEG: Common femoral artery: 273 cm/s, phasicity: Triphasic. Spectral broadening. Profunda femoris artery: 101 cm/s, phasicity: Biphasic. Spectral broadening. Superficial femoral artery (proximal): 116 cm/s, phasicity: Triphasic. Spectral broadening. Superficial femoral artery (mid): 151 cm/s, phasicity: Triphasic. Superficial femoral artery (distal): 97 cm/s, phasicity: Triphasic. Spectral broadening. Popliteal artery: 117 cm/s, phasicity: Monophasic. Spectral broadening. Posterior tibial artery: 129 cm/s, phasicity: Monophasic. Spectral broadening. Peroneal artery: 69 cm/s, phasicity: Monophasic. Spectral broadening. Anterior tibial artery: 72 cm/s, phasicity: Monophasic. Spectral broadening. Dorsalis pedis artery: 60 cm/s, phasicity:Monophasic. Spectral broadening. LEFT LEG: Common femoral artery: 224 cm/s, phasicity: Triphasic. Spectral broadening. Profunda femoris artery: 101 cm/s, phasicity: Triphasic. Spectral broadening. Superficial femoral artery (proximal): 152 cm/s, phasicity: Triphasic. Spectral broadening. Superficial femoral artery (mid): 124 cm/s, phasicity: Triphasic. Spectral broadening. Superficial femoral artery (distal): 126 cm/s, phasicity: Monophasic. Spectral broadening. Popliteal artery: 96 cm/s, phasicity: Triphasic. Posterior tibial artery: 81 cm/s, phasicity: Monophasic. Spectral broadening. Peroneal artery: 88 cm/s, phasicity: Triphasic. Spectral broadening. Anterior tibial artery: 76 cm/s, phasicity: Triphasic. Spectral broadening. Dorsalis pedis artery: 80 cm/s, phasicity: Monophasic. Spectral broadening. US/US arterial duplex LE BI IMPRESSION: Right leg: Severe inflow disease from the popliteal to the dorsalis pedis arteries. Left leg: Severe inflow disease, dorsalis pedis artery. Electronically signed by: Tim Tuttle MD 11/26/2024 08:11 AM EDT
== END 2024-11-25 15:02 | disposition home or self-care (01) ==
LOC: HO.US 15:01
PROVIDERS: PCP Internal Medicine; Visit Provider Internal Medicine
DX: I73.9 Peripheral vascular disease, unspecified (principal)
CPT/HCPCS: 93925

== ENCOUNTER → 2024-11-25 15:04 | Outpatient (BNV) | payer OTHER, SELFPAY | PROVIDERS: PCP Internal Medicine; Visit Provider Radiology Diagnostic Radiology | DX: I73.9 Peripheral vascular disease, unspecified (principal) | CPT/HCPCS: 93925 ==

== ENCOUNTER 2024-12-04 15:42 | Outpatient (AMB) | payer OTHER, SELFPAY ==
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
[2024-12-04 15:53] VITALS: BP 124/60; PULSE 84; TEMP 36.3; O2SAT 97; BMI 25.6
--- OUTSIDE RECORDS SUMMARY | 2024-12-04 18:47 | XMS_ITS | Patient Health Record ---
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
== END 2024-12-04 16:36 | disposition home or self-care (01) ==
LOC: HO.HMCH 15:43
PROVIDERS: PCP Internal Medicine; Visit Provider Internal Medicine
DX: E78.00 Pure hypercholesterolemia, unspecified (principal); F31.9 Bipolar disorder, unspecified; J43.9 Emphysema, unspecified; E03.9 Hypothyroidism, unspecified; K21.9 Gastro-esophageal reflux disease without esophagitis; F17.210 Nicotine dependence, cigarettes, uncomplicated; I73.9 Peripheral vascular disease, unspecified; R10.13 Epigastric pain; M25.511 Pain in right shoulder; M25.512 Pain in left shoulder

== ENCOUNTER → 2024-12-04 15:42 | Outpatient (BNVA) | payer OTHER, SELFPAY | PROVIDERS: PCP Internal Medicine; Visit Provider Internal Medicine | DX: E78.00 Pure hypercholesterolemia, unspecified (principal); E03.9 Hypothyroidism, unspecified; F31.9 Bipolar disorder, unspecified; K21.9 Gastro-esophageal reflux disease without esophagitis; J43.9 Emphysema, unspecified; I73.9 Peripheral vascular disease, unspecified; R10.13 Epigastric pain; M25.511 Pain in right shoulder; M25.512 Pain in left shoulder; F17.210 Nicotine dependence, cigarettes, uncomplicated; Z96.642 Presence of left artificial hip joint | CPT/HCPCS: 99212 ==

== ENCOUNTER 2024-12-05 09:46 | Outpatient (AMB) | payer OTHER, SELFPAY ==
[2024-12-05 09:49] VITALS: BP 132/76; PULSE 69; BMI 25.5
--- NOTE | 2024-12-05 09:49 | MHC.OFFVIS ---
Vital Signs 12/05/24 09:49 Height 5 ft 6 in Weight 158 lb 4.67 oz BMI 25.5 BP 132/76 Blood Pressure Location Rt brachial Position Sitting Pulse 69 Intake Visit Reasons: CIC, abd pain Intake Note: presents in office today in follow up of CIC and abd pain. CC: Patient states that she would like to get a new Rx of premethizine because it works better for nausea than the ondansetron. 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 Required: No Accompanied by: Self / Same As Patient Allergies atorvastatin Allergy (Unknown, Verified 12/05/24 09:59) Cramps barium sulfate Allergy (Unknown, Verified 12/05/24 09:59) sore throat omeprazole Allergy (Unknown, Verified 12/05/24 09:59) diarrhea rosuvastatin Allergy (Unknown, Verified 12/05/24 09:59) Unknown simvastatin Allergy (Unknown, Verified 12/05/24 09:59) unknown varenicline (From Chantix) Allergy (Unknown, Verified 12/05/24 09:59) sore throat evolocumab (From Repatha SureClick) Adverse Reaction (Intermediate, Verified 12/05/24 09:59) cough HPI HPI CIC, abd pain: Details: Assessment & Plan (1) LLQ abdominal pain: Code(s): R10.32 - Left lower quadrant pain Category: Medical (2) Upper abdominal pain: Comment: DUE TO THORACIC RADICULOPATHY NO GI CAUSES FOUND Code(s): R10.10 - Upper abdominal pain, unspecified Category: Medical (3) GERD (gastroesophageal reflux disease): Comment: EGD July 2021 Code(s): K21.9 - Gastro-esophageal reflux disease without esophagitis Category: Medical (4) Bilateral shoulder pain: Code(s): M25.511 - Pain in right shoulder; M25.512 - Pain in left shoulder Category: Medical (5) Acute stress reaction: Code(s): F43.0 - Acute stress reaction Category: Medical (6) Generalized anxiety disorder: Comment: [facility] Code(s): F41.1 - Generalized anxiety disorder Category: Medical (7) Screening for osteoporosis: Code(s): Z13.820 - Encounter for screening for osteoporosis Category: Medical (8) Weight loss, unintentional: Code(s): R63.4 - Abnormal weight loss Category: Medical Plan She is doing better with the pain, but she can only tolerate the bentyl bid. She did not take the mirlalax, she dislikes chemicals. She still has some difficulty moving her bowels, so we discuss a magnesium supplement. She has a wide range of weird problems, per her report. She has fatigue and malaise and her shoulders are in a lot of pain. She steroid injections and it did not work. Also, she saw Dr. Britton and he was unhappy, because it was too close to my hip replacement surgery. She sees [facility] for her shoulders. Also, the pain under her ribs, which was gone for a while and she attributes to eating a natural casing hotdog every Sunday also was intermittently bothering her again. She says that she never feels as well as she does after she is prepped for colonoscopy, and wonders if she should use the MiraLax to do a ?many cleanse. ? I ask about trauma, and she admits she fell on bilateral outstretched hands prior to the shoulder pain. Its hard to address her generalized malaise, she had recent loss of a friend she was caring for, and she has a lot of fear about not being able to work and losing the income. She also had to pack and move her friend's belongings. We had a long discussion about the long-term effects of acute stress and psychological trauma. We discussed certain coping strategies and while she is not open to counseling, she does like to swim in her pool and I suggest she try to meditate/floating the pull more often and consider ways that she can lost stress from this situation. She understands the chronic long-term effects and she agrees with me that this could be part of all of her constellation of symptoms. Ordered DEXA scan as she is worried about my bones and there is a lot of neck and back pathology on other imaging. ROV 4 weeks. Orders: Orders XR DEXA axial skeleton Today Z13.820 - Encounter for screening for osteoporosis DEXA SCAN TODAY'S VISIT [facility] Medical History (Updated 12/05/24 @ 10:33 by ELZBIETA Jolly) Neck pain Diarrhea Sore throat Hearing difficulty Cerumen impaction Mixed hyperlipidemia Preoperative cardiovascular examination Left shoulder pain Hip pain, left Arthralgia Hip osteoarthritis Arthritis of left hip Parasitic intestinal disease Chronic kidney disease (CKD) stage G3a/A1, moderately decreased glomerular filtration rate (GFR) between 45-59 mL/min/1.73 square meter and albuminuria creatinine ratio less than 30 mg/g Thyroid disease CKD (chronic kidney disease) Concussion Elevated cholesterol Myalgia due to statin Neurocardiogenic syncope Forehead laceration Fall Oral candidiasis Nausea and vomiting Abdominal bloating Thoracic back pain Foot pain, left LUQ abdominal pain Abdominal pain Rectal bleeding Myalgia Chest pain HLD (hyperlipidemia) Osteoarthritis of right hip Iliotibial band syndrome Hematoma and contusion Osteoarthritis of left hip Vitamin D deficiency Hearing loss Degenerative disc disease, lumbar GERD (gastroesophageal reflux disease) COPD (chronic obstructive pulmonary disease) Crohn's disease Nicotine dependence, cigarettes, uncomplicated Hypothyroidism S/P right hip fracture Surgical History S/P cardiac cath S/P total left hip arthroplasty S/P hip replacement Hx of cardiac catheterization History of hip surgery History of colonoscopy History of esophagogastroduodenoscopy (EGD) Hx of eye surgery History of shoulder surgery History of hand surgery History of foot surgery History of tubal ligation History of total right hip arthroplasty Family History Father Bladder cancer Mother Acute CVA (cerebrovascular accident) Stroke CVD (cardiovascular disease) Thyroid disease Brother Renal cell cancer Acute CVA (cerebrovascular accident) Family/Other Alcoholism Social History Household Members: None Household Members Other:: 12/2021 Housing: House Are you a primary healthcare consultant to a significant other at home: No Do you presently have visiting nurse or other home services: No Alcohol intake: current Alcohol intake frequency: a few times a week Patient Tobacco Use Status: Current everyday Tobacco user Tobacco use type: Cigarette Cigarette Packs Per Day: 0.5 Cigarettes Per Day: 10 Years Smoked: (onset 10yo, 3/4-1ppd x 52yrs, 40+PYH) e-Cigarette/Vaping Use: Never Used Second Hand Smoke Exposure: Yes Substance Use Type: Marijuana service: No Current occupational status: disabled Cognitive needs: No Hearing needs: No Vision needs: Yes (Glasses) Review of Systems Const Denies fatigue, Denies fever(s), Denies night sweats, Denies poor appetite and Denies weight loss ENT Reports Normal hearing present, Denies dental pain, Denies dysphagia, Denies hearing loss, Denies mouth pain, Reports neck pain, Denies odynophagia, Denies throat swelling, Denies tongue swelling and Reports other (Dentition adequate) Card Reports no additional complaints Resp Reports no additional complaints GI Details: Denies abdominal pain, Denies melena, Denies bloating, Denies hematochezia, Reports constipation, Reports GI cramping, Denies dysphagia, Denies excessive flatus, Denies early satiety, Denies heartburn, Denies diarrhea, Reports loose stools, Denies nausea, Denies odynophagia, Denies vomiting and Denies hematemesis Musc Reports back pain, Reports myalgias, Reports limited range of motion, Reports neck pain, Reports radiating pain into limb and Reports stiffness Skin/Breast Denies pruritus, Denies lesions, Denies rash and Denies jaundice Neuro Reports Normal hearing present and Denies Abnormal speech present Endo Denies fatigue Aller/Immun Denies throat swelling and Denies tongue swelling Physical Exam Vital Signs: Last Vital Signs Pulse 69 12/05/24 09:49 BP 132/76 12/05/24 09:49 BMI result Body Mass Index 25.5 Const General: cooperative, no acute distress, well developed and well groomed Nutritional Appearance: average body habitus and well nourished Orientation/consciousness: oriented to person, oriented to place and oriented to time Limitations: No language barrier HEENT Head: Yes normocephalic and Yes atraumatic Eyes General: appearance normal, both eyes and all related structures Pupils: Equal, round and reactive pupils present Neck Neck: Yes normal visual inspection and Yes no lymphadenopathy Thyroid: Thyroid normal Resp Effort & Inspection: normal respiratory effort and able to speak in complete sentences Auscultation: clear to auscultation bilaterally Cardio Rate: regular rate Rhythm: regular rhythm Heart sounds: Normal, physiologic split S2 sound present Peripheral pulses: radial pulses present and posterior tibial pulses present GI Inspection: No distended and No Abdominal panniculus present Palpation (GI): Soft to palpation, nontender, no guarding, not rigid and No hepatosplenomegaly present Percussion: Yes normal to percussion Auscultation: normal bowel sounds Rectal Exam - Female: deferred Back/Spine/Pelvis Cervical Spine: No normal cervical lordosis, cervical muscular tenderness and cervical spasm Skin General skin exam: no rashes or lesions noted, turgor normal, skin not dry, no jaundice, No spider nevi and no striae Rashes: no rashes Nails: normal Neuro General: oriented to person, oriented to place and oriented to time Cranial nerves: Yes Equal, round and reactive pupils present and Yes Normal hearing present Speech: No Abnormal speech present Extrem General: Yes normal to inspection, No clubbing, No cyanosis and No edema Right upper extremity: shoulder/upper arm Details: tenderness (tenderness tricept rt, biceps tendon left withn instability) and abnormal ROM Details: pain with active ROM Details: in ABduction, in flexion, in internal rotation and external rotation-; ROM limited Psych Appearance: grossly normal and well kempt Mental Status: mental status grossly normal Speech and movement: Normal speech and movement present Affect: normal affect Attitude: cooperative Thought process: Normal thought process present and not confabulating Thought content: Normal thought content present Insight: Fair insight present (Psych) Judgement: Fair judgement present (Psych) Assessment & Plan Assessment & Plan (1) GERD (gastroesophageal reflux disease): Comment: EGD July 2021 Code(s): K21.9 - Gastro-esophageal reflux disease without esophagitis Category: Medical (2) Paraesophageal hernia: Code(s): K44.9 - Diaphragmatic hernia without obstruction or gangrene Category: Medical (3) Upper abdominal pain: Comment: DUE TO THORACIC RADICULOPATHY NO GI CAUSES FOUND Code(s): R10.10 - Upper abdominal pain, unspecified Category: Medical (4) Screening for osteoporosis: Code(s): Z13.820 - Encounter for screening for osteoporosis Category: Medical (5) Neck pain: Code(s): M54.2 - Cervicalgia Category: Medical Plan Her current GI regimen consists of magnesium, Zofran, and dicyclomine. - The patient is a 64-year-old female presenting for continued management of IBS. She feels that her GI conditions are currently well controlled, the magnesium has been very helpful for her constipation although it occasionally gives her diarrhea. - Reports right shoulder pain with limited range of motion, worsening with arm elevation and reaching. - Noted left biceps pain with movements. In the past she had seen [facility] for this and they had done x-rays without postulated any successful treatment plan.. -she was referred to pain management by her primary care provider. Her primary care also ordered shoulder x-rays. I will add an x-ray of the cervical spine in case the pain in her arms is radicular although my physical exam I believe she has biceps tendonitis on 1 side and rotator cuff arthropathy on the other. DEXA SCAN X-ray of the shoulders X-ray of the cervical spine Orders: Orders XR cervical spine 3V Today M54.2 - Cervicalgia Coding Level of Care Code Est Pt Level 4 (01808) Diagnoses GERD (gastroesophageal reflux disease) K21.9 Paraesophageal hernia K44.9 Upper abdominal pain R10.10 Screening for osteoporosis Z13.820 Neck pain M54.2 Time Spent (min) 38
--- OUTSIDE RECORDS SUMMARY | 2024-12-05 10:56 | XMS_ITS | Patient Health Record ---
Author Organization [facility] Address [address] [place] [id number] Care Team Providers Care Magnetic Tape Composer Operator Name Role Phone Moshe Morelos Unavailable [phone] Reason For Referral No Information Plan Of Treatment No Information
== END 2024-12-05 12:35 | disposition home or self-care (01) ==
LOC: HO.HGI 09:47
PROVIDERS: PCP Internal Medicine; Visit Provider Nurse Practitioner
DX: K21.9 Gastro-esophageal reflux disease without esophagitis (principal); K44.9 Diaphragmatic hernia without obstruction or gangrene; R10.10 Upper abdominal pain, unspecified; Z13.820 Encounter for screening for osteoporosis; M54.2 Cervicalgia
CPT/HCPCS: 99214

== ENCOUNTER → 2024-12-05 09:46 | Outpatient (BNVA) | payer OTHER, SELFPAY | PROVIDERS: PCP Internal Medicine; Visit Provider Nurse Practitioner | DX: R10.32 Left lower quadrant pain (principal); K21.9 Gastro-esophageal reflux disease without esophagitis; F41.1 Generalized anxiety disorder; F43.0 Acute stress reaction; R63.4 Abnormal weight loss; R10.10 Upper abdominal pain, unspecified; M25.511 Pain in right shoulder; M25.512 Pain in left shoulder | CPT/HCPCS: 99212 ==

== ENCOUNTER 2024-12-08 11:13 | Outpatient (REF) | payer OTHER, SELFPAY ==
--- NOTE | ~2024-12-08 | XR_ITS ---
EXAMINATION: XR SHOULDER, LEFT CLINICAL INFORMATION: M25.511 - Pain in right shoulder COMPARISON: None available. TECHNIQUE: AP external rotation, Grashey, scapular Y, and axillary views of the bilateral shoulders. FINDINGS: Right shoulder: There are small marginal sites involving the glenohumeral joint. There is no dislocation or fracture. AC joint is intact. It is wide suggesting prior resection of distal clavicle. Left shoulder: There is mild narrowing of the glenohumeral joint and moderate marginal osteophytes. There is a bony spur lateral to acromion. The AC joint is intact and not degenerated. There is no dislocation. XR/XR Shoulder Ceferino min 2V IMPRESSION: Mild degenerative changes of the right shoulder joint. Resection of distal right clavicle. Moderate degenerative change of the left shoulder. Electronically signed by: Manjit Cohen MD 12/08/2024 11:44 AM EDT
--- NOTE | ~2024-12-08 | XR_ITS ---
EXAMINATION: XR CERVICAL SPINE CLINICAL INFORMATION: M54.2 - Cervicalgia COMPARISON: None available. TECHNIQUE: AP, lateral and atlantoodontoid views. FINDINGS: Craniocervical junction is intact. Marginal osteophyte formation and endplate sclerosis subchondral cyst formation and decreased intervertebral disc height from C4 to C7. Grade 1 retrolisthesis C5-6. No acute cortical disruption. No lytic or blastic lesions. Upper airway is patent. XR/XR cervical spine 3V IMPRESSION: Multilevel cervical spondylosis C4 C7 resulting in grade 1 retrolisthesis C5-6. Electronically signed by: Tim Tuttle MD 12/08/2024 11:47 AM EDT
--- OUTSIDE RECORDS SUMMARY | 2024-12-08 15:11 | XMS_ITS | Patient Health Record ---
Author Organization [facility] Address [address] [place] [id number] Care Team Providers Care Damage Appraiser Name Role Phone Moshe Morelos Unavailable [phone] Reason For Referral No Information Plan Of Treatment No Information
== END 2024-12-08 11:14 | disposition home or self-care (01) ==
LOC: HO.XRAY 11:13
PROVIDERS: Absent Provider Internal Medicine; PCP Internal Medicine; Visit Provider Nurse Practitioner
DX: M54.2 Cervicalgia (principal); M25.511 Pain in right shoulder; M25.512 Pain in left shoulder
CPT/HCPCS: 72040; 73030

== ENCOUNTER → 2024-12-08 11:16 | Outpatient (BNV) | payer OTHER, SELFPAY | PROVIDERS: Absent Provider Internal Medicine; PCP Internal Medicine; Visit Provider Radiology Diagnostic Radiology | DX: M47.812 Spondylosis without myelopathy or radiculopathy, cervical region (principal); M19.012 Primary osteoarthritis, left shoulder; M19.011 Primary osteoarthritis, right shoulder | CPT/HCPCS: 72040; 73030 ==

== ENCOUNTER 2024-12-17 15:33 | Outpatient (AMB) | payer OTHER, SELFPAY ==
--- NOTE | 2024-12-17 15:38 | A.OFFVIS_ITS ---
Vital Signs 12/17/24 15:39 Weight 140 lb BP 137/98 H Blood Pressure Location Lt brachial Position Sitting Respiration 18 Pulse 89 Pulse Source Pulse Oximeter Pulse Oximetry (%) 96 Oxygen Delivery Method Room Air Intake Visit Reasons: BILATERAL SHOULDER PAIN Automatic Quilling Machine Operator Required: No Allergies atorvastatin Allergy (Unknown, Verified 12/17/24 15:38) Cramps barium sulfate Allergy (Unknown, Verified 12/17/24 15:38) sore throat omeprazole Allergy (Unknown, Verified 12/17/24 15:38) diarrhea rosuvastatin Allergy (Unknown, Verified 12/17/24 15:38) Unknown simvastatin Allergy (Unknown, Verified 12/17/24 15:38) unknown varenicline (From Chantix) Allergy (Unknown, Verified 12/17/24 15:38) sore throat evolocumab (From Repatha SureClick) Adverse Reaction (Intermediate, Verified 12/17/24 15:38) cough HPI Comments Details: is 64 years old female who presents in my office with complains on pain on both shoulders. She reported that in September of this year she fell her house on the extended hands of the both shoulders. Since then she experiences severe pain in bilateral shoulders. She never had physical therapy to treat her pain. She never had any injections to treat her pain. She went for the x-ray of bilateral shoulders which demonstrated minor spurring and some narrowing of the intra-articular space of bilateral glenohumeral joints and intact AC joints. The full reports see as below. She went for emergency room with her pain and she was transferred to this office for examination. She has fairly convinced that she received while falling in September rotator cuff tear bilaterally she requests me to send her for the MRI of bilateral shoulders. Past medical history significant for moderate kidney insufficiency, chronic bronchitis, emphysema, she is a smoker. She has history of hypothyroidism she does not take any thyroid medications. She has a history of multiple pneumonias in the past. Past surgical history significant for total hip replacement, bone spurs shave down on the clavicles, bilateral tubal ligations, bunion surgery. She smokes half a pack of cigarettes for the past 50 years, she denies drinking alcohol, she admits having 1 joint of cannabis every 2 days. [facility] Medical History (Updated 12/17/24 @ 16:14 by Aaron Fernandez MD) Neck pain Diarrhea Sore throat Hearing difficulty Cerumen impaction Mixed hyperlipidemia Preoperative cardiovascular examination Left shoulder pain Hip pain, left Arthralgia Hip osteoarthritis Arthritis of left hip Parasitic intestinal disease Chronic kidney disease (CKD) stage G3a/A1, moderately decreased glomerular filtration rate (GFR) between 45-59 mL/min/1.73 square meter and albuminuria creatinine ratio less than 30 mg/g Thyroid disease CKD (chronic kidney disease) Concussion Elevated cholesterol Myalgia due to statin Neurocardiogenic syncope Forehead laceration Fall Oral candidiasis Nausea and vomiting Abdominal bloating Thoracic back pain Foot pain, left LUQ abdominal pain Abdominal pain Rectal bleeding Myalgia Chest pain HLD (hyperlipidemia) Osteoarthritis of right hip Iliotibial band syndrome Hematoma and contusion Osteoarthritis of left hip Vitamin D deficiency Hearing loss Degenerative disc disease, lumbar GERD (gastroesophageal reflux disease) COPD (chronic obstructive pulmonary disease) Crohn's disease Nicotine dependence, cigarettes, uncomplicated Hypothyroidism S/P right hip fracture Surgical History S/P cardiac cath S/P total left hip arthroplasty S/P hip replacement Hx of cardiac catheterization History of hip surgery History of colonoscopy History of esophagogastroduodenoscopy (EGD) Hx of eye surgery History of shoulder surgery History of hand surgery History of foot surgery History of tubal ligation History of total right hip arthroplasty Family History Father Bladder cancer Mother Acute CVA (cerebrovascular accident) Stroke CVD (cardiovascular disease) Thyroid disease Brother Renal cell cancer Acute CVA (cerebrovascular accident) Family/Other Alcoholism Social History Household Members: None Household Members Other:: 12/2021 Housing: House Are you a primary personal care service provider to a significant other at home: No Do you presently have visiting nurse or other home services: No Alcohol intake: current Alcohol intake frequency: a few times a week Patient Tobacco Use Status: Current everyday Tobacco user Tobacco use type: Cigarette Cigarette Packs Per Day: 0.5 Cigarettes Per Day: 10 Years Smoked: (onset 10yo, 3/4-1ppd x 52yrs, 40+PYH) e-Cigarette/Vaping Use: Never Used Second Hand Smoke Exposure: Yes Substance Use Type: Marijuana service: No Current occupational status: disabled Cognitive needs: No Hearing needs: No Vision needs: Yes (Glasses) Review of Systems Const All systems reviewed & are unremarkable except as noted in HPI and below ENT Reports Normal hearing present Neuro Reports Normal hearing present and Denies Abnormal speech present Physical Exam Vital Signs: Last Vital Signs Pulse 89 12/17/24 15:39 Resp 18 12/17/24 15:39 BP 137/98 H 12/17/24 15:39 Pulse Ox 96 12/17/24 15:39 Oxygen Delivery Method Room Air 12/17/24 15:39 Const General: cooperative, no acute distress, well developed and well groomed Nutritional Appearance: average body habitus and well nourished Orientation/consciousness: oriented to person, oriented to place and oriented to time Limitations: No language barrier HEENT Head: Yes normocephalic and Yes atraumatic Eyes General: appearance normal, both eyes and all related structures Pupils: Equal, round and reactive pupils present Neck Neck: Yes normal visual inspection and Yes no lymphadenopathy Thyroid: Thyroid normal Chest Chest palpation & inspection: normal inspection of the chest Resp Effort & Inspection: normal respiratory effort, able to speak in complete sent ences, normal respiratory pattern, no audible wheezes and no cough Cardio Jugular venous distension: no JVD GI Inspection: Yes normal to inspection Back/Spine/Pelvis Cervical Spine: No normal cervical lordosis, cervical muscular tenderness and cervical spasm Skin General skin exam: no rashes or lesions noted, turgor normal, skin not dry, no jaundice, No spider nevi and no striae Rashes: no rashes Nails: normal Neuro General: oriented to person, oriented to place and oriented to time Cranial nerves: Yes Equal, round and reactive pupils present and Yes Normal hearing present Speech: No Abnormal speech present Extrem Other: Limited range of motion of the bilateral upper extremities in his shoulder joints. Patient demonstrates equivocal Neer's test bilaterally, belly-press test positive on the left and a negative on the right, positive Ana's supraspinatus test bilaterally. General: Yes normal to inspection Right upper extremity: shoulder/upper arm Details: tenderness (tenderness tricept rt, biceps tendon left withn instability) and abnormal ROM Details: pain with active ROM Details: in ABduction, in flexion, in internal rotation and external rotation-; ROM limited Psych Appearance: grossly normal and well kempt Mental Status: mental status grossly normal Speech and movement: Normal speech and movement present Affect: normal affect Attitude: cooperative Thought process: Normal thought process present and not confabulating Thought content: Normal thought content present Insight: Fair insight present (Psych) Judgement: Fair judgement present (Psych) Results Reviewed Results Reviewed: XR SHOULDER, LEFT CLINICAL INFORMATION: M25.511 - Pain in right shoulder COMPARISON: None available. TECHNIQUE: AP external rotation, Grashey, scapular Y, and axillary views of the bilateral shoulders. FINDINGS: Right shoulder: There are small marginal sites involving the glenohumeral joint. There is no dislocation or fracture. AC joint is intact. It is wide suggesting prior resection of distal clavicle. Left shoulder: There is mild narrowing of the glenohumeral joint and moderate marginal osteophytes. There is a bony spur lateral to acromion. The AC joint is intact and not degenerated. There is no dislocation. IMPRESSION: Mild degenerative changes of the right shoulder joint. Resection of distal right clavicle. Moderate degenerative change of the left shoulder. Assessment & Plan Assessment & Plan (1) Rotator cuff tear, left: Code(s): M75.102 - Unspecified rotator cuff tear or rupture of left shoulder, not specified as traumatic Category: Medical (2) Partial tear of right rotator cuff: Code(s): M75.111 - Incomplete rotator cuff tear or rupture of right shoulder, not specified as traumatic Category: Medical Plan 1. I will send this patient for physical therapy. I explained to her that it is very important to do home exercise programs with physical therapy. 2. I will send this patient for MRI of bilateral shoulders. I will see this patient in 1 month after she will complete physical therapy. Orders: Orders PT Evaluation and Treatment Today M75.102 - Unspecified rotator cuff tear or rupture of left shoulder, not specified as traumatic, M75.111 - Incomplete rotator cuff tear or rupture of right shoulder, not specified as traumatic MR shoulder LT wo con Today M75.102 - Unspecified rotator cuff tear or rupture of left shoulder, not specified as traumatic, M75.111 - Incomplete rotator cuff tear or rupture of right shoulder, not specified as traumatic Coding Level of Care Code New Pt Level 3 (50513) Diagnoses Rotator cuff tear, left M75.102 Partial tear of right rotator cuff M75.111
[2024-12-17 15:39] VITALS: BP 137/98; PULSE 89; RESP 18; O2SAT 96
--- OUTSIDE RECORDS SUMMARY | 2024-12-17 17:51 | XMS_ITS | Patient Health Record ---
Author Organization [facility] Address [address] [place] [phone] Care Team Providers Care Building Construction Superintendent Name Role Phone Moshe Morelos Unavailable [phone] Reason For Referral No Information Plan Of Treatment No Information
== END 2024-12-17 16:02 | disposition home or self-care (01) ==
LOC: HO.PMC 15:34
PROVIDERS: PCP Internal Medicine; Visit Provider Anesthesiology
DX: M75.102 Unspecified rotator cuff tear or rupture of left shoulder, not specified as traumatic (principal); M75.111 Incomplete rotator cuff tear or rupture of right shoulder, not specified as traumatic
CPT/HCPCS: 99203

== ENCOUNTER → 2024-12-17 15:33 | Outpatient (BNVA) | payer OTHER, SELFPAY | PROVIDERS: PCP Internal Medicine; Visit Provider Anesthesiology | DX: M75.102 Unspecified rotator cuff tear or rupture of left shoulder, not specified as traumatic (principal); M75.111 Incomplete rotator cuff tear or rupture of right shoulder, not specified as traumatic; M25.511 Pain in right shoulder | CPT/HCPCS: 99202 ==

== ENCOUNTER → 2025-01-13 07:30 | Outpatient (BNV) | payer OTHER, SELFPAY | PROVIDERS: PCP Internal Medicine; Visit Provider Radiology Diagnostic Ultrasound | DX: M75.102 Unspecified rotator cuff tear or rupture of left shoulder, not specified as traumatic (principal); M67.814 Other specified disorders of tendon, left shoulder; M19.012 Primary osteoarthritis, left shoulder | CPT/HCPCS: 73221 ==

== ENCOUNTER 2025-01-13 07:31 | Outpatient (REF) | payer OTHER, SELFPAY ==
--- NOTE | ~2025-01-13 | MR_ITS ---
EXAMINATION: MR SHOULDER WITHOUT CONTRAST, LEFT CLINICAL INFORMATION: Unspecified rotator cuff tear . Patient reports arthroscopic surgery 20 years ago. COMPARISON: X-ray 12/08/2024 TECHNIQUE: MRI of the shoulder without contrast was performed on a high-field scanner. FINDINGS: ROTATOR CUFF: Supraspinatus: Mild-moderate tendinosis. Intrasubstance partial tear in the proximal tendon measuring 1 cm medial-lateral. Infraspinatus: Mild-moderate tendinosis Teres minor: Intact Subscapularis tendon: Mild-moderate tendinosis No muscle atrophy or fatty infiltration. BICEPS: Intact CORACOACROMIAL ARCH: The undersurface of the acromion is curved with no subacromial spur. No significant acromioclavicular arthritis. Trace subacromial subdeltoid bursitis. LABRUM/CAPSULE: No displaced labral tear Inferior capsule is intact GLENOHUMERAL JOINT/MARROW: Mild-moderate glenohumeral arthritis, with nonuniform chondral loss, subchondral cysts and edema. No acute fracture. Small effusion, mild synovitis/debris. MR/MR shoulder LT wo con IMPRESSION: 1. Mild-moderate supraspinatus tendinosis. 1 cm intrasubstance partial tear in the proximal tendon. 2. Mild-moderate infraspinatus and subscapularis tendinosis. 3. Mild-moderate glenohumeral joint arthritis. Small effusion, mild synovitis/debris. 4. Trace subacromial subdeltoid bursitis. Electronically signed by: Aung Guerrero MD 01/14/2025 04:21 PM EDT
--- OUTSIDE RECORDS SUMMARY | 2025-01-13 07:34 | XMS_ITS | Patient Health Record ---
Author Organization [facility] Address [address] [place] [phone] Care Team Providers Care Loop Sewer Name Role Phone Moshe Morelos Unavailable [phone] Reason For Referral No Information Plan Of Treatment No Information
--- OUTSIDE RECORDS SUMMARY | 2025-01-13 07:34 | XMS_ITS | Data Portability ---
Author Organization [employer] Provident Link [facility], [facility] Address [address] [place] [phone] Care Team Providers Care Control Systems Drafting Officer Name Role Phone [facility] Referring Provider Assessment [...] Name and Address Organization Details Recorded Time 81 ibuprofen medicatio n Not available Not available [...] Diagnosis SNOMED-CT Code Diagnosis ICD10 Code Diagnosis IMO Codes Diagnosis Note [id number] Gary Johnson MD Main - [facility]ED [address] [place] [phone] 11/03/2022 17:30:35 03/01/2023 10:47:17 Strain of neck muscle [id number] S16.1XXA This 62-year-ol d female called complainin g of neck and bilateral shoulder pain with no history of trauma. She doesn't tolerate NSAIDs. I recommende d taking Tylenol and following up with his PCP if the pain persists. The patient agreed with this plan. Health Concerns Section Related Observation LastModified by Organization Hoang ls LastModified Time None Recorded Concern Status LastModified by Organization Details LastModified Time None Recorded Advance Directives Directive None Recorded Payers Insurance Date Sequence Insurance Name Policy Number Policy Mendiola Covered Member ID Mendiola Member ID Guarantor Name 11/03/2022 1 [facility] - DOS ON OR AFTER 2022 - DUAL ELIGIBLE - [facility] OPT[employer] AND ONE CARE (MEDICARE REPLACEMENT/ADV ANTAGE - HMO) Pamela Hale [id number] jorden Hale Notes Date Note Type Note Provider Name and Address Organization Details Recorded Time 11/03/2022 text/html ROS as noted in the HPI CRC Nursing Assessment: Reason For Request: Pt [...] .................. .................. .................. .................. .................. .................. ............... Software Technician Note From Richa Bower: Sent to a [...] .................. ............... Disposition: Fulfilled Gary Johnson MD [address] [place] [address],[address], [place], [phone], [email or web address] 02/28/2023 14:25:58 OBGyn Episode No OBEpisode recorded.
== END 2025-01-13 07:32 | disposition home or self-care (01) ==
LOC: HO.MRI 07:31
PROVIDERS: PCP Internal Medicine; Visit Provider Anesthesiology
DX: M75.102 Unspecified rotator cuff tear or rupture of left shoulder, not specified as traumatic (principal)
CPT/HCPCS: 73221

== ENCOUNTER 2025-01-20 09:42 | Outpatient (AMB) | payer OTHER, SELFPAY ==
[2025-01-20 09:53] VITALS: BP 124/70; PULSE 74; TEMP 36.2; O2SAT 97; BMI 25.7
--- NOTE | 2025-01-20 09:53 | A.OFFPC_ITS ---
Vital Signs 01/20/25 09:53 Height 5 ft 6 in Weight 159 lb 6 oz BMI 25.7 BP 124/70 Blood Pressure Location Lt brachial Position Sitting Pulse 74 Pulse Source Pulse Oximeter Temp 97.1 F Temp Source Temporal Artery Scan Pulse Oximetry (%) 97 Oxygen Delivery Method Room Air Intake Visit Reasons: 3mth f/u Allergies atorvastatin Allergy (Unknown, Verified 01/20/25 09:54) Cramps barium sulfate Allergy (Unknown, Verified 01/20/25 09:54) sore throat omeprazole Allergy (Unknown, Verified 01/20/25 09:54) diarrhea rosuvastatin Allergy (Unknown, Verified 01/20/25 09:54) Unknown simvastatin Allergy (Unknown, Verified 01/20/25 09:54) unknown varenicline (From Chantix) Allergy (Unknown, Verified 01/20/25 09:54) sore throat evolocumab (From Repatha SureClick) Adverse Reaction (Intermediate, Verified 01/20/25 09:54) cough Tobacco use date assessed: 01/20/25 Fall risk assessment: 1 Fall in past year Last assessed Fall Risk: 01/20/25 Dental Screening Dental Screen Date: 01/20/25 Did you have a dental visit in the last 12 months?: Yes Did you have a dental problem in the last 6 months where you did not have access to dental care?: No Was dental information given to patient?: Patient has dentist HPI 3mth f/u HPI Details fall in September turned and off balance and shoulder pain bilateral patient is asking for an MRI r shoulder [facility] Medical History Neck pain Diarrhea Sore throat Hearing difficulty Cerumen impaction Mixed hyperlipidemia Preoperative cardiovascular examination Left shoulder pain Hip pain, left Arthralgia Hip osteoarthritis Arthritis of left hip Parasitic intestinal disease Chronic kidney disease (CKD) stage G3a/A1, moderately decreased glomerular filtration rate (GFR) between 45-59 mL/min/1.73 square meter and albuminuria creatinine ratio less than 30 mg/g Thyroid disease CKD (chronic kidney disease) Concussion Elevated cholesterol Myalgia due to statin Neurocardiogenic syncope Forehead laceration Fall Oral candidiasis Nausea and vomiting Abdominal bloating Thoracic back pain Foot pain, left LUQ abdominal pain Abdominal pain Rectal bleeding Myalgia Chest pain HLD (hyperlipidemia) Osteoarthritis of right hip Iliotibial band syndrome Hematoma and contusion Osteoarthritis of left hip Vitamin D deficiency Hearing loss Degenerative disc disease, lumbar GERD (gastroesophageal reflux disease) COPD (chronic obstructive pulmonary disease) Crohn's disease Nicotine dependence, cigarettes, uncomplicated Hypothyroidism S/P right hip fracture Surgical History S/P cardiac cath S/P total left hip arthroplasty S/P hip replacement Hx of cardiac catheterization History of hip surgery History of colonoscopy History of esophagogastroduodenoscopy (EGD) Hx of eye surgery History of shoulder surgery History of hand surgery History of foot surgery History of tubal ligation History of total right hip arthroplasty Family History Father Bladder cancer Mother Acute CVA (cerebrovascular accident) Stroke CVD (cardiovascular disease) Thyroid disease Brother Renal cell cancer Acute CVA (cerebrovascular accident) Family/Other Alcoholism Social History Household Members: None Household Members Other:: 12/2021 Housing: House Are you a primary medicare biller to a significant other at home: No Do you presently have visiting nurse or other home services: No Alcohol intake: current Alcohol intake frequency: a few times a week Patient Tobacco Use Status: Current everyday Tobacco user Tobacco use type: Cigarette Cigarette Packs Per Day: 0.5 Cigarettes Per Day: 10 Years Smoked: (onset 10yo, 3/4-1ppd x 52yrs, 40+PYH) e-Cigarette/Vaping Use: Never Used Second Hand Smoke Exposure: Yes Substance Use Type: Marijuana service: No Current occupational status: disabled Cognitive needs: No Hearing needs: No Vision needs: Yes (Glasses) Questionnaire PHQ-9 Over the last 2 weeks, how often have you been bothered by any of the following problems? 1. Little interest or pleasure in doing things: not at all 2. Feeling down, depressed, or hopeless: not at all 3. Trouble falling or staying asleep, or sleeping too much: not at all 4. Feeling tired or having little energy: several days 5. Poor appetite or overeating: not at all 6. Feeling bad about yourself - or that you are a failure or have let yourself or your family down: not at all 7. Trouble concentrating on things, such as reading the newspaper or watching television: not at all 8. Moving or speaking so slowly that other people could have noticed. Or the opposite - being so fidgety or restless that you have been moving around a lot more than usual: not at all 9. Thoughts that you would be better off or of hurting yourself in some way: not at all Total score: 1 Source: Developed by Drs. Moshe Mendoza, Layne Feng, Chad Pool and colleagues, with an educational tari from [employer]. Thrive Questionnaire Date Thrive assessed: 09/10/24 I am a: Patient What is your living situation today?: I have a steady place to live Within the past 12 months, did the food you bought not last and you didn't have the money to get more?: Sometimes True Within the past 12 months, did you worry whether your food would run out before you got money to buy more?: Sometimes True Do you have trouble paying for medicines?: No Do you have trouble getting transportation to medical appointments?: No Do you have trouble paying your heating and electricity bill?: Yes Do you have trouble taking care of your child, family member or friend?: No Do you have trouble with day-to-day activities such as bathing, preparing meals, shopping, managing finances, etc.?: I choose not to answer this question Are you currently unemployed and looking for a job?: No Are you interested in more education?: No Please select the resources that you would like help with: None Currently or been in a relationship where the following occur: I choose not to answer THRIVE Score: 3 AUDIT C Alcohol Use Questionnaire (AUDIT-C) 1. How often do you have a drink containing alcohol?: 2-4 times a month 2. How many drinks containing alcohol do you have on a typical day when you are drinking?: 1 or 2 3. How often do you have six or more drinks on one occasion?: Never Total Score: 2 SARIKA-7 AMB Questionnaire SARIKA-7 Date SARIKA - 7 assessed: 09/17/24 Feeling nervous, anxious, or on edge: 1 = Several days Not being able to stop or control worryin = Several days Worrying too much about different things: 1 = Several days Trouble relaxin = Several days Being so restless that it is hard to sit still: 2 = More than half the days Becoming easily annoyed or irritable: 0 = Not at all Feeling afraid as if something awful might happen: 0 = Not at all Total SARIKA-7 score (0-4 normal; 5-9 mild; 10-14 moderate; 15-21 severe): 6 Source: Developed by Drs. Moshe Mendoza, Layne Feng, Chad Pool and colleagues, with an educational tari from [employer]. Physical exam (Primary Care) Vital Signs: Last Vital Signs Temp 97.1 F 01/20/25 09:53 Pulse 74 01/20/25 09:53 BP 124/70 01/20/25 09:53 Pulse Ox 97 01/20/25 09:53 Oxygen Delivery Method Room Air 01/20/25 09:53 BMI result Body Mass Index 25.7 Tobacco/Smoking Status: Tobacco use Status Tobacco use date assessed 01/20/25 01/20/25 09:55 Patient Tobacco Use Status Current everyday Tobacco 01/20/25 09:55 Tobacco use type Cigarette 01/20/25 09:55 e-Cigarette/Vaping Use Never Used 01/20/25 09:55 PHQ-9: PHQ-9 Score PHQ-9: Total score 1 01/20/25 10:37 Thrive Assessment: Date of Thrive Assessment Date Thrive assessed 09/10/24 01/20/25 09:55 Currently or been in a relationship where the following occur: I choose not to answer Const General: alert; No acute distress Eyes Conjunctivae: conjunctivae normal Resp Auscultation: clear to auscultation bilaterally Cardio Rate: regular rate Rhythm: regular rhythm GI Inspection: Yes normal to inspection Extrem General: Yes normal to inspection and No edema Coding Level of Care Code Est Pt Level 4 (91463) Complex EM visit Add On G2211 Diagnoses Pure hypercholesterolemia E78.00 Hyperlipidemia type: pure hypercholesterolemia Acquired hypothyroidism E03.9 Hypothyroidism type: acquired GERD (gastroesophageal reflux disease) K21.9 Pulmonary emphysema, unspecified emphysema type J43.9 COPD type: emphysema Emphysema type: unspecified Nicotine dependence, cigarettes, uncomplicated F17.210 Rotator cuff tear, left M75.102 Assessment & Plan Assessment & Plan (1) HLD (hyperlipidemia): Comment: decline referral to ENDO patient is statin intolerant and has tried the injectables with side effects. Code(s): E78.5 - Hyperlipidemia, unspecified Category: Medical Qualifiers: Hyperlipidemia type: pure hypercholesterolemia Qualified Code(s): E78.00 - Pure hypercholesterolemia, unspecified Plan: Avoid fried foods, chicken skin, eggs, butter margarine, pastries and meat. Be it pork or beef they have a lot of cholesterol advised to retest blood work (2) Hypothyroidism: Comment: decline referral to ENDO despite knowing problem with hypothyroidism Code(s): E03.9 - Hypothyroidism, unspecified Category: Medical Qualifiers: Hypothyroidism type: acquired Qualified Code(s): E03.9 - Hypothyroidism, unspecified Plan: Continue with thyroid medication but advised to get blood work done (3) GERD (gastroesophageal reflux disease): Comment: EGD July 2021 Code(s): K21.9 - Gastro-esophageal reflux disease without esophagitis Category: Medical Plan: Avoid the foods that causes that usually spicy foods, tomato products, juices, coffee, soda and foods that your sensitive to. After eating do not lie down, allow 3-4 hours before in lie down. And keep the head of bed above 30 degrees to avoid the acid from going up. (4) COPD (chronic obstructive pulmonary disease): Code(s): J44.9 - Chronic obstructive pulmonary disease, unspecified Category: Medical Qualifiers: COPD type: emphysema Emphysema type: unspecified Qualified Code(s): J43.9 - Emphysema, unspecified Plan: Patient is strongly advised to stop smoking! On albuterol inhaler (5) Nicotine dependence, cigarettes, uncomplicated: Comment: (current smoker - onset 10yo, 3/4-1ppd x 52yrs, 40+PYH) Code(s): F17.210 - Nicotine dependence, cigarettes, uncomplicated Category: Medical Plan: Patient is advised strongly to stop smoking! (6) Rotator cuff tear, left: Code(s): M75.102 - Unspecified rotator cuff tear or rupture of left shoulder, not specified as traumatic Category: Medical Plan: Patient is with pain management presently advised physical therapy Plan History of Present Illness The patient is a 64-year-old female presenting for a follow-up visit. Her past medical history is significant for GERD, COPD as a smoker, hypothyroidism, hypercholesterolemia, generalized anxiety disorder, bipolar disorder, thoracic radiculopathy due to degenerative joint disease, peripheral arterial disease, and a paraesophageal hernia. She has a history of a tubular adenoma of the colon, with her last colonoscopy in October 2023. The patient's primary complaint is bilateral shoulder pain, which has been present since a fall in September. She reports landing on her arms to protect her hip during the fall. An MRI of the left shoulder on January 13 revealed mild to moderate supraspinatus tendinosis with a 1 cm intrasubstance partial tear, as well as tendinitis, arthritis, and a small effusion. The patient states her right shoulder pain is now worse than the left. The pain is described as constant and severe, disrupting her sleep to only about two hours per night. She was seen by pain management on January 16 and was advised to start a home exercise program and physical therapy, which has not yet been initiated. Regarding her gastrointestinal health, she saw a specialist in November for constipation and abdominal pain, and reports that magnesium has been helpful for the constipation. She recently experienced black, bloody stools with leakage, which prompted her to avoid taking blood thinners. Recent lab work from November 24 showed a normal blood count, electrolytes, and stable renal and liver function. Her last cholesterol panel in September 2024 showed an LDL of 172 mg/dL and triglycerides of 307 mg/dL, and her thyroid level was also found to be high at that time. The patient is due for a mammogram and h as been recommended for a bone density scan, both of which are scheduled. Health Maintenance The patient has appointments scheduled for a mammogram and a bone density scan. She has an upcoming appointment on February 03 to address her peripheral circulation. A follow-up with gastroenterology will be scheduled. The patient has completed the shingles vaccine series and declined the flu shot. Social History - Substance Use: The patient is a current smoker but is trying to quit. - She has stopped drinking alcohol because it bothers her stomach. 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 - She notes that the weight of the coat pulls on her shoulders and certain movements at work, like pulling her arm out of her pocket, are very painful. - Functional Status: The patient reports her sleep is severely impacted by pain, limiting her to about two hours per night. - She has difficulty with activities of daily living, such as pouring coffee. Review of Systems - Musculoskeletal: Reports constant, severe bilateral shoulder pain since September, which is now worse in the right shoulder. - The pain radiates down her arm and certain motions cause crippling pain. - Neurological: Reports insomnia, getting only about two hours of sleep per night due to pain. - Reports blurry vision that began after a prior surgery. - Gastrointestinal: Reports bowel movements are currently better. - She reports a recent history of black, bloody stools with leakage. - Denies alcohol consumption. - Genitourinary: Reports increased difficulty holding her urine that began after a prior surgery. - Constitutional: Denies wanting a flu shot. Physical Exam - Respiratory: Lungs auscultated, findings not specified. - Musculoskeletal: On assessment of the right shoulder, patient demonstrated limited active range of motion with pain upon arm elevation. Results - Imaging: - MRI Left Shoulder (01/13): Findings include mild to moderate supraspinatus tendinosis with a 1 cm intrasubstance partial tear of the proximal tendon, mild to moderate infraspinatus and subscapularis tendinitis, mild to moderate glenohumeral joint arthritis with a small effusion, mild synovitis, and trace subacromial-subdeltoid bursitis. - Labs: - Blood Work (11/24): Normal blood count, electrolytes, and stable renal and liver function. - Lipid Panel (10/06/2024): LDL 172 mg/dL and triglycerides 307 mg/dL. - Thyroid Function (September): TSH was elevated at 11 (normal range up to 4). Plan Patient was informed and verbally consented to the use of an ambient scribe for clinic note documentation during this visit. 1. Bilateral Shoulder Pain The patient's bilateral shoulder pain, which is worse on the right side following a fall, significantly impacts her daily functioning and sleep. The left shoulder MRI has already confirmed tendinosis with a partial tear and arthritis. An MRI of the right shoulder has been ordered to further evaluate. The patient has a follow-up appointment with orthopedics scheduled for February 16. She has been advised by pain management to engage in physical therapy, which is important for healing. 2. Hypercholesterolemia Given her last lipid panel in September showed an elevated LDL of 172 and triglycerides of 307, a repeat fasting blood test has been ordered to reassess her cholesterol levels. 3. Hypothyroidism The patient's last TSH level from September was abnormally high at 11. She will continue her current thyroid medication, and a repeat blood test has been ordered to monitor her thyroid function. 4. Tobacco Use Disorder The patient was strongly advised to stop smoking, as it impairs blood supply and the body's ability to heal, which is critical for her shoulder injury. Discussion Notes I reviewed the results of her left shoulder MRI, explaining that it shows tendinosis, a partial tear, and significant arthritis. I have ordered an MRI for the right shoulder to evaluate the worsening pain on that side. I emphasized that smoking is a significant problem that is hindering her ability to heal by cutting off necessary blood supply. We also discussed the importance of physical therapy and staying active to promote healing and circulation, acknowledging her concerns about causing further damage. I explained the necessity of repeating her blood work, as her last thyroid and cholesterol levels from September were abnormal, and clarified that the tests done in the ER do not cover chronic condition management. We confirmed her upcoming appointments for orthopedics, a mammogram, and a bone density scan. Patient Instructions - Please schedule the MRI for your right shoulder; the order has been sent. - You need to get blood work done to check your thyroid and cholesterol. - Please do not eat or drink anything (fast) before this blood test. - It is very important that you stop smoking. - Smoking slows down healing in your body, including your shoulder injury. - Make sure to keep your appointments for your mammogram and bone density scan. - Follow up with the orthopedist (Dr. Britton) on February 16 to discuss your shoulder pain. - Keep your appointment on February 03 regarding your circulation. - It is important to begin physical therapy for your shoulders to help them heal. - Be sure to drink plenty of water and stay as active as your pain allows. Orders: Orders MR shoulder RT wo con Today M75.111 - Incomplete rotator cuff tear or rupture of right shoulder, not specified as traumatic
--- OUTSIDE RECORDS SUMMARY | 2025-01-20 11:17 | XMS_ITS | Patient Health Record ---
Author Organization [facility] Address [address] [place] [id number] Care Team Providers Care Plaster Whittler Name Role Phone Moshe Morelos Unavailable [phone] Reason For Referral No Information Plan Of Treatment No Information
== END 2025-01-20 10:56 | disposition home or self-care (01) ==
LOC: HO.HMCH 09:44
PROVIDERS: PCP Internal Medicine; Visit Provider Internal Medicine
DX: E78.00 Pure hypercholesterolemia, unspecified (principal); E03.9 Hypothyroidism, unspecified; K21.9 Gastro-esophageal reflux disease without esophagitis; J43.9 Emphysema, unspecified; F17.210 Nicotine dependence, cigarettes, uncomplicated; M75.102 Unspecified rotator cuff tear or rupture of left shoulder, not specified as traumatic

== ENCOUNTER → 2025-01-20 09:42 | Outpatient (BNVA) | payer OTHER, SELFPAY | PROVIDERS: PCP Internal Medicine; Visit Provider Internal Medicine | DX: M25.511 Pain in right shoulder (principal); M75.102 Unspecified rotator cuff tear or rupture of left shoulder, not specified as traumatic; E78.00 Pure hypercholesterolemia, unspecified; E03.9 Hypothyroidism, unspecified; K21.9 Gastro-esophageal reflux disease without esophagitis; J43.9 Emphysema, unspecified; F17.210 Nicotine dependence, cigarettes, uncomplicated | CPT/HCPCS: 96127; 99212 ==

== ENCOUNTER 2025-02-03 09:23 | Outpatient (AMB) | payer OTHER, SELFPAY ==
[2025-02-03 09:27] VITALS: BMI 25.3
--- NOTE | 2025-02-03 09:27 | MHC.OFFVIS ---
Vital Signs 02/03/25 09:27 Height 5 ft 6 in Weight 157 lb BMI 25.3 Intake Visit Reasons: [facility] [employer] [facility] referral for PVD Intake Note: [facility] [employer]/PCP referral for PAD s/p Arterial US 11/25/24. Per pt Left LE is worse than the Right LE. Pt states she gets nocturnal cramping. Epidemiology Intern Required: No Accompanied by: Self / Same As Patient Allergies atorvastatin Allergy (Unknown, Verified 02/04/25 10:11) Cramps barium sulfate Allergy (Unknown, Verified 02/04/25 10:11) sore throat omeprazole Allergy (Unknown, Verified 02/04/25 10:11) diarrhea rosuvastatin Allergy (Unknown, Verified 02/04/25 10:11) Unknown simvastatin Allergy (Unknown, Verified 02/04/25 10:11) unknown varenicline (From Chantix) Allergy (Unknown, Verified 02/04/25 10:11) sore throat evolocumab (From Repatha SureClick) Adverse Reaction (Intermediate, Verified 02/04/25 10:11) cough HPI HPI [facility] referral for PVD: Details: The patient is a 64-year-old female presenting with peripheral vascular disease. She reports severe leg cramps at night, persisting for a couple of years, which significantly affect her sleep. Magnesium provides some relief, but it causes gastrointestinal disturbances. She has a long history of smoking, consuming half a pack per day for 50 years, and has made attempts to quit. She denies any history of diabetes. Her surgical history includes two hip replacements and a bunionectomy performed four years ago for severe metatarsus. She experiences Raynaud's phenomenon, with her toes turning white, especially on one foot. In September, she suffered a fall that led to shoulder injuries and internal bleeding, initially thought to be diverticulitis. Hospitalization and treatment with dicyclomine resolved the bleeding. She now presents to us for lower extremity vascular evaluation with noninvasive testing already done. [facility] Medical History (Updated 02/04/25 @ 16:44 by ELZBIETA Jolly) Epigastric pain LLQ abdominal pain Screening for osteoporosis Neck pain Diarrhea Sore throat Hearing difficulty Cerumen impaction Mixed hyperlipidemia Preoperative cardiovascular examination Left shoulder pain Hip pain, left Arthralgia Hip osteoarthritis Arthritis of left hip Parasitic intestinal disease Chronic kidney disease (CKD) stage G3a/A1, moderately decreased glomerular filtration rate (GFR) between 45-59 mL/min/1.73 square meter and albuminuria creatinine ratio less than 30 mg/g Thyroid disease CKD (chronic kidney disease) Concussion Elevated cholesterol Myalgia due to statin Neurocardiogenic syncope Forehead laceration Fall Oral candidiasis Nausea and vomiting Abdominal bloating Thoracic back pain Foot pain, left LUQ abdominal pain Abdominal pain Rectal bleeding Myalgia Chest pain HLD (hyperlipidemia) Osteoarthritis of right hip Iliotibial band syndrome Hematoma and contusion Osteoarthritis of left hip Vitamin D deficiency Hearing loss Degenerative disc disease, lumbar GERD (gastroesophageal reflux disease) COPD (chronic obstructive pulmonary disease) Crohn's disease Nicotine dependence, cigarettes, uncomplicated Hypothyroidism S/P right hip fracture Surgical History S/P cardiac cath S/P total left hip arthroplasty S/P hip replacement Hx of cardiac catheterization History of hip surgery History of colonoscopy History of esophagogastroduodenoscopy (EGD) Hx of eye surgery History of shoulder surgery History of hand surgery History of foot surgery History of tubal ligation History of total right hip arthroplasty Family History Father Bladder cancer Mother Acute CVA (cerebrovascular accident) Stroke CVD (cardiovascular disease) Thyroid disease Brother Renal cell cancer Acute CVA (cerebrovascular accident) Family/Other Alcoholism Social History Household Members: None Household Members Other:: 12/2021 Housing: House Are you a primary school child care attendant to a significant other at home: No Do you presently have visiting nurse or other home services: No Alcohol intake: current Alcohol intake frequency: a few times a week Patient Tobacco Use Status: Current everyday Tobacco user Tobacco use type: Cigarette Cigarette Packs Per Day: 0.5 Cigarettes Per Day: 10 Years Smoked: (onset 10yo, 3/4-1ppd x 52yrs, 40+PYH) e-Cigarette/Vaping Use: Never Used Second Hand Smoke Exposure: Yes Substance Use Type: Marijuana service: No Current occupational status: disabled Cognitive needs: No Hearing needs: No Vision needs: Yes (Glasses) Review of Systems Const All systems reviewed & are unremarkable except as noted in HPI and below Reports no additional complaints ENT Reports Normal hearing present Card Denies chest pain, Denies chest pain at rest, Denies chest pain with activity and Denies pedal edema Resp Denies cough GI Denies abdominal pain Musc Denies abnormal gait, Denies muscle cramps and Denies radiating pain into limb Skin/Breast Denies skin ulcer and Denies wounds Neuro Reports Normal hearing present and Denies abnormal gait Psych Reports no additional complaints Physical Exam Vital Signs: BMI result Body Mass Index 25.3 Const General: cooperative, healthy appearing and comfortable Orientation/consciousness: oriented to person, oriented to place and oriented to time HEENT Head: Yes normal to inspection Neck Neck: Yes normal visual inspection Carotids: no bruits Chest Chest palpation & inspection: normal inspection of the chest Resp Effort & Inspection: normal respiratory effort and able to speak in complete sentences Auscultation: clear to auscultation bilaterally, no crackles, no rales, no rhonchi and no wheezes Cardio Other: Bilateral DP signals Rate: regular rate Rhythm: regular rhythm Heart sounds: S1 normal heart sound present and S2 normal heart sound present Bruits: no carotid bruits GI Inspection: Yes normal to inspection Skin Wounds: no wounds Hair: normal Neuro General: oriented to person, oriented to place and oriented to time Cranial nerves: Yes CN's II-XII intact bilaterally and Yes Normal hearing present Cognition (Neuro): normal cognition Motor exam (neuro): 5/5 motor strength present throughout Extrem Other: venous exam: No significant superficial varicosities or spider telangiectasias, minimal edema General: No clubbing, No cyanosis and No edema Psych Appearance: grossly normal Mental Status: mental status grossly normal Speech and movement: Normal speech and movement present Results Reviewed Results Reviewed: Noninvasive testing demonstrates monophasic flow on the right popliteal along with monophasic flow on the left distal SFA. Assessment & Plan Assessment & Plan (1) Peripheral arterial disease: Code(s): I73.9 - Peripheral vascular disease, unspecified Category: Medical Plan: In short patient has an element of peripheral vascular disease. I did review the pathophysiology of peripheral vascular disease with the patient. In addition we did discuss routine conservative measures including a healthy diet and the importance of exercise and ambulation. We did discuss risk factor modification. To better elucidate the true location of disease I have taken the liberty of ordering a CT angiogram with runoff. Patient will follow up with us after testing. Thank you for allowing us to assist in her care. If there are any questions or concerns please do not hesitate to contact us Orders: Orders Blood Urea Nitrogen Today I73.9 - Peripheral vascular disease, unspecified Creatinine Today I73.9 - Peripheral vascular disease, unspecified CT angio abd aorta runoff Today I73.9 - Peripheral vascular disease, unspecified Coding Level of Care Code New Pt Level 4 (39989) Diagnoses Peripheral arterial disease I73.9
--- OUTSIDE RECORDS SUMMARY | 2025-02-03 10:14 | XMS_ITS | Patient Health Record ---
Author Organization [facility] Address [address] [place] [id number] Care Team Providers Care Assembler [employer] Spider Name Role Phone Moshe Morelos Unavailable [phone] Reason For Referral No Information Plan Of Treatment No Information
--- OUTSIDE RECORDS SUMMARY | 2025-02-03 10:14 | XMS_ITS | Data Portability ---
Author Organization [employer] [facility], [facility] Address [address] [place] [phone] Care Team Providers Care Sales Service Supervisor Name Role Phone [facility] Referring Provider [phone] Assessment No assessment recorded. Plan of Treatment [...] Name and Address Organization Details Recorded Time 8138 ibuprofen medicatio n Not available Not available [...] ICD10 Code Diagnosis IMO Codes Diagnosis Note [id number] Gary Johnson MD Main - [facility] [address] [place] [phone] 11/03/2022 17:30:35 03/01/2023 10:47:17 Strain of neck muscle [id number] S16.1XXA This 62-year-ol d female called complainin [...] Mendiola Member ID Guarantor Name 11/03/2022 1 [facility] - DOS ON OR AFTER 2022 - DUAL ELIGIBLE - [facility] OPTIONS AND ONE CARE (MEDICARE REPLACEMENT/ADV ANTAGE - HMO) Pamela Hale [id number] jorden Hale Notes Date Note Type Note [...] .................. .................. .................. .................. .................. .................. ............... Can Pusher Note From Richa Bower: Sent to a [...] .................. ............... Disposition: Fulfilled Gary Johnson MD [address] [place] [address],[address], [place], [phone], [facility] 02/28/2023 14:25:58 OBGyn Episode No OBEpisode recorded.
== END 2025-02-03 09:59 | disposition home or self-care (01) ==
LOC: HO.HVS 09:24
PROVIDERS: PCP Internal Medicine; Visit Provider Surgery Vascular Surgery
DX: I73.9 Peripheral vascular disease, unspecified (principal)
CPT/HCPCS: 99204

== ENCOUNTER → 2025-02-03 09:23 | Outpatient (BNVA) | payer OTHER, SELFPAY | PROVIDERS: PCP Internal Medicine; Visit Provider Surgery Vascular Surgery | DX: R25.2 Cramp and spasm (principal); I73.9 Peripheral vascular disease, unspecified | CPT/HCPCS: 99202 ==

== ENCOUNTER 2025-02-04 08:07 | Outpatient (REF) | payer OTHER, SELFPAY ==
--- NOTE | ~2025-02-04 | MM_ITS ---
EXAMINATION: DXA BONE DENSITY EXTREMITY HISTORY: Z13.820 - Encounter for screening for osteoporosis TECHNIQUE: [place] Dual energy absorptiometry (DEXA) of the lumbar spine, total left hip, and femoral neck was performed. COMPARISON: None FINDINGS: The bone mineral density of the lumbar spine is 0.989 g/cm2, corresponding to a T-score of -1.6, and a Z-score of 0.3. This is indicative of osteopenia. The patient has bilateral hip replacements. The bone mineral density of the left forearm is 0.811 g/cm2, corresponding to a T-score of -0.7, and a Z-score of 0.6. This is indicative of normal bone mineral density. MM/XR DEXA appendicular skeleton IMPRESSION: Based on bone mineral density, and according to World Health Organization (WHO) criteria, the diagnosis is consistent with osteopenia based on lowest T score of -1.6 in the spine. Statistically, 68% of repeat scans fall within 1 SD (+/- 0.010 g/cm2 for AP spine L1-L4) and 1 SD (+/- 0.012 g/cm2 for femur total) [employer] is a trademark of the [employer], a World Health Organization (WHO) Collaborating Center. Electronically signed by: Jazmine Venegas MD 02/04/2025 09:19 AM [facility]
--- OUTSIDE RECORDS SUMMARY | 2025-02-04 08:12 | XMS_ITS | Patient Health Record ---
Author Organization [facility] Address [address] [place] [phone] Care Team Providers Care Neurodiagnostic Technologist Name Role Phone Moshe Morelos Unavailable [phone] Reason For Referral No Information Plan Of Treatment No Information
== END 2025-02-04 08:08 | disposition home or self-care (01) ==
LOC: HO.MAMMO 08:07
PROVIDERS: PCP Internal Medicine; Visit Provider Nurse Practitioner
DX: Z12.31 Encounter for screening mammogram for malignant neoplasm of breast (principal); M81.0 Age-related osteoporosis without current pathological fracture; K21.9 Gastro-esophageal reflux disease without esophagitis; K44.9 Diaphragmatic hernia without obstruction or gangrene; D12.6 Benign neoplasm of colon, unspecified; K58.2 Mixed irritable bowel syndrome
CPT/HCPCS: 77063; 77067; 77081; 99212

== ENCOUNTER → 2025-02-04 08:45 | Outpatient (BNV) | payer OTHER, SELFPAY | PROVIDERS: PCP Internal Medicine; Visit Provider Radiology Diagnostic Radiology | DX: E28.39 Other primary ovarian failure (principal) | CPT/HCPCS: 77081 ==

== ENCOUNTER 2025-02-04 09:59 | Outpatient (AMB) | payer OTHER, SELFPAY ==
--- NOTE | 2025-02-04 10:05 | A.OFFVIS_ITS ---
Vital Signs 02/04/25 10:07 Height 5 ft 6 in Weight 157 lb BMI 25.3 BP 140/74 H Blood Pressure Location Rt brachial Position Sitting Pulse 66 Pulse Source Pulse Oximeter Pulse Oximetry (%) 98 Oxygen Delivery Method Room Air Intake Visit Reasons: ~8 week FUV Intake Note: Est pt for mgmt of GERD + chronic BM irregularities. CC; Pt denies any new GI concerns or sx at this time. Confirms she is taking meds PRN w/o complication. Art Display Maker Required: No Accompanied by: Self / Same As Patient Allergies atorvastatin Allergy (Unknown, Verified 02/04/25 10:11) Cramps barium sulfate Allergy (Unknown, Verified 02/04/25 10:11) sore throat omeprazole Allergy (Unknown, Verified 02/04/25 10:11) diarrhea rosuvastatin Allergy (Unknown, Verified 02/04/25 10:11) Unknown simvastatin Allergy (Unknown, Verified 02/04/25 10:11) unknown varenicline (From Chantix) Allergy (Unknown, Verified 02/04/25 10:11) sore throat evolocumab (From Repatha SureClick) Adverse Reaction (Intermediate, Verified 02/04/25 10:11) cough HPI HPI ~8 week FUV: Details: Assessment & Plan (1) GERD (gastroesophageal reflux disease): Comment: EGD July 2021 Code(s): K21.9 - Gastro-esophageal reflux disease without esophagitis Category: Medical (2) Paraesophageal hernia: Code(s): K44.9 - Diaphragmatic hernia without obstruction or gangrene Category: Medical (3) Upper abdominal pain: Comment: DUE TO THORACIC RADICULOPATHY NO GI CAUSES FOUND Code(s): R10.10 - Upper abdominal pain, unspecified Category: Medical (4) Screening for osteoporosis: Code(s): Z13.820 - Encounter for screening for osteoporosis Category: Medical (5) Neck pain: Code(s): M54.2 - Cervicalgia Category: Medical Plan Her current GI regimen consists of magnesium, Zofran, and dicyclomine. - The patient is a 64-year-old female presenting for continued management of IBS . She feels that her GI conditions are currently well controlled, the magnesium has been very helpful for her constipation although it occasionally gives her diarrhea. - Reports right shoulder pain with limited range of motion, worsening with arm elevation and reaching. - Noted left biceps pain with movements. In the past she had seen [facility] for this and they had done x-rays without postulated any successful treatment plan.. -she was referred to pain management by her primary care provider. Her primary care also ordered shoulder x-rays. I will add an x-ray of the cervical spine in case the pain in her arms is radicular although my physical exam I believe she has biceps tendonitis on 1 side and rotator cuff arthropathy on the other. Orders: Orders XR cervical spine 3V Today M54.2 - Cervicalgia DEXA SCAN 02/04/2025 FINDINGS: The bone mineral density of the lumbar spine is 0.989 g/cm2, corresponding to a T-score of -1.6, and a Z-score of 0.3. This is indicative of osteopenia. X-ray of the shoulders FINDINGS: Right shoulder: There are small marginal sites involving the glenohumeral joint. There is no dislocation or fracture. AC joint is intact. It is wide suggesting prior resection of distal clavicle. Left shoulder: There is mild narrowing of the glenohumeral joint and moderate marginal osteophytes. There is a bony spur lateral to acromion. The AC joint is intact and not degenerated. There is no dislocation. XR/XR Shoulder Ceferino min 2V IMPRESSION: Mild degenerative changes of the right shoulder joint. Resection of distal right clavicle. X-ray of the cervical spine FINDINGS: Craniocervical junction is intact. Marginal osteophyte formation and endplate sclerosis subchondral cyst formation and decreased intervertebral disc height from C4 to C7. Grade 1 retrolisthesis C5-6. No acute cortical disruption. No lytic or blastic lesions. Upper airway is patent. XR/XR cervical spine 3V IMPRESSION: Multilevel cervical spondylosis C4 C7 resulting in grade 1 retrolisthesis C5-6. MRI OF THE SHOULDER LEFT 12/2020 FINDINGS: ROTATOR CUFF: Supraspinatus: Mild-moderate tendinosis. Intrasubstance partial tear in the proximal tendon measuring 1 cm medial-lateral. Infraspinatus: Mild-moderate tendinosis Teres minor: Intact Subscapularis tendon: Mild-moderate tendinosis No muscle atrophy or fatty infiltration. BICEPS: Intact CORACOACROMIAL ARCH: The undersurface of the acromion is curved with no subacromial spur. No significant acromioclavicular arthritis. Trace subacromial subdeltoid bursitis. LABRUM/CAPSULE: No displaced labral tear Inferior capsule is intact GLENOHUMERAL JOINT/MARROW: Mild-moderate glenohumeral arthritis, with nonuniform chondral loss, subchondral cysts and edema. No acute fracture. Small effusion, mild synovitis/debris. MR/MR shoulder LT wo con IMPRESSION: 1. Mild-moderate supraspinatus tendinosis. 1 cm intrasubstance partial tear in the proximal tendon. 2. Mild-moderate infraspinatus and subscapularis tendinosis. 3. Mild-moderate glenohumeral joint arthritis. Small effusion, mild synovitis/debris. 4. Trace subacromial subdeltoid bursitis. [facility] Medical History (Updated 02/04/25 @ 16:44 by ELZBIETA Jolly) Epigastric pain LLQ abdominal pain Screening for osteoporosis Neck pain Diarrhea Sore throat Hearing difficulty Cerumen impaction Mixed hyperlipidemia Preoperative cardiovascular examination Left shoulder pain Hip pain, left Arthralgia Hip osteoarthritis Arthritis of left hip Parasitic intestinal disease Chronic kidney disease (CKD) stage G3a/A1, moderately decreased glomerular filtration rate (GFR) between 45-59 mL/min/1.73 square meter and albuminuria creatinine ratio less than 30 mg/g Thyroid disease CKD (chronic kidney disease) Concussion Elevated cholesterol Myalgia due to statin Neurocardiogenic syncope Forehead laceration Fall Oral candidiasis Nausea and vomiting Abdominal bloating Thoracic back pain Foot pain, left LUQ abdominal pain Abdominal pain Rectal bleeding Myalgia Chest pain HLD (hyperlipidemia) Osteoarthritis of right hip Iliotibial band syndrome Hematoma and contusion Osteoarthritis of left hip Vitamin D deficiency Hearing loss Degenerative disc disease, lumbar GERD (gastroesophageal reflux disease) COPD (chronic obstructive pulmonary disease) Crohn's disease Nicotine dependence, cigarettes, uncomplicated Hypothyroidism S/P right hip fracture Surgical History S/P cardiac cath S/P total left hip arthroplasty S/P hip replacement Hx of cardiac catheterization History of hip surgery History of colonoscopy History of esophagogastroduodenoscopy (EGD) Hx of eye surgery History of shoulder surgery History of hand surgery History of foot surgery History of tubal ligation History of total right hip arthroplasty Family History Father Bladder cancer Mother Acute CVA (cerebrovascular accident) Stroke CVD (cardiovascular disease) Thyroid disease Brother Renal cell cancer Acute CVA (cerebrovascular accident) Family/Other Alcoholism Social History Household Members: None Household Members Other:: 12/2021 Housing: House Are you a primary dialysis patient care technician to a significant other at home: No Do you presently have visiting nurse or other home services: No Alcohol intake: current Alcohol intake frequency: a few times a week Patient Tobacco Use Status: Current everyday Tobacco user Tobacco use type: Cigarette Cigarette Packs Per Day: 0.5 Cigarettes Per Day: 10 Years Smoked: (onset 10yo, 3/4-1ppd x 52yrs, 40+PYH) e-Cigarette/Vaping Use: Never Used Second Hand Smoke Exposure: Yes Substance Use Type: Marijuana service: No Current occupational status: disabled Cognitive needs: No Hearing needs: No Vision needs: Yes (Glasses) Review of Systems Const Denies fatigue, Denies fever(s), Denies night sweats, Denies poor appetite and Denies weight loss Eyes Details: GLASSES Reports requires corrective lenses ENT Reports Normal hearing present, Denies dental pain, Denies dysphagia, Denies hearing loss, Denies mouth pain, Reports neck pain, Denies odynophagia, Denies throat swelling, Denies tongue swelling and Reports other (Dentition adequate) Card Reports no additional complaints Resp Reports no additional complaints GI Details: Denies abdominal pain, Denies melena, Denies bloating, Denies hematochezia, Reports constipation, Denies GI cramping, Denies dysphagia, Denies excessive flatus, Denies early satiety, Reports heartburn, Denies diarrhea, Reports loose stools, Denies nausea, Denies odynophagia, Denies vomiting and Denies hematemesis Musc Reports back pain, Reports arthralgias, Reports limited range of motion, Reports neck pain, Reports radiating pain into limb and Reports stiffness Skin/Breast Denies pruritus, Denies lesions, Denies rash and Denies jaundice Neuro Reports Normal hearing present and Denies Abnormal speech present Endo Denies fatigue Aller/Immun Denies throat swelling and Denies tongue swelling Physical Exam Vital Signs: Last Vital Signs Pulse 66 02/04/25 10:07 BP 140/74 H 02/04/25 10:07 Pulse Ox 98 02/04/25 10:07 Oxygen Delivery Method Room Air 02/04/25 10:07 BMI result Body Mass Index 25.3 Const General: cooperative, no acute distress, well developed and well groomed Nutritional Appearance: well nourished and overweight Orientation/consciousness: oriented to person, oriented to place and oriented to time Limitations: No language barrier HEENT Head: Yes normocephalic and Yes atraumatic Eyes General: appearance normal, both eyes and all related structures Pupils: Equal, round and reactive pupils present Neck Neck: Yes normal visual inspection and Yes no lymphadenopathy Thyroid: Thyroid normal Resp Effort & Inspection: normal respiratory effort and able to speak in complete sentences Auscultation: clear to auscultation bilaterally Cardio Rate: regular rate Rhythm: regular rhythm Heart sounds: Normal, physiologic split S2 sound present Peripheral pulses: radial pulses present and posterior tibial pulses present GI Inspection: No distended, No Abdominal panniculus present and Yes obesity Palpation (GI): Soft to palpation, nontender, no guarding, not rigid and No hepatosplenomegaly present Percussion: Yes normal to percussion Auscultation: normal bowel sounds Rectal Exam - Female: deferred Skin General skin exam: no rashes or lesions noted, turgor normal, skin not dry, no jaundice, No spider nevi and no striae Rashes: no rashes Nails: normal Neuro General: oriented to person, oriented to place and oriented to time Cranial nerves: Yes Equal, round and reactive pupils present and Yes Normal hearing present Speech: No Abnormal speech present Extrem General: Yes normal to inspection, No clubbing, No cyanosis and No edema Psych Appearance: grossly normal and well kempt Mental Status: mental status grossly normal Speech and movement: Normal speech and movement present Affect: normal affect Attitude: cooperative Thought process: Normal thought process present and not confabulating Thought content: Normal thought content present Insight: Fair insight present (Psych) Judgement: Fair judgement present (Psych) Results Reviewed Results Reviewed: DEXA SCAN 02/04/2025 FINDINGS: The bone mineral density of the lumbar spine is 0.989 g/cm2, corresponding to a T-score of -1.6, and a Z-score of 0.3. This is indicative of osteopenia. X-ray of the shoulders FINDINGS: Right shoulder: There are small marginal sites involving the glenohumeral joint. There is no dislocation or fracture. AC joint is intact. It is wide suggesting prior resection of distal clavicle. Left shoulder: There is mild narrowing of the glenohumeral joint and moderate marginal osteophytes. There is a bony spur lateral to acromion. The AC joint is intact and not degenerated. There is no dislocation. XR/XR Shoulder Ceferino min 2V IMPRESSION: Mild degenerative changes of the right shoulder joint. Resection of distal right clavicle. X-ray of the cervical spine FINDINGS: Craniocervical junction is intact. Marginal osteophyte formation and endplate sclerosis subchondral cyst formation and decreased intervertebral disc height from C4 to C7. Grade 1 retrolisthesis C5-6. No acute cortical disruption. No lytic or blastic lesions. Upper airway is patent. XR/XR cervical spine 3V IMPRESSION: Multilevel cervical spondylosis C4 C7 resulting in grade 1 retrolisthesis C5-6. MRI OF THE SHOULDER LEFT 12/2020 FINDINGS: ROTATOR CUFF: Supraspinatus: Mild-moderate tendinosis. Intrasubstance partial tear in the proximal tendon measuring 1 cm medial-lateral. Infraspinatus: Mild-moderate tendinosis Teres minor: Intact Subscapularis tendon: Mild-moderate tendinosis No muscle atrophy or fatty infiltration. BICEPS: Intact CORACOACROMIAL ARCH: The undersurface of the acromion is curved with no subacromial spur. No significant acromioclavicular arthritis. Trace subacromial subdeltoid bursitis. LABRUM/CAPSULE: No displaced labral tear Inferior capsule is intact GLENOHUMERAL JOINT/MARROW: Mild-moderate glenohumeral arthritis, with nonuniform chondral loss, subchondral cysts and edema. No acute fracture. Small effusion, mild synovitis/debris. MR/MR shoulder LT wo con IMPRESSION: 1. Mild-moderate supraspinatus tendinosis. 1 cm intrasubstance partial tear in the proximal tendon. 2. Mild-moderate infraspinatus and subscapularis tendinosis. 3. Mild-moderate glenohumeral joint arthritis. Small effusion, mild synovitis/debris. 4. Trace subacromial subdeltoid bursitis. Assessment & Plan Assessment & Plan (1) Osteopenia: Comment: 01/2025 dexa Code(s): M85.80 - Other specified disorders of bone density and structure, unspecified site Category: Medical (2) GERD (gastroesophageal reflux disease): Comment: EGD July 2021 Code(s): K21.9 - Gastro-esophageal reflux disease without esophagitis Category: Medical (3) Paraesophageal hernia: Code(s): K44.9 - Diaphragmatic hernia without obstruction or gangrene Category: Medical (4) Tubular adenoma of colon: Comment: 09/2023 scope= 1 TA repeat in 5 years; 08/2021 scope= hyperplastic polyps only repeat in 5 years; 2 Large on 2019 scope calling for 3 year recall aeb Code(s): D12.6 - Benign neoplasm of colon, unspecified Category: Medical (5) Irritable bowel syndrome with both constipation and diarrhea: Code(s): K58.2 - Mixed irritable bowel syndrome Category: Medical Plan Her current GI regimen consists of magnesium, Zofran, and dicyclomine. She is doing well with her GI regimen. She is quite grateful that I helped her through her musculoskeletal situation as she is now getting some help for a torn rotator cuff in the left shoulder. However she still has significant pain on the right so this will likely need another MRI. The cervical spine x-ray also shows retrolisthesis C5-C6 so it is likely if the shoulder x-ray does not produce any pathology that she will need an MRI of her cervical spine. Because it is entirely possible that some of her shoulder pain could be cervical radiculopathy. But at least now she has not idea where she is going with all of this. I let her know that she has osteopenia and that she should make sure she has plenty of calcium and vitamin-D to best protect her future bone health. Return office visit in 6 months Coding Level of Care Code Est Pt Level 3 (81020) Diagnoses Osteopenia M85.80 GERD (gastroesophageal reflux disease) K21.9 Paraesophageal hernia K44.9 Tubular adenoma of colon D12.6 Irritable bowel syndrome with both constipation and diarrhea K58.2
[2025-02-04 10:07] VITALS: BP 140/74; PULSE 66; O2SAT 98; BMI 25.3
== END 2025-02-04 10:40 | disposition home or self-care (01) ==
LOC: HO.HGI 09:59
PROVIDERS: PCP Internal Medicine; Visit Provider Nurse Practitioner
DX: M85.80 Other specified disorders of bone density and structure, unspecified site (principal); K21.9 Gastro-esophageal reflux disease without esophagitis; K44.9 Diaphragmatic hernia without obstruction or gangrene; D12.6 Benign neoplasm of colon, unspecified; K58.2 Mixed irritable bowel syndrome
CPT/HCPCS: 99213

== ENCOUNTER 2025-02-16 11:18 | Outpatient (AMB) | payer OTHER, SELFPAY ==
--- NOTE | 2025-02-16 11:28 | MHC.OFFVIS ---
Vital Signs 02/16/25 11:38 Height 5 ft 6 in Weight 157 lb BMI 25.3 Intake Visit Reasons: Newprob-B/L shoulder pain Intake Note: is a 64 year old right hand dominant female who presents today as an established patient, new problem visit to evaluate bilateral shoulder pain. MRI was done at [facility] of her left shoulder, ordered by pain management. She reported a fall in September of this year. PCP referred per patient request. Today patient reports ongoing pain since her fall. Limited ROM. States her right shoulder is the worse. She is scheduled for MRI of right shoulder on 02/22/25. She was seen at [facility] and was given 2 cortisone injections that did not help. Finds no relief with Tylenol or topical cream. Allergies atorvastatin Allergy (Unknown, Verified 02/16/25 11:44) Cramps barium sulfate Allergy (Unknown, Verified 02/16/25 11:44) sore throat omeprazole Allergy (Unknown, Verified 02/16/25 11:44) diarrhea rosuvastatin Allergy (Unknown, Verified 02/16/25 11:44) Unknown simvastatin Allergy (Unknown, Verified 02/16/25 11:44) unknown varenicline (From Chantix) Allergy (Unknown, Verified 02/16/25 11:44) sore throat evolocumab (From Repatha SureClick) Adverse Reaction (Intermediate, Verified 02/16/25 11:44) cough Medication List - Last Reconciled 02/16/25 by Christopher Samuel PA-C acetaminophen 650 mg (2 x 325 mg) PO Q6H PRN 30 days albuterol sulfate 2.5 mg inhalation Q4-6H PRN albuterol sulfate 90 mcg/actuation (Ventolin HFA) 2 puffs PO Q4H PRN carbamide peroxide 6.5% (Debrox) 5 drps otic (ear) right DAILY 4 days carisoprodol 350 mg PO BID PRN diclofenac sodium 1% (Voltaren Arthritis Pain) 4 grams topical QID PRN dicyclomine 20 mg PO QID 30 days fluticasone propionate 50 mcg/actuation 2 sprays intranasal DAILY lidocaine 5% 1 appl topical TID PRN promethazine 25 mg PO TID PRN [Raised toilet seat duration - 99 days] walker Folding Front wheeled walker HPI HPI Newprob-B/L shoulder pain: Details: 64 yo female presents to the office today for bilat shoulder pain. She was seen by Dr Fernandez who ordered MRI of both shoulders. She fell back in September 2024 with both arms stretched out. She is sp [facility] Mar 2024. Since the fall she has difficulty with raising the arms up. She states with the right arm there is difficulty with pronation and rotation of the shoulder. The left shoulder she has pain with reaching across her body. She was seen at [facility] and she had an injection in both shoulders October 08, she said the pain did not help. Dr Yen encouraged her to work on HEP and she has been doing this. She feels the left shoulder is improving but the right is not. [facility] Medical History (Updated 02/04/25 @ 16:44 by ELZBIETA Jolly) Epigastric pain LLQ abdominal pain Screening for osteoporosis Neck pain Diarrhea Sore throat Hearing difficulty Cerumen impaction Mixed hyperlipidemia Preoperative cardiovascular examination Left shoulder pain Hip pain, left Arthralgia Hip osteoarthritis Arthritis of left hip Parasitic intestinal disease Chronic kidney disease (CKD) stage G3a/A1, moderately decreased glomerular filtration rate (GFR) between 45-59 mL/min/1.73 square meter and albuminuria creatinine ratio less than 30 mg/g Thyroid disease CKD (chronic kidney disease) Concussion Elevated cholesterol Myalgia due to statin Neurocardiogenic syncope Forehead laceration Fall Oral candidiasis Nausea and vomiting Abdominal bloating Thoracic back pain Foot pain, left LUQ abdominal pain Abdominal pain Rectal bleeding Myalgia Chest pain HLD (hyperlipidemia) Osteoarthritis of right hip Iliotibial band syndrome Hematoma and contusion Osteoarthritis of left hip Vitamin D deficiency Hearing loss Degenerative disc disease, lumbar GERD (gastroesophageal reflux disease) COPD (chronic obstructive pulmonary disease) Crohn's disease Nicotine dependence, cigarettes, uncomplicated Hypothyroidism S/P right hip fracture Surgical History S/P cardiac cath S/P total left hip arthroplasty S/P hip replacement Hx of cardiac catheterization History of hip surgery History of colonoscopy History of esophagogastroduodenoscopy (EGD) Hx of eye surgery History of shoulder surgery History of hand surgery History of foot surgery History of tubal ligation History of total right hip arthroplasty Family History Father Bladder cancer Mother Acute CVA (cerebrovascular accident) Stroke CVD (cardiovascular disease) Thyroid disease Brother Renal cell cancer Acute CVA (cerebrovascular accident) Family/Other Alcoholism Social History Household Members: None Household Members Other:: 12/2021 Housing: House Are you a primary child care centre manager to a significant other at home: No Do you presently have visiting nurse or other home services: No Alcohol intake: current Alcohol intake frequency: a few times a week Patient Tobacco Use Status: Current everyday Tobacco user Tobacco use type: Cigarette Cigarette Packs Per Day: 0.5 Cigarettes Per Day: 10 Years Smoked: (onset 10yo, 3/4-1ppd x 52yrs, 40+PYH) e-Cigarette/Vaping Use: Never Used Second Hand Smoke Exposure: Yes Substance Use Type: Marijuana service: No Current occupational status: disabled Cognitive needs: No Hearing needs: No Vision needs: Yes (Glasses) Review of Systems Const All systems reviewed & are unremarkable except as noted in HPI and below Physical Exam Vital Signs: BMI result Body Mass Index 25.3 Extrem Other: Bilateral hips are normal to inspection. Left shoulder she has full range of motion with mild discomfort in internal rotation. Right shoulder forward flexion to 100 degrees and there is difficulty with internal rotation. Mild discomfort with rotator cuff strength. Neurovascularly intact. Office Procedures AMB Joint Injection/Aspiration Joint Injection/Aspiration Primary Site: Left Shoulder Prep: site was prepped using aseptic technique, ethochloride spray was applied and injection warnings given Injected: 40 mg of, Decadron, with 3 mL of, 1% plain Lidocaine, 0.25% Bupivacaine and in the subcromial space Approach Used: posterolateral Procedure: The patient tolerated the procedure well and there was some relief with the local anesthesia Coding 80311 - Glenohumeral/Tronchanteric Bursa/Intraarticular Procedure code (CPT) selection complete Results Reviewed Results Reviewed: MR shoulder LT wo con IMPRESSION: 1. Mild-moderate supraspinatus tendinosis. 1 cm intrasubstance partial tear in the proximal tendon. 2. Mild-moderate infraspinatus and subscapularis tendinosis. 3. Mild-moderate glenohumeral joint arthritis. Small effusion, mild synovitis/debris. 4. Trace subacromial subdeltoid bursitis. Assessment & Plan Assessment & Plan (1) Rotator cuff tear, left: Code(s): M75.102 - Unspecified rotator cuff tear or rupture of left shoulder, not specified as traumatic Category: Medical (2) Partial tear of right rotator cuff: Code(s): M75.111 - Incomplete rotator cuff tear or rupture of right shoulder, not specified as traumatic Category: Medical Plan We opted to inject the left shoulder to help with her discomfort and see if this will allow her to progress with physical therapy. An MRI of the right shoulder has been ordered given her ongoing discomfort and limitations with daily activities. Once the scan is complete she will contact our office to discuss the next step which the patient is content with. Orders: Orders PT Evaluation and Treatment Today M75.102 - Unspecified rotator cuff tear or rupture of left shoulder, not specified as traumatic, M75.111 - Incomplete rotator cuff tear or rupture of right shoulder, not specified as traumatic Coding Level of Care Code Complex visit Add On G2211 Diagnoses Rotator cuff tear, left M75.102 Partial tear of right rotator cuff M75.111 CPT Codes Coding - Joint 7: 88432 - Glenohumeral/Tronchanteric Bursa/Intraarticular ([id number])
[2025-02-16 11:38] VITALS: BMI 25.3
== END 2025-02-16 12:13 | disposition home or self-care (01) ==
LOC: HO.HOS 11:19
PROVIDERS: PCP Internal Medicine; Visit Provider Physician Assistant
DX: M75.111 Incomplete rotator cuff tear or rupture of right shoulder, not specified as traumatic (principal); M75.102 Unspecified rotator cuff tear or rupture of left shoulder, not specified as traumatic; M25.512 Pain in left shoulder
CPT/HCPCS: 20610; 99213

== ENCOUNTER → 2025-02-16 11:18 | Outpatient (BNVA) | payer OTHER, SELFPAY | PROVIDERS: PCP Internal Medicine; Visit Provider Physician Assistant | DX: M75.102 Unspecified rotator cuff tear or rupture of left shoulder, not specified as traumatic (principal); M75.111 Incomplete rotator cuff tear or rupture of right shoulder, not specified as traumatic | CPT/HCPCS: 20610; 99212; J0665; J1100; J2003 ==

== ENCOUNTER 2025-02-22 19:24 | Outpatient (REF) | payer OTHER, SELFPAY ==
--- NOTE | ~2025-02-22 | MR_ITS ---
CLINICAL HISTORY: M75.111 - Incomplete rotator cuff tear or rupture of right shoulder, not... MR of the right shoulder without contrast. No prior MR. Findings: There is prominent edema of the supraspinatus tendon. The tendon is poorly defined distally and there is adjacent soft tissue edema. There is milder edema of the supraspinatus tendon. The teres minor tendon is intact. There is a small partial tear at the insertion of the subscapularis tendon. The biceps tendon is intact. There is prominent intraosseous cystic change in the lateral aspect of the humeral head with adjacent ill-defined marrow edema. This is indeterminate. There is mild superior subluxation of the humeral head with a small glenohumeral joint effusion. There is moderate glenohumeral DJD. There is an ill-defined tear of the anterior inferior labrum. Suspect previous resection of the acromioclavicular joint. There is mild fluid in the subacromial subdeltoid bursa. Impression: Prominent edema of the supraspinatus tendon could represent tendons strain or poorly defined tear given the history. Milder edema of the supraspinatus tendon. Small partial tear at the insertion of the subscapularis tendon. Prominent intraosseous cystic change in the humeral head with adjacent ill-defined marrow edema is of uncertain etiology. Prior surgery could cause this appearance but definite etiology is uncertain. Correlate clinically and consider comparison to previous or follow-up. Small glenohumeral joint effusion with moderate glenohumeral DJD. Ill-defined tear anterior inferior labrum. Mild nonspecific fluid in the subacromial subdeltoid bursa. This document has been electronically signed by: Ag Garcia MD on 02/23/2025 20:30:22
--- OUTSIDE RECORDS SUMMARY | 2025-02-22 19:29 | XMS_ITS | Patient Health Record ---
Author Organization [facility] Address [address] [place] [id number] Care Team Providers Care Fire Extinguisher Installer Name Role Phone Moshe Morelos Unavailable [phone] Reason For Referral No Information Plan Of Treatment No Information
--- OUTSIDE RECORDS SUMMARY | 2025-02-22 19:29 | XMS_ITS | Data Portability ---
Author Organization [email or web address] [facility], [facility] Address [address] [place] [address] Care Team Providers Care Data Mining Analyst Name Role Phone [facility] Referring Provider [phone] Assessment No assessment recorded. Plan of Treatment [...] Name and Address Organization Details Recorded Time 8186 ibuprofen medicatio n Not available Not available [...] Not Available Vitals Date Recorded Oxygen saturation Body temperature Respiratory rate Heart rate Systolic And Diastolic Provider Name and Address Organization Details Last Updated DateTime 3 97 % 98.3 [degF] 18 /min 80 [...] ICD10 Code Diagnosis IMO Codes Diagnosis Note [id number] Gary Johnson MD Main - [facility] [address] [place] [phone] 11/03/2022 17:30:35 03/01/2023 10:47:17 Strain of neck muscle [id number] S16.1XXA This 62-year-ol d female called complsarkisin [...] Mendiola Member ID Guarantor Name 11/03/2022 1 [facility] - DOS ON OR AFTER 2022 - DUAL ELIGIBLE - CARE HOME OPTIONS AND ONE CARE (MEDICARE REPLACEMENT/ADV ANTAGE - HMO) Pamela Hale [id number] Pamela Hale Notes Date Note Type Note [...] .................. .................. .................. .................. .................. .................. ............... Hydrology Teacher Note From Richa Bower: Sent to a [...] .................. ............... Disposition: Fulfilled Gary Johnson MD [address] [place] [address],[address] [facility], [place], [address], [employer] 02/28/2023 14:25:58 OBGyn Episode No OBEpisode recorded.
== END 2025-02-22 19:25 | disposition home or self-care (01) ==
LOC: HO.MRI 19:24
PROVIDERS: PCP Internal Medicine; Visit Provider Internal Medicine
DX: M75.111 Incomplete rotator cuff tear or rupture of right shoulder, not specified as traumatic (principal)
CPT/HCPCS: 73221

== ENCOUNTER → 2025-02-22 19:31 | Outpatient (BNV) | payer OTHER, SELFPAY | PROVIDERS: PCP Internal Medicine; Visit Provider Radiology Diagnostic Radiology | DX: M75.111 Incomplete rotator cuff tear or rupture of right shoulder, not specified as traumatic (principal); M25.461 Effusion, right knee; M19.011 Primary osteoarthritis, right shoulder | CPT/HCPCS: 73221 ==

== ENCOUNTER 2025-03-24 08:27 | Outpatient (REF) | payer OTHER, SELFPAY ==
--- OUTSIDE RECORDS SUMMARY | 2025-03-24 10:06 | XMS_ITS | Patient Health Record ---
Author Organization [facility] Address [address] [place] [phone] Care Team Providers Care Pageant Director Name Role Phone Moshe Morelos Unavailable [phone] Reason For Referral No Information Plan Of Treatment No Information
[2025-03-24 10:24] LABS: Blood Urea Nitrogen 18 mg/dL (9-16); Estimated Glomerular Filt Rate 57
== END 2025-03-24 08:28 | disposition home or self-care (01) ==
LOC: HO.LAB 08:27
PROVIDERS: Absent Provider Internal Medicine; PCP Internal Medicine; Visit Provider Surgery Vascular Surgery
DX: I73.9 Peripheral vascular disease, unspecified (principal)
CPT/HCPCS: 36415; 82565; 84520

== ENCOUNTER 2025-03-25 08:49 | Outpatient (REF) | payer OTHER, SELFPAY ==
--- NOTE | ~2025-03-25 | CT_ITS ---
EXAMINATION: CT ANGIOGRAPHY LEGS WITH RUNOFF CLINICAL INFORMATION: Peripheral vascular disease COMPARISON: Previous CT of the abdomen and pelvis August 2024 TECHNIQUE: Axial images through the abdomen and pelvis and bilateral lower extremities following 100 mL Omnipaque 350 IV contrast. Sagittal and coronal and 3-D MIP reconstructions were obtained on an independent workstation. DLP 7 6 7 mgy/cm This CT examination was performed using dose optimization techniques as appropriate, variously including the following: *Automated exposure control *Adjustment of mA and/or kV according to patient size (this includes techniques or standardized protocols for targeted exams where dose is matched to indication/reason for exam; i.e. extremities or head) *Use of iterative reconstruction technique FINDINGS: Vascular: Mild vessel wall calcification. The abdominal aorta is normal in caliber. No aneurysm or stenosis. The celiac axis, SMA and GAYLE are patent. There is a single patent right renal artery. There are 2 left renal arteries. Renal arteries are patent. There is mild stenoses of the right common iliac artery. The right external iliac artery is patent. There is a mild stenosis at the origin of the right internal iliac artery. The left common, external and internal iliac arteries are patent. Right: The right common femoral artery is patent. The right profunda is patent. The right SFA is patent. The right above the below knee popliteal arteries are patent. There is three-vessel runoff to the right lower leg. Anterior tibial artery crosses the ankle joint is a patent dorsalis pedis artery and posterior tibial artery is a patent common plantar artery in the right foot. Left: The left common femoral artery is patent. The left profunda is patent. The left SFA is patent. The left above the below knee popliteal arteries are patent. There is three-vessel runoff to the left lower leg. Anterior tibial artery crosses the ankle joint is a patent dorsalis pedis artery and posterior tibial artery is a patent common plantar artery in the left foot. The lung bases are clear. Liver slightly enlarged right lobe measuring 18 cm in length. Liver is otherwise normal. No focal lesion or evidence of cirrhosis. Normal spleen, gallbladder, and pancreas. No biliary duct dilatation. Areas of renal cortical thinning or scarring of both kidneys. 1 cm low-attenuation lesion in the mid right kidney probably representing a cyst. No stone or hydronephrosis. Diverticulosis of the colon. No evidence of diverticulitis. Small and large bowel otherwise normal. Normal appendix. Normal-appearing stomach. Bladder and pelvic structures not seen due to artifact from bilateral hip replacements. No ascites adenopathy or free air. Degenerative changes of the spine. Bilateral hip replacements. Stable sclerotic density in the pelvic bone right pelvis superior to the hip replacement, question representing cement. Degenerative changes at the knee joints, left greater than right. Surgical screws in first metatarsal bones in the feet. CT/CT angio abd aorta runoff IMPRESSION: Mild atherosclerotic disease. There is mild narrowing of the right common and internal iliac arteries. Otherwise unremarkable exam without significant stenosis or occlusion seen. Slightly enlarged liver. Diverticulosis of the colon. Right renal cyst and mild bilateral renal cortical thinning or scarring. Electronically signed by: Jazmine Venegas MD 03/25/2025 04:43 PM [facility]
--- OUTSIDE RECORDS SUMMARY | 2025-03-25 08:55 | XMS_ITS | Data Portability ---
Author Organization [employer] [facility], [facility] [employer] Address [address] [place] [phone] Care Team Providers Care Advertising Display Rotator Name Role Phone [facility] Referring Provider Assessment [...] ICD10 Code Diagnosis IMO Codes Diagnosis Note [id number] Gary Johnson MD Main - [facility] [address] [place] [phone] 11/03/2022 17:30:35 03/01/2023 10:47:17 Strain of neck muscle [id number] S16.1XXA This 62-year-ol d female called complsarkisin [...] Member ID Mendiola Member ID Guarantor Name 02/25/2025 1 [facility] - DOS ON OR AFTER 2022 - DUAL ELIGIBLE - PENITENTIARY OPTIONS AND ONE CARE (MEDICARE REPLACEMENT/ADV ANTAGE - HMO) Pamela Hale [id number] Pamela Hale Notes Date Note Type Note [...] .................. .................. .................. .................. .................. .................. ............... Library Aide Note From Richa Bower: Sent to a [...] .................. ............... Disposition: Fulfilled Gary Johnson MD [address] [place] [address],[address] [facility], [place], [phone], [employer] 02/28/2023 14:25:58 OBGyn Episode No OBEpisode recorded.
--- OUTSIDE RECORDS SUMMARY | 2025-03-25 08:55 | XMS_ITS | Patient Health Record ---
Author Organization [facility] Address [address] [place] [phone] Care Team Providers Care Adolescent Counselor Name Role Phone Moshe Morelos Unavailable [phone] Reason For Referral No Information Plan Of Treatment No Information
[2025-03-25] MEDS: iohexoL 350 MG/ML 100 ML INFUS..BTL IV (10:33)
== END 2025-03-25 08:50 | disposition home or self-care (01) ==
LOC: HO.CT 08:49
PROVIDERS: PCP Internal Medicine; Visit Provider Surgery Vascular Surgery
DX: I73.9 Peripheral vascular disease, unspecified (principal)
CPT/HCPCS: 75635; Q9967

== ENCOUNTER → 2025-03-25 08:51 | Outpatient (BNV) | payer OTHER, SELFPAY | PROVIDERS: PCP Internal Medicine; Visit Provider Radiology Diagnostic Radiology | DX: I25.10 Atherosclerotic heart disease of native coronary artery without angina pectoris (principal); I73.9 Peripheral vascular disease, unspecified | CPT/HCPCS: 75635 ==